=== PATIENT | male | born 1945 | race African-American/Black ===

== ENCOUNTER 2016-10-12 11:59 | Inpatient (IN) | payer OTHER ==
--- NOTE | 2016-10-12 12:02 | PDOC ---
[id number] Limitations: No Limitations - History of Present Illness Initial Comments: 10/12/16 12:15 The patient is a 71 year old male, with a significant past medical history of hypertension, COPD, GERD, ESRD (on dialysis Tuesday//Tuesday) and generalized epilepsy, who presents to the emergency department via EMS from [facility] in respiratory distress. prison records report that the patient was found to be short of breath this morning. The patient was subsequently given an Albuterol treatment at approximately 11AM, with no relief of symptoms. EMS was then initiated to bring the patient to the ED. prison records indicate that the patient last received dialysis 3 days ago and and was scheduled for dialysis this morning but was unable to receive it as he is currently in the ED. EMS placed the patient on a nonrebreather en route to the ED. Upon arrival to the ED, the patient is endorsing shortness of breath. The patient is a poor historian; the majority of history is provided by care home records and EMS. Allergies: None reported. Past Surgical History: Dialysis shunt. Social History: Unknown. PCP: Dr. Gayla Gerard <Nyaeli Fong - Last Filed: 10/12/16 13:26> <Bethany Doss - Last Filed: 10/12/16 15:53> - General Chief Complaint: Respiratory Stated Complaint: SHORTNESS OF BREATH Time Seen by Provider: 10/12/16 12:01 Past History <Nayeli Fong - Last Filed: 10/12/16 13:26> <Bethany Doss - Last Filed: 10/12/16 15:53> - Past Medical History Allergies/Adverse Reactions: Allergies Allergy/AdvReac Type Severity Reaction Status Date / Time No Known Allergies Allergy Verified 10/12/16 12:00 Home Medications: Ambulatory Orders Acetaminophen 650 mg PO Q6H PRN 10/12/16 Albuterol 0.083% Nebulizer Camryn [Ventolin 0.083%] 1 neb NEB QID 10/12/16 Amiodarone HCl 200 mg PO DAILY 10/12/16 Amlodipine Besylate 10 mg PO DAILY 10/12/16 Apixaban [Eliquis] 5 mg PO BID 10/12/16 Calcitriol [Rocaltrol -] 0.25 mcg PO DAILY 10/12/16 Famotidine 20 mg PO BID 10/12/16 Haloperidol 0.5 mg PO TID 10/12/16 Hydralazine HCl [Apresoline -] 25 mg PO TID 10/12/16 Ipratropium 0.02% Nebulizer [Atrovent *Nebulizer*] 0.5 mg IH Q6H 10/12/16 Perphenazine 6 mg PO BID 10/12/16 Vitamin B Comp W-C [Nephro-Juana] 1 ea PO DAILY 10/12/16 Review of Systems - Review of Systems Able to Perform ROS?: Yes Comments:: 10/12/16 12:15 GENERAL/CONSTITUTIONAL: No fever or chills. No weakness. HEAD, EYES, EARS, NOSE AND THROAT: No change in vision. No ear pain or discharge. No sore throat. CARDIOVASCULAR: +Shortness of breath. No chest pain. RESPIRATORY: No cough, wheezing, or hemoptysis. GASTROINTESTINAL: No nausea, vomiting, diarrhea or constipation. GENITOURINARY: No dysuria, frequency, or change in urination. MUSCULOSKELETAL: No joint or muscle swelling or pain. No neck or back pain. SKIN: No rash. NEUROLOGIC: No headache, vertigo, loss of consciousness, or change in strength/ sensation. ENDOCRINE: No increased thirst. No abnormal weight change. HEMATOLOGIC/LYMPHATIC: No anemia, easy bleeding, or history of blood clots. ALLERGIC/IMMUNOLOGIC: No hives or skin allergy. <Nayeli Fong - Last Filed: 10/12/16 13:26> *Physical Exam - Vital Signs Last Vital Signs Temp Pulse Resp BP Pulse Ox 85 26 H 160/73 100 10/12/16 12:01 10/12/16 12:01 10/12/16 12:01 10/12/16 12:01 <Nayeli Fong - Last Filed: 10/12/16 13:26> - Physical Exam Comments: GENERAL: Awake, alert, and fully oriented, in respiratory distress. HEAD: No signs of trauma EYES: PERRLA, EOMI, sclera anicteric, conjunctiva +chemosis. +Periorbital edema. ENT: Auricles normal inspection, hearing grossly normal, nares patent, oropharynx clear without exudates. Moist mucosa NECK: Normal ROM, supple, no lymphadenopathy, JVD, or masses LUNGS: +Diffuse rales. Dec BS R base. HEART: Regular rate and rhythm, normal S1 and S2, no murmurs, rubs or gallops ABDOMEN: Soft, nontender, normoactive bowel sounds. No guarding, no rebound. No masses EXTREMITIES: LUE with 2+ edema. Remainder of extremities with normal range of motion, no edema. No clubbing or cyanosis. No cords, erythema, or tenderness NEUROLOGICAL: Cranial nerves II through XII grossly intact. Garbled speech. Motor and sensation intact. SKIN: Warm, Dry, normal turgor, no rashes or lesions noted. <Bethany Doss - Last Filed: 10/12/16 15:53> Procedures - Intubation Time of Intubation: 13:40 Intubation Method: orotracheal Blade used: Mac (4) Tube Size (Fr): 7.5 Medications: Etomidate, Succinylcholine Tube position @ lip (cm): 23 Tube position confirmed by: Direct visualization, CO2 detector, Chest x-ray, Breath sounds Breath Sounds after Intubation: equal Intubation Complications: no complications Post Intubation Xray: Yes <Bethany Doss - Last Filed: 10/12/16 15:53> ED Treatment Course - LABORATORY CBC & Chemistry Diagram: 10/12/16 12:15 10/12/16 12:15 <Nayeli Fong - Last Filed: 10/12/16 13:26> - LABORATORY CBC & Chemistry Diagram: 10/12/16 12:15 10/12/16 12:15 <Bethany Doss - Last Filed: 10/12/16 15:53> Medical Decision Making - Medical Decision Making 10/12/16 13:12 EXAM: RAD/CHEST X-RAY PORTABLE Reviewed By: Dr. Robert Leo IMPRESSION: Left sided catheter. Moderately large right effusion. Case discussed with Dr. Viji Stokes at 13:08. <Nayeli Fong - Last Filed: 10/12/16 13:26> - Critical Care Time Total Critical Care Time (minutes): 45 Critical Care Statement: The care of this patient involved high complexity decision making to prevent further life threatening deterioration of the patient 's condition and/or to evalute & treat vital organ system(s) failure or risk of failure. - Medical Decision Making 10/12/16 13:09 D/w Dr. Stokes. Pt with history of dementia, ESRD on HD. He frequently refuses his dialysis treatments, and despite the dementia, they are unable to proceed, as he becomes combative and aggressive at times. He was scheduled for HD this morning, but became acutely short of breath and could not go, was transferred to ED. Exam on arrival showed respiratory distress with edema to the face. His voice was garbled, raising concern for vocal cord edema. Will admit. I will discuss with Dr. Banks for ICU approval. Dr. Maciel is en route. 10/12/16 13:40 PT intubated for concern of laryngeal edema. Noted to have mild edema of the cords on direct visualization. Intubated without any complications. Will transfer to ICU. <Bethany Doss - Last Filed: 10/12/16 15:53> *DC/Admit/Observation/Transfer - Attestations Scribe Attestion: 10/12/16 12:15 Documentation prepared by Nayeli Fong, acting as medical instrument technician for Bethany Doss MD. <Nayeli Fong - Last Filed: 10/12/16 13:26> - Discharge Dispostion Admit: Yes <Bethany Doss - Last Filed: 10/12/16 15:53> Diagnosis at time of Disposition: Hyperkalemia Hypothermia Qualifiers: Encounter type: initial encounter Qualified Code(s): T68.XXXA - Hypothermia, initial encounter Sepsis Qualifiers: Sepsis type: sepsis due to unspecified organism Qualified Code(s): A41.9 - Sepsis, unspecified organism Fluid overload Qualifiers: Hypervolemia type: unspecified Qualified Code(s): E87.70 - Fluid overload, unspecified - Discharge Dispostion Condition at time of disposition: Critical - Referrals
[2016-10-12 12:34] LABS: BASOPHIL 0.3 % (0-2.0); EOSINOPHIL 0.3 % (0-4.5); MCH 28.2 pg (25.7-33.7); MCHC 32.5 g/dl (32.0-35.9); MEAN PLT VOLUME 9.3 fl (7.5-11.1); NEUTROPHILS 93.5 % (42.8-82.8); RDW 26.9 % (11.9-15.9); WHITE BLOOD COUNT 8.6 K/mm3 (4.0-10.0)
[2016-10-12 12:46] LABS: VENOUS BLOOD GAS HCO3 24.2 meq/L (19-25)
[2016-10-12 12:47] LABS: VENOUS PH 7.21 (7.32-7.42)
[2016-10-12] MEDS ORDERED: PIPERACILLIN/TAZOB 3.375 GM 3.375 GM in DEXTROSE 5%-WATER - 50 ML IVPB ONE (12:51)
[2016-10-12] MEDS ORDERED: VANCOMYCIN 1,000 MG in DEXTROSE 5%-WATER - 250 ML IVPB ONE (12:51)
[2016-10-12 12:53] LABS: ALBUMIN 2.7 g/dl (3.4-5.0); ANION GAP 12 (8-16); BILIRUBIN,TOTAL 0.4 mg/dL (0.2-1.0); CALCIUM 8.2 mg/dL (8.5-10.1); CO2 24 mmol/L (21-32); COCKROFT - GAULT 11.29; CREATININE 5.3 mg/dL (0.7-1.3); GLUCOSE,RANDOM 81 mg/dL (74-106); SGPT/ALT 36 U/L (12-78)
[2016-10-12 12:56] LABS: ALK PHOS 158 U/L (45-117); SGOT/AST 50 U/L (15-37); TROPONIN I < 0.02 ng/ml (0.00-0.05)
[2016-10-12] MEDS ORDERED: PIPERACILLIN/TAZOB 3.375 GM 50 ML IVPB ONE (12:56)
[2016-10-12] MEDS ORDERED: VANCOMYCIN 1 GRAM (PRE-DOCKED) 250 ML IVPB ONE (12:56)
[2016-10-12 13:02] LABS: INR 1.2 (0.82-1.09); PROTHROMBIN TIME (PATIENT) 13.3 SEC (9.98-11.88)
--- NOTE | 2016-10-12 13:11 | HP ---
Admitting History and Physical - Primary Care Physician PCP: Gayla Gerard - Admission Chief Complaint: respiratory failure History of Present Illness: 71 yrs old male sent from [facility] for respiratory distress. PMH- ESRD on HD, Dementia, agitation, known to refuse treatments and dialysis, h /o cardiac arrest in 08/27, Rt subclavian DVT , Atrial flutter. Pt 's last dialysis was Tuesday , he was due for dialysis today but became very SOB. He is lethargic. Unsure if he had completed dialysis last Tuesday. Pt seen and examined in ER Spoke with Dr Doss. Pt on BIPAP-- breathing appears to be more shallow. History Source: Medical Record Limitations to Obtaining History: Other (lethargy, SOB , on BIPAP) - Past Medical History TOWER DIRECTOR: Yes: Dementia Cardiovascular: Yes: CAD (h/o cardiac arrest 08/2016), HTN, Other (Atrial flutter ) Renal/: Yes: Other (ESRD on HD) Heme/Onc: Yes: Other (Rt subclavian DVT) Psych: Yes: Schizophrenia, Other (dementia) - Smoking History Smoking history: Unknown if ever smoked - Alcohol/Substance Use Hx Alcohol Use: No Home Medications - Allergies Allergies/Adverse Reactions: Allergies Allergy/AdvReac Type Severity Reaction Status Date / Time No Known Allergies Allergy Verified 10/12/16 12:00 - Home Medications Home Medications: Ambulatory Orders Acetaminophen 650 mg PO Q6H PRN 10/12/16 Albuterol 0.083% Nebulizer Camryn [Ventolin 0.083%] 1 neb NEB QID 10/12/16 Amiodarone HCl 200 mg PO DAILY 10/12/16 Amlodipine Besylate 10 mg PO DAILY 10/12/16 Apixaban [Eliquis] 5 mg PO BID 10/12/16 Calcitriol [Rocaltrol -] 0.25 mcg PO DAILY 10/12/16 Famotidine 20 mg PO BID 10/12/16 Haloperidol 0.5 mg PO TID 10/12/16 Hydralazine HCl [Apresoline -] 25 mg PO TID 10/12/16 Ipratropium 0.02% Nebulizer [Atrovent *Nebulizer*] 0.5 mg IH Q6H 10/12/16 Perphenazine 6 mg PO BID 10/12/16 Vitamin B Comp W-C [Nephro-Juana] 1 ea PO DAILY 10/12/16 Review of Systems Unable to obtain ROS, reason: lethargic Physical Examination Vital Signs: Vital Signs Temperature 93.6 F L 10/12/16 12:41 Pulse Rate 81 10/12/16 12:41 Respiratory Rate 30 H 10/12/16 12:41 Blood Pressure 160/73 10/12/16 12:41 O2 Sat by Pulse Oximetry (%) 100 10/12/16 12:41 Constitutional: Yes: Severe Distress HENT: Yes: Other (facial edema, periorbital edema+) Cardiovascular: Yes: Regular Rate and Rhythm Respiratory: Yes: Diminished, Other (left permacath +) Gastrointestinal: Yes: Soft, Abdomen, Obese. No: Normal Bowel Sounds, Tenderness Extremities: Yes: Other (anasarca , left arm more swollwn than rt arm) Edema: Yes Neurological: Yes: Lethargy Labs: CBC, BMP 10/12/16 12:15 10/12/16 12:15 Imaging - Results Chest X-ray: Image Reviewed (large right pleural effusion) EKG: Image Reviewed (atrial flutter) Problem List - Problems (1) Hypothermia Code(s): T68.XXXA - HYPOTHERMIA, INITIAL ENCOUNTER Qualifiers: Encounter type: initial encounter Qualified Code(s): T68.XXXA - Hypothermia, initial encounter (2) Respiratory failure Code(s): J96.90 - RESPIRATORY FAILURE, UNSP, UNSP W HYPOXIA OR HYPERCAPNIA (3) Pleural effusion, right Code(s): J90 - PLEURAL EFFUSION, NOT ELSEWHERE CLASSIFIED (4) ESRD (end stage renal disease) on dialysis Code(s): N18.6 - END STAGE RENAL DISEASE Z99.2 - DEPENDENCE ON RENAL DIALYSIS (5) Dementia Code(s): F03.90 - UNSPECIFIED DEMENTIA WITHOUT BEHAVIORAL DISTURBANCE Assessment/Plan PLAN Received Zosyn and Vanco in ER Will continue with Zosyn Needs urgent intubation- spoke with ER attending Spoke with Renal-- pt will need to get dialysis cultures drawn may need steroids for hypothermia continue with anticoagulation through OGT DVT prophylaxis-- Eliquis Time spent 30 min
[2016-10-12 13:20] LABS: ANISOCYTOSIS 2+; FRAGMENTED CELL 1+; PLATELET COUNT 99 K/MM3 (134-434); PLATELET ESTIMATE DECREASED (NORMAL)
[2016-10-12] MEDS ORDERED: RAPID SEQUENCE INTUBATION KIT NR ONE (13:23)
[2016-10-12] MEDS ORDERED: SUCCINYLCHOLINE CHLORIDE 200 MG/10 ML VIAL IVPUSH ONE (13:41)
[2016-10-12] MEDS ORDERED: ETOMIDATE 40 MG/20 ML VIAL IVPUSH ONE (13:41)
[2016-10-12] MEDS ORDERED: PROPOFOL 100 ML ONE (13:59)
--- NOTE | 2016-10-12 15:06 | PN ---
Teaching Attending Note Name of Resident: Michelle Lopez ATTENDING PHYSICIAN STATEMENT I saw and evaluated the patient. I reviewed the resident's note and discussed the case with the resident. I agree with the resident's findings and plan as documented. SUBJECTIVE: Pt seen and examined in the ER. Briefly, 71 year old male with h/o HTN, COPD, GERD, ESRD on HD, seizure disorder, h/o DVT, atrial fibrillation on eliquis was [facility] the [facility] for [facility] distress. Pt altered, unable to provide further history. Was scheduled for HD today but did not receive it yet. Noted to have facial swelling in the ER with respiratory acidosis on VBG, subsequently intubated. Of note, laryngeal edema seen during intubation. OBJECTIVE: Last Vital Signs Temp Pulse Resp BP Pulse Ox 93.6 F L 81 12 160/73 100 10/12/16 12:41 10/12/16 12:41 10/12/16 13:45 10/12/16 12:41 10/12/16 12:41 Intake & Output 10/09/16 10/10/16 10/11/16 10/12/16 23:59 23:59 23:59 23:59 Weight 141 lb 12.8 oz Gen: intubated, sedated Heart: RRR Lung: decreased breath sounds at the bases Abd: soft, nontender Ext: no edema CBC, BMP 10/12/16 12:15 10/12/16 12:15 Active Medications Albuterol Sulfate (Ventolin 0.083% Nebulizer Soln -) 1 amp NEB QIDR MARLYN Propofol (Diprivan -) 100 mls @ 1.93 mls/hr IVPB TITR MARLYN; 5 MCG/KG/MIN PRN Reason: Protocol ASSESSMENT AND PLAN: Acute Hypoxic and Hypercapneic Respiratory Failure Airway/Facial Edema r/o SVC syndrome vs Volume Overload COPD Atrial Fibrillation HTN ESRD on HD Seizure Disorder - HD per renal with ultrafiltration - empiric decadron - will need imaging with contrast to r/o SVC syndrome, coordinate with HD - send cultures - inhaled bronchodilators - taper FiO2 to keep SpO2 >90% - rate controlled - continue anticoagulation - hold sedation in AM to assess mental status - spontaneous breathing trials as tolerated when mental status improved - will need leak test prior to extubation - DVT/GI prophylaxis - ICU monitoring Thank you for this consult Chuy Banks MD critical care time spent in reviewing chart, evaluating patient and formulating plan 40 min
[2016-10-12] MEDS: ALBUTEROL SO4 0.083% IH SOL 2.5 MG/3 ML VIAL.NEB. NEB SCH ×2 (16:12→17:34)
--- NOTE | 2016-10-12 16:25 | CONSULT ---
Consultation: REQUESTING PROVIDER: CONSULT REQUEST: We have been asked to medically evaluate this patient for (ICU) . HISTORY OF PRESENT ILLNESS: patient intubated, history taken from ED notes. 71 year old male, with a significant past medical history of hypertension, COPD , GERD, ESRD (on dialysis Tuesday//Tuesday) and generalized epilepsy, who presents to the emergency department via EMS from [facility] in respiratory distress. [facility] records report that the patient was found to be short of breath this morning. The patient was subsequently given an Albuterol treatment at approximately 11AM, with no relief of symptoms. patient last received dialysis 3 days ago and and was scheduled for dialysis this morning but was unable to receive. Upon arrival to the ED, the patient in Respiratory distress , s endorsing shortness of breath. The patient is a poor historian; the majority of history is provided by custodial records and EMS presents to ED Via [facility], Respratory distress respiratory acidosis on VBG, on physical exam facial swelling, laryngeal edema , subsequently intubated. Allergies: None reported. Past Surgical History: Dialysis shunt. Social History: Unknown. PCP: Dr. Gayla Gerard REVIEW OF SYSTEMS: can not obtain CONSTITUTIONAL: Absent: fever, chills, diaphoresis, generalized weakness, malaise, loss of appetite, weight change HEENT: Absent: rhinorrhea, nasal congestion, throat pain, throat swelling, difficulty swallowing, mouth swelling, ear pain, eye pain, visual changes CARDIOVASCULAR: Absent: chest pain, syncope, palpitations, irregular heart rate, lightheadedness , peripheral edema RESPIRATORY: Absent: cough, shortness of breath, dyspnea with exertion, orthopnea, wheezing, stridor, hemoptysis GASTROINTESTINAL: Absent: abdominal pain, abdominal distension, nausea, vomiting, diarrhea, constipation, melena, hematochezia GENITOURINARY: Absent: dysuria, frequency, urgency, hesitancy, hematuria, flank pain, genital pain MUSCULOSKELETAL: Absent: myalgia, arthralgia, joint swelling, back pain, neck pain SKIN: Absent: rash, itching, pallor HEMATOLOGIC/IMMUNOLOGIC: Absent: easy bleeding, easy bruising, lymphadenopathy, frequent infections ENDOCRINE: Absent: unexplained weight gain, unexplained weight loss, heat intolerance, cold intolerance NEUROLOGIC: Absent: headache, focal weakness or paresthesias, dizziness, unsteady gait, seizure, mental status changes, bladder or bowel incontinence PSYCHIATRIC: Absent: anxiety, depression, suicidal or homicidal ideation, hallucinations. PHYSICAL EXAMINATION Vital Signs - 24 hr 10/12/16 10/12/16 13:45 15:15 Temperature 94.6 F L Pulse Rate [ 74 65 Apical] Respiratory 20 16 Rate Blood Pressure 121/65 147/71 [Right] O2 Sat by Pulse 100 100 Oximetry (%) GENERAL:intubated and sedated HEAD: Normal with no signs of trauma. EYES: Pupils equal, round and reactive to light 3mm bilaterally, cornea reflex present. EARS, NOSE, THROAT: Ears normal, nares patent, oropharynx clear without exudates. Moist mucous membranes. NECK: supple without lymphadenopathy, JVD, or masses. LUNGS: distent breath sounds decreaed at bases, clear to auscultation bilaterally. No wheezes, and no crackles. No accessory muscle use. HEART: Regular rate and rhythm, normal S1 and S2 without murmur, rub or gallop. left cath inplace, no erythema, or discharge. ABDOMEN: Soft, nontender, not distended, normoactive bowel sounds, no guarding, no rebound, no masses. No hepatomegaly or splenomegaly. LOWER EXTREMITIES: 2+ pulses, warm, well-perfused. No calf tenderness. No peripheral edema. NEUROLOGICAL: intubated and sedated PSYCHIATRIC: intubated and sedated SKIN: Warm, dry, normal turgor, no rashes or lesions noted. Active Medications Generic Name Dose Route Start Last Admin Trade Name Freq PRN Reason Stop Dose Admin Albuterol Sulfate 1 amp 10/12/16 14:00 10/12/16 17:34 Ventolin 0.083% Nebulizer Soln - NEB 1 amp QIDR MARLYN Administration Amiodarone HCl 200 mg 10/12/16 18:30 Cordarone - PO DAILY MARLYN Amlodipine Besylate 10 mg 10/12/16 18:30 Norvasc - PO DAILY MARLYN Apixaban 5 mg 10/12/16 22:00 Eliquis - PO BID MARLYN Calcitriol 0.25 mcg 10/13/16 10:00 Rocaltrol - PO DAILY MARLYN Dexamethasone Sodium Phosphate 8 mg 10/12/16 18:30 Decadron Injection - IVPB Q8H-IV MARLYN Haloperidol 0.5 mg 10/12/16 22:00 Haldol - PO TID MARLYN Hydralazine HCl 25 mg 10/12/16 22:00 Apresoline - PO TID [facility] Propofol 100 mls @ 1.93 mls/hr 10/12/16 13:45 Diprivan - IVPB TITR [facility] Protocol 5 MCG/KG/MIN Ipratropium [place] amp 10/12/16 18:30 Atrovent 0.02% Nebulizer - NEB Q6H [facility] Multivit/Ca Carb/B Cmplx/FA/Prenat tablet 10/12/16 18:30 Nephro-Juana - PO DAILY [facility] Non-Formulary Medication 650 mg 10/12/16 18:25 Acetaminophen [Acetaminophen] PO Q6H PRN PAIN/TEMP Non-Formulary Medication 20 mg 10/12/16 22:00 Famotidine [Famotidine] PO BID [facility] Perphenazine 6 mg 10/12/16 22:00 Trilafon PO BID [facility] ASSESSMENT/PLAN: 71 year old male, with a significant past medical history of hypertension, COPD , GERD, ESRD (on dialysis Tuesday//Tuesday) and generalized epilepsy, who presents to the emergency department via EMS from [facility] in Respratory distress respiratory acidosis on VBG, on physical exam facial swelling, laryngeal edema, subsequently intubated. severe Sepsis: Hypothermia - send cultures - send cath cultures Acute Hypoxic and Hypercapneic Respiratory Failure- 2/2 pleural effusion - monitor pulse ox - taper FiO2 to keep SpO2 >90% - spontaneous breathing trials as tolerated when mental status improved - will need leak test prior to extubation - hold sedation in AM to assess mental status - CXR in am Airway/Facial Edema: unknown allergies -Decadron Injection -intubated to protect air way r/o SVC syndrome vs Volume Overload - will need imaging with contrast to r/o SVC syndrome, coordinate with HD - continue Eliquis - no IV access, once IV access is establish Dr. Lance will HD again tomorrow. COPD - inhaled bronchodilators Atrial Fibrillation- rate controlled cont home Amlodipine Besylate cont home Amiodarone HCl HTN for HD today will continue home Hydralazine HCl ESRD on HD: acute Fluid overload, hyperkalemia - HD per renal with ultrafiltration today - discussed with Dr. ly, Ok to HD via existing cath. - no IV access, once IV access is establish Dr. Lance will HD again tomorrow. Seizure Disorder: unsure of seizure history or medications status. I could not fined in medical chart. unable toiattain from patient. will attempt to atttain from PCP or pharmacy. Hyperkalemia HD today dementia: unaware of base line - DVT/GI prophylaxis: Eliquis/protonix - ICU monitoring Dispo: monitor in ICU Visit type - Emergency Visit Emergency Visit: Yes ED Registration Date: 10/12/16 Care time: The patient presented to the Emergency Department on the above date and was hospitalized for further evaluation of their emergent condition. - New Patient This patient is new to me today: Yes Date on this admission: 10/12/16 - Critical Care Critical Care patient: Yes Total Critical Care Time (in minutes): 56 Critical Care Statement: The care of this patient involved high complexity decision making to prevent further life threatening deterioration of the patient 's condition and/or to evalute & treat vital organ system(s) failure or risk of failure.
--- NOTE | 2016-10-12 18:06 | CONSULT ---
Consult Consult Specialty:: Nephrology Reason for Consultation:: ESRD on HD - History of Present Illness Chief Complaint: shortness of breath History of Present Illness: Pt is a 71 year old male with pmhx of HTN, COPD, ESRD TTS schedule, epilepsy and GERD who was sent to the hospital in respiratory distress. He developed worsening respiratory failure in the ER and required intubation. He was last dialyzed on Tuesday. I called HD unit to get details however they were closed. I was called to evaluate him for HD. Pt is was being intubated in the ER so he could not give much history. Pt is to be admitted to the ICU. - History Source History Provided By: Medical Record Limitations to Obtaining History: Clinical Condition - Past Medical History PARALEGALS: Yes: Dementia, Seizure Cardio/Vascular: Yes: HTN Pulmonary: Yes: COPD Gastrointestinal: Yes: GERD Renal/: Yes: Renal Failure, Hemodialysis Heme/Onc: Yes: Anemia - Alcohol/Substance Use Hx Alcohol Use: No - Smoking History Smoking history: Unknown if ever smoked Home Medications - Allergies Allergies/Adverse Reactions: Allergies Allergy/AdvReac Type Severity Reaction Status Date / Time No Known Allergies Allergy Verified 10/12/16 12:00 - Home Medications Home Medications: Ambulatory Orders Acetaminophen 650 mg PO Q6H PRN 10/12/16 Albuterol 0.083% Nebulizer Camryn [Ventolin 0.083%] 1 neb NEB QID 10/12/16 Amiodarone HCl 200 mg PO DAILY 10/12/16 Amlodipine Besylate 10 mg PO DAILY 10/12/16 Apixaban [Eliquis] 5 mg PO BID 10/12/16 Calcitriol [Rocaltrol -] 0.25 mcg PO DAILY 10/12/16 Famotidine 20 mg PO BID 10/12/16 Haloperidol 0.5 mg PO TID 10/12/16 Hydralazine HCl [Apresoline -] 25 mg PO TID 10/12/16 Ipratropium 0.02% Nebulizer [Atrovent *Nebulizer*] 0.5 mg IH Q6H 10/12/16 Perphenazine 6 mg PO BID 10/12/16 Vitamin B Comp W-C [Nephro-Juana] 1 ea PO DAILY 10/12/16 Family Disease History - Family Disease History Family History: Unable to Obtain Review of Systems Unable to obtain ROS, reason: pt intubated Physical Exam Vital Signs: Vital Signs Temperature 94.6 F L 10/12/16 15:15 Pulse Rate 64 10/12/16 17:34 Respiratory Rate 12 10/12/16 17:34 Blood Pressure 147/71 10/12/16 15:15 O2 Sat by Pulse Oximetry (%) 100 10/12/16 17:34 Constitutional: Yes: Anxious Eyes: Yes: Other (edema) HENT: Yes: Atraumatic Cardiovascular: Yes: Tachycardia, S1, S2 Respiratory: Yes: Mechanically Ventilated Gastrointestinal: Yes: Soft Renal/: Yes: Incontinence Musculoskeletal: Yes: Muscle Weakness Extremities: Yes: Other (left arm fistula) Edema: Yes Edema: LUE: 2+, RUE: 2+, LLE: 1+, RLE: 1+ Neurological: Yes: Confusion Psychiatric: Yes: Agitated Labs: Laboratory Tests 10/12/16 10/12/16 10/12/16 12:15 12:15 12:30 WBC 8.6 Hgb 8.0 L Plt Count 99 L VBG pH POC VBG pCO2 Sodium 131 L Potassium 5.8 H Chloride 95 L Carbon Dioxide 24 Anion Gap 12 BUN 56 H Creatinine 5.3 H Creat Clearance w eGFR 10.69 Lactic Acid 0.816 Calcium 8.2 L Creatine Kinase 112 Troponin I < 0.02 Albumin 2.7 L 10/12/16 10/12/16 12:45 14:21 WBC Hgb Plt Count VBG pH 7.21 L* POC VBG pCO2 62.3 H* Sodium Potassium Chloride Carbon Dioxide Anion Gap BUN Creatinine Creat Clearance w eGFR Lactic Acid 1.102 Calcium Creatine Kinase Troponin I Albumin Imaging - Results Chest X-ray: Report Reviewed Assessment/Plan Current Medications Generic Name Dose Route Start Last Admin Trade Name Freq PRN Reason Stop Dose Admin Albuterol Sulfate 1 amp 10/12/16 14:00 10/12/16 17:34 Ventolin 0.083% Nebulizer Soln - NEB 1 amp QIDR MARLYN Administration Epoetin Tyson 4,000 units 10/12/16 18:15 Epogen - IVPUSH 10/12/16 18:16 ONCE ONE Propofol 100 mls @ 1.93 mls/hr 10/12/16 13:45 Diprivan - IVPB TITR MARLYN Protocol 5 MCG/KG/MIN Impression 1. ESRD 2. hyperkalemia 3. dementia 4. acute hypoxic respiratory failure 5. pleural effusion 6. a-fib 7. epilepsy 8. hx COPD 9. anemia 10. airway and facial edema Plan - will arrange for HD today for volume removal and treatment of hyperkalemia - discussed with ICU team, pt going for ct scan with contrast to evaluate for SVC syndrome - cont vent support - repeat cxr in am - monitor blood pressure - will call HD unit again tomorrow to get more data bout outpt status - agree with admission to the ICU - monitor pulse ox - will follow closely Dr Maciel
[2016-10-12] MEDS ORDERED: EPOETIN ALFA 2,000 UNITS/1 ML VIAL IVPUSH ONE (18:15)
[2016-10-12] MEDS ORDERED: ACETAMINOPHEN 650 MG PO PRN (18:25)
[2016-10-12] MEDS ORDERED: ACETAMINOPHEN 325 MG TABLET (FP) PO PRN (18:39)
[2016-10-12] MEDS: IPRATROPIUM BR 0.02% 0.5 MG/2.5 ML VIAL.NEB. NEB SCH (18:52)
[2016-10-12] MEDS: PROPOFOL 100 ML IVPB SCH (19:00)
[2016-10-12 19:18] LABS: ALLENS TEST POSITIVE; ARTERIAL BLD GAS O2 SATURATION 97.3 % (90-98.9); ARTERIAL BLOOD GAS BASE EXCESS -0.1 meq/l (-2-2); ARTERIAL BLOOD GAS HCO3 23.6 meq/L (22-26); ARTERIAL BLOOD GAS pH 7.43 (7.35-7.45)
[2016-10-12 19:19] LABS: ART PUNCT SITE RIGHT RADIAL; LPM/O2% 60%; MECH. VENT. YES; PT. ON O2? YES; TYPE OF O2 MECH VENT; VENT RATE 12; VT/PRESS 500
[2016-10-12] MEDS ORDERED: DOPAMINE 400 MG/D5W - 250 ML IVPB ONE (19:48)
[2016-10-12] MEDS: hydrALAZINE HCL 25 MG TABLET (FP) PO SCH (21:41)
[2016-10-12] MEDS: amLODIPine BESYLATE 10 MG TABLET (FP) PO SCH (21:45)
[2016-10-12] MEDS: VITAMIN B COMP W-C 1 EA TABLET PO SCH (21:46)
[2016-10-12] MEDS: RANITIDINE HCL 150 MG TABLET (FP) PO SCH (22:00)
[2016-10-12] MEDS ORDERED: PATIENT'S OWN MEDICATION (NON-FORMULARY) (Famotidine [Famotidine] 20 MG) PO SCH (22:00)
--- NOTE | 2016-10-12 22:18 | EKG ---
Test Reason : Blood Pressure : / mmHG Vent. Rate : 063 BPM Atrial Rate : 063 BPM P-R Int : 170 ms QRS Dur : 100 ms QT Int : 456 ms P-R-T Axes : 033 063 -53 degrees QTc Int : 466 ms NORMAL SINUS RHYTHM NONSPECIFIC T WAVE ABNORMALITY PROLONGED QT ABNORMAL ECG NO PREVIOUS ECGS AVAILABLE Confirmed by ROWAN CM, FELIPE ([id number]) on 10/12/2016 10:18:13 PM Referred By: Confirmed By:FELIPE DONAHUE MD
[2016-10-12] MEDS: PANTOPRAZOLE SODIUM 100 ML IVPB SCH (22:45)
[2016-10-12] MEDS: DEXAMETHASONE SOD PHOSPHATE 10 MG/1 ML VIAL IVPB SCH (22:45)
[2016-10-12] MEDS: PERPHENAZINE 2 MG TABLET PO SCH (22:46)
[2016-10-12] MEDS: APIXABAN 5 MG TABLET PO SCH (22:46)
[2016-10-12] MEDS: HALOPERIDOL 0.5 MG TABLET PO SCH (22:46)
[2016-10-12] MEDS: AMIODARONE HCL 200 MG TABLET (FP) PO SCH (23:00)
[2016-10-13] MEDS: ALBUTEROL SO4 0.083% IH SOL 2.5 MG/3 ML VIAL.NEB. NEB SCH ×4 (00:30→17:27)
[2016-10-13] MEDS: IPRATROPIUM BR 0.02% 0.5 MG/2.5 ML VIAL.NEB. NEB SCH ×4 (00:30→17:27)
[2016-10-13] MEDS: DEXAMETHASONE SOD PHOSPHATE 10 MG/1 ML VIAL IVPB SCH ×3 (05:10→21:58)
[2016-10-13] MEDS: HALOPERIDOL 0.5 MG TABLET PO SCH ×3 (06:00→21:58)
[2016-10-13 06:09] LABS: MCH 28.2 pg (25.7-33.7); MCHC 32.4 g/dl (32.0-35.9); MEAN CELL VOLUME 87.1 fl (80-96); MEAN PLT VOLUME 9.1 fl (7.5-11.1); PLATELET COUNT 55 K/MM3 (134-434); WHITE BLOOD COUNT 4.1 K/mm3 (4.0-10.0)
[2016-10-13 06:34] LABS: ALBUMIN 2.8 g/dl (3.4-5.0); BILIRUBIN,TOTAL 0.4 mg/dL (0.2-1.0); CREATININE 3.9 mg/dL (0.7-1.3); PHOSPHOROUS 4.1 mg/dL (2.5-4.9); TOT PROT 5.9 g/dl (6.4-8.2)
[2016-10-13 06:36] LABS: FERRITIN 892.663 ng/ml (16.4-293.9)
[2016-10-13 07:19] LABS: MCH 28.7 pg (25.7-33.7); MCHC 32.9 g/dl (32.0-35.9); MEAN CELL VOLUME 87.3 fl (80-96); MEAN PLT VOLUME 8.8 fl (7.5-11.1); PLATELET COUNT 53 K/MM3 (134-434); RDW 26.8 % (11.9-15.9)
--- NOTE | 2016-10-13 07:47 | PN ---
Physical Exam: SUBJECTIVE: Patient seen and examined at bed side. s/p extubated, AAOx3. patient reports being hungry. over night BP decreased with start of HD, than normalized and stabilized with 500 cc IVNS. no line for pressors. hypothermia 95.4--> cooling blanket. for 2 units PRBC IV contrast Ct today s/p HD yesterday, HD today Facial swelling improved. History of gastric ulcer with hemorrhage per custodial documents. OBJECTIVE: Vital Signs Period Temp Pulse Resp BP Sys/Tripltet Pulse Ox Last 24 Hr 93.4 F-98 F 59-85 12-20 81-147/39-71 100-100 GENERAL: The patient is awake, alert, and oriented to person and place when prompted, NAD HEAD: Normal with no signs of trauma. large JAW. Facial swelling improved. EYES: extraocular movements intact, sclera anicteric, conjunctiva clear. ENT: Ears normal, nares patent, oropharynx clear without exudates, moist mucous membranes. NECK: Trachea midline, full range of motion, supple. LUNGS: Breath sounds equal, clear to auscultation bilaterally, no wheezes, no crackles, no accessory muscle use. HEART: Regular rate and rhythm, S1, S2 without murmur, rub or gallop. ABDOMEN: Soft, nontender, nondistended, normoactive bowel sounds, no guarding, no rebound, no hepatosplenomegaly, no masses. EXTREMITIES: 2+ pulses, warm, well-perfused, no edema. NEUROLOGICAL: Cranial nerves II through XII grossly intact. Normal speech, gait not observed. PSYCH: Normal mood, normal affect. SKIN: Warm, dry, normal turgor, no rashes or lesions noted Laboratory Results - last 24 hr 10/12/16 10/12/16 10/12/16 14:21 18:37 19:00 WBC RBC Hgb Hct MCV MCHC RDW Plt Count MPV Neutrophils % Lymphocytes % Retic Count Puncture Site ABG pH ABG pCO2 at Pt Temp ABG pO2 at Pt Temp ABG HCO3 ABG O2 Sat (Measured) ABG O2 Content ABG Base Excess Demetris Test O2 Delivery Device Oxygen Flow Rate Vent Mode Vent Rate Mechanical Rate PEEP Pressure Support Vent Sodium Potassium Chloride Carbon Dioxide Anion Gap BUN Creatinine Creat Clearance w eGFR POC Glucometer Random Glucose Lactic Acid 1.102 0.674 Calcium Phosphorus Magnesium Ferritin Total Bilirubin AST ALT Alkaline Phosphatase Total Protein Albumin Hepatitis C Antibody Cancelled 10/12/16 10/12/16 10/13/16 19:07 20:04 05:15 WBC 4.1 D RBC 2.06 L D Hgb 5.8 L* D Hct 17.9 L D MCV 87.1 MCHC 32.4 RDW 27.0 H Plt Count 55 L D MPV 9.1 Neutrophils % Y Lymphocytes % Y Retic Count 3.71 H Puncture Site Right radial ABG pH 7.43 ABG pCO2 at Pt Temp 36.6 ABG pO2 at Pt Temp 263.0 H* ABG HCO3 23.6 ABG O2 Sat (Measured) 97.3 ABG O2 Content 9.4 L* ABG Base Excess -0.1 Demetris Test Positive O2 Delivery Device Mech vent Oxygen Flow Rate 60% Vent Mode A/c Vent Rate 12 Mechanical Rate Yes PEEP 5.0 Pressure Support Vent 500 Sodium Potassium Chloride Carbon Dioxide Anion Gap BUN Creatinine Creat Clearance w eGFR POC Glucometer [id number] Random Glucose Lactic Acid Calcium Phosphorus Magnesium Ferritin Total Bilirubin AST ALT Alkaline Phosphatase Total Protein Albumin Hepatitis C Antibody 10/13/16 10/13/16 10/13/16 05:15 05:15 06:45 WBC 4.0 RBC 2.14 L Hgb 6.2 L* Hct 18.7 L MCV 87.3 MCHC 32.9 RDW 26.8 H Plt Count 53 L MPV 8.8 Neutrophils % Lymphocytes % Retic Count Puncture Site ABG pH ABG pCO2 at Pt Temp ABG pO2 at Pt Temp ABG HCO3 ABG O2 Sat (Measured) ABG O2 Content ABG Base Excess Demetris Test O2 Delivery Device Oxygen Flow Rate Vent Mode Vent Rate Mechanical Rate PEEP Pressure Support Vent Sodium 139 Potassium 4.4 D Chloride 101 Carbon Dioxide 28 Anion Gap 10 BUN 36 H D Creatinine 3.9 H D Creat Clearance w eGFR 15.23 POC Glucometer Random Glucose 71 L Lactic Acid 0.777 Calcium 8.0 L Phosphorus 4.1 Magnesium 2.0 Ferritin 892.663 H Total Bilirubin 0.4 AST 16 D ALT 23 D Alkaline Phosphatase 112 D Total Protein 5.9 L Albumin 2.8 L Hepatitis C Antibody Active Medications Generic Name Dose Route Start Last Admin Trade Name Freq PRN Reason Stop Dose Admin Acetaminophen 650 mg 10/12/16 18:39 Tylenol - PO Q4H PRN FEVER OR PAIN Albuterol Sulfate 1 amp 10/12/16 14:00 10/13/16 05:55 Ventolin 0.083% Nebulizer Soln - NEB 1 amp QIDR MARLYN Administration Amiodarone HCl 200 mg 10/12/16 18:30 10/12/16 23:00 Cordarone - PO 200 mg DAILY MARLYN Administration Amlodipine Besylate 10 mg 10/12/16 18:30 10/12/16 21:45 Norvasc - PO Not Given DAILY MARLYN Apixaban 5 mg 10/12/16 22:00 10/12/16 22:46 Eliquis - PO 5 mg BID MARLYN Administration Calcitriol 0.25 mcg 10/13/16 10:00 Rocaltrol - PO DAILY MARLYN Dexamethasone Sodium Phosphate 8 mg 10/12/16 18:30 10/13/16 05:10 Decadron Injection - IVPB 8 mg Q8H-IV MARLYN Administration Haloperidol 0.5 mg 10/12/16 22:00 10/12/16 22:46 Haldol - PO 0.5 mg TID MARLYN Administration Hydralazine HCl 25 mg 10/12/16 22:00 10/12/16 21:41 Apresoline - PO Not Given TID MARLYN Propofol 100 mls @ 1.93 mls/hr 10/12/16 13:45 10/12/16 19:00 Diprivan - IVPB 1.93 mls/hr TITR MARLYN Administration Protocol 5 MCG/KG/MIN Pantoprazole Sodium 100 mls @ 200 mls/hr 10/12/16 19:00 10/12/16 22:45 Protonix 40mg Ivpb (Pre-Docked) IVPB 200 mls/hr DAILY MARLYN Administration Ipratropium [place] 1 amp 10/12/16 18:45 10/13/16 05:55 Atrovent 0.02% Nebulizer - NEB 1 amp Q6HPO MARLYN Administration Multivit/Ca Carb/B Cmplx/FA/Prenat 1 tablet 10/12/16 18:30 10/12/16 21:46 Nephro-Juana - PO Not Given DAILY MARLYN Perphenazine 6 mg 10/12/16 22:00 10/12/16 22:46 Trilafon PO 6 mg BID MARLYN Administration Ranitidine HCl 150 mg 10/12/16 22:00 10/12/16 22:00 Zantac - PO Not Given BID [facility] ASSESSMENT/PLAN: 71 year old male, with a significant past medical history of hypertension, GI bleed secodary to ulcers, COPD, GERD, ESRD (on dialysis Tuesday// Tuesday) and generalized epilepsy, who presents to the emergency department via EMS from [facility] in Respratory distress respiratory acidosis on VBG, on physical exam facial swelling, laryngeal edema, subsequently intubated. severe Sepsis: Hypothermia resolved -f/u bcx, Ucx, cath cultures Acute Hypoxic and Hypercapneic Respiratory Failure- 2/2 pleural effusion - monitor pulse ox - taper FiO2 to keep SpO2 >90% - inhaled bronchodilators - spontaneous breathing trials as tolerated when mental status improved - will need leak test prior to extubation - hold sedation in AM to assess mental status - CXR in am - possible thoracentesis Anemia: possible secondary Upper GI bleed,( history of hemorrhagic ulcers) v sepsis v medication induced v Fe def anemai v ACD ordered 2 units of blood HD today occult blood d/c eliquist Airway/Facial Edema: unknown allergies: much improvement -decrease decadron to 6mg q12h -intubated to protect air way r/o SVC syndrome vs Volume Overload: less likely SVC as patient responded to HD and steriods - will not need ct contrast at this time. - will follow US upper Ext- continue Eliquis COPD - inhaled bronchodilators Atrial Fibrillation- rate controlled cont home Amlodipine Besylate cont home Amiodarone HCl hold anticoagulation due to anemia and possible thoracentesis HTN For HD today will continue home Hydralazine HCl ESRD on HD: acute Fluid overload, hyperkalemia - HD per renal with ultrafiltration today Seizure Disorder: unsure of seizure history or medications status. I could not fined in medical chart. unable toiattain from patient. will attempt to attain from PCP or pharmacy. Hyperkalemia HD today dementia: unaware of base line - DVT/GI prophylaxis: Eliquis/protonix - ICU monitoring - DVT/GI prophylaxis - SCD's/protnix Dispo: monitor in ICU Visit type - Emergency Visit Emergency Visit: Yes ED Registration Date: 10/12/16 Care time: The patient presented to the Emergency Department on the above date and was hospitalized for further evaluation of their emergent condition. - New Patient This patient is new to me today: No - Critical Care Critical Care patient: Yes Total Critical Care Time (in minutes): 53 Critical Care Statement: The care of this patient involved high complexity decision making to prevent further life threatening deterioration of the patient 's condition and/or to evalute & treat vital organ system(s) failure or risk of failure.
[2016-10-13 07:56] LABS: ALLENS TEST POSITIVE; ART PUNCT SITE RIGHT RADIAL; ARTERIAL BLD GAS O2 SATURATION 98.1 % (90-98.9); ARTERIAL BLOOD GAS BASE EXCESS 3.7 meq/l (-2-2); ARTERIAL BLOOD GAS HCO3 26.9 meq/L (22-26); LPM/O2% 35%; MECH. VENT. YES; PT'S TEMP 97.7; PT. ON O2? YES; TYPE OF O2 VENT; VENT RATE 12; VT/PRESS 500
--- NOTE | 2016-10-13 08:10 | PN ---
Progress Note, Physician Chief Complaint: ID Consult dictated and discussed with housestaff Given Marc and Marleen initially Hypotheramic anemic hypotensive - Current Medication List Current Medications: Active Medications Acetaminophen (Tylenol -) 650 mg PO Q4H PRN PRN Reason: FEVER OR PAIN Albuterol Sulfate (Ventolin 0.083% Nebulizer Soln -) 1 amp NEB QIDR [facility] Last Admin: 10/13/16 05:55 Dose: 1 amp Amiodarone HCl (Cordarone -) 200 mg PO DAILY [facility] Last Admin: 10/12/16 23:00 Dose: 200 mg Amlodipine Besylate (Norvasc -) 10 mg PO DAILY [facility] Last Admin: 10/12/16 21:45 Dose: Not Given Apixaban (Eliquis -) 5 mg PO BID [facility] Last Admin: 10/12/16 22:46 Dose: 5 mg Calcitriol (Rocaltrol -) 0.25 mcg PO DAILY [facility] Dexamethasone Sodium Phosphate (Decadron Injection -) 8 mg IVPB Q8H-IV [facility] Last Admin: 10/13/16 05:10 Dose: 8 mg Haloperidol (Haldol -) 0.5 mg PO TID [facility] Last Admin: 10/12/16 22:46 Dose: 0.5 mg Hydralazine HCl (Apresoline -) 25 mg PO TID [facility] Last Admin: 10/12/16 21:41 Dose: Not Given Propofol (Diprivan -) 100 mls @ 1.93 mls/hr IVPB TITR MARLYN; 5 MCG/KG/MIN PRN Reason: Protocol Last Admin: 10/12/16 19:00 Dose: 1.93 mls/hr Pantoprazole Sodium (Protonix 40mg Ivpb (Pre-Docked)) 100 mls @ 200 mls/hr IVPB DAILY [facility] Last Admin: 10/12/16 22:45 Dose: 200 mls/hr Ipratropium [place] (Atrovent 0.02% Nebulizer -) 1 amp NEB Q6HPO [facility] Last Admin: 10/13/16 05:55 Dose: 1 amp Multivit/Ca Carb/B Cmplx/FA/Prenat (Nephro-Juana -) 1 tablet PO DAILY [facility] Last Admin: 10/12/16 21:46 Dose: Not Given Perphenazine (Trilafon) 6 mg PO BID [facility] Last Admin: 10/12/16 22:46 Dose: 6 mg Ranitidine HCl (Zantac -) 150 mg PO BID [facility] Last Admin: 10/12/16 22:00 Dose: Not Given - Objective Vital Signs: Vital Signs Temperature 97.7 F 10/13/16 08:00 Pulse Rate 76 10/13/16 08:00 Respiratory Rate 12 10/13/16 08:00 Blood Pressure 119/65 10/13/16 08:00 O2 Sat by Pulse Oximetry (%) 100 10/12/16 21:00 Labs: CBC, BMP 10/13/16 06:45 10/13/16 05:15 INR, PTT INR 1.20 (0.82-1.09) H 10/12/16 12:15 Problem List - Problems (1) ESRD (end stage renal disease) on dialysis Code(s): N18.6 - END STAGE RENAL DISEASE Z99.2 - DEPENDENCE ON RENAL DIALYSIS (2) Fluid overload Code(s): E87.70 - FLUID OVERLOAD, UNSPECIFIED Qualifiers: Hypervolemia type: unspecified Qualified Code(s): E87.70 - Fluid overload, unspecified (3) Pleural effusion, right Code(s): J90 - PLEURAL EFFUSION, NOT ELSEWHERE CLASSIFIED (4) Sepsis Code(s): A41.9 - SEPSIS, UNSPECIFIED ORGANISM Qualifiers: Sepsis type: sepsis due to unspecified organism Qualified Code(s): A41.9 - Sepsis, unspecified organism Assessment/Plan Microbiology Laboratory Tests 10/12/16 10/12/16 10/13/16 14:21 18:37 05:15 WBC Hgb Plt Count Retic Count 3.71 H Lactic Acid 1.102 0.674 Random Vancomycin 10/13/16 10/13/16 06:45 06:45 WBC 4.0 Hgb 6.2 L* Plt Count 53 L Retic Count Lactic Acid Random Vancomycin Pending Assessment Sepsis syndrome considered Fluid overload Possible thrombus left arm Permacath Right pleural effusion Plan Empiric antibiotics pending c/s Duplex left arm Rand CM
[2016-10-13] MEDS: hydrALAZINE HCL 25 MG TABLET (FP) PO SCH ×3 (08:15→21:58)
--- NOTE | 2016-10-13 08:33 | PN ---
Physical Exam: SUBJECTIVE: Patient seen and examined. He is sedated and intubated. BP stable, hypothermia 95.4 last night. He is scheduled for HD today. OBJECTIVE: Vital Signs Period Temp Pulse Resp BP Sys/Triplett Pulse Ox Last 24 Hr 93.4 F-98 F 59-85 12-20 81-147/39-71 100-100 GENERAL: The patient is sedated, intubated, on ventilation. HEAD: Normal with no signs of trauma. EYES: PERRL, extraocular movements not assessed. ENT: Ears normal, nares patent moist mucous membranes, on vent. NECK: Trachea midline, full range of motion, supple. LUNGS: Breath sounds equal, clear to auscultation bilaterally, no wheezes, no crackles, no accessory muscle use. HEART: Regular rate and rhythm, S1, S2 without murmur, rub or gallop. ABDOMEN: Soft, nontender, nondistended, normoactive bowel sounds, no guarding, no rebound, no hepatosplenomegaly, no masses. EXTREMITIES: warm, no LE edema, LUE edema, no erythema, RUE no edema. NEUROLOGICAL: Sedated. PSYCH: Normal mood, normal affect. SKIN: Warm, dry, normal turgor, no rashes, permcath: left side of the chest. Laboratory Results - last 24 hr 10/12/16 10/12/16 10/12/16 14:21 18:37 19:00 WBC RBC Hgb Hct MCV MCHC RDW Plt Count MPV Neutrophils % Lymphocytes % Retic Count Puncture Site Patient Temperature ABG pH ABG pCO2 at Pt Temp ABG pO2 at Pt Temp ABG HCO3 ABG O2 Sat (Measured) ABG O2 Content ABG Base Excess Demetris Test O2 Delivery Device Oxygen Flow Rate Vent Mode Vent Rate Mechanical Rate PEEP Pressure Support Vent Sodium Potassium Chloride Carbon Dioxide Anion Gap BUN Creatinine Creat Clearance w eGFR POC Glucometer Random Glucose Lactic Acid 1.102 0.674 Calcium Phosphorus Magnesium Ferritin Total Bilirubin AST ALT Alkaline Phosphatase Total Protein Albumin Hepatitis C Antibody Cancelled Crossmatch 10/12/16 10/12/16 10/13/16 19:07 20:04 05:15 WBC 4.1 D RBC 2.06 L D Hgb 5.8 L* D Hct 17.9 L D MCV 87.1 MCHC 32.4 RDW 27.0 H Plt Count 55 L D MPV 9.1 Neutrophils % Y Lymphocytes % Y Retic Count 3.71 H Puncture Site Right radial Patient Temperature ABG pH 7.43 ABG pCO2 at Pt Temp 36.6 ABG pO2 at Pt Temp 263.0 H* ABG HCO3 23.6 ABG O2 Sat (Measured) 97.3 ABG O2 Content 9.4 L* ABG Base Excess -0.1 Demetris Test Positive O2 Delivery Device Mech vent Oxygen Flow Rate 60% Vent Mode A/c Vent Rate 12 Mechanical Rate Yes PEEP 5.0 Pressure Support Vent 500 Sodium Potassium Chloride Carbon Dioxide Anion Gap BUN Creatinine Creat Clearance w eGFR POC Glucometer [id number] Random Glucose Lactic Acid Calcium Phosphorus Magnesium Ferritin Total Bilirubin AST ALT Alkaline Phosphatase Total Protein Albumin Hepatitis C Antibody Crossmatch 10/13/16 10/13/16 10/13/16 05:15 05:15 06:45 WBC 4.0 RBC 2.14 L Hgb 6.2 L* Hct 18.7 L MCV 87.3 MCHC 32.9 RDW 26.8 H Plt Count 53 L MPV 8.8 Neutrophils % Lymphocytes % Retic Count Puncture Site Patient Temperature ABG pH ABG pCO2 at Pt Temp ABG pO2 at Pt Temp ABG HCO3 ABG O2 Sat (Measured) ABG O2 Content ABG Base Excess Demetris Test O2 Delivery Device Oxygen Flow Rate Vent Mode Vent Rate Mechanical Rate PEEP Pressure Support Vent Sodium 139 Potassium 4.4 D Chloride 101 Carbon Dioxide 28 Anion Gap 10 BUN 36 H D Creatinine 3.9 H D Creat Clearance w eGFR 15.23 POC Glucometer Random Glucose 71 L Lactic Acid 0.777 Calcium 8.0 L Phosphorus 4.1 Magnesium 2.0 Ferritin 892.663 H Total Bilirubin 0.4 AST 16 D ALT 23 D Alkaline Phosphatase 112 D Total Protein 5.9 L Albumin 2.8 L Hepatitis C Antibody Crossmatch 10/13/16 10/13/16 06:45 07:40 WBC RBC Hgb Hct MCV MCHC RDW Plt Count MPV Neutrophils % Lymphocytes % Retic Count Puncture Site Right radial Patient Temperature 97.7 ABG pH 7.50 H ABG pCO2 at Pt Temp 34.8 L ABG pO2 at Pt Temp 147.0 H D ABG HCO3 26.9 H ABG O2 Sat (Measured) 98.1 ABG O2 Content 7.9 L* ABG Base Excess 3.7 H Demetris Test Positive O2 Delivery Device Vent Oxygen Flow Rate 35% Vent Mode A/c Vent Rate 12 Mechanical Rate Yes PEEP 5.0 Pressure Support Vent 500 Sodium Potassium Chloride Carbon Dioxide Anion Gap BUN Creatinine Creat Clearance w eGFR POC Glucometer Random Glucose Lactic Acid Calcium Phosphorus Magnesium Ferritin Total Bilirubin AST ALT Alkaline Phosphatase Total Protein Albumin Hepatitis C Antibody Crossmatch See Detail Active Medications Generic Name Dose Route Start Last Admin Trade Name Freq PRN Reason Stop Dose Admin Acetaminophen 650 mg 10/12/16 18:39 Tylenol - PO Q4H PRN FEVER OR PAIN Albuterol Sulfate 1 amp 10/12/16 14:00 10/13/16 05:55 Ventolin 0.083% Nebulizer Soln - NEB 1 amp QIDR MARLYN Administration Amiodarone HCl 200 mg 10/12/16 18:30 10/12/16 23:00 Cordarone - PO 200 mg DAILY MARLYN Administration Amlodipine Besylate 10 mg 10/12/16 18:30 10/12/16 21:45 Norvasc - PO Not Given DAILY MARLYN Apixaban 5 mg 10/12/16 22:00 10/12/16 22:46 Eliquis - PO 5 mg BID MARLYN Administration Calcitriol 0.25 mcg 10/13/16 10:00 Rocaltrol - PO DAILY MAR[facility]N Dexamethasone Sodium Phosphate 8 mg 10/12/16 18:30 10/13/16 05:10 Decadron Injection - IVPB 8 mg Q8H-IV MARLYN Administration Haloperidol 0.5 mg 10/12/16 22:00 10/13/16 06:00 Haldol - PO 0.5 mg TID MARLYN Administration Hydralazine HCl 25 mg 10/12/16 22:00 10/13/16 08:15 Apresoline - PO Not Given TID MARLYN Propofol 100 mls @ 1.93 mls/hr 10/12/16 13:45 10/12/16 19:00 Diprivan - IVPB 1.93 mls/hr TITR MARLYN Administration Protocol 5 MCG/KG/MIN Pantoprazole Sodium 100 mls @ 200 mls/hr 10/12/16 19:00 10/12/16 22:45 Protonix 40mg Ivpb (Pre-Docked) IVPB 200 mls/hr DAILY MAR[facility]N Administration Ipratropium [place] 1 amp 10/12/16 18:45 10/13/16 05:55 Atrovent 0.02% Nebulizer - NEB 1 amp Q6HPO MARLYN Administration Multivit/Ca Carb/B Cmplx/FA/Prenat 1 tablet 10/12/16 18:30 10/12/16 21:46 Nephro-Juana - PO Not Given DAILY MARLYN Perphenazine 6 mg 10/12/16 22:00 10/12/16 22:46 Trilafon PO 6 mg BID MARLYN Administration Ranitidine HCl 150 mg 10/12/16 22:00 10/12/16 22:00 Zantac - PO Not Given BID MARLYN ASSESSMENT/PLAN: The patient is a 71 year old male, with a significant past medical history of hypertension, COPD, GERD, ESRD (on dialysis Tuesday//Tuesday) and generalized epilepsy, who presents to the emergency department via EMS from [facility] in respiratory distress. The pt is admitted to ICU for respiratory distress/Respiratory acidosis. Severe sepsis: -blood cultures are pending -catheter cultures pending -empiric antibiotics were given initially Vancomycin and Zosyn -right pleural effusion on CXR, not changed, we recommend to drain it -hold IVF due to possible fluid overload -sepsis ptrotocol initiated LUE swelling: -possible thrombus -will obtain US Acute Hypoxic and Hypercapneic Respiratory Failure Hypothermia Airway/Facial Edema/Volume Overload COPD Atrial Fibrillation HTN ESRD on HD Seizure Disorder Dementia Problem List - Problems (1) Dementia Code(s): F03.90 - UNSPECIFIED DEMENTIA WITHOUT BEHAVIORAL DISTURBANCE (2) ESRD (end stage renal disease) on dialysis Code(s): N18.6 - END STAGE RENAL DISEASE Z99.2 - DEPENDENCE ON RENAL DIALYSIS (3) Fluid overload Code(s): E87.70 - FLUID OVERLOAD, UNSPECIFIED Qualifiers: Hypervolemia type: unspecified Qualified Code(s): E87.70 - Fluid overload, unspecified (4) Pleural effusion, right Code(s): J90 - PLEURAL EFFUSION, NOT ELSEWHERE CLASSIFIED (5) Respiratory failure Code(s): J96.90 - RESPIRATORY FAILURE, UNSP, UNSP W HYPOXIA OR HYPERCAPNIA (6) Sepsis Code(s): A41.9 - SEPSIS, UNSPECIFIED ORGANISM Qualifiers: Sepsis type: sepsis due to unspecified organism Qualified Code(s): A41.9 - Sepsis, unspecified organism Visit type - Emergency Visit Emergency Visit: Yes ED Registration Date: 10/12/16 Care time: The patient presented to the Emergency Department on the above date and was hospitalized for further evaluation of their emergent condition. - New Patient This patient is new to me today: Yes Date on this admission: 10/13/16 - Critical Care Critical Care patient: Yes Total Critical Care Time (in minutes): 40 Critical Care Statement: The care of this patient involved high complexity decision making to prevent further life threatening deterioration of the patient 's condition and/or to evalute & treat vital organ system(s) failure or risk of failure.
[2016-10-13] MEDS ORDERED: PT OWN MED DRAWER 7, Y5N ONE ×2 (08:47→21:52)
[2016-10-13] MEDS: PANTOPRAZOLE SODIUM 100 ML IVPB SCH (09:04)
[2016-10-13] MEDS: AMIODARONE HCL 200 MG TABLET (FP) PO SCH (09:06)
[2016-10-13] MEDS: PERPHENAZINE 2 MG TABLET PO SCH ×2 (09:08→21:58)
[2016-10-13] MEDS: VITAMIN B COMP W-C 1 EA TABLET PO SCH (09:09)
--- NOTE | 2016-10-13 09:59 | PN ---
Progress Note, Physician Chief Complaint: intubated sedated had HD yesterday noted drop in HCT temp now 97.7F - Current Medication List Current Medications: Active Medications Acetaminophen (Tylenol -) 650 mg PO Q4H PRN PRN Reason: FEVER OR PAIN Albuterol Sulfate (Ventolin 0.083% Nebulizer Soln -) 1 amp NEB QIDR [facility] Last Admin: 10/13/16 05:55 Dose: 1 amp Amiodarone HCl (Cordarone -) 200 mg PO DAILY [facility] Last Admin: 10/13/16 09:06 Dose: 200 mg Amlodipine Besylate (Norvasc -) 10 mg PO DAILY [facility] Last Admin: 10/12/16 21:45 Dose: Not Given Apixaban (Eliquis -) 5 mg PO BID [facility] Last Admin: 10/12/16 22:46 Dose: 5 mg Calcitriol (Rocaltrol -) 0.25 mcg PO DAILY [facility] Dexamethasone Sodium Phosphate (Decadron Injection -) 8 mg IVPB Q8H-IV [facility] Last Admin: 10/13/16 09:07 Dose: 8 mg Haloperidol (Haldol -) 0.5 mg PO TID [facility] Last Admin: 10/13/16 06:00 Dose: 0.5 mg Hydralazine HCl (Apresoline -) 25 mg PO TID [facility] Last Admin: 10/13/16 08:15 Dose: Not Given Propofol (Diprivan -) 100 mls @ 1.93 mls/hr IVPB TITR MARLYN; 5 MCG/KG/MIN PRN Reason: Protocol Last Admin: 10/12/16 19:00 Dose: 1.93 mls/hr Pantoprazole Sodium (Protonix 40mg Ivpb (Pre-Docked)) 100 mls @ 200 mls/hr IVPB DAILY [facility] Last Admin: 10/13/16 09:04 Dose: 200 mls/hr Piperacillin Sod/Tazobactam Sod (Zosyn 2.25gm Ivpb (Pre-Docked)) 50 mls @ 100 mls/hr IVPB BID [facility] PRN Reason: Protocol Ipratropium [place] (Atrovent 0.02% Nebulizer -) 1 amp NEB Q6HPO [facility] Last Admin: 10/13/16 05:55 Dose: 1 amp Multivit/Ca Carb/B Cmplx/FA/Prenat (Nephro-Juana -) 1 tablet PO DAILY [facility] Last Admin: 10/13/16 09:09 Dose: 1 tablet Perphenazine (Trilafon) 6 mg PO BID [facility] Last Admin: 10/13/16 09:08 Dose: 6 mg Ranitidine HCl (Zantac -) 150 mg PO BID [facility] Last Admin: 10/12/16 22:00 Dose: Not Given - Objective Vital Signs: Vital Signs Temperature 97.7 F 10/13/16 08:00 Pulse Rate 76 10/13/16 08:00 Respiratory Rate 12 10/13/16 08:04 Blood Pressure 119/65 10/13/16 08:00 O2 Sat by Pulse Oximetry (%) 100 10/12/16 21:00 Constitutional: Yes: No Distress, Other (intubated) HENT: Yes: Other (facial edema decreased) Cardiovascular: Yes: Regular Rate and Rhythm Respiratory: Yes: Diminished Gastrointestinal: Yes: Normal Bowel Sounds, Soft. No: Distention, Tenderness Edema: Yes (left >> right ) Labs: CBC, BMP 10/13/16 06:45 10/13/16 05:15 INR, PTT INR 1.20 (0.82-1.09) H 10/12/16 12:15 Problem List - Problems (1) Hypothermia Code(s): T68.XXXA - HYPOTHERMIA, INITIAL ENCOUNTER Qualifiers: Encounter type: initial encounter Qualified Code(s): T68.XXXA - Hypothermia, initial encounter (2) Respiratory failure Code(s): J96.90 - RESPIRATORY FAILURE, UNSP, UNSP W HYPOXIA OR HYPERCAPNIA (3) Pleural effusion, right Code(s): J90 - PLEURAL EFFUSION, NOT ELSEWHERE CLASSIFIED (4) ESRD (end stage renal disease) on dialysis Code(s): N18.6 - END STAGE RENAL DISEASE Z99.2 - DEPENDENCE ON RENAL DIALYSIS (5) Dementia Code(s): F03.90 - UNSPECIFIED DEMENTIA WITHOUT BEHAVIORAL DISTURBANCE Assessment/Plan PLAN continue with Zosyn --cultures pending transfuse as needed on Decadron continue with anticoagulation through OGT pt has a loculated effusion- may need thoracentesis but he is on Eliquis- may need to consider discontinuing it as he is very anemic check stool guaic DVT prophylaxis-- Eliquis
[2016-10-13] MEDS ORDERED: VANCOMYCIN 1 GRAM (PRE-DOCKED) 250 ML IVPB ONE (10:30)
[2016-10-13] MEDS: CALCITRIOL 0.25 MCG CAPSULE (FP) PO SCH (11:00)
[2016-10-13] MEDS: RANITIDINE HCL 150 MG TABLET (FP) PO SCH (11:00)
[2016-10-13 11:38] LABS: ANISOCYTOSIS 3+; FRAGMENTED CELL 1+; HYPOCHROMIA 1+; MICROCYTOSIS 2+; PLATELET ESTIMATE DECREASED (NORMAL); TARGET CELLS 1+
--- NOTE | 2016-10-13 12:23 | PN ---
Progress Note, Physician History of Present Illness: Pt seen and examined at bedside. He is now awake. He tolerated HD last night. He remains intubated in the ICU. - Current Medication List Current Medications: Active Medications Acetaminophen (Tylenol -) 650 mg PO Q4H PRN PRN Reason: FEVER OR PAIN Albuterol Sulfate (Ventolin 0.083% Nebulizer Soln -) 1 amp NEB QIDR [facility] Last Admin: 10/13/16 05:55 Dose: 1 amp Amiodarone HCl (Cordarone -) 200 mg PO DAILY [facility] Last Admin: 10/13/16 09:06 Dose: 200 mg Amlodipine Besylate (Norvasc -) 10 mg PO DAILY [facility] Last Admin: 10/12/16 21:45 Dose: Not Given Apixaban (Eliquis -) 5 mg PO BID [facility] Last Admin: 10/12/16 22:46 Dose: 5 mg Calcitriol (Rocaltrol -) 0.25 mcg PO DAILY [facility] Last Admin: 10/13/16 11:00 Dose: 0.25 mcg Dexamethasone Sodium Phosphate (Decadron Injection -) 8 mg IVPB Q8H-IV [facility] Last Admin: 10/13/16 09:07 Dose: 8 mg Haloperidol (Haldol -) 0.5 mg PO TID [facility] Last Admin: 10/13/16 06:00 Dose: 0.5 mg Hydralazine HCl (Apresoline -) 25 mg PO TID [facility] Last Admin: 10/13/16 08:15 Dose: Not Given Propofol (Diprivan -) 100 mls @ 1.93 mls/hr IVPB TITR MARLYN; 5 MCG/KG/MIN PRN Reason: Protocol Last Admin: 10/12/16 19:00 Dose: 1.93 mls/hr Pantoprazole Sodium (Protonix 40mg Ivpb (Pre-Docked)) 100 mls @ 200 mls/hr IVPB DAILY [facility] Last Admin: 10/13/16 09:04 Dose: 200 mls/hr Piperacillin Sod/Tazobactam Sod (Zosyn 2.25gm Ivpb (Pre-Docked)) 50 mls @ 100 mls/hr IVPB BID [facility]N PRN Reason: Protocol Ipratropium [place] (Atrovent 0.02% Nebulizer -) 1 amp NEB Q6HPO [facility] Last Admin: 10/13/16 05:55 Dose: 1 amp Multivit/Ca Carb/B Cmplx/FA/Prenat (Nephro-Juana -) 1 tablet PO DAILY [facility] Last Admin: 10/13/16 09:09 Dose: 1 tablet Perphenazine (Trilafon) 6 mg PO BID [facility] Last Admin: 10/13/16 09:08 Dose: 6 mg - Objective Vital Signs: Vital Signs Temperature 97.7 F 10/13/16 08:00 Pulse Rate 70 10/13/16 10:33 Respiratory Rate 17 10/13/16 12:07 Blood Pressure 119/65 10/13/16 08:00 O2 Sat by Pulse Oximetry (%) 100 10/13/16 10:33 Constitutional: Yes: Calm Eyes: Yes: Conjunctiva Clear HENT: Yes: Atraumatic Neck: Yes: Supple Cardiovascular: Yes: S1, S2 Respiratory: Yes: Mechanically Ventilated Gastrointestinal: Yes: Soft Genitourinary: Yes: Incontinence Musculoskeletal: Yes: Muscle Weakness Edema: Yes Edema: LUE: 2+, RUE: 2+ Labs: CBC, BMP 10/13/16 06:45 10/13/16 05:15 INR, PTT INR 1.20 (0.82-1.09) H 10/12/16 12:15 Problem List - Problems (1) Dementia Code(s): F03.90 - UNSPECIFIED DEMENTIA WITHOUT BEHAVIORAL DISTURBANCE (2) ESRD (end stage renal disease) on dialysis Code(s): N18.6 - END STAGE RENAL DISEASE Z99.2 - DEPENDENCE ON RENAL DIALYSIS (3) Fluid overload Code(s): E87.70 - FLUID OVERLOAD, UNSPECIFIED Qualifiers: Hypervolemia type: unspecified Qualified Code(s): E87.70 - Fluid overload, unspecified (4) Hyperkalemia Code(s): E87.5 - HYPERKALEMIA (5) Respiratory failure Code(s): J96.90 - RESPIRATORY FAILURE, UNSP, UNSP W HYPOXIA OR HYPERCAPNIA Assessment/Plan Current Medications Generic Name Dose Route Start Last Admin Trade Name Freq PRN Reason Stop Dose Admin Acetaminophen 650 mg 10/12/16 18:39 Tylenol - PO Q4H PRN FEVER OR PAIN Albuterol Sulfate 1 amp 10/12/16 14:00 10/13/16 05:55 Ventolin 0.083% Nebulizer Soln - NEB 1 amp QIDR MARLYN Administration Amiodarone HCl 200 mg 10/12/16 18:30 10/13/16 09:06 Cordarone - PO 200 mg DAILY MARLYN Administration Amlodipine Besylate 10 mg 10/12/16 18:30 10/12/16 21:45 Norvasc - PO Not Given DAILY MARLYN Apixaban 5 mg 10/12/16 22:00 10/12/16 22:46 Eliquis - PO 5 mg BID MARLYN Administration Calcitriol 0.25 mcg 10/13/16 10:00 10/13/16 11:00 Rocaltrol - PO 0.25 mcg DAILY [facility]N Administration Dexamethasone Sodium Phosphate 8 mg 10/12/16 18:30 10/13/16 09:07 Decadron Injection - IVPB 8 mg Q8H-IV [facility]N Administration Haloperidol 0.5 mg 10/12/16 22:00 10/13/16 06:00 Haldol - PO 0.5 mg TID MARLYN Administration Hydralazine HCl 25 mg 10/12/16 22:00 10/13/16 08:15 Apresoline - PO Not Given TID MARLYN Propofol 100 mls @ 1.93 mls/hr 10/12/16 13:45 10/12/16 19:00 Diprivan - IVPB 1.93 mls/hr TITR MARLYN Administration Protocol 5 MCG/KG/MIN Pantoprazole Sodium 100 mls @ 200 mls/hr 10/12/16 19:00 10/13/16 09:04 Protonix 40mg Ivpb (Pre-Docked) IVPB 200 mls/hr DAILY [facility] Administration Piperacillin Sod/Tazobactam Sod 50 mls @ 100 mls/hr 10/13/16 10:00 Zosyn 2.25gm Ivpb (Pre-Docked) IVPB BID [facility] Protocol Ipratropium [place] 1 amp 10/12/16 18:45 10/13/16 05:55 Atrovent 0.02% Nebulizer - NEB 1 amp Q6HPO MARLYN Administration Multivit/Ca Carb/B Cmplx/FA/Prenat 1 tablet 10/12/16 18:30 10/13/16 09:09 Nephro-Juana - PO 1 tablet DAILY [facility]N Administration Perphenazine 6 mg 10/12/16 22:00 10/13/16 09:08 Trilafon PO 6 mg BID MARLYN Administration Impression 1. ESRD 2. hyperkalemia 3. dementia 4. acute hypoxic respiratory failure 5. pleural effusion 6. a-fib 7. epilepsy 8. hx COPD 9. anemia 10. airway and facial edema Plan - pt tolerated HD yesterday - repeat labs in am - next HD tomorrow - potassium is improved - cont vent support - monitor blood pressure - monitor in ICU - monitor pulse ox - will follow closely Dr Maciel
[2016-10-13] MEDS: APIXABAN 5 MG TABLET PO SCH (12:35)
[2016-10-13] MEDS: PIPERACILLIN/TAZOB 2.25 GM 50 ML IVPB SCH ×2 (12:37→21:58)
--- NOTE | 2016-10-13 12:37 | PN ---
Teaching Attending Note Name of Resident: Michelle Lopez ATTENDING PHYSICIAN STATEMENT I saw and evaluated the patient. I reviewed the resident's note and discussed the case with the resident. I agree with the resident's findings and plan as documented. SUBJECTIVE: Pt seen and examined in the ICU. Remains intubated, sedated. Dialyzed yesterday removing 2 kg. Facial swelling much improved. OBJECTIVE: Last Vital Signs Temp Pulse Resp BP Pulse Ox 97.7 F 70 17 119/65 100 10/13/16 08:00 10/13/16 10:33 10/13/16 12:07 10/13/16 08:00 10/13/16 10:33 Intake & Output 10/10/16 10/11/16 10/12/16 10/13/16 23:59 23:59 23:59 23:59 Intake Total 145 330 Balance 145 330 Weight 151 lb 14.376 oz 149 lb 7.574 oz Gen: intubated, sedated Heart: RRR Lung: decreased breath sounds at the bases Abd: soft, nontender Ext: no edema CBC, BMP 10/13/16 06:45 10/13/16 05:15 Active Medications Acetaminophen (Tylenol -) 650 mg PO Q4H PRN PRN Reason: FEVER OR PAIN Albuterol Sulfate (Ventolin 0.083% Nebulizer Soln -) 1 amp NEB QIDR [facility] Last Admin: 10/13/16 05:55 Dose: 1 amp Amiodarone HCl (Cordarone -) 200 mg PO DAILY [facility] Last Admin: 10/13/16 09:06 Dose: 200 mg Amlodipine Besylate (Norvasc -) 10 mg PO DAILY [facility] Last Admin: 10/12/16 21:45 Dose: Not Given Apixaban (Eliquis -) 5 mg PO BID [facility] Last Admin: 10/12/16 22:46 Dose: 5 mg Calcitriol (Rocaltrol -) 0.25 mcg PO DAILY [facility] Last Admin: 10/13/16 11:00 Dose: 0.25 mcg Dexamethasone Sodium Phosphate (Decadron Injection -) 8 mg IVPB Q8H-IV [facility] Last Admin: 10/13/16 09:07 Dose: 8 mg Haloperidol (Haldol -) 0.5 mg PO TID [facility] Last Admin: 10/13/16 06:00 Dose: 0.5 mg Hydralazine HCl (Apresoline -) 25 mg PO TID [facility] Last Admin: 10/13/16 08:15 Dose: Not Given Propofol (Diprivan -) 100 mls @ 1.93 mls/hr IVPB TITR [facility]LYN; 5 MCG/KG/MIN PRN Reason: Protocol Last Admin: 10/12/16 19:00 Dose: 1.93 mls/hr Pantoprazole Sodium (Protonix 40mg Ivpb (Pre-Docked)) 100 mls @ 200 mls/hr IVPB DAILY [facility] Last Admin: 10/13/16 09:04 Dose: 200 mls/hr Piperacillin Sod/Tazobactam Sod (Zosyn 2.25gm Ivpb (Pre-Docked)) 50 mls @ 100 mls/hr IVPB BID [facility] PRN Reason: Protocol Ipratropium [place] (Atrovent 0.02% Nebulizer -) 1 amp NEB Q6HPO [facility] Last Admin: 10/13/16 05:55 Dose: 1 amp Multivit/Ca Carb/B Cmplx/FA/Prenat (Nephro-Juana -) 1 tablet PO DAILY [facility] Last Admin: 10/13/16 09:09 Dose: 1 tablet Perphenazine (Trilafon) 6 mg PO BID [facility] Last Admin: 10/13/16 09:08 Dose: 6 mg ASSESSMENT AND PLAN: Acute Hypoxic and Hypercapneic Respiratory Failure Airway/Facial Edema r/o SVC syndrome vs Volume Overload COPD Atrial Fibrillation HTN ESRD on HD Seizure Disorder - HD per renal with ultrafiltration - decrease decadron to 6mg q12h - upper extremity dopplers - send cultures - inhaled bronchodilators - taper FiO2 to keep SpO2 >90% - rate controlled - hold anticoagulation due to anemia and possible thoracentesis - hold sedation in AM to assess mental status - spontaneous breathing trials as tolerated when mental status improved - will need leak test prior to extubation - DVT/GI prophylaxis - ICU monitoring critical care time spent in reviewing chart, evaluating patient and formulating plan 38 min
[2016-10-13] MEDS: amLODIPine BESYLATE 10 MG TABLET (FP) PO SCH (12:38)
--- NOTE | 2016-10-13 16:46 | CONS ---
DATE OF CONSULTATION: DATE OF DICTATION: 10/13/2016 INFECTIOUS DISEASE CONSULTATION HISTORY OF PRESENT ILLNESS: This is a 71-year-old male who I am asked to see at the request of the house staff for evaluation of sepsis syndrome. The patient has several comorbidities including end-stage renal disease for which he is on dialysis through a PermCath in the left subclavian vein. He had a previous AV fistula in the left arm, which according to the nursing staff has not been working. He is a [facility] resident who also has hypertension, COPD, and GERD. group home records indicate that he had developed shortness of breath, was given an albuterol treatment without improvement and that brought to the emergency room where he has since been intubated. While in the ICU in the ventilator, he became hypotensive, hypothermic, and is severely anemic in the absence of any overt signs of bleeding. He was empirically treated with a dose of vancomycin and piperacillin/tazobactam, and I am asked to see him for further evaluation. Additional information includes the fact that his left arm was noted to be markedly swollen, and a duplex of the left arm has apparently been ordered, but not yet done. Blood cultures are currently pending. PAST MEDICAL HISTORY: As noted above. MEDICATION: Albuterol, amiodarone, amlodipine, Eliquis, Calcitrol, famotidine, haloperidol, hydralazine. ALLERGIES: None known. SOCIAL HISTORY: Unable to obtain other than he is a [facility] resident . Alcohol or former smoking history unknown. FAMILY HISTORY: Unobtainable. REVIEW OF SYSTEMS: Respiratory: Currently intubated . Cardiac: No history of recent chest pain, palpitations, syncope. Gastrointestinal: No abdominal pain, blood per rectum, melena, hematochezia. Genitourinary: End-stage renal disease. Neurologic: Seizure disorder. PHYSICAL EXAMINATION: General: Vital signs: On initial physical evaluation, he had a blood pressure of 160/80, subsequently has been hypotensive and hypothermic with a temperature of 93.4, and a blood pressure which had dropped to 82/39. Currently the temperature is 97.7, pulse 76, blood pressure 120/65, respirations 12 on the ventilator. Lungs: Bilateral rhonchi. Chest: PermCath left side. Heart: S1, S2. Regular rhythm. No audible murmur. Abdomen: Soft. Nontender. No organomegaly. Extremities: With diffuse swelling of the left arm. LABORATORY: White count 4.0, hemoglobin 6.2, platelets 53,000, INR of 1.2. Liver enzymes within normal limits. Hepatitis serology currently pending. Chest x-ray reviewed, shows large right pleural effusion. ASSESSMENT: 1. Sepsis syndrome considered, given hypothermia, hypotension, anemia, and low platelet count in this 71-year-old male with end-stage renal disease. 2. Possible thrombus of the subclavian vein related to left PermCath. 3. Congestive heart failure with fluid overload. 4. Large right pleural effusion. PLAN: Blood cultures sent. Consideration of a CT of the chest and possible thoracentesis with chest tube drainage for cultures. Duplex of the left arm with removal of the PermCath if necessary . MIK MARIE M.D. [id number]
[2016-10-14] MEDS: IPRATROPIUM BR 0.02% 0.5 MG/2.5 ML VIAL.NEB. NEB SCH ×4 (06:00→17:15)
[2016-10-14] MEDS: ALBUTEROL SO4 0.083% IH SOL 2.5 MG/3 ML VIAL.NEB. NEB SCH ×4 (06:00→17:15)
[2016-10-14 06:09] LABS: SERUM IRON 32 ug/dL (38-169); TOTAL IRON BINDING CAPACITY 167 ug/dL (250-450); UIBC 135 ug/dL (111-343)
[2016-10-14 06:09] LABS: HEP B SURFACE AB Non Reactive (.)
[2016-10-14 06:32] LABS: MCH 28.4 pg (25.7-33.7); MCHC 33.1 g/dl (32.0-35.9); MEAN CELL VOLUME 85.8 fl (80-96); MEAN PLT VOLUME 8.4 fl (7.5-11.1); PLATELET COUNT 68 K/MM3 (134-434); WHITE BLOOD COUNT 5.5 K/mm3 (4.0-10.0)
[2016-10-14] MEDS: HALOPERIDOL 0.5 MG TABLET PO SCH ×3 (06:39→22:54)
[2016-10-14] MEDS: hydrALAZINE HCL 25 MG TABLET (FP) PO SCH ×3 (06:39→22:54)
[2016-10-14 06:57] LABS: CALCIUM 8.4 mg/dL (8.5-10.1); CREATININE 4.8 mg/dL (0.7-1.3); MAGNESIUM 2.3 mg/dL (1.8-2.4); PHOSPHOROUS 7.7 mg/dL (2.5-4.9)
--- NOTE | 2016-10-14 07:14 | PN ---
Progress Note, Physician Chief Complaint: ID Received vancomycin and Zosyn for possibility of sepsis. Remains afebrile Alert NAD Says "I feel much better" - Current Medication List Current Medications: Active Medications Acetaminophen (Tylenol -) 650 mg PO Q4H PRN PRN Reason: FEVER OR PAIN Albuterol Sulfate (Ventolin 0.083% Nebulizer Soln -) 1 amp NEB QIDR [facility] Last Admin: 10/14/16 00:00 Dose: Not Given Amiodarone HCl (Cordarone -) 200 mg PO DAILY [facility] Last Admin: 10/13/16 09:06 Dose: 200 mg Amlodipine Besylate (Norvasc -) 10 mg PO DAILY [facility] Last Admin: 10/13/16 12:38 Dose: 10 mg Calcitriol (Rocaltrol -) 0.25 mcg PO DAILY [facility] Last Admin: 10/13/16 11:00 Dose: 0.25 mcg Dexamethasone Sodium Phosphate (Decadron Injection -) 6 mg IVPB BID [facility] Last Admin: 10/13/16 21:58 Dose: 6 mg Haloperidol (Haldol -) 0.5 mg PO TID [facility] Last Admin: 10/14/16 06:39 Dose: 0.5 mg Hydralazine HCl (Apresoline -) 25 mg PO TID [facility] Last Admin: 10/14/16 06:39 Dose: Not Given Pantoprazole Sodium (Protonix 40mg Ivpb (Pre-Docked)) 100 mls @ 200 mls/hr IVPB DAILY [facility] Last Admin: 10/13/16 09:04 Dose: 200 mls/hr Piperacillin Sod/Tazobactam Sod (Zosyn 2.25gm Ivpb (Pre-Docked)) 50 mls @ 100 mls/hr IVPB BID [facility] PRN Reason: Protocol Last Admin: 10/13/16 21:58 Dose: 100 mls/hr Ipratropium [place] (Atrovent 0.02% Nebulizer -) 1 amp NEB Q6HPO [facility] Last Admin: 10/14/16 00:00 Dose: Not Given Multivit/Ca Carb/B Cmplx/FA/Prenat (Nephro-Juana -) 1 tablet PO DAILY [facility] Last Admin: 10/13/16 09:09 Dose: 1 tablet Perphenazine (Trilafon) 6 mg PO BID [facility] Last Admin: 10/13/16 21:58 Dose: 6 mg - Objective Vital Signs: Vital Signs Temperature 97.5 F L 10/14/16 06:00 Pulse Rate 69 10/14/16 06:00 Respiratory Rate 15 10/14/16 06:00 Blood Pressure 126/56 10/14/16 06:00 O2 Sat by Pulse Oximetry (%) 100 10/13/16 21:00 Constitutional: Yes: Well Nourished, No Distress HENT: Yes: WNL, Atraumatic Neck: Yes: WNL, Supple Cardiovascular: Yes: Regular Rate and Rhythm, S1, S2, Other (left permacatheter) . No: Murmur Respiratory: Yes: WNL, Regular, CTA Bilaterally, Diminished Gastrointestinal: Yes: WNL, Normal Bowel Sounds, Soft. No: Tenderness, Tenderness, Rebound Edema: Yes (Upper extremity) Labs: CBC, BMP 10/14/16 05:15 INR, PTT INR 1.20 (0.82-1.09) H 10/12/16 12:15 Problem List - Problems (1) ESRD (end stage renal disease) on dialysis Code(s): N18.6 - END STAGE RENAL DISEASE Z99.2 - DEPENDENCE ON RENAL DIALYSIS (2) Fluid overload Code(s): E87.70 - FLUID OVERLOAD, UNSPECIFIED Qualifiers: Hypervolemia type: unspecified Qualified Code(s): E87.70 - Fluid overload, unspecified (3) Pleural effusion, right Code(s): J90 - PLEURAL EFFUSION, NOT ELSEWHERE CLASSIFIED (4) Sepsis Code(s): A41.9 - SEPSIS, UNSPECIFIED ORGANISM Qualifiers: Sepsis type: sepsis due to unspecified organism Qualified Code(s): A41.9 - Sepsis, unspecified organism Assessment/Plan Microbiology 10/12/16 19:30 Blood - Pre-Dialysis Blood Culture - Preliminary NO GROWTH OBTAINED AFTER 24 HOURS, INCUBATION TO CONTINUE FOR 4 DAYS. 10/12/16 19:30 Blood - Pre-Dialysis Blood Culture - Preliminary NO GROWTH OBTAINED AFTER 24 HOURS, INCUBATION TO CONTINUE FOR 4 DAYS. 10/12/16 12:30 Blood - Peripheral Venous Blood Culture - Preliminary NO GROWTH OBTAINED AFTER 24 HOURS, INCUBATION TO CONTINUE FOR 4 DAYS. 10/12/16 12:21 Blood - Peripheral Venous Blood Culture - Preliminary NO GROWTH OBTAINED AFTER 24 HOURS, INCUBATION TO CONTINUE FOR 4 DAYS. Laboratory Tests 10/13/16 10/14/16 06:45 05:15 WBC 4.0 Pending Hgb 6.2 L* Pending Hct 18.7 L Pending Plt Count 53 L Pending Assessment ESRD Suspected DVT but duplex negative Suspected sepsis initially but this cannot be confirmed COPD Large right pleural effusion Plan Order CT of the chest Will stop current antibiotic Rand CM
--- NOTE | 2016-10-14 09:47 | PN ---
Progress Note, Physician Chief Complaint: Pt extubated undergoing HD currently Awake and no complaints says he is OK - Current Medication List Current Medications: Active Medications Acetaminophen (Tylenol -) 650 mg PO Q4H PRN PRN Reason: FEVER OR PAIN Albuterol Sulfate (Ventolin 0.083% Nebulizer Soln -) 1 amp NEB QIDR [facility] Last Admin: 10/14/16 06:00 Dose: Not Given Amiodarone HCl (Cordarone -) 200 mg PO DAILY [facility] Last Admin: 10/13/16 09:06 Dose: 200 mg Amlodipine Besylate (Norvasc -) 10 mg PO DAILY [facility] Last Admin: 10/13/16 12:38 Dose: 10 mg Calcitriol (Rocaltrol -) 0.25 mcg PO DAILY [facility] Last Admin: 10/13/16 11:00 Dose: 0.25 mcg Dexamethasone Sodium Phosphate (Decadron Injection -) 6 mg IVPB BID [facility] Last Admin: 10/13/16 21:58 Dose: 6 mg Haloperidol (Haldol -) 0.5 mg PO TID [facility] Last Admin: 10/14/16 06:39 Dose: 0.5 mg Hydralazine HCl (Apresoline -) 25 mg PO TID [facility] Last Admin: 10/14/16 06:39 Dose: Not Given Pantoprazole Sodium (Protonix 40mg Ivpb (Pre-Docked)) 100 mls @ 200 mls/hr IVPB DAILY [facility] Last Admin: 10/13/16 09:04 Dose: 200 mls/hr Ipratropium [place] (Atrovent 0.02% Nebulizer -) 1 amp NEB Q6HPO [facility] Last Admin: 10/14/16 06:00 Dose: Not Given Multivit/Ca Carb/B Cmplx/FA/Prenat (Nephro-Juana -) 1 tablet PO DAILY [facility] Last Admin: 10/13/16 09:09 Dose: 1 tablet Perphenazine (Trilafon) 6 mg PO BID [facility] Last Admin: 10/13/16 21:58 Dose: 6 mg - Objective Vital Signs: Vital Signs Temperature 97.8 F 10/14/16 08:00 Pulse Rate 74 10/14/16 08:30 Respiratory Rate 16 10/14/16 08:30 Blood Pressure 129/57 10/14/16 08:30 O2 Sat by Pulse Oximetry (%) 100 10/13/16 21:00 Constitutional: Yes: No Distress Eyes: Yes: Other (decreased facial edema) Cardiovascular: Yes: Regular Rate and Rhythm Respiratory: Yes: Diminished Gastrointestinal: Yes: Normal Bowel Sounds, Soft. No: Distention, Tenderness Edema: Yes Edema: LUE: 2+, RUE: 2+, LLE: 2+, RLE: 2+ Labs: CBC, BMP 10/14/16 05:15 10/14/16 05:15 INR, PTT INR 1.20 (0.82-1.09) H 10/12/16 12:15 Problem List - Problems (1) Hypothermia Code(s): T68.XXXA - HYPOTHERMIA, INITIAL ENCOUNTER Qualifiers: Encounter type: initial encounter Qualified Code(s): T68.XXXA - Hypothermia, initial encounter (2) Respiratory failure Code(s): J96.90 - RESPIRATORY FAILURE, UNSP, UNSP W HYPOXIA OR HYPERCAPNIA (3) Pleural effusion, right Code(s): J90 - PLEURAL EFFUSION, NOT ELSEWHERE CLASSIFIED (4) ESRD (end stage renal disease) on dialysis Code(s): N18.6 - END STAGE RENAL DISEASE Z99.2 - DEPENDENCE ON RENAL DIALYSIS (5) Dementia Code(s): F03.90 - UNSPECIFIED DEMENTIA WITHOUT BEHAVIORAL DISTURBANCE Assessment/Plan PLAN Marleen rawls as cultures negative transfused yesterday on Decadron- taper CT chest pending DVT prophylaxis-- SCD
[2016-10-14] MEDS: CALCITRIOL 0.25 MCG CAPSULE (FP) PO SCH (11:04)
[2016-10-14] MEDS: DEXAMETHASONE SOD PHOSPHATE 10 MG/1 ML VIAL IVPB SCH (11:04)
[2016-10-14] MEDS: AMIODARONE HCL 200 MG TABLET (FP) PO SCH (11:04)
[2016-10-14] MEDS: VITAMIN B COMP W-C 1 EA TABLET PO SCH (11:05)
[2016-10-14] MEDS: amLODIPine BESYLATE 10 MG TABLET (FP) PO SCH (11:05)
[2016-10-14] MEDS: PERPHENAZINE 2 MG TABLET PO SCH ×2 (11:06→22:55)
[2016-10-14] MEDS: PANTOPRAZOLE SODIUM 100 ML IVPB SCH (11:06)
--- NOTE | 2016-10-14 12:43 | PN ---
Teaching Attending Note Name of Resident: Michelle Lopez ATTENDING PHYSICIAN STATEMENT I saw and evaluated the patient. I reviewed the resident's note and discussed the case with the resident. I agree with the resident's findings and plan as documented. SUBJECTIVE: Pt seen and examined in the ICU. Extubated yesterday without incident. Dialyzed this AM. Reports some shortness of breath but no chest pain, cough or wheezing. Voice at baseline. OBJECTIVE: Last Vital Signs Temp Pulse Resp BP Pulse Ox 97.7 F 74 16 122/56 100 10/14/16 10:00 10/14/16 11:12 10/14/16 11:12 10/14/16 11:12 10/14/16 10:34 Intake & Output 10/11/16 10/12/16 10/13/16 10/14/16 23:59 23:59 23:59 23:59 Intake Total 145 1733 Balance 145 1733 Weight 151 lb 14.376 oz 149 lb 7.574 oz 152 lb 5.431 oz Gen: NAD at rest Heart: RRR Lung: decreased breath sounds at the bases Abd: soft, nontender Ext: + edema CBC, BMP 10/14/16 05:15 10/14/16 05:15 Active Medications Acetaminophen (Tylenol -) 650 mg PO Q4H PRN PRN Reason: FEVER OR PAIN Albuterol Sulfate (Ventolin 0.083% Nebulizer Soln -) 1 amp NEB QIDR [facility] Last Admin: 10/14/16 11:30 Dose: 1 amp Amiodarone HCl (Cordarone -) 200 mg PO DAILY [facility] Last Admin: 10/14/16 11:04 Dose: 200 mg Amlodipine Besylate (Norvasc -) 10 mg PO DAILY [facility] Last Admin: 10/14/16 11:05 Dose: 10 mg Calcitriol (Rocaltrol -) 0.25 mcg PO DAILY [facility] Last Admin: 10/14/16 11:04 Dose: 0.25 mcg Dexamethasone Sodium Phosphate (Decadron Injection -) 2 mg IVPB BID [facility] Stop: 10/15/16 10:01 Haloperidol (Haldol -) 0.5 mg PO TID [facility] Last Admin: 10/14/16 06:39 Dose: 0.5 mg Hydralazine HCl (Apresoline -) 25 mg PO TID [facility] Last Admin: 05/04/17 06:39 Dose: Not Given Pantoprazole Sodium (Protonix 40mg Ivpb (Pre-Docked)) 100 mls @ 200 mls/hr IVPB DAILY [facility] Last Admin: 10/14/16 11:06 Dose: 200 mls/hr Ipratropium [place] (Atrovent 0.02% Nebulizer -) 1 amp NEB Q6HPO [facility] Last Admin: 10/14/16 11:30 Dose: 1 amp Multivit/Ca Carb/B Cmplx/FA/Prenat (Nephro-Juana -) 1 tablet PO DAILY [facility] Last Admin: 10/14/16 11:05 Dose: 1 tablet Perphenazine (Trilafon) 6 mg PO BID [facility] Last Admin: 10/14/16 11:06 Dose: 6 mg ASSESSMENT AND PLAN: Acute Hypoxic and Hypercapneic Respiratory Failure Airway/Facial Edema improving Volume Overload improving COPD Atrial Fibrillation HTN ESRD on HD Seizure Disorder - HD per renal with ultrafiltration - rapid taper of steroids off - f/u cultures - monitor off antibiotics - inhaled bronchodilators - taper FiO2 to keep SpO2 >90% - rate controlled - hold anticoagulation due to anemia and possible thoracentesis - resume anticoagulation if H/H stable - DVT/GI prophylaxis - can monitor on floor critical care time spent in reviewing chart, evaluating patient and formulating plan 35 min
--- NOTE | 2016-10-14 13:29 | PN ---
Progress Note, Physician History of Present Illness: Pt seen and examined at bedside. He is awake and appears comfortable. He tolerated HD this morning. He is now extubated. - Current Medication List Current Medications: Active Medications Acetaminophen (Tylenol -) 650 mg PO Q4H PRN PRN Reason: FEVER OR PAIN Albuterol Sulfate (Ventolin 0.083% Nebulizer Soln -) 1 amp NEB QIDR [facility] Last Admin: 10/14/16 11:30 Dose: 1 amp Amiodarone HCl (Cordarone -) 200 mg PO DAILY [facility] Last Admin: 10/14/16 11:04 Dose: 200 mg Amlodipine Besylate (Norvasc -) 10 mg PO DAILY [facility] Last Admin: 10/14/16 11:05 Dose: 10 mg Calcitriol (Rocaltrol -) 0.25 mcg PO DAILY [facility] Last Admin: 10/14/16 11:04 Dose: 0.25 mcg Dexamethasone Sodium Phosphate (Decadron Injection -) 2 mg IVPB BID [facility] Stop: 10/15/16 10:01 Haloperidol (Haldol -) 0.5 mg PO TID [facility] Last Admin: 10/14/16 06:39 Dose: 0.5 mg Hydralazine HCl (Apresoline -) 25 mg PO TID [facility] Last Admin: 10/14/16 06:39 Dose: Not Given Ipratropium [place] (Atrovent 0.02% Nebulizer -) 1 amp NEB Q6HPO [facility] Last Admin: 10/14/16 11:30 Dose: 1 amp Multivit/Ca Carb/B Cmplx/FA/Prenat (Nephro-Juana -) 1 tablet PO DAILY [facility] Last Admin: 10/14/16 11:05 Dose: 1 tablet Pantoprazole Sodium (Protonix -) 40 mg PO DAILY [facility] Perphenazine (Trilafon) 6 mg PO BID [facility] Last Admin: 10/14/16 11:06 Dose: 6 mg - Objective Vital Signs: Vital Signs Temperature 97.7 F 10/14/16 10:00 Pulse Rate 74 10/14/16 11:12 Respiratory Rate 16 10/14/16 11:12 Blood Pressure 122/56 10/14/16 11:12 O2 Sat by Pulse Oximetry (%) 100 10/14/16 10:34 Constitutional: Yes: Calm Eyes: Yes: Conjunctiva Clear HENT: Yes: Atraumatic Cardiovascular: Yes: S1, S2 Respiratory: Yes: On Nasal O2 Gastrointestinal: Yes: Soft Genitourinary: Yes: WNL Edema: Yes Edema: LUE: 1+, RUE: 1+, LLE: Trace, RLE: Trace Neurological: Yes: Confusion Psychiatric: Yes: Oriented Labs: CBC, BMP 10/14/16 05:15 10/14/16 05:15 INR, PTT INR 1.20 (0.82-1.09) H 10/12/16 12:15 Problem List - Problems (1) Dementia Code(s): F03.90 - UNSPECIFIED DEMENTIA WITHOUT BEHAVIORAL DISTURBANCE (2) ESRD (end stage renal disease) on dialysis Code(s): N18.6 - END STAGE RENAL DISEASE Z99.2 - DEPENDENCE ON RENAL DIALYSIS (3) Fluid overload Code(s): E87.70 - FLUID OVERLOAD, UNSPECIFIED Qualifiers: Hypervolemia type: unspecified Qualified Code(s): E87.70 - Fluid overload, unspecified (4) Hyperkalemia Code(s): E87.5 - HYPERKALEMIA (5) Respiratory failure Code(s): J96.90 - RESPIRATORY FAILURE, UNSP, UNSP W HYPOXIA OR HYPERCAPNIA Assessment/Plan Current Medications Generic Name Dose Route Start Last Admin Trade Name Freq PRN Reason Stop Dose Admin Acetaminophen 650 mg 10/12/16 18:39 Tylenol - PO Q4H PRN FEVER OR PAIN Albuterol Sulfate 1 amp 10/12/16 14:00 10/14/16 11:30 Ventolin 0.083% Nebulizer Soln - NEB 1 amp QIDR [facility] Administration Amiodarone HCl 200 mg 10/12/16 18:30 10/14/16 11:04 Cordarone - PO 200 mg DAILY [facility] Administration Amlodipine Besylate 10 mg 10/12/16 18:30 10/14/16 11:05 Norvasc - PO 10 mg DAILY [facility] Administration Calcitriol 0.25 mcg 10/13/16 10:00 10/14/16 11:04 Rocaltrol - PO 0.25 mcg DAILY [facility] Administration Dexamethasone Sodium Phosphate 2 mg 10/14/16 12:25 Decadron Injection - IVPB 10/15/16 10:01 BID [facility] Haloperidol 0.5 mg 10/12/16 22:00 10/14/16 06:39 Haldol - PO 0.5 mg TID [facility] Administration Hydralazine HCl 25 mg 10/12/16 22:00 10/14/16 06:39 Apresoline - PO Not Given TID [facility] Ipratropium [place] 1 amp 10/12/16 18:45 10/14/16 11:30 Atrovent 0.02% Nebulizer - NEB 1 amp Q6HPO [facility] Administration Multivit/Ca Carb/B Cmplx/FA/Prenat 1 tablet 10/12/16 18:30 10/14/16 11:05 Nephro-Juana - PO 1 tablet DAILY [facility] Administration Pantoprazole Sodium 40 mg 10/15/16 10:00 Protonix - PO DAILY [facility] Perphenazine 6 mg 10/12/16 22:00 10/14/16 11:06 Trilafon PO 6 mg BID [facility] Administration Impression 1. ESRD 2. hyperkalemia 3. dementia 4. acute hypoxic respiratory failure 5. pleural effusion 6. a-fib 7. epilepsy 8. hx COPD 9. anemia 10. airway and facial edema Plan - HD today, pt tolerated - pt now extubated, monitor pulse ox - hg is improved - vital signs are stable - monitor blood pressure - will follow closely Dr Maciel
[2016-10-14] MEDS: PROPOFOL 100 ML IVPB SCH (16:10)
[2016-10-14] MEDS ORDERED: PT OWN MED DRAWER 7, Y5N ONE (21:58)
[2016-10-14] MEDS: DEXAMETHASONE SOD PHOSPHATE 4 MG/1 ML VIAL IVPB SCH (22:54)
[2016-10-15] MEDS: IPRATROPIUM BR 0.02% 0.5 MG/2.5 ML VIAL.NEB. NEB SCH ×5 (06:10→23:26)
[2016-10-15] MEDS: ALBUTEROL SO4 0.083% IH SOL 2.5 MG/3 ML VIAL.NEB. NEB SCH ×5 (06:10→23:25)
[2016-10-15] MEDS: HALOPERIDOL 0.5 MG TABLET PO SCH ×3 (06:44→21:34)
[2016-10-15] MEDS: hydrALAZINE HCL 25 MG TABLET (FP) PO SCH ×3 (06:44→21:33)
--- NOTE | 2016-10-15 09:39 | PN ---
Progress Note (short form) - Note Progress Note: Subjective Patient seen and examined. Chart reviewed. Awake and comfortable. Denies pain. Objective Last Vital Signs Temp Pulse Resp BP Pulse Ox 97.5 F L 77 20 132/80 100 10/15/16 07:00 10/15/16 07:00 10/15/16 07:00 10/15/16 07:00 10/14/16 21:00 CBC, BMP 10/14/16 05:15 10/14/16 05:15 Microbiology 10/12/16 19:30 Blood Culture - Preliminary Blood - Pre-Dialysis NO GROWTH OBTAINED AFTER 48 HOURS, INCUBATION TO CONTINUE FOR 3 DAYS. 10/12/16 19:30 Blood Culture - Preliminary Blood - Pre-Dialysis NO GROWTH OBTAINED AFTER 48 HOURS, INCUBATION TO CONTINUE FOR 3 DAYS. 10/12/16 19:15 Gram Stain - Final Catheter Site Wound Culture - Preliminary Staphylococcus Coagulase Neg 10/12/16 12:21 Blood Culture - Preliminary Blood - Peripheral Venous NO GROWTH OBTAINED AFTER 48 HOURS, INCUBATION TO CONTINUE FOR 3 DAYS. 10/12/16 12:30 Blood Culture - Preliminary Blood - Peripheral Venous NO GROWTH OBTAINED AFTER 48 HOURS, INCUBATION TO CONTINUE FOR 3 DAYS. Physical Exam Constitutional: Yes: No Distress Eyes: Yes: Other no icterus Cardiovascular: Yes: Regular Rate and Rhythm Respiratory: Yes: Diminished at bases R more than L Gastrointestinal: Yes: Normal Bowel Sounds, Soft. No: Distention, Tenderness Edema: Yes: +1 Problem List - Problems (1) Hypothermia Code(s): T68.XXXA - HYPOTHERMIA, INITIAL ENCOUNTER Qualifiers: Encounter type: initial encounter Qualified Code(s): T68.XXXA - Hypothermia, initial encounter (2) Respiratory failure Code(s): J96.90 - RESPIRATORY FAILURE, UNSP, UNSP W HYPOXIA OR HYPERCAPNIA (3) Pleural effusion, right Code(s): J90 - PLEURAL EFFUSION, NOT ELSEWHERE CLASSIFIED (4) ESRD (end stage renal disease) on dialysis Code(s): N18.6 - END STAGE RENAL DISEASE Z99.2 - DEPENDENCE ON RENAL DIALYSIS (5) Dementia Code(s): F03.90 - UNSPECIFIED DEMENTIA WITHOUT BEHAVIORAL DISTURBANCE Assessment and Plan Clinically stable. Will d/c serial CXR and ABG. For thoracentesis today. CT Chest reviewed. Stool Occult blood pending. No sign of bleeding. Will need anemia work up as outpatient. Off abx. Will follow. Documentation prepared by Alessia Peña, acting as a neuropsychology medical consultant for Gayla Gerard MD. Problem List - Problems (1) Anemia Code(s): D64.9 - ANEMIA, UNSPECIFIED
[2016-10-15] MEDS ORDERED: PT OWN MED DRAWER 7, Y5N ONE ×2 (11:10→17:47)
[2016-10-15] MEDS: amLODIPine BESYLATE 10 MG TABLET (FP) PO SCH (11:12)
[2016-10-15] MEDS: CALCITRIOL 0.25 MCG CAPSULE (FP) PO SCH (11:12)
[2016-10-15] MEDS: VITAMIN B COMP W-C 1 EA TABLET PO SCH (11:12)
[2016-10-15] MEDS: AMIODARONE HCL 200 MG TABLET (FP) PO SCH (11:12)
[2016-10-15] MEDS: PANTOPRAZOLE 40 MG TABLET (FP) PO SCH (11:12)
[2016-10-15] MEDS: DEXAMETHASONE SOD PHOSPHATE 4 MG/1 ML VIAL IVPB SCH (11:13)
[2016-10-15] MEDS: PERPHENAZINE 2 MG TABLET PO SCH ×2 (11:13→21:34)
--- NOTE | 2016-10-15 13:48 | PN ---
Progress Note (short form) - Note Progress Note: PULMONARY LYING COMFORTABLY IN BED OFFERS NO COMPLAINTS WHEN I ASKED ABOUT DIALYSIS HE SAID "WHAT'S THAT" VSS/AFEBRILE DIMINISHED BREATH SOUNDS RIGHT BASE S1S2 BS+ SOFT NO EDEMA LABS/MEDS/NOTES/IMAGING REVIEWED Acute Hypoxic and Hypercapneic Respiratory Failure Volume Overload improved COPD Atrial Fibrillation HTN ESRD on HD Seizure Disorder - HD per renal with ultrafiltration - f/u cultures are negative - monitor off antibiotics - inhaled bronchodilators - taper FiO2 to keep SpO2 >90% - rate controlled - hold anticoagulation due to anemia and possible thoracentesis - resume anticoagulation if H/H stable - DVT/GI prophylaxis Viviana LIPSCOMB MD
--- NOTE | 2016-10-15 14:22 | PN ---
Physical Exam: SUBJECTIVE: Patient seen and examined, hx of dementia, admits to decreased swelling of arms, no new complaints, denies chest pain, fever, sob, chest pain, GI or complaints. OBJECTIVE: Vital Signs Period Temp Pulse Resp BP Sys/Triplett Pulse Ox Last 24 Hr 97.3 F-98.3 F 68-92 16-20 116-178/2-80 95-100 GENERAL: The patient is awake, alert, and not oriented to time and place NECK: Trachea midline, full range of motion, supple. LUNGS:anterior chest exam; decreased breath sound on the right accessory muscle use. HEART: irregular rate and rhythm, S1, S2 without murmur, rub or gallop. ABDOMEN: Soft, nontender, nondistended, normoactive bowel sounds, no guarding, no rebound, no hepatosplenomegaly, no masses. EXTREMITIES: 2+ pulses, warm, well-perfused, bilateral upper extremity +2 edema ; LEft upper extremity thrill form aav fistula NEUROLOGICAL: dementia SKIN: Warm, dry, normal turgor, no rashes or lesions noted Active Medications Generic Name Dose Route Start Last Admin Trade Name Freq PRN Reason Stop Dose Admin Acetaminophen 650 mg 10/12/16 18:39 Tylenol - PO Q4H PRN FEVER OR PAIN Albuterol Sulfate 1 amp 10/12/16 14:00 10/15/16 11:32 Ventolin 0.083% Nebulizer Soln - NEB 1 amp QIDR [facility] Administration Amiodarone HCl 200 mg 10/12/16 18:30 10/15/16 11:12 Cordarone - PO 200 mg DAILY [facility] Administration Amlodipine Besylate 10 mg 10/12/16 18:30 10/15/16 11:12 Norvasc - PO 10 mg DAILY [facility] Administration Calcitriol 0.25 mcg 10/13/16 10:00 10/15/16 11:12 Rocaltrol - PO 0.25 mcg DAILY [facility] Administration Haloperidol 0.5 mg 10/12/16 22:00 10/15/16 06:44 Haldol - PO 0.5 mg TID [facility] Administration Hydralazine HCl 25 mg 10/12/16 22:00 10/15/16 06:44 Apresoline - PO 25 mg TID [facility] Administration Ipratropium [place] 1 amp 10/12/16 18:45 10/15/16 11:32 Atrovent 0.02% Nebulizer - NEB 1 amp Q6HPO [facility] Administration Multivit/Ca Carb/B Cmplx/FA/Prenat 1 tablet 10/12/16 18:30 10/15/16 11:12 Nephro-Juana - PO 1 tablet DAILY [facility] Administration Pantoprazole Sodium 40 mg 10/15/16 10:00 10/15/16 11:12 Protonix - PO 40 mg DAILY [facility] Administration Perphenazine 6 mg 10/12/16 22:00 10/15/16 11:13 Trilafon PO 6 mg BID [facility] Administration ASSESSMENT/PLAN: 71 year old male, with a significant past medical history of hypertension, COPD , GERD, ESRD (on dialysis Tuesday//Tuesday) and generalized epilepsy, atrial fibrillation, brought by EMS from [facility] in respiratory distress. Admitted for suspected sepsis due to Acute Hypoxic and Hypercapneic Respiratory Failure with large right sided pleural effusion. -right sided pleural effusion -atrial fibrillation -COPD -seizure disorder -ESRD -HTN #Right sided pleural effusion: -sepsis ruled out at this point, wbc count wnl, vitals stable, breathing improved -ct showed large pleural effusion, pleural thickening -hold anticoagulation -thoracocentesis pending -monitor off antibiotics Visit type - Emergency Visit Emergency Visit: Yes ED Registration Date: 10/12/16 Care time: The patient presented to the Emergency Department on the above date and was hospitalized for further evaluation of their emergent condition. - New Patient This patient is new to me today: Yes Date on this admission: 10/15/16 - Critical Care Critical Care patient: No
--- NOTE | 2016-10-15 14:45 | PN ---
Teaching Attending Note Name of Resident: Ariadne Cerrato ATTENDING PHYSICIAN STATEMENT I saw and evaluated the patient. I reviewed the resident's note and discussed the case with the resident. I agree with the resident's findings and plan as documented. SUBJECTIVE: OBJECTIVE: ASSESSMENT AND PLAN: stable off antibiotics for thoracentesis esrd/hd
--- NOTE | 2016-10-15 19:09 | PN ---
Progress Note, Physician History of Present Illness: Pt seen and examined at bedside. He is awake and appears comfortable. His mental status is improved. - Current Medication List Current Medications: Active Medications Acetaminophen (Tylenol -) 650 mg PO Q4H PRN PRN Reason: FEVER OR PAIN Albuterol Sulfate (Ventolin 0.083% Nebulizer Soln -) 1 amp NEB QIDR [facility] Last Admin: 10/15/16 17:50 Dose: Not Given Amiodarone HCl (Cordarone -) 200 mg PO DAILY [facility] Last Admin: 10/15/16 11:12 Dose: 200 mg Amlodipine Besylate (Norvasc -) 10 mg PO DAILY [facility] Last Admin: 10/15/16 11:12 Dose: 10 mg Calcitriol (Rocaltrol -) 0.25 mcg PO DAILY [facility] Last Admin: 10/15/16 11:12 Dose: 0.25 mcg Epoetin Tyson (Epogen -) 6,000 units IVPUSH ONCE ONE Stop: 10/16/16 19:05 Haloperidol (Haldol -) 0.5 mg PO TID [facility] Last Admin: 10/15/16 17:19 Dose: Not Given Heparin Sodium (Porcine) (Heparin -) 1,000 unit IVPUSH ONCE ONE Stop: 10/16/16 19:05 Hydralazine HCl (Apresoline -) 25 mg PO TID [facility] Last Admin: 10/15/16 15:05 Dose: 25 mg Ipratropium [place] (Atrovent 0.02% Nebulizer -) 1 amp NEB Q6HPO [facility] Last Admin: 10/15/16 17:50 Dose: Not Given Multivit/Ca Carb/B Cmplx/FA/Prenat (Nephro-Juana -) 1 tablet PO DAILY [facility] Last Admin: 10/15/16 11:12 Dose: 1 tablet Pantoprazole Sodium (Protonix -) 40 mg PO DAILY [facility] Last Admin: 10/15/16 11:12 Dose: 40 mg Perphenazine (Trilafon) 6 mg PO BID [facility] Last Admin: 10/15/16 11:13 Dose: 6 mg - Objective Vital Signs: Vital Signs Temperature 97.6 F 10/15/16 15:16 Pulse Rate 82 10/15/16 15:16 Respiratory Rate 20 10/15/16 15:16 Blood Pressure 145/67 10/15/16 15:16 O2 Sat by Pulse Oximetry (%) 95 10/15/16 11:32 Constitutional: Yes: Calm Eyes: Yes: Conjunctiva Clear HENT: Yes: Atraumatic Cardiovascular: Yes: S1, S2 Respiratory: Yes: On Nasal O2 Gastrointestinal: Yes: Soft Genitourinary: Yes: WNL Musculoskeletal: Yes: WNL Extremities: Yes: Other (left arm fistula) Edema: Yes Edema: LUE: 2+, RUE: 2+, LLE: Trace, RLE: Trace Neurological: Yes: Confusion Labs: CBC, BMP 10/14/16 05:15 10/14/16 05:15 INR, PTT INR 1.20 (0.82-1.09) H 10/12/16 12:15 Problem List - Problems (1) Dementia Code(s): F03.90 - UNSPECIFIED DEMENTIA WITHOUT BEHAVIORAL DISTURBANCE (2) ESRD (end stage renal disease) on dialysis Code(s): N18.6 - END STAGE RENAL DISEASE Z99.2 - DEPENDENCE ON RENAL DIALYSIS (3) Fluid overload Code(s): E87.70 - FLUID OVERLOAD, UNSPECIFIED Qualifiers: Hypervolemia type: unspecified Qualified Code(s): E87.70 - Fluid overload, unspecified (4) Hyperkalemia Code(s): E87.5 - HYPERKALEMIA (5) Respiratory failure Code(s): J96.90 - RESPIRATORY FAILURE, UNSP, UNSP W HYPOXIA OR HYPERCAPNIA Assessment/Plan Current Medications Generic Name Dose Route Start Last Admin Trade Name Freq PRN Reason Stop Dose Admin Acetaminophen 650 mg 10/12/16 18:39 Tylenol - PO Q4H PRN FEVER OR PAIN Albuterol Sulfate 1 amp 10/12/16 14:00 10/15/16 17:50 Ventolin 0.083% Nebulizer Soln - NEB Not Given QIDR [facility] Amiodarone HCl 200 mg 10/12/16 18:30 10/15/16 11:12 Cordarone - PO 200 mg DAILY [facility] Administration Amlodipine Besylate 10 mg 10/12/16 18:30 10/15/16 11:12 Norvasc - PO 10 mg DAILY [facility] Administration Calcitriol 0.25 mcg 10/13/16 10:00 10/15/16 11:12 Rocaltrol - PO 0.25 mcg DAILY [facility] Administration Epoetin Tyson 6,000 units 10/16/16 19:04 Epogen - IVPUSH 10/16/16 19:05 ONCE ONE Haloperidol 0.5 mg 10/12/16 22:00 10/15/16 17:19 Haldol - PO Not Given TID [facility] Heparin Sodium (Porcine) 1,000 unit 10/16/16 19:04 Heparin - IVPUSH 10/16/16 19:05 ONCE ONE Hydralazine HCl 25 mg 10/12/16 22:00 10/15/16 15:05 Apresoline - PO 25 mg TID [facility] Administration Ipratropium [place] 1 amp 10/12/16 18:45 10/15/16 17:50 Atrovent 0.02% Nebulizer - NEB Not Given Q6HPO [facility] Multivit/Ca Carb/B Cmplx/FA/Prenat 1 tablet 10/12/16 18:30 10/15/16 11:12 Nephro-Juana - PO 1 tablet DAILY [facility] Administration Pantoprazole Sodium 40 mg 10/15/16 10:00 10/15/16 11:12 Protonix - PO 40 mg DAILY [facility] Administration Perphenazine 6 mg 10/12/16 22:00 10/15/16 11:13 Trilafon PO 6 mg BID [facility] Administration Impression 1. ESRD 2. hyperkalemia 3. dementia 4. acute hypoxic respiratory failure 5. pleural effusion 6. a-fib 7. epilepsy 8. hx COPD 9. anemia 10. airway and facial edema Plan - will arrange for HD in am - will hold hepatin on HD for throacocentesis - cont current meds - epogen for anemia - will need vascular eval for access - will follow Dr Maciel
[2016-10-16] MEDS: ALBUTEROL SO4 0.083% IH SOL 2.5 MG/3 ML VIAL.NEB. NEB SCH ×4 (05:57→23:45)
[2016-10-16] MEDS: IPRATROPIUM BR 0.02% 0.5 MG/2.5 ML VIAL.NEB. NEB SCH ×4 (05:58→23:45)
[2016-10-16] MEDS: HALOPERIDOL 0.5 MG TABLET PO SCH ×4 (06:11→21:58)
[2016-10-16] MEDS: hydrALAZINE HCL 25 MG TABLET (FP) PO SCH ×4 (06:11→21:58)
[2016-10-16 07:53] LABS: MCH 28.5 pg (25.7-33.7); MCHC 32.3 g/dl (32.0-35.9); MEAN CELL VOLUME 88.3 fl (80-96); MEAN PLT VOLUME 8.2 fl (7.5-11.1); PLATELET COUNT 81 K/MM3 (134-434); RDW 23.8 % (11.9-15.9); WHITE BLOOD COUNT 10.5 K/mm3 (4.0-10.0)
[2016-10-16 08:21] LABS: ALBUMIN 2.7 g/dl (3.4-5.0)
[2016-10-16 08:25] LABS: BILIRUBIN,TOTAL 0.4 mg/dL (0.2-1.0); COCKROFT - GAULT 15.35; CREATININE 4.3 mg/dL (0.7-1.3); TOT PROT 5.9 g/dl (6.4-8.2)
[2016-10-16] MEDS ORDERED: EPOETIN ALFA 3,000 UNIT/1 ML ML IVPUSH ONE (09:00)
--- NOTE | 2016-10-16 09:50 | PN ---
Progress Note (short form) - Note Progress Note: RENAL Awake and alert seen while on hemodialysis says he is SOB Last Vital Signs Temp Pulse Resp BP Pulse Ox 98.1 F 68 18 138/78 94 L 10/16/16 06:55 10/16/16 09:30 10/16/16 09:30 10/16/16 09:30 10/15/16 20:46 lungs decreased breath sounds on right cvs s1s2 rr abd soft ext trace edema lying flat comfortable CBC, BMP 10/16/16 07:00 10/16/16 07:00 Current Medications Generic Name Dose Route Start Last Admin Trade Name Freq PRN Reason Stop Dose Admin Acetaminophen 650 mg 10/12/16 18:39 Tylenol - PO Q4H PRN FEVER OR PAIN Albuterol Sulfate 1 amp 10/12/16 14:00 10/16/16 05:57 Ventolin 0.083% Nebulizer Soln - NEB Not Given QIDR [facility] Amiodarone HCl 200 mg 10/12/16 18:30 10/15/16 11:12 Cordarone - PO 200 mg DAILY [facility] Administration Amlodipine Besylate 10 mg 10/12/16 18:30 10/15/16 11:12 Norvasc - PO 10 mg DAILY [facility] Administration Calcitriol 0.25 mcg 10/13/16 10:00 10/15/16 11:12 Rocaltrol - PO 0.25 mcg DAILY [facility] Administration Haloperidol 0.5 mg 10/12/16 22:00 10/16/16 06:20 Haldol - PO Not Given TID [facility] Hydralazine HCl 25 mg 10/12/16 22:00 10/16/16 06:19 Apresoline - PO Not Given TID [facility] Ipratropium [place] 1 amp 10/12/16 18:45 10/16/16 05:58 Atrovent 0.02% Nebulizer - NEB Not Given Q6HPO [facility] Multivit/Ca Carb/B Cmplx/FA/Prenat 1 tablet 10/12/16 18:30 10/15/16 11:12 Nephro-Juana - PO 1 tablet DAILY [facility] Administration Pantoprazole Sodium 40 mg 10/15/16 10:00 10/15/16 11:12 Protonix - PO 40 mg DAILY [facility] Administration Perphenazine 6 mg 10/12/16 22:00 10/15/16 21:34 Trilafon PO 6 mg BID [facility] Administration Impression 1. ESRD 2. hyperkalemia 3. dementia 4. acute hypoxic respiratory failure 5. pleural effusion 6. a-fib 7. epilepsy 8. hx COPD 9. anemia 10. airway and facial edema Plan - continue HD tiw. Pt often refuses HD - thoracentesis - cont current meds - epogen for anemia - will need vascular eval for access [facility]
[2016-10-16] MEDS ORDERED: PT OWN MED DRAWER 7, Y5N ONE ×2 (11:20→20:51)
[2016-10-16] MEDS: amLODIPine BESYLATE 10 MG TABLET (FP) PO SCH (11:22)
[2016-10-16] MEDS: CALCITRIOL 0.25 MCG CAPSULE (FP) PO SCH (11:22)
[2016-10-16] MEDS: PANTOPRAZOLE 40 MG TABLET (FP) PO SCH (11:22)
[2016-10-16] MEDS: AMIODARONE HCL 200 MG TABLET (FP) PO SCH (11:22)
[2016-10-16] MEDS: PERPHENAZINE 2 MG TABLET PO SCH ×2 (11:23→21:59)
[2016-10-16] MEDS: VITAMIN B COMP W-C 1 EA TABLET PO SCH (11:23)
--- NOTE | 2016-10-16 13:42 | PN ---
Progress Note (short form) - Note Progress Note: pt seen/ examined all f/u noted pt has refused thoracocentesis had dialysis today denies pain/ sob. Vital Signs Temp 97 F L 10/16/16 10:00 Pulse 65 10/16/16 10:35 Resp 18 10/16/16 10:35 BP 139/75 10/16/16 10:35 Pulse Ox 94 L 10/15/16 20:46 Intake & Output 10/15/16 10/16/16 10/16/16 23:59 11:59 23:59 Intake Total 540 150 Balance 540 150 Weight 156 lb 6 oz Intake: IV 0 s/l 0 IVPB 50 Oral 250 150 Oral Supplement 240 Other: Voiding Method Incontinent Incontinent # Unmeasured Voids Void 2 Bowel Movement Yes No # Bowel Movements 2 1 Weight Measurement Method Built in [facility] Active Medications Acetaminophen (Tylenol -) 650 mg PO Q4H PRN PRN Reason: FEVER OR PAIN Albuterol Sulfate (Ventolin 0.083% Nebulizer Soln -) 1 amp NEB QIDR [facility] Last Admin: 10/16/16 05:57 Dose: Not Given Amiodarone HCl (Cordarone -) 200 mg PO DAILY [facility] Last Admin: 10/16/16 11:22 Dose: 200 mg Amlodipine Besylate (Norvasc -) 10 mg PO DAILY [facility] Last Admin: 10/16/16 11:22 Dose: 10 mg Calcitriol (Rocaltrol -) 0.25 mcg PO DAILY [facility] Last Admin: 10/16/16 11:22 Dose: Not Given Haloperidol (Haldol -) 0.5 mg PO TID [facility] Last Admin: 10/16/16 06:20 Dose: Not Given Hydralazine HCl (Apresoline -) 25 mg PO TID [facility] Last Admin: 10/16/16 06:19 Dose: Not Given Ipratropium [place] (Atrovent 0.02% Nebulizer -) 1 amp NEB Q6HPO [facility] Last Admin: 10/16/16 05:58 Dose: Not Given Multivit/Ca Carb/B Cmplx/FA/Prenat (Nephro-Juana -) 1 tablet PO DAILY [facility] Last Admin: 10/16/16 11:23 Dose: Not Given Pantoprazole Sodium (Protonix -) 40 mg PO DAILY [facility] Last Admin: 10/16/16 11:22 Dose: 40 mg Perphenazine (Trilafon) 6 mg PO BID [facility] Last Admin: 10/16/16 11:23 Dose: Not Given CBC, BMP 10/16/16 07:00 10/16/16 07:00 Microbiology 10/12/16 12:21 Blood Culture - Preliminary Blood - Peripheral Venous NO GROWTH OBTAINED AFTER 96 HOURS, INCUBATION TO CONTINUE FOR 1 DAYS. 10/12/16 12:30 Blood Culture - Preliminary Blood - Peripheral Venous NO GROWTH OBTAINED AFTER 96 HOURS, INCUBATION TO CONTINUE FOR 1 DAYS. 10/12/16 19:30 Blood Culture - Preliminary Blood - Pre-Dialysis NO GROWTH OBTAINED AFTER 72 HOURS, INCUBATION TO CONTINUE FOR 2 DAYS. 10/12/16 19:30 Blood Culture - Preliminary Blood - Pre-Dialysis NO GROWTH OBTAINED AFTER 72 HOURS, INCUBATION TO CONTINUE FOR 2 DAYS. 10/12/16 19:15 Gram Stain - Final Catheter Site Wound Culture - Final Staphylococcus Epidermidis Physical Exam Constitutional: Yes: No Distress Eyes: Yes: nad Cardiovascular: Yes: Regular Rate and Rhythm. chest--permacath + Respiratory: Yes: Diminished at bases--- R more than L Gastrointestinal: Yes: Normal Bowel Sounds, Soft. No: Distention, Tenderness Edema: Yes: +1-- left hand swelling + Problem List - Problems (1) Hypothermia Code(s): T68.XXXA - HYPOTHERMIA, INITIAL ENCOUNTER Qualifiers: Encounter type: initial encounter Qualified Code(s): T68.XXXA - Hypothermia, initial encounter (2) Respiratory failure Code(s): J96.90 - RESPIRATORY FAILURE, UNSP, UNSP W HYPOXIA OR HYPERCAPNIA (3) Pleural effusion, right Code(s): J90 - PLEURAL EFFUSION, NOT ELSEWHERE CLASSIFIED (4) ESRD (end stage renal disease) on dialysis Code(s): N18.6 - END STAGE RENAL DISEASE Z99.2 - DEPENDENCE ON RENAL DIALYSIS (5) Dementia Code(s): F03.90 - UNSPECIFIED DEMENTIA WITHOUT BEHAVIORAL DISTURBANCE Assessment and Plan Clinically stable. continue present care. off abx vascular consult for access I have to restart a/c -- pt has been refusing thoracocentesis will follow no sign of bleeding.
--- NOTE | 2016-10-16 14:31 | PN ---
Progress Note (short form) - Note Progress Note: PULMONARY LYING COMFORTABLY IN BED OFFERS NO COMPLAINTS I DISCUSSED THORACENTESIS, PATIENT STATES " I DON'T WANT THAT, IT'S TOO PAINFUL " VSS/AFEBRILE DIMINISHED BREATH SOUNDS RIGHT BASE S1S2 BS+ SOFT NO EDEMA LABS/MEDS/NOTES/IMAGING REVIEWED Acute Hypoxic and Hypercapneic Respiratory Failure Volume Overload improved COPD Atrial Fibrillation HTN ESRD on HD Seizure Disorder - HD per renal with ultrafiltration - inhaled bronchodilators - taper FiO2 to keep SpO2 >90% - rate controlled - thoracentesis consent may be an issue - DVT/GI prophylaxis Viviana LIPSCOMB MD
[2016-10-16] MEDS ORDERED: HEPARIN NA (PORCINE) 5,000 UNITS/ML 1ML VIAL IVPUSH ONE (19:04)
[2016-10-16] MEDS: APIXABAN 5 MG TABLET PO SCH (21:58)
[2016-10-17] MEDS: IPRATROPIUM BR 0.02% 0.5 MG/2.5 ML VIAL.NEB. NEB SCH ×3 (06:00→18:35)
[2016-10-17] MEDS: ALBUTEROL SO4 0.083% IH SOL 2.5 MG/3 ML VIAL.NEB. NEB SCH ×2 (06:00→11:33)
[2016-10-17] MEDS: hydrALAZINE HCL 25 MG TABLET (FP) PO SCH ×3 (06:08→23:06)
[2016-10-17] MEDS: HALOPERIDOL 0.5 MG TABLET PO SCH ×3 (06:08→23:06)
[2016-10-17] MEDS ORDERED: PT OWN MED DRAWER 7, Y5N ONE (06:38)
--- NOTE | 2016-10-17 11:17 | PN ---
Progress Note (short form) - Note Progress Note: pt seen/ examined. agitated today refuses treatment/ meds/ oxygen drops when off oxygen--refuses mask- currently on n/c no distress though denies pain afebrile Vital Signs Temp 97.9 F 10/16/16 14:21 Pulse 102 H 10/17/16 09:48 Resp 22 10/17/16 09:48 BP 161/82 10/17/16 09:48 Pulse Ox 94 L 10/16/16 21:00 Intake & Output 10/16/16 10/16/16 10/17/16 11:59 23:59 11:59 Intake Total 150 755 Balance 150 755 Weight 156 lb 6 oz 155 lb 4 oz Intake: Oral 150 755 Other: Voiding Method Incontinent Diaper Incontinent # Unmeasured Voids Void 2 2 0 Bowel Movement No No No # Bowel Movements 1 0 Weight Measurement Method Built in Bedscale Built in [facility] Active Medications Acetaminophen (Tylenol -) 650 mg PO Q4H PRN PRN Reason: FEVER OR PAIN Albuterol Sulfate (Ventolin 0.083% Nebulizer Soln -) 1 amp NEB QIDR [facility] Last Admin: 10/17/16 06:00 Dose: 1 amp Amiodarone HCl (Cordarone -) 200 mg PO DAILY [facility] Last Admin: 10/16/16 11:22 Dose: 200 mg Amlodipine Besylate (Norvasc -) 10 mg PO DAILY [facility] Last Admin: 10/16/16 11:22 Dose: 10 mg Apixaban (Eliquis -) 5 mg PO BID [facility] Last Admin: 10/16/16 21:58 Dose: 5 mg Calcitriol (Rocaltrol -) 0.25 mcg PO DAILY [facility] Last Admin: 10/16/16 11:22 Dose: Not Given Haloperidol (Haldol -) 0.5 mg PO TID [facility] Last Admin: 10/17/16 06:08 Dose: 0.5 mg Hydralazine HCl (Apresoline -) 25 mg PO TID [facility] Last Admin: 10/17/16 06:08 Dose: 25 mg Ipratropium [place] (Atrovent 0.02% Nebulizer -) 1 amp NEB Q6HPO [facility] Last Admin: 10/17/16 06:00 Dose: 1 amp Multivit/Ca Carb/B Cmplx/FA/Prenat (Nephro-Juana -) 1 tablet PO DAILY [facility] Last Admin: 10/16/16 11:23 Dose: Not Given Pantoprazole Sodium (Protonix -) 40 mg PO DAILY [facility] Last Admin: 10/16/16 11:22 Dose: 40 mg Perphenazine (Trilafon) 6 mg PO BID [facility] Last Admin: 10/16/16 21:59 Dose: 6 mg CBC, BMP 10/16/16 07:00 10/16/16 07:00 Physical Exam Constitutional: Yes:mild sob + Eyes: Yes: NO Icterus Cardiovascular: Yes: Regular Rate and Rhythm. chest--permacath + Respiratory: Yes: Diminished at bases--- R more than L Gastrointestinal: Yes: soft Edema: Yes: +1-- left hand swelling + Problem List - Problems (1) Hypothermia Code(s): T68.XXXA - HYPOTHERMIA, INITIAL ENCOUNTER Qualifiers: Encounter type: initial encounter Qualified Code(s): T68.XXXA - Hypothermia, initial encounter (2) Respiratory failure Code(s): J96.90 - RESPIRATORY FAILURE, UNSP, UNSP W HYPOXIA OR HYPERCAPNIA (3) Pleural effusion, right Code(s): J90 - PLEURAL EFFUSION, NOT ELSEWHERE CLASSIFIED (4) ESRD (end stage renal disease) on dialysis Code(s): N18.6 - END STAGE RENAL DISEASE Z99.2 - DEPENDENCE ON RENAL DIALYSIS (5) Dementia Code(s): F03.90 - UNSPECIFIED DEMENTIA WITHOUT BEHAVIORAL DISTURBANCE Assessment and Plan continue present care difficult situation as refuses treatment Will request psych consult also I called pts sister -- message left to call back will follow discussed with nursing staff. condition gaurded due to multiple conditions and uncooperability.
--- NOTE | 2016-10-17 11:38 | PN ---
Progress Note (short form) - Note Progress Note: RENAL Awake and alert seen while in bed denies complaints Last Vital Signs Temp Pulse Resp BP Pulse Ox 97.9 F 102 H 22 161/82 94 L 10/16/16 14:21 10/17/16 09:48 10/17/16 09:48 10/17/16 09:48 10/16/16 21:00 lungs decreased breath sounds on right cvs s1s2 rr abd soft ext trace edema, left arm has bruit/thrill lying flat comfortable CBC, BMP 10/16/16 07:00 10/16/16 07:00 Current Medications Generic Name Dose Route Start Last Admin Trade Name Freq PRN Reason Stop Dose Admin Acetaminophen 650 mg 10/12/16 18:39 Tylenol - PO Q4H PRN FEVER OR PAIN Albuterol Sulfate 1 amp 10/12/16 14:00 10/16/16 05:57 Ventolin 0.083% Nebulizer Soln - NEB Not Given QIDR [facility] Amiodarone HCl 200 mg 10/12/16 18:30 10/15/16 11:12 Cordarone - PO 200 mg DAILY [facility] Administration Amlodipine Besylate 10 mg 10/12/16 18:30 10/15/16 11:12 Norvasc - PO 10 mg DAILY [facility] Administration Calcitriol 0.25 mcg 10/13/16 10:00 10/15/16 11:12 Rocaltrol - PO 0.25 mcg DAILY [facility] Administration Haloperidol 0.5 mg 10/12/16 22:00 10/16/16 06:20 Haldol - PO Not Given TID [facility] Hydralazine HCl 25 mg 10/12/16 22:00 10/16/16 06:19 Apresoline - PO Not Given TID [facility] Ipratropium [place] 1 amp 10/12/16 18:45 10/16/16 05:58 Atrovent 0.02% Nebulizer - NEB Not Given Q6HPO [facility] Multivit/Ca Carb/B Cmplx/FA/Prenat 1 tablet 10/12/16 18:30 10/15/16 11:12 Nephro-Juana - PO 1 tablet DAILY [facility] Administration Pantoprazole Sodium 40 mg 10/15/16 10:00 10/15/16 11:12 Protonix - PO 40 mg DAILY [facility] Administration Perphenazine 6 mg 10/12/16 22:00 10/15/16 21:34 Trilafon PO 6 mg BID [facility] Administration Impression 1. ESRD 2. hyperkalemia 3. dementia 4. acute hypoxic respiratory failure 5. pleural effusion 6. a-fib 7. epilepsy 8. hx COPD 9. anemia 10. airway and facial edema Plan - continue HD tiw. Pt often refuses HD - thoracentesis - cont current meds - epogen for anemia - vascular follow up for angiogram of av access if not already done [facility]
--- NOTE | 2016-10-17 12:55 | PN ---
Progress Note (short form) - Note Progress Note: PULMONARY LYING COMFORTABLY IN BED OFFERS NO COMPLAINTS NOT INTERESTED IN ANY INVASIVE PROCEDURES VSS/AFEBRILE DIMINISHED BREATH SOUNDS RIGHT BASE S1S2 BS+ SOFT NO EDEMA LABS/MEDS/NOTES/IMAGING REVIEWED Acute Hypoxic and Hypercapneic Respiratory Failure Pleural effusion Volume Overload improved COPD Atrial Fibrillation HTN ESRD on HD Seizure Disorder - HD per renal with ultrafiltration - inhaled bronchodilators - taper FiO2 to keep SpO2 >90% - rate controlled - even if consent for thoracentesis is obtained cooperation for the procedure may be an issue - DVT/GI prophylaxis Viviana LIPSCOMB MD
[2016-10-17] MEDS: APIXABAN 5 MG TABLET PO SCH ×2 (13:29→23:06)
[2016-10-17] MEDS: amLODIPine BESYLATE 10 MG TABLET (FP) PO SCH (13:29)
[2016-10-17] MEDS: PANTOPRAZOLE 40 MG TABLET (FP) PO SCH (13:29)
[2016-10-17] MEDS: PERPHENAZINE 2 MG TABLET PO SCH ×2 (13:29→23:06)
[2016-10-17] MEDS: AMIODARONE HCL 200 MG TABLET (FP) PO SCH (13:29)
[2016-10-17] MEDS: CALCITRIOL 0.25 MCG CAPSULE (FP) PO SCH (13:29)
[2016-10-17] MEDS: VITAMIN B COMP W-C 1 EA TABLET PO SCH (13:29)
--- NOTE | 2016-10-18 09:17 | PN ---
Progress Note (short form) - Note Progress Note: SUBJECTIVE: Patient seen and examined. On 100% Non-rebreather now. I has discussed the case with Plant Propagator, Dr. Avery Agudelo yesterday I also discussed with patient's sister on the phone. Explained that patient is not cooperating Could be life threatening. She understands and knows that is how he is. I also discussed advanced directives with her/ She requests full code, as per patient's wishes. Patient awake and comfortable. Denies pain. Poor historian. Swollen. OBJECTIVE: Intake & Output 10/17/16 10/18/16 10/18/16 23:59 07:59 15:59 Intake Total 200 Balance 200 Weight 70.579 kg Intake: IV 0 s/l 0 Oral 200 Other: Voiding Method Incontinent # Unmeasured Voids Void 0 1 Bowel Movement Yes Yes # Bowel Movements 1 1 Weight Measurement Method Built in [facility] Active Medications Acetaminophen (Tylenol -) 650 mg PO Q4H PRN PRN Reason: FEVER OR PAIN Amiodarone HCl (Cordarone -) 200 mg PO DAILY [facility] Last Admin: 10/17/16 13:29 Dose: Not Given Amlodipine Besylate (Norvasc -) 10 mg PO DAILY [facility] Last Admin: 10/17/16 13:29 Dose: Not Given Apixaban (Eliquis -) 5 mg PO BID [facility] Last Admin: 10/17/16 23:06 Dose: Not Given Calcitriol (Rocaltrol -) 0.25 mcg PO DAILY [facility] Last Admin: 10/17/16 13:29 Dose: Not Given Haloperidol (Haldol -) 0.5 mg PO TID [facility] Last Admin: 10/17/16 23:06 Dose: Not Given Hydralazine HCl (Apresoline -) 25 mg PO TID [facility] Last Admin: 10/17/16 23:06 Dose: Not Given Multivit/Ca Carb/B Cmplx/FA/Prenat (Nephro-Juana -) 1 tablet PO DAILY [facility] Last Admin: 10/17/16 13:29 Dose: Not Given Pantoprazole Sodium (Protonix -) 40 mg PO DAILY [facility] Last Admin: 10/17/16 13:29 Dose: Not Given Perphenazine (Trilafon) 6 mg PO BID [facility] Last Admin: 10/17/16 23:06 Dose: Not Given CBC, BMP 05/06/17 07:00 10/16/16 07:00 Laboratory Results - last 24 hr 10/17/16 13:31 Stool Occult Blood Negative Microbiology 10/12/16 19:30 Blood Culture - Final Blood - Pre-Dialysis NO GROWTH AFTER 5 DAYS INCUBATION 10/12/16 19:30 Blood Culture - Final Blood - Pre-Dialysis NO GROWTH AFTER 5 DAYS INCUBATION 10/12/16 12:21 Blood Culture - Final Blood - Peripheral Venous NO GROWTH AFTER 5 DAYS INCUBATION 10/12/16 12:30 Blood Culture - Final Blood - Peripheral Venous NO GROWTH AFTER 5 DAYS INCUBATION PHYSICAL EXAMINATION: Constitutional: Yes:mild sob + Eyes: Yes: NO Icterus Cardiovascular: Yes: Regular Rate and Rhythm. chest--permacath + Respiratory: Yes: Diminished at bases--- R more than L Gastrointestinal: Yes: soft Edema: Yes: +2- left hand, face, legs Problem List - Problems (1) Hypothermia Code(s): T68.XXXA - HYPOTHERMIA, INITIAL ENCOUNTER Qualifiers: Encounter type: initial encounter Qualified Code(s): T68.XXXA - Hypothermia, initial encounter (2) Respiratory failure Code(s): J96.90 - RESPIRATORY FAILURE, UNSP, UNSP W HYPOXIA OR HYPERCAPNIA (3) Pleural effusion, right Code(s): J90 - PLEURAL EFFUSION, NOT ELSEWHERE CLASSIFIED (4) ESRD (end stage renal disease) on dialysis Code(s): N18.6 - END STAGE RENAL DISEASE Z99.2 - DEPENDENCE ON RENAL DIALYSIS (5) Dementia Code(s): F03.90 - UNSPECIFIED DEMENTIA WITHOUT BEHAVIORAL DISTURBANCE ASSESSMENT & PLAN: - Continue present care - Difficult situation as refuses treatment - Psych consult pending. - Should have dialysis today. - Discussed with Plant Propagator, Dr. Banks today. - Will speak with Taxicab Coordinator. - Check echocardiogram. - Check on LV function. - Discussed with nursing staff. - Condition guarded due to multiple conditions and uncooperability. Documentation prepared by Monica Hernandez, acting as a outside medical sales representative for Gayla Gerard MD.
--- NOTE | 2016-10-18 10:19 | PN ---
Progress Note (short form) - Note Progress Note: PULMONARY Hypoxic on nasal cannula this AM, placed on NRB. Pt somnolent but arousable. No fevers recorded, pt has been noncompliant/uncooperative with meds and treatments. Last Vital Signs Temp Pulse Resp BP Pulse Ox 97.9 F 100 H 28 H 172/91 90 L 10/16/16 14:21 10/17/16 15:41 10/17/16 21:00 10/17/16 15:41 10/17/16 21:00 Intake & Output 10/15/16 10/16/16 10/17/16 10/18/16 23:59 23:59 23:59 23:59 Intake Total 660 905 200 Balance 660 905 200 Weight 156 lb 6 oz 155 lb 4 oz 155 lb 9.6 oz Gen: tachypneic at rest, facial edema Heart: RRR Lung: bilateral rhonchi Abd: soft, nontender Ext: +LUE edema CBC, BMP 10/16/16 07:00 10/16/16 07:00 Active Medications Acetaminophen (Tylenol -) 650 mg PO Q4H PRN PRN Reason: FEVER OR PAIN Amiodarone HCl (Cordarone -) 200 mg PO DAILY [facility] Last Admin: 10/17/16 13:29 Dose: Not Given Amlodipine Besylate (Norvasc -) 10 mg PO DAILY [facility] Last Admin: 10/17/16 13:29 Dose: Not Given Apixaban (Eliquis -) 5 mg PO BID [facility] Last Admin: 10/17/16 23:06 Dose: Not Given Calcitriol (Rocaltrol -) 0.25 mcg PO DAILY [facility] Last Admin: 10/17/16 13:29 Dose: Not Given Haloperidol (Haldol -) 0.5 mg PO TID [facility] Last Admin: 10/17/16 23:06 Dose: Not Given Hydralazine HCl (Apresoline -) 25 mg PO TID [facility] Last Admin: 10/17/16 23:06 Dose: Not Given Multivit/Ca Carb/B Cmplx/FA/Prenat (Nephro-Juana -) 1 tablet PO DAILY [facility] Last Admin: 10/17/16 13:29 Dose: Not Given Pantoprazole Sodium (Protonix -) 40 mg PO DAILY [facility] Last Admin: 10/17/16 13:29 Dose: Not Given Perphenazine (Trilafon) 6 mg PO BID [facility] Last Admin: 10/17/16 23:06 Dose: Not Given A/P Acute Hypoxic and Hypercapneic Respiratory Failure Facial Edema Volume Overload COPD Atrial Fibrillation HTN ESRD on HD Seizure Disorder - HD per renal with ultrafiltration - inhaled bronchodilators - taper FiO2 to keep SpO2 >90% - rate controlled - hold anticoagulation if pt agrees to therapeutic thoracentesis - DVT/GI prophylaxis - discuss with HCP goals of care, advanced directives
[2016-10-18] MEDS ORDERED: PT OWN MED DRAWER 7, Y5N ONE ×3 (10:22→22:04)
[2016-10-18] MEDS: amLODIPine BESYLATE 10 MG TABLET (FP) PO SCH (10:25)
[2016-10-18] MEDS: hydrALAZINE HCL 25 MG TABLET (FP) PO SCH ×3 (10:25→22:27)
[2016-10-18] MEDS: AMIODARONE HCL 200 MG TABLET (FP) PO SCH (10:25)
[2016-10-18] MEDS: HALOPERIDOL 0.5 MG TABLET PO SCH ×3 (10:25→22:29)
[2016-10-18] MEDS: PANTOPRAZOLE 40 MG TABLET (FP) PO SCH (10:26)
[2016-10-18] MEDS: PERPHENAZINE 2 MG TABLET PO SCH ×2 (10:26→22:30)
[2016-10-18] MEDS: VITAMIN B COMP W-C 1 EA TABLET PO SCH (10:27)
[2016-10-18] MEDS: APIXABAN 5 MG TABLET PO SCH ×2 (10:27→22:29)
[2016-10-18] MEDS ORDERED: HEPARIN NA (PORCINE) 5,000 UNITS/ML 1ML VIAL IVPUSH ONE (12:32)
--- NOTE | 2016-10-18 12:32 | PN ---
Progress Note, Physician History of Present Illness: Pt seen and examined at bedside. He is awake and complains of shortness of breath. He was not compliant with fluid restrictions. - Current Medication List Current Medications: Active Medications Acetaminophen (Tylenol -) 650 mg PO Q4H PRN PRN Reason: FEVER OR PAIN Amiodarone HCl (Cordarone -) 200 mg PO DAILY [facility] Last Admin: 10/18/16 10:25 Dose: 200 mg Amlodipine Besylate (Norvasc -) 10 mg PO DAILY [facility] Last Admin: 10/18/16 10:25 Dose: 10 mg Apixaban (Eliquis -) 5 mg PO BID [facility] Last Admin: 10/18/16 10:27 Dose: Not Given Calcitriol (Rocaltrol -) 0.25 mcg PO DAILY [facility] Last Admin: 10/17/16 13:29 Dose: Not Given Haloperidol (Haldol -) 0.5 mg PO TID [facility] Last Admin: 10/18/16 10:25 Dose: 0.5 mg Hydralazine HCl (Apresoline -) 25 mg PO TID [facility] Last Admin: 10/18/16 10:25 Dose: 25 mg Multivit/Ca Carb/B Cmplx/FA/Prenat (Nephro-Juana -) 1 tablet PO DAILY [facility] Last Admin: 10/18/16 10:27 Dose: 1 tablet Pantoprazole Sodium (Protonix -) 40 mg PO DAILY [facility] Last Admin: 10/18/16 10:26 Dose: 40 mg Perphenazine (Trilafon) 6 mg PO BID [facility] Last Admin: 10/18/16 10:26 Dose: 6 mg - Objective Vital Signs: Vital Signs Temperature 97.9 F 10/16/16 14:21 Pulse Rate 100 H 10/17/16 15:41 Respiratory Rate 28 H 10/17/16 21:00 Blood Pressure 172/91 10/17/16 15:41 O2 Sat by Pulse Oximetry (%) 90 L 10/17/16 21:00 Constitutional: Yes: Calm Neck: Yes: Supple Cardiovascular: Yes: JVD, S1, S2 Respiratory: Yes: On Nasal O2, Tachypnea Gastrointestinal: Yes: Soft Genitourinary: Yes: WNL Musculoskeletal: Yes: WNL Edema: Yes Edema: LUE: 2+, RUE: 2+, LLE: 1+, RLE: 1+ Neurological: Yes: Oriented Labs: CBC, BMP 10/16/16 07:00 10/16/16 07:00 INR, PTT INR 1.20 (0.82-1.09) H 10/12/16 12:15 Problem List - Problems (1) Dementia Code(s): F03.90 - UNSPECIFIED DEMENTIA WITHOUT BEHAVIORAL DISTURBANCE (2) ESRD (end stage renal disease) on dialysis Code(s): N18.6 - END STAGE RENAL DISEASE Z99.2 - DEPENDENCE ON RENAL DIALYSIS (3) Fluid overload Code(s): E87.70 - FLUID OVERLOAD, UNSPECIFIED Qualifiers: Hypervolemia type: unspecified Qualified Code(s): E87.70 - Fluid overload, unspecified (4) Hyperkalemia Code(s): E87.5 - HYPERKALEMIA (5) Respiratory failure Code(s): J96.90 - RESPIRATORY FAILURE, UNSP, UNSP W HYPOXIA OR HYPERCAPNIA Assessment/Plan Current Medications Generic Name Dose Route Start Last Admin Trade Name Freq PRN Reason Stop Dose Admin Acetaminophen 650 mg 10/12/16 18:39 Tylenol - PO Q4H PRN FEVER OR PAIN Amiodarone HCl 200 mg 10/12/16 18:30 10/18/16 10:25 Cordarone - PO 200 mg DAILY MARLYN Administration Amlodipine Besylate 10 mg 10/12/16 18:30 10/18/16 10:25 Norvasc - PO 10 mg DAILY MARLYN Administration Apixaban 5 mg 10/16/16 22:00 10/18/16 10:27 Eliquis - PO Not Given BID MARLYN Calcitriol 0.25 mcg 10/13/16 10:00 10/17/16 13:29 Rocaltrol - PO Not Given DAILY MARLYN Haloperidol 0.5 mg 10/12/16 22:00 10/18/16 10:25 Haldol - PO 0.5 mg TID MARLYN Administration Hydralazine HCl 25 mg 10/12/16 22:00 10/18/16 10:25 Apresoline - PO 25 mg TID MARLYN Administration Multivit/Ca Carb/B Cmplx/FA/Prenat 1 tablet 10/12/16 18:30 10/18/16 10:27 Nephro-Juana - PO 1 tablet DAILY MARLYN Administration Pantoprazole Sodium 40 mg 10/15/16 10:00 10/18/16 10:26 Protonix - PO 40 mg DAILY MARLYN Administration Perphenazine 6 mg 10/12/16 22:00 10/18/16 10:26 Trilafon PO 6 mg BID MARLYN Administration Impression 1. ESRD 2. hyperkalemia 3. dementia 4. acute hypoxic respiratory failure 5. pleural effusion 6. a-fib 7. epilepsy 8. hx COPD 9. anemia 10. airway and facial edema Plan - will arrange for HD today - will order bloodwork for HD - discussed with pulmonary - cont current meds - epogen for anemia - will need vascular eval for access - will follow Dr Maciel
[2016-10-18] MEDS: CALCITRIOL 0.25 MCG CAPSULE (FP) PO SCH (13:08)
[2016-10-18] MEDS ORDERED: EPOETIN ALFA 2,000 UNITS/1 ML VIAL IVPUSH ONE (13:30)
[2016-10-18 14:12] LABS: MCH 28.3 pg (25.7-33.7); MEAN CELL VOLUME 88.4 fl (80-96); MEAN PLT VOLUME 8.5 fl (7.5-11.1); PLATELET COUNT 86 K/MM3 (134-434); RDW 23.7 % (11.9-15.9); WHITE BLOOD COUNT 11.3 K/mm3 (4.0-10.0)
[2016-10-18 14:25] LABS: CALCIUM 7.8 mg/dL (8.5-10.1); COCKROFT - GAULT 13.68; CREATININE 4.8 mg/dL (0.7-1.3)
--- NOTE | 2016-10-18 15:23 | CON.PSY ---
Psychiatry Consult Chief Complaint: Patient with a long history of psych illness and dementia. Symptoms: reports: Memory Impairment, Disorganized/Disruptive Thoughts, Conduct Problems, Oppositionalism - Previous Psychiatric Treatment Outpatient: Less than 6 mos ago Inpatient: None, One prior admission - Previous Substance Abuse Treatment Outpatient: None Inpatient: One prior admission - Reason for Previous Treatment Reason for Previous Treatment: Psychotic Episode - Current Medications Current Medications: Active Medications Acetaminophen (Tylenol -) 650 mg PO Q4H PRN PRN Reason: FEVER OR PAIN Amiodarone HCl (Cordarone -) 200 mg PO DAILY [facility] Last Admin: 10/18/16 10:25 Dose: 200 mg Amlodipine Besylate (Norvasc -) 10 mg PO DAILY [facility] Last Admin: 10/18/16 10:25 Dose: 10 mg Apixaban (Eliquis -) 5 mg PO BID [facility] Last Admin: 10/18/16 10:27 Dose: Not Given Calcitriol (Rocaltrol -) 0.25 mcg PO DAILY [facility] Last Admin: 10/18/16 13:08 Dose: Not Given Haloperidol (Haldol -) 0.5 mg PO TID [facility] Last Admin: 10/18/16 13:09 Dose: Not Given Hydralazine HCl (Apresoline -) 25 mg PO TID [facility] Last Admin: 10/18/16 13:08 Dose: Not Given Multivit/Ca Carb/B Cmplx/FA/Prenat (Nephro-Juana -) 1 tablet PO DAILY [facility] Last Admin: 10/18/16 10:27 Dose: 1 tablet Pantoprazole Sodium (Protonix -) 40 mg PO DAILY [facility] Last Admin: 10/18/16 10:26 Dose: 40 mg Perphenazine (Trilafon) 6 mg PO BID [facility] Last Admin: 10/18/16 10:26 Dose: 6 mg - Allergies Allergies: Allergies Allergy/AdvReac Type Severity Reaction Status Date / Time No Known Allergies Allergy Verified 10/12/16 12:00 - Current Living Status Usual Living Arrangement: Group Home - Current Mental Status Evaluation Appearance: Disheveled Attitude: Guarded - Affect Affect: Constrictive Appropriateness: Not Appropriate - Mood Mood: Irritable - Speech/Language Expressive: Delayed - Psychomotor Activity Psychomotor Activity: Slowed - Thought Process Thought Process: Circumstantial - Thought Content Hallucinations: Absent Delusions: Absent - Self Perception Self Perception: No Impairment - Cognition Attention: Diminished Memory, Immediate Recall: Impaired Memory, Short Term: 1/3 Memory, Remote with Promptin/3 - Concentration Serial Sevens Intact: No Simple Calculations Intact: No - Abstraction Proverb Interpretation: Impaired Judgement: Moderately Impaired - Insight Insight: Impaired - Impulse Control Impulse Control: Minimally Impaired - Suicidal Ideation Suicidal Ideation: No - Homicidal Ideation Homicidal Ideation: No Assessment/Plan 1) patient lacks capacity to make decisions at this time. 2) continue with [facility] psych meds.
[2016-10-19] MEDS: HALOPERIDOL 0.5 MG TABLET PO SCH ×3 (06:00→21:13)
[2016-10-19] MEDS: hydrALAZINE HCL 25 MG TABLET (FP) PO SCH ×3 (06:00→21:13)
--- NOTE | 2016-10-19 09:59 | PN ---
Progress Note (short form) - Note Progress Note: PULMONARY s/p HD yesterday. Clinically much improved today with less facial edema. Denies shortness of breath, chest pain or cough. Last Vital Signs Temp Pulse Resp BP Pulse Ox 98.5 F 81 20 141/73 92 L 10/19/16 06:00 10/19/16 06:00 10/19/16 06:00 10/19/16 06:00 10/18/16 21:00 Gen: less tachypneic, less facial edema Heart: RRR Lung: scattered rhonchi Abd: soft, nontender Ext: +LUE edema CBC, BMP 10/18/16 13:20 10/18/16 17:49 Active Medications Acetaminophen (Tylenol -) 650 mg PO Q4H PRN PRN Reason: FEVER OR PAIN Amiodarone HCl (Cordarone -) 200 mg PO DAILY [facility] Last Admin: 10/18/16 10:25 Dose: 200 mg Amlodipine Besylate (Norvasc -) 10 mg PO DAILY [facility] Last Admin: 10/18/16 10:25 Dose: 10 mg Apixaban (Eliquis -) 5 mg PO BID [facility] Last Admin: 10/18/16 22:29 Dose: 5 mg Calcitriol (Rocaltrol -) 0.25 mcg PO DAILY [facility] Last Admin: 10/18/16 13:08 Dose: Not Given Haloperidol (Haldol -) 0.5 mg PO TID [facility] Last Admin: 10/19/16 06:00 Dose: 0.5 mg Hydralazine HCl (Apresoline -) 25 mg PO TID [facility] Last Admin: 10/19/16 06:00 Dose: 25 mg Multivit/Ca Carb/B Cmplx/FA/Prenat (Nephro-Juana -) 1 tablet PO DAILY [facility] Last Admin: 10/18/16 10:27 Dose: 1 tablet Pantoprazole Sodium (Protonix -) 40 mg PO DAILY [facility] Last Admin: 10/18/16 10:26 Dose: 40 mg Perphenazine (Trilafon) 6 mg PO BID [facility] Last Admin: 10/18/16 22:30 Dose: 6 mg A/P Acute Hypoxic and Hypercapneic Respiratory Failure Facial Edema Volume Overload COPD Atrial Fibrillation HTN ESRD on HD Seizure Disorder Noncompliance - HD per renal with ultrafiltration - inhaled bronchodilators - taper FiO2 to keep SpO2 >90% - rate controlled - hold anticoagulation if pt agrees to therapeutic thoracentesis - DVT/GI prophylaxis - discuss with HCP goals of care, advanced directives
[2016-10-19] MEDS: AMIODARONE HCL 200 MG TABLET (FP) PO SCH (10:04)
[2016-10-19] MEDS: amLODIPine BESYLATE 10 MG TABLET (FP) PO SCH (10:05)
[2016-10-19] MEDS: VITAMIN B COMP W-C 1 EA TABLET PO SCH (10:05)
[2016-10-19] MEDS: PERPHENAZINE 2 MG TABLET PO SCH ×2 (10:05→21:13)
[2016-10-19] MEDS: APIXABAN 5 MG TABLET PO SCH ×2 (10:05→21:14)
[2016-10-19] MEDS: PANTOPRAZOLE 40 MG TABLET (FP) PO SCH (10:05)
[2016-10-19] MEDS: CALCITRIOL 0.25 MCG CAPSULE (FP) PO SCH (10:06)
--- NOTE | 2016-10-19 11:02 | PN ---
Progress Note (short form) - Note Progress Note: VASCULAR SURGERY - Pramod Chow ESRD on HD via permacath (left chest wall) Has LUE fistula (unable to tell if it's [place] vessel vs. ptfe graft). Pt doesn't communicate well. No history of prior visits. LUE: swollen from axilla to his digits. palpable radial pulse. Unable to palpate a thrill. (+)bruit on auscultation. Problem List - Problems (1) ESRD (end stage renal disease) on dialysis Assessment/Plan: f/u fistulagram (ordered) Cont care per medicine HD prn Code(s): N18.6 - END STAGE RENAL DISEASE Z99.2 - DEPENDENCE ON RENAL DIALYSIS
--- NOTE | 2016-10-19 11:51 | PN ---
Progress Note, Physician Chief Complaint: underwent HD yesterday no distress He feels fine events noted No SOB he follows commands and is allowing me to examine him - Current Medication List Current Medications: Active Medications Acetaminophen (Tylenol -) 650 mg PO Q4H PRN PRN Reason: FEVER OR PAIN Amiodarone HCl (Cordarone -) 200 mg PO DAILY [facility] Last Admin: 10/19/16 10:04 Dose: 200 mg Amlodipine Besylate (Norvasc -) 10 mg PO DAILY [facility] Last Admin: 10/19/16 10:05 Dose: 10 mg Apixaban (Eliquis -) 5 mg PO BID [facility] Last Admin: 10/19/16 10:05 Dose: 5 mg Calcitriol (Rocaltrol -) 0.25 mcg PO DAILY [facility] Last Admin: 10/19/16 10:06 Dose: 0.25 mcg Haloperidol (Haldol -) 0.5 mg PO TID [facility] Last Admin: 10/19/16 06:00 Dose: 0.5 mg Hydralazine HCl (Apresoline -) 25 mg PO TID [facility] Last Admin: 10/19/16 06:00 Dose: 25 mg Multivit/Ca Carb/B Cmplx/FA/Prenat (Nephro-Juana -) 1 tablet PO DAILY [facility] Last Admin: 10/19/16 10:05 Dose: 1 tablet Pantoprazole Sodium (Protonix -) 40 mg PO DAILY [facility] Last Admin: 10/19/16 10:05 Dose: 40 mg Perphenazine (Trilafon) 6 mg PO BID [facility] Last Admin: 10/19/16 10:05 Dose: 6 mg - Objective Vital Signs: Vital Signs Temperature 98 F 10/19/16 10:00 Pulse Rate 84 10/19/16 10:00 Respiratory Rate 20 10/19/16 10:00 Blood Pressure 170/73 10/19/16 10:00 O2 Sat by Pulse Oximetry (%) 92 L 10/19/16 09:00 Constitutional: Yes: No Distress Eyes: Yes: Other (decreased facial edema) Cardiovascular: Yes: Regular Rate and Rhythm Respiratory: Yes: Diminished Gastrointestinal: Yes: Normal Bowel Sounds, Soft. No: Distention, Tenderness Edema: Yes Edema: LUE: 2+ Labs: CBC, BMP 10/18/16 13:20 10/18/16 17:49 INR, PTT INR 1.20 (0.82-1.09) H 10/12/16 12:15 Problem List - Problems (1) Hypothermia Code(s): T68.XXXA - HYPOTHERMIA, INITIAL ENCOUNTER Qualifiers: Encounter type: initial encounter Qualified Code(s): T68.XXXA - Hypothermia, initial encounter (2) Respiratory failure Code(s): J96.90 - RESPIRATORY FAILURE, UNSP, UNSP W HYPOXIA OR HYPERCAPNIA (3) Pleural effusion, right Code(s): J90 - PLEURAL EFFUSION, NOT ELSEWHERE CLASSIFIED (4) ESRD (end stage renal disease) on dialysis Code(s): N18.6 - END STAGE RENAL DISEASE Z99.2 - DEPENDENCE ON RENAL DIALYSIS (5) Dementia Code(s): F03.90 - UNSPECIFIED DEMENTIA WITHOUT BEHAVIORAL DISTURBANCE Assessment/Plan PLAN off antibiotics as cultures negative Ct chest noted repeat CXR pt refusing thoracentesis Psychiatry deemed him incompetent to make decisions Sister wants him to be full code Can not force the pt to undergo thoracentesis-- would cause more harm than good continue with meds vascular eval noted-- ordered fistulogram , unsure if pt will go for that Pt gets HD through permacath HD per renal
--- NOTE | 2016-10-19 12:37 | PN ---
Progress Note (short form) - Note Progress Note: Vascular Surgery Pt seen and examined. Ordered US of left upper ext avf. Will follow. Might need venogram Pramod Chow DO
--- NOTE | 2016-10-19 12:56 | PN ---
Progress Note (short form) - Note Progress Note: VAscular Surgery US from 10/13 reviewed. AVG is patent, however there is a 50% stenosis with turbulent flow at the venous anastomosis. Graft has never been used Will do venogram venoplasty rosanne. This way the graft can be used in the HD unit. Pramod Chow DO
[2016-10-19] MEDS ORDERED: HEPARIN NA (PORCINE) 5,000 UNITS/ML 1ML VIAL IVPUSH ONE (13:15)
--- NOTE | 2016-10-19 14:58 | PN ---
Progress Note, Physician History of Present Illness: Pt seen and examined at bedside. He is awake and appears more comfortable. He still has shortness of breath. - Current Medication List Current Medications: Active Medications Acetaminophen (Tylenol -) 650 mg PO Q4H PRN PRN Reason: FEVER OR PAIN Amiodarone HCl (Cordarone -) 200 mg PO DAILY [facility] Last Admin: 10/19/16 10:04 Dose: 200 mg Amlodipine Besylate (Norvasc -) 10 mg PO DAILY [facility] Last Admin: 10/19/16 10:05 Dose: 10 mg Apixaban (Eliquis -) 5 mg PO BID [facility] Last Admin: 10/19/16 10:05 Dose: 5 mg Calcitriol (Rocaltrol -) 0.25 mcg PO DAILY [facility] Last Admin: 10/19/16 10:06 Dose: 0.25 mcg Haloperidol (Haldol -) 0.5 mg PO TID [facility] Last Admin: 10/19/16 14:11 Dose: Not Given Hydralazine HCl (Apresoline -) 25 mg PO TID [facility] Last Admin: 10/19/16 14:11 Dose: Not Given Multivit/Ca Carb/B Cmplx/FA/Prenat (Nephro-Juana -) 1 tablet PO DAILY [facility] Last Admin: 10/19/16 10:05 Dose: 1 tablet Pantoprazole Sodium (Protonix -) 40 mg PO DAILY [facility] Last Admin: 10/19/16 10:05 Dose: 40 mg Perphenazine (Trilafon) 6 mg PO BID [facility] Last Admin: 10/19/16 10:05 Dose: 6 mg - Objective Vital Signs: Vital Signs Temperature 97.6 F 10/19/16 13:35 Pulse Rate 62 10/19/16 14:40 Respiratory Rate 18 10/19/16 14:40 Blood Pressure 168/88 10/19/16 14:40 O2 Sat by Pulse Oximetry (%) 92 L 10/19/16 09:00 Constitutional: Yes: Calm Eyes: Yes: Conjunctiva Clear HENT: Yes: Atraumatic Cardiovascular: Yes: S1, S2 Respiratory: Yes: On Nasal O2, Rhonchi Gastrointestinal: Yes: Soft Genitourinary: Yes: WNL Edema: Yes Edema: LUE: 1+, RUE: 1+ Neurological: Yes: Confusion Labs: CBC, BMP 10/18/16 13:20 10/18/16 17:49 INR, PTT INR 1.20 (0.82-1.09) H 10/12/16 12:15 Problem List - Problems (1) Dementia Code(s): F03.90 - UNSPECIFIED DEMENTIA WITHOUT BEHAVIORAL DISTURBANCE (2) ESRD (end stage renal disease) on dialysis Code(s): N18.6 - END STAGE RENAL DISEASE Z99.2 - DEPENDENCE ON RENAL DIALYSIS (3) Fluid overload Code(s): E87.70 - FLUID OVERLOAD, UNSPECIFIED Qualifiers: Hypervolemia type: unspecified Qualified Code(s): E87.70 - Fluid overload, unspecified (4) Hyperkalemia Code(s): E87.5 - HYPERKALEMIA (5) Respiratory failure Code(s): J96.90 - RESPIRATORY FAILURE, UNSP, UNSP W HYPOXIA OR HYPERCAPNIA Assessment/Plan Current Medications Generic Name Dose Route Start Last Admin Trade Name Freq PRN Reason Stop Dose Admin Acetaminophen 650 mg 10/12/16 18:39 Tylenol - PO Q4H PRN FEVER OR PAIN Amiodarone HCl 200 mg 10/12/16 18:30 10/19/16 10:04 Cordarone - PO 200 mg DAILY MARLYN Administration Amlodipine Besylate 10 mg 10/12/16 18:30 10/19/16 10:05 Norvasc - PO 10 mg DAILY [facility]N Administration Apixaban 5 mg 10/16/16 22:00 10/19/16 10:05 Eliquis - PO 5 mg BID MARLYN Administration Calcitriol 0.25 mcg 10/13/16 10:00 10/19/16 10:06 Rocaltrol - PO 0.25 mcg DAILY [facility]N Administration Haloperidol 0.5 mg 10/12/16 22:00 10/19/16 14:11 Haldol - PO Not Given TID MARLYN Hydralazine HCl 25 mg 10/12/16 22:00 10/19/16 14:11 Apresoline - PO Not Given TID MARLYN Multivit/Ca Carb/B Cmplx/FA/Prenat 1 tablet 10/12/16 18:30 10/19/16 10:05 Nephro-Juana - PO 1 tablet DAILY [facility]N Administration Pantoprazole Sodium 40 mg 10/15/16 10:00 10/19/16 10:05 Protonix - PO 40 mg DAILY [facility]N Administration Perphenazine 6 mg 10/12/16 22:00 10/19/16 10:05 Trilafon PO 6 mg BID MARLYN Administration Impression 1. ESRD 2. hyperkalemia 3. dementia 4. acute hypoxic respiratory failure 5. pleural effusion 6. a-fib 7. epilepsy 8. hx COPD 9. anemia 10. airway and facial edema Plan - will dialyze pt again today for volume - monitor pulse ox - will to be more careful with volume intake - cont current meds - epogen for anemia, received dose yesterday - discussed with vascular - will follow Dr Maciel
[2016-10-19] MEDS ORDERED: PT OWN MED DRAWER 7, Y5N ONE (21:02)
[2016-10-20] MEDS: hydrALAZINE HCL 25 MG TABLET (FP) PO SCH ×3 (06:27→21:33)
[2016-10-20] MEDS: HALOPERIDOL 0.5 MG TABLET PO SCH ×3 (06:27→21:34)
[2016-10-20] MEDS ORDERED: PT OWN MED DRAWER 7, Y5N ONE ×3 (09:24→21:29)
[2016-10-20] MEDS: CALCITRIOL 0.25 MCG CAPSULE (FP) PO SCH (09:31)
[2016-10-20] MEDS: PERPHENAZINE 2 MG TABLET PO SCH ×2 (09:31→21:34)
[2016-10-20] MEDS: amLODIPine BESYLATE 10 MG TABLET (FP) PO SCH (09:31)
[2016-10-20] MEDS: VITAMIN B COMP W-C 1 EA TABLET PO SCH (09:31)
[2016-10-20] MEDS: PANTOPRAZOLE 40 MG TABLET (FP) PO SCH (09:31)
[2016-10-20] MEDS: AMIODARONE HCL 200 MG TABLET (FP) PO SCH (09:31)
[2016-10-20] MEDS: APIXABAN 5 MG TABLET PO SCH ×2 (10:00→21:33)
[2016-10-20] MEDS ORDERED: HEPARIN NA (PORCINE) 5,000 UNITS/ML 1ML VIAL ONE (10:26)
[2016-10-20] MEDS ORDERED: PROPOFOL 20 ML ONE ×2 (10:39)
[2016-10-20] MEDS ORDERED: MIDAZOLAM HCL 2 MG/2 ML SINGLE DOSE VIAL ONE (10:40)
--- NOTE | 2016-10-20 11:03 | PN ---
Progress Note, Physician Chief Complaint: pt examined in recovery room awake no distress feels cold - Current Medication List Current Medications: Active Medications Acetaminophen (Tylenol -) 650 mg PO Q4H PRN PRN Reason: FEVER OR PAIN Amiodarone HCl (Cordarone -) 200 mg PO DAILY [facility] Last Admin: 10/20/16 09:31 Dose: 200 mg Amlodipine Besylate (Norvasc -) 10 mg PO DAILY [facility] Last Admin: 10/20/16 09:31 Dose: 10 mg Apixaban (Eliquis -) 5 mg PO BID [facility] Last Admin: 10/20/16 10:00 Dose: Not Given Calcitriol (Rocaltrol -) 0.25 mcg PO DAILY [facility] Last Admin: 10/20/16 09:31 Dose: 0.25 mcg Haloperidol (Haldol -) 0.5 mg PO TID [facility] Last Admin: 10/20/16 06:27 Dose: Not Given Hydralazine HCl (Apresoline -) 25 mg PO TID [facility] Last Admin: 10/20/16 06:27 Dose: Not Given Multivit/Ca Carb/B Cmplx/FA/Prenat (Nephro-Juana -) 1 tablet PO DAILY [facility] Last Admin: 10/20/16 09:31 Dose: 1 tablet Pantoprazole Sodium (Protonix -) 40 mg PO DAILY [facility] Last Admin: 10/20/16 09:31 Dose: 40 mg Perphenazine (Trilafon) 6 mg PO BID [facility] Last Admin: 10/20/16 09:31 Dose: 6 mg - Objective Vital Signs: Vital Signs Temperature 92.7 F L 10/20/16 08:37 Pulse Rate 68 10/20/16 08:37 Respiratory Rate 18 10/20/16 08:37 Blood Pressure 143/99 10/20/16 08:37 O2 Sat by Pulse Oximetry (%) 98 10/19/16 21:00 Constitutional: Yes: No Distress Cardiovascular: Yes: Regular Rate and Rhythm Respiratory: Yes: Diminished Gastrointestinal: Yes: Normal Bowel Sounds, Soft. No: Tenderness Extremities: Yes: Other (left arm-- edema , graft --thrill+) Edema: No Labs: CBC, BMP 10/18/16 13:20 10/18/16 17:49 INR, PTT INR 1.20 (0.82-1.09) H 10/12/16 12:15 Problem List - Problems (1) Hypothermia Code(s): T68.XXXA - HYPOTHERMIA, INITIAL ENCOUNTER Qualifiers: Encounter type: initial encounter Qualified Code(s): T68.XXXA - Hypothermia, initial encounter (2) Respiratory failure Code(s): J96.90 - RESPIRATORY FAILURE, UNSP, UNSP W HYPOXIA OR HYPERCAPNIA (3) Pleural effusion, right Code(s): J90 - PLEURAL EFFUSION, NOT ELSEWHERE CLASSIFIED (4) ESRD (end stage renal disease) on dialysis Code(s): N18.6 - END STAGE RENAL DISEASE Z99.2 - DEPENDENCE ON RENAL DIALYSIS (5) Dementia Code(s): F03.90 - UNSPECIFIED DEMENTIA WITHOUT BEHAVIORAL DISTURBANCE Assessment/Plan PLAN repeat CXR noted pt refusing thoracentesis Psychiatry deemed him incompetent to make decisions Sister wants him to be full code Can not force the pt to undergo thoracentesis-- would cause more harm than good continue with meds s/p venogram and venoplasty HD per renal tomorrow denise andrew for low temp-- does not appear to be septic labs pending
[2016-10-20] MEDS ORDERED: ceFAZolin SODIUM 1 GM VIAL IVPB ONE (11:11)
[2016-10-20] MEDS ORDERED: LIDOCAINE HCL 1%, 10 MG/ML (50 mL VIAL) IJ ONE ×2 (11:36)
--- NOTE | 2016-10-20 11:48 | PN ---
Progress Note (short form) - Note Progress Note: Vascular Surgery Venoplasty of left avg AVG marked. Can use avg rosanne. Pramod Chow DO
--- NOTE | 2016-10-20 11:49 | OP ---
Operative Note - Note: Operative Date: 10/20/16 Pre-Operative Diagnosis: Poor flow in left avg Operation: Venogram, venoplasty left avg Post-Operative Diagnosis: Same as Pre-op Surgeon: Pramod Chow Anesthesia: Fractional Estimated Blood Loss (mls): 15 Operative Report Dictated: Yes
[2016-10-20] MEDS ORDERED: ACETAMINOPHEN 325 MG TABLET (FP) PO PRN (12:59)
[2016-10-20 14:00] LABS: BASOPHIL 0.3 % (0-2.0); EOSINOPHIL 0.5 % (0-4.5); MCH 28.7 pg (25.7-33.7); MEAN CELL VOLUME 89.8 fl (80-96); NEUTROPHILS 86.9 % (42.8-82.8); PLATELET COUNT 81 K/MM3 (134-434); RDW 24.1 % (11.9-15.9); WHITE BLOOD COUNT 5.7 K/mm3 (4.0-10.0)
[2016-10-20 15:28] LABS: ALBUMIN 2.6 g/dl (3.4-5.0); BILIRUBIN,TOTAL 0.4 mg/dL (0.2-1.0); CALCIUM 7.9 mg/dL (8.5-10.1); COCKROFT - GAULT 18.78; CREATININE 3.2 mg/dL (0.7-1.3); TOT PROT 6.4 g/dl (6.4-8.2)
--- NOTE | 2016-10-20 18:17 | PN ---
Progress Note, Physician History of Present Illness: Pt seen and examined at bedside. He is awake and alert. He had venuplasty of his graft. - Current Medication List Current Medications: Active Medications Acetaminophen (Tylenol -) 650 mg PO Q4H PRN PRN Reason: FEVER OR PAIN Amiodarone HCl (Cordarone -) 200 mg PO DAILY [facility] Amlodipine Besylate (Norvasc -) 10 mg PO DAILY [facility] Apixaban (Eliquis -) 5 mg PO BID [facility] Calcitriol (Rocaltrol -) 0.25 mcg PO DAILY [facility] Haloperidol (Haldol -) 0.5 mg PO TID [facility] Last Admin: 10/20/16 14:59 Dose: 0.5 mg Hydralazine HCl (Apresoline -) 25 mg PO TID [facility] Last Admin: 10/20/16 14:59 Dose: 25 mg Multivit/Ca Carb/B Cmplx/FA/Prenat (Nephro-Juana -) 1 tablet PO DAILY [facility] Pantoprazole Sodium (Protonix -) 40 mg PO DAILY [facility] Perphenazine (Trilafon) 6 mg PO BID [facility] - Objective Vital Signs: Vital Signs Temperature 97.5 F L 10/20/16 17:02 Pulse Rate 78 10/20/16 17:02 Respiratory Rate 20 10/20/16 17:02 Blood Pressure 132/61 10/20/16 17:02 O2 Sat by Pulse Oximetry (%) 97 10/20/16 15:55 Constitutional: Yes: Calm Eyes: Yes: Conjunctiva Clear HENT: Yes: Atraumatic Cardiovascular: Yes: S1, S2 Respiratory: Yes: CTA Bilaterally, On Nasal O2 Gastrointestinal: Yes: Soft, Abdomen, Obese Genitourinary: Yes: WNL Edema: Yes Edema: LUE: 1+, RUE: 1+ Neurological: Yes: Confusion Psychiatric: Yes: Oriented Labs: CBC, BMP 10/20/16 13:45 10/20/16 13:45 INR, PTT INR 1.20 (0.82-1.09) H 10/12/16 12:15 Problem List - Problems (1) Dementia Code(s): F03.90 - UNSPECIFIED DEMENTIA WITHOUT BEHAVIORAL DISTURBANCE (2) ESRD (end stage renal disease) on dialysis Code(s): N18.6 - END STAGE RENAL DISEASE Z99.2 - DEPENDENCE ON RENAL DIALYSIS (3) Fluid overload Code(s): E87.70 - FLUID OVERLOAD, UNSPECIFIED Qualifiers: Hypervolemia type: unspecified Qualified Code(s): E87.70 - Fluid overload, unspecified (4) Hyperkalemia Code(s): E87.5 - HYPERKALEMIA (5) Respiratory failure Code(s): J96.90 - RESPIRATORY FAILURE, UNSP, UNSP W HYPOXIA OR HYPERCAPNIA Assessment/Plan Current Medications Generic Name Dose Route Start Last Admin Trade Name Freq PRN Reason Stop Dose Admin Acetaminophen 650 mg 10/20/16 12:59 Tylenol - PO Q4H PRN FEVER OR PAIN Amiodarone HCl 200 mg 10/21/16 10:00 Cordarone - PO DAILY MARLYN Amlodipine Besylate 10 mg 10/21/16 10:00 Norvasc - PO DAILY [facility] Apixaban 5 mg 10/20/16 22:00 Eliquis - PO BID [facility] Calcitriol 0.25 mcg 10/21/16 10:00 Rocaltrol - PO DAILY [facility] Haloperidol 0.5 mg 10/20/16 14:00 10/20/16 14:59 Haldol - PO 0.5 mg TID [facility] Administration Hydralazine HCl 25 mg 10/20/16 14:00 10/20/16 14:59 Apresoline - PO 25 mg TID [facility]N Administration Multivit/Ca Carb/B Cmplx/FA/Prenat 1 tablet 10/21/16 10:00 Nephro-Juana - PO DAILY [facility] Pantoprazole Sodium 40 mg 10/21/16 10:00 Protonix - PO DAILY [facility] Perphenazine 6 mg 10/20/16 22:00 Trilafon PO BID [facility] Impression 1. ESRD 2. hyperkalemia 3. dementia 4. acute hypoxic respiratory failure 5. pleural effusion 6. a-fib 7. epilepsy 8. hx COPD 9. anemia 10. airway and facial edema Plan - will arrange for HD in am - discussed with vascular, will use graft with one needle tomorrow - cont current meds - epogen for anemia - will follow Dr Maciel
[2016-10-20 18:27] LABS: HYPOCHROMIA FEW; PLATELET ESTIMATE DECREASED (NORMAL); POLYCHROMASIA 1+
[2016-10-20 18:28] LABS: ANISOCYTOSIS 2+; TARGET CELLS FEW
[2016-10-21] MEDS: HALOPERIDOL 0.5 MG TABLET PO SCH ×3 (06:29→22:28)
[2016-10-21] MEDS: hydrALAZINE HCL 25 MG TABLET (FP) PO SCH ×3 (06:29→22:28)
[2016-10-21] MEDS ORDERED: PT OWN MED DRAWER 7, Y5N ONE ×3 (06:30→09:50)
[2016-10-21] MEDS: PANTOPRAZOLE 40 MG TABLET (FP) PO SCH (09:42)
[2016-10-21] MEDS: AMIODARONE HCL 200 MG TABLET (FP) PO SCH (09:42)
[2016-10-21] MEDS: CALCITRIOL 0.25 MCG CAPSULE (FP) PO SCH (09:42)
[2016-10-21] MEDS: VITAMIN B COMP W-C 1 EA TABLET PO SCH (09:42)
[2016-10-21] MEDS: APIXABAN 5 MG TABLET PO SCH ×2 (09:42→22:27)
[2016-10-21] MEDS: PERPHENAZINE 2 MG TABLET PO SCH ×2 (09:43→22:28)
[2016-10-21] MEDS: amLODIPine BESYLATE 10 MG TABLET (FP) PO SCH (09:43)
--- NOTE | 2016-10-21 10:25 | PN ---
Progress Note (short form) - Note Progress Note: PULMONARY Denies shortness of breath, chest pain or cough. Last Vital Signs Temp Pulse Resp BP Pulse Ox 97.5 F L 78 20 132/61 97 10/20/16 17:02 10/20/16 17:02 10/20/16 21:00 10/20/16 17:02 10/20/16 21:00 Gen: NAD at rest Heart: RRR Lung: scattered rhonchi Abd: soft, nontender Ext: +LUE edema CBC, BMP 10/20/16 13:45 10/20/16 13:45 Active Medications Acetaminophen (Tylenol -) 650 mg PO Q4H PRN PRN Reason: FEVER OR PAIN Amiodarone HCl (Cordarone -) 200 mg PO DAILY [facility] Last Admin: 10/21/16 09:42 Dose: 200 mg Amlodipine Besylate (Norvasc -) 10 mg PO DAILY [facility] Last Admin: 10/21/16 09:43 Dose: Not Given Apixaban (Eliquis -) 5 mg PO BID [facility] Last Admin: 10/21/16 09:42 Dose: 5 mg Calcitriol (Rocaltrol -) 0.25 mcg PO DAILY [facility] Last Admin: 10/21/16 09:42 Dose: 0.25 mcg Epoetin Tyson (Epogen -) 5,000 units IVPUSH ONCE ONE Stop: 10/21/16 18:18 Haloperidol (Haldol -) 0.5 mg PO TID [facility] Last Admin: 10/21/16 06:29 Dose: 0.5 mg Heparin Sodium (Porcine) (Heparin -) 1,000 unit IVPUSH ONCE ONE Stop: 10/21/16 18:18 Hydralazine HCl (Apresoline -) 25 mg PO TID [facility] [place] Last Admin: 10/21/16 06:29 Dose: 25 mg Multivit/Ca Carb/B Cmplx/FA/Prenat (Nephro-Juana -) 1 tablet PO DAILY [facility] [place] Last Admin: 10/21/16 09:42 Dose: 1 tablet Pantoprazole Sodium (Protonix -) 40 mg PO DAILY [facility] [place] Last Admin: 10/21/16 09:42 Dose: 40 mg Perphenazine (Trilafon) 6 mg PO BID [facility] Last Admin: 10/21/16 09:43 Dose: 6 mg A/P Acute Hypoxic and Hypercapneic Respiratory Failure Facial Edema Volume Overload COPD Atrial Fibrillation HTN ESRD on HD Seizure Disorder Noncompliance - HD per renal with ultrafiltration - inhaled bronchodilators - taper FiO2 to keep SpO2 >90% - rate controlled - hold anticoagulation if pt agrees to therapeutic thoracentesis but less urgent as pt improving with HD - DVT/GI prophylaxis - discuss with HCP goals of care, advanced directives
[2016-10-21] MEDS ORDERED: EPOETIN ALFA 3,000 UNIT, EPOETIN ALFA 2,000 UNIT IVPUSH ONE (11:15)
--- NOTE | 2016-10-21 11:17 | DS ---
Physical Examination Vital Signs: Vital Signs Temperature 97.5 F L 10/20/16 17:02 Pulse Rate 78 10/20/16 17:02 Respiratory Rate 20 10/20/16 21:00 Blood Pressure 132/61 10/20/16 17:02 O2 Sat by Pulse Oximetry (%) 97 10/20/16 21:00 Labs: CBC, BMP 10/20/16 13:45 10/20/16 13:45 Discharge Summary Reason For Visit: HYPOTHERMIA,SEPSIS,HYPERVOLEMIA Current Active Problems Anemia (Acute) Dementia (Acute) ESRD (end stage renal disease) on dialysis (Acute) Fluid overload (Acute) Hyperkalemia (Acute) Hypothermia (Acute) Pleural effusion, right (Acute) Respiratory failure (Acute) Sepsis (Acute) Condition: Critical - Instructions Referrals: Gayla Gerard MD [Primary Care Provider] - - Home Medications Comprehensive Discharge Medication List: Ambulatory Orders Acetaminophen 650 mg PO Q6H PRN 10/12/16 Albuterol 0.083% Nebulizer Camryn [Ventolin 0.083%] 1 neb NEB QID 10/12/16 Amiodarone HCl 200 mg PO DAILY 10/12/16 Amlodipine Besylate 10 mg PO DAILY 10/12/16 Apixaban [Eliquis] 5 mg PO BID 10/12/16 Calcitriol [Rocaltrol -] 0.25 mcg PO DAILY 10/12/16 Famotidine 20 mg PO BID 10/12/16 Haloperidol 0.5 mg PO TID 10/12/16 Hydralazine HCl [Apresoline -] 25 mg PO TID 10/12/16 Ipratropium 0.02% Nebulizer [Atrovent *Nebulizer*] 0.5 mg IH Q6H 10/12/16 Perphenazine 6 mg PO BID 10/12/16 Vitamin B Comp W-C [Nephro-Juana] 1 ea PO DAILY 10/12/16
--- NOTE | 2016-10-21 11:18 | PN ---
Progress Note, Physician Chief Complaint: pt examined awake no distress no complaints has a good appetite - Current Medication List Current Medications: Active Medications Acetaminophen (Tylenol -) 650 mg PO Q4H PRN PRN Reason: FEVER OR PAIN Amiodarone HCl (Cordarone -) 200 mg PO DAILY [facility] Last Admin: 10/21/16 09:42 Dose: 200 mg Amlodipine Besylate (Norvasc -) 10 mg PO DAILY [facility] Last Admin: 10/21/16 09:43 Dose: Not Given Apixaban (Eliquis -) 5 mg PO BID [facility] Last Admin: 10/21/16 09:42 Dose: 5 mg Calcitriol (Rocaltrol -) 0.25 mcg PO DAILY [facility] Last Admin: 10/21/16 09:42 Dose: 0.25 mcg Haloperidol (Haldol -) 0.5 mg PO TID [facility] Last Admin: 10/21/16 06:29 Dose: 0.5 mg Heparin Sodium (Porcine) (Heparin -) 1,000 unit IVPUSH ONCE ONE Stop: 10/21/16 18:18 Hydralazine HCl (Apresoline -) 25 mg PO TID [facility] Last Admin: 10/21/16 06:29 Dose: 25 mg Multivit/Ca Carb/B Cmplx/FA/Prenat (Nephro-Juana -) 1 tablet PO DAILY [facility] Last Admin: 10/21/16 09:42 Dose: 1 tablet Pantoprazole Sodium (Protonix -) 40 mg PO DAILY [facility] Last Admin: 10/21/16 09:42 Dose: 40 mg Perphenazine (Trilafon) 6 mg PO BID [facility] Last Admin: 10/21/16 09:43 Dose: 6 mg - Objective Vital Signs: Vital Signs Temperature 97.5 F L 10/20/16 17:02 Pulse Rate 78 10/20/16 17:02 Respiratory Rate 20 10/20/16 21:00 Blood Pressure 132/61 10/20/16 17:02 O2 Sat by Pulse Oximetry (%) 97 10/20/16 21:00 Constitutional: Yes: No Distress, Calm Cardiovascular: Yes: Regular Rate and Rhythm Respiratory: Yes: Diminished Gastrointestinal: Yes: Normal Bowel Sounds, Soft. No: Distention, Tenderness Edema: Yes Edema: RUE: 2+ Labs: CBC, BMP 10/20/16 13:45 10/20/16 13:45 INR, PTT INR 1.20 (0.82-1.09) H 10/12/16 12:15 Problem List - Problems (1) Hypothermia Code(s): T68.XXXA - HYPOTHERMIA, INITIAL ENCOUNTER Qualifiers: Encounter type: initial encounter Qualified Code(s): T68.XXXA - Hypothermia, initial encounter (2) Respiratory failure Code(s): J96.90 - RESPIRATORY FAILURE, UNSP, UNSP W HYPOXIA OR HYPERCAPNIA (3) Pleural effusion, right Code(s): J90 - PLEURAL EFFUSION, NOT ELSEWHERE CLASSIFIED (4) ESRD (end stage renal disease) on dialysis Code(s): N18.6 - END STAGE RENAL DISEASE Z99.2 - DEPENDENCE ON RENAL DIALYSIS (5) Dementia Code(s): F03.90 - UNSPECIFIED DEMENTIA WITHOUT BEHAVIORAL DISTURBANCE Assessment/Plan PLAN repeat CXR noted pt refusing thoracentesis Psychiatry deemed him incompetent to make decisions Sister wants him to be full code Can not force the pt to undergo thoracentesis-- would cause more harm than good- - right now as per Pulmonary-- pt improving with dialysis continue with meds s/p venogram and venoplasty yesterday HD per renal today labs noted temp better blood culture pending if negative, may dc back to [place] tomorrow
--- NOTE | 2016-10-21 13:01 | OP ---
DATE OF OPERATION: 10/20/2016 PREOPERATIVE DIAGNOSIS: Poor flow left arteriovenous graft. POSTOPERATIVE DIAGNOSIS: Poor flow left arteriovenous graft. PROCEDURE: Venogram, venoplasty left arteriovenous graft. SURGEON: Pramod Sullivan DO ANESTHESIA: Fractional. ESTIMATED BLOOD LOSS: 5 mL. HISTORY: The patient is a 71-year-old male that has a left AV graft who was placed at another institution. He also has a PermCath in his left chest wall. His graft has never been used but is very faint to touch, and there seems to be turbulent flow at the venous anastomosis on ultrasound done preoperatively. The patient's family was consented for the procedure understanding all risks, benefits, and alternatives, and the patient was then brought into the operating room for a venogram. DESCRIPTION OF PROCEDURE: The patient was laid on the operating table in supine manner, and the area of the left arm was prepped and draped in a sterile surgical manner. Under ultrasound guidance, we visualized the proximal AV graft, and 10 mL of lidocaine 1% was injured there. We took our micropuncture needle and punctured the left AV graft. Micropuncture sheath was inserted. A traditional short sheath 6-Sammarinese sheath was inserted. We then shot a venogram of the AV graft, and we found that there was about a 90% stenosis at the venous anastomosis. Beyond that, there was good flow all the way into the chest. We then placed a 0.035 floppy guidewire at the venous anastomosis. Then 3000 units of IV heparin was administered to the patient. We then used a 9 x 4 balloon and performed venoplasty of the venous anastomosis. The patient's venogram showed by a hand injection that the venous anastomosis was patent. There was no recoil. We then shot a venogram of the proximal AV graft, and that was patent all the way to the arterial anastomosis. At this point, we went ahead and used a 4-0 Biosyn stitch, and a [id number]-sv-veyme stitch was placed around the sheath, and the sheath was pulled. The area was wet and dried, and Dermabond was placed. The patient tolerated the procedure well with no complication. The patient had a good thrill and bruits in the graft now. The patient was transferred back in stable condition. PRAMOD SULLIVAN DO HEARING STENOGRAPHER/[id number]
--- NOTE | 2016-10-21 13:51 | PN ---
Progress Note, Physician History of Present Illness: Pt seen and examined at bedside. He is awake and appears comfortable. - Current Medication List Current Medications: Active Medications Acetaminophen (Tylenol -) 650 mg PO Q4H PRN PRN Reason: FEVER OR PAIN Amiodarone HCl (Cordarone -) 200 mg PO DAILY [facility] Last Admin: 10/21/16 09:42 Dose: 200 mg Amlodipine Besylate (Norvasc -) 10 mg PO DAILY [facility] Last Admin: 10/21/16 09:43 Dose: Not Given Apixaban (Eliquis -) 5 mg PO BID [facility] Last Admin: 10/21/16 09:42 Dose: 5 mg Calcitriol (Rocaltrol -) 0.25 mcg PO DAILY [facility] Last Admin: 10/21/16 09:42 Dose: 0.25 mcg Haloperidol (Haldol -) 0.5 mg PO TID [facility] Last Admin: 10/21/16 06:29 Dose: 0.5 mg Heparin Sodium (Porcine) (Heparin -) 1,000 unit IVPUSH ONCE ONE Stop: 10/21/16 18:18 Hydralazine HCl (Apresoline -) 25 mg PO TID [facility] Last Admin: 10/21/16 06:29 Dose: 25 mg Multivit/Ca Carb/B Cmplx/FA/Prenat (Nephro-Juana -) 1 tablet PO DAILY [facility] Last Admin: 10/21/16 09:42 Dose: 1 tablet Pantoprazole Sodium (Protonix -) 40 mg PO DAILY [facility] Last Admin: 10/21/16 09:42 Dose: 40 mg Perphenazine (Trilafon) 6 mg PO BID [facility] Last Admin: 10/21/16 09:43 Dose: 6 mg - Objective Vital Signs: Vital Signs Temperature 97.2 F L 10/21/16 09:00 Pulse Rate 64 10/21/16 11:24 Respiratory Rate 20 10/21/16 09:00 Blood Pressure 118/59 10/21/16 09:00 O2 Sat by Pulse Oximetry (%) 98 10/21/16 11:24 Constitutional: Yes: Calm Eyes: Yes: Conjunctiva Clear HENT: Yes: Atraumatic Cardiovascular: Yes: S1, S2 Respiratory: Yes: CTA Bilaterally Gastrointestinal: Yes: Normal Bowel Sounds, Soft Genitourinary: Yes: WNL Edema: Yes Edema: LUE: 1+ Neurological: Yes: Oriented Psychiatric: Yes: Oriented Labs: CBC, BMP 10/20/16 13:45 10/20/16 13:45 INR, PTT INR 1.20 (0.82-1.09) H 10/12/16 12:15 Problem List - Problems (1) Dementia Code(s): F03.90 - UNSPECIFIED DEMENTIA WITHOUT BEHAVIORAL DISTURBANCE (2) ESRD (end stage renal disease) on dialysis Code(s): N18.6 - END STAGE RENAL DISEASE Z99.2 - DEPENDENCE ON RENAL DIALYSIS (3) Fluid overload Code(s): E87.70 - FLUID OVERLOAD, UNSPECIFIED Qualifiers: Hypervolemia type: unspecified Qualified Code(s): E87.70 - Fluid overload, unspecified (4) Hyperkalemia Code(s): E87.5 - HYPERKALEMIA (5) Respiratory failure Code(s): J96.90 - RESPIRATORY FAILURE, UNSP, UNSP W HYPOXIA OR HYPERCAPNIA Assessment/Plan Current Medications Generic Name Dose Route Start Last Admin Trade Name Freq PRN Reason Stop Dose Admin Acetaminophen 650 mg 10/20/16 12:59 Tylenol - PO Q4H PRN FEVER OR PAIN Amiodarone HCl 200 mg 10/21/16 10:00 10/21/16 09:42 Cordarone - PO 200 mg DAILY [facility]N Administration Amlodipine Besylate 10 mg 10/21/16 10:00 10/21/16 09:43 Norvasc - PO Not Given DAILY [facility] Apixaban 5 mg 10/20/16 22:00 10/21/16 09:42 Eliquis - PO 5 mg BID [facility] Administration Calcitriol 0.25 mcg 10/21/16 10:00 10/21/16 09:42 Rocaltrol - PO 0.25 mcg DAILY [facility] Administration Haloperidol 0.5 mg 10/20/16 14:00 10/21/16 06:29 Haldol - PO 0.5 mg TID [facility]N Administration Heparin Sodium (Porcine) 1,000 unit 10/21/16 18:17 Heparin - IVPUSH 10/21/16 18:18 ONCE ONE Hydralazine HCl 25 mg 10/20/16 14:00 10/21/16 06:29 Apresoline - PO 25 mg TID [facility] Administration Multivit/Ca Carb/B Cmplx/FA/Prenat 1 tablet 10/21/16 10:00 10/21/16 09:42 Nephro-Juana - PO 1 tablet DAILY [facility] Administration Pantoprazole Sodium 40 mg 10/21/16 10:00 10/21/16 09:42 Protonix - PO 40 mg DAILY [facility] Administration Perphenazine 6 mg 10/20/16 22:00 10/21/16 09:43 Trilafon PO 6 mg BID [facility] Administration Impression 1. ESRD 2. hyperkalemia 3. dementia 4. acute hypoxic respiratory failure 5. pleural effusion 6. a-fib 7. epilepsy 8. hx COPD 9. anemia 10. airway and facial edema Plan - HD today - will attempt to use graft with one needle - cont current meds - epogen for anemia - will follow Dr Maciel
[2016-10-21] MEDS ORDERED: HEPARIN NA (PORCINE) 5,000 UNITS/ML 1ML VIAL IVPUSH ONE ×2 (14:15→18:17)
[2016-10-21 17:13] LABS: MCH 28.6 pg (25.7-33.7); MCHC 31.6 g/dl (32.0-35.9); MEAN CELL VOLUME 90.6 fl (80-96); MEAN PLT VOLUME 8.8 fl (7.5-11.1); PLATELET COUNT 100 K/MM3 (134-434); RDW 23.7 % (11.9-15.9); WHITE BLOOD COUNT 6.4 K/mm3 (4.0-10.0)
[2016-10-21 17:24] LABS: ALBUMIN 2.8 g/dl (3.4-5.0); BILIRUBIN,TOTAL 0.4 mg/dL (0.2-1.0); CALCIUM 7.4 mg/dL (8.5-10.1); COCKROFT - GAULT 15.82; CREATININE 3.8 mg/dL (0.7-1.3); TOT PROT 6.4 g/dl (6.4-8.2)
[2016-10-21] MEDS ORDERED: EPOETIN ALFA 2,000 UNITS/1 ML VIAL IVPUSH ONE (18:17)
[2016-10-22] MEDS: HALOPERIDOL 0.5 MG TABLET PO SCH ×2 (06:14→13:40)
[2016-10-22] MEDS: hydrALAZINE HCL 25 MG TABLET (FP) PO SCH ×2 (06:14→13:39)
--- NOTE | 2016-10-22 08:49 | DS ---
Physical Examination Vital Signs: Vital Signs Temperature 98.3 F 10/22/16 06:00 Pulse Rate 89 10/22/16 06:00 Respiratory Rate 18 10/22/16 06:00 Blood Pressure 153/69 10/22/16 06:00 O2 Sat by Pulse Oximetry (%) 98 10/21/16 21:00 Labs: CBC, BMP 10/21/16 13:20 10/21/16 13:20 <Gayla Gerard - Last Filed: 10/22/16 08:49> Vital Signs: Vital Signs Temperature 98.3 F 10/22/16 06:00 Pulse Rate 89 10/22/16 06:00 Respiratory Rate 18 10/22/16 06:00 Blood Pressure 153/69 10/22/16 06:00 O2 Sat by Pulse Oximetry (%) 98 10/21/16 21:00 Findings/Remarks: Patient seen and examined. Chart reviewed. Comfortable. Sitting in the chair. Denies chest pain or shortness of breath. Constitutional: Yes: No Distress, Calm Eyes: Yes: Conjunctiva Clear Neck: Yes: Supple Cardiovascular: Yes: Regular Rate and Rhythm Respiratory: Yes: Diminished (at bases R>L) Gastrointestinal: Yes: Soft Edema: Yes Edema: LLE: 1+, RLE: 1+ Neurological: Yes: Alert Labs: CBC, BMP 10/21/16 13:20 10/21/16 13:20 <Monica Hernandez - Last Filed: 10/22/16 10:05> Discharge Summary Reason For Visit: HYPOTHERMIA,SEPSIS,HYPERVOLEMIA Current Active Problems Anemia (Acute) Dementia (Acute) ESRD (end stage renal disease) on dialysis (Acute) Fluid overload (Acute) Hyperkalemia (Acute) Hypothermia (Acute) Pleural effusion, right (Acute) Respiratory failure (Acute) Sepsis (Acute) - Home Medications Comprehensive Discharge Medication List: Ambulatory Orders Acetaminophen 650 mg PO Q6H PRN 10/12/16 Albuterol 0.083% Nebulizer Camryn [Ventolin 0.083% Nebulizer Soln -] 1 neb NEB QID 10/12/16 Amiodarone HCl 200 mg PO DAILY 10/12/16 Amlodipine Besylate 10 mg PO DAILY 10/12/16 Apixaban [Eliquis] 5 mg PO BID 10/12/16 Calcitriol [Calcitriol -] 0.25 mcg PO DAILY 10/12/16 Famotidine 20 mg PO BID 10/12/16 Haloperidol 0.5 mg PO TID 10/12/16 Hydralazine HCl [Apresoline -] 25 mg PO TID 10/12/16 Ipratropium 0.02% Nebulizer [Atrovent 0.02% Nebulizer -] 0.5 mg IH Q6H 10/12/16 Perphenazine 6 mg PO BID 10/12/16 Vitamin B Comp W-C [Nephro-Juana -] 1 ea PO DAILY 10/12/16 <Gayla Gerard - Last Filed: 10/22/16 08:49> Current Active Problems Anemia (Acute) Dementia (Acute) ESRD (end stage renal disease) on dialysis (Acute) Fluid overload (Acute) Hyperkalemia (Acute) Hypothermia (Acute) Pleural effusion, right (Acute) Respiratory failure (Acute) Sepsis (Acute) Hospital Course: The patient is a 71-year-old male, form [facility], with a significant past medical history of hypertension, chronic obstructive pulmonary disease, gastroesophageal reflux disease, end-stage renal disease (on hemo- dialysis T/R/S) and generalized epilepsy, who presented to the emergency department via EMS in respiratory distress. Patient found to have a large right pleural effusion. Patient treated with antibiotics. Patient refused thoracentesis. Pulmonary followed. Echocardiogram was also done which showed moderate MR. Patient also underwent renogram and renoplasty of left AV fistula with Dr. Pramod Chow. Patient now stable to go back to [facility]. Patient's cultures were negative. Medications reconciled and updated. Patient is full code, as per sister. Psych consul was also taken-- Patient deemed to be non-competent. Patient's condition is guarded but stable. Discussed with nursing staff also. Discharge time 35 minutes in examining, documenting and coordinating care. Documentation prepared by Monica Hernandez, acting as a medical surgical tech for Gayla Gerard MD. - Home Medications Comprehensive Discharge Medication List: Ambulatory Orders Acetaminophen 650 mg PO Q6H PRN 10/12/16 Albuterol 0.083% Nebulizer Camryn [Ventolin 0.083% Nebulizer Soln -] 1 neb NEB QID 10/12/16 Amiodarone HCl 200 mg PO DAILY 10/12/16 Amlodipine Besylate 10 mg PO DAILY 10/12/16 Apixaban [Eliquis] 5 mg PO BID 10/12/16 Calcitriol [Calcitriol -] 0.25 mcg PO DAILY 10/12/16 Famotidine 20 mg PO BID 10/12/16 Haloperidol 0.5 mg PO TID 10/12/16 Hydralazine HCl [Apresoline -] 25 mg PO TID 10/12/16 Ipratropium 0.02% Nebulizer [Atrovent 0.02% Nebulizer -] 0.5 mg IH Q6H 10/12/16 Perphenazine 6 mg PO BID 10/12/16 Vitamin B Comp W-C [Nephro-Juana -] 1 ea PO DAILY 10/12/16 <Monica Hernandez - Last Filed: 10/22/16 10:05> Condition: Good - Instructions Referrals: Gayla Gerard MD [Primary Care Provider] - Disposition: ALF FACILITY
[2016-10-22] MEDS ORDERED: PT OWN MED DRAWER 7, Y5N ONE ×2 (09:42→13:37)
[2016-10-22] MEDS: amLODIPine BESYLATE 10 MG TABLET (FP) PO SCH (10:09)
[2016-10-22] MEDS: APIXABAN 5 MG TABLET PO SCH (10:09)
[2016-10-22] MEDS: PANTOPRAZOLE 40 MG TABLET (FP) PO SCH (10:09)
[2016-10-22] MEDS: AMIODARONE HCL 200 MG TABLET (FP) PO SCH (10:09)
[2016-10-22] MEDS: VITAMIN B COMP W-C 1 EA TABLET PO SCH (10:10)
[2016-10-22] MEDS: CALCITRIOL 0.25 MCG CAPSULE (FP) PO SCH (10:10)
[2016-10-22] MEDS: PERPHENAZINE 2 MG TABLET PO SCH (10:10)
[2016-10-22 10:23] VITALS: BP 149/92; TEMP 97.2
[2016-10-22 11:20] VITALS: PULSE 61
== END 2016-10-22 13:53 | DRG 166 ==
LOC: JER 11:59 → JERBED 13:20 → JICU 15:50 → J8W 10-14 13:00
PROVIDERS: ADMIT Internal Medicine; ATTEND Internal Medicine
PROC: 5A1945Z Respiratory Ventilation, 24-96 Consecutive Hours (ICD-10-PCS; 2016-10-12)
PROC: 0BH17EZ Insertion of Endotracheal Airway into Trachea, Via Natural or Artificial Opening (ICD-10-PCS; 2016-10-12)
PROC: 30233N1 Transfusion of Nonautologous Red Blood Cells into Peripheral Vein, Percutaneous Approach (ICD-10-PCS; 2016-10-13)
PROC: 037Y3ZZ Dilation of Upper Artery, Percutaneous Approach (ICD-10-PCS; principal; 2016-10-20 10:30)
PROC: 5A1D60Z (ICD-10-PCS; 2016-10-21)
DX: J96.01 Acute respiratory failure with hypoxia (principal); N18.6 End stage renal disease; I12.0 Hypertensive chronic kidney disease with stage 5 chronic kidney disease or end stage renal disease; J90 Pleural effusion, not elsewhere classified; T82.868A Thrombosis due to vascular prosthetic devices, implants and grafts, initial encounter; J96.02 Acute respiratory failure with hypercapnia; Z99.2 Dependence on renal dialysis; I48.91 Unspecified atrial fibrillation; G40.909 Epilepsy, unspecified, not intractable, without status epilepticus; K21.9 Gastro-esophageal reflux disease without esophagitis; E87.5 Hyperkalemia; F03.90 Unspecified dementia, unspecified severity, without behavioral disturbance, psychotic disturbance, mood disturbance, and anxiety; E87.70 Fluid overload, unspecified; D64.9 Anemia, unspecified; Z91.14 Patient's other noncompliance with medication regimen; Y83.9 Surgical procedure, unspecified as the cause of abnormal reaction of the patient, or of later complication, without mention of misadventure at the time of the procedure; J44.9 Chronic obstructive pulmonary disease, unspecified
CPT/HCPCS: 36415; 36430; 36600; 71010-TC; 71250-TC; 76000-TC; 80048; 80053; 82272; 82550; 82565; 82728; 82803; 83540; 83550; 83605; 83735; 84100; 84484; 84520; 85025; 85027; 85044; 85610; 85730; 86704; 86706; 86708; 86850; 86900; 86901; 86922; 87040; 87070; 87186; 87205; 87340; 93005; 93010; 93306-TC; 93931; 93971; 94002; 94640; 94660; 94760; 97116-GP; 97162-PG; 99284-25; G0480; J0885; J1644; P9038; P9058

== ENCOUNTER 2016-10-26 22:41 | Inpatient (IN) | payer OTHER ==
--- NOTE | 2016-10-26 23:14 | PDOC ---
History of Present Illness - General History Source: Snf Records, Old Records, Primary Care Provider Exam Limitations: Other - History of Present Illness Initial Comments: 10/26/16 23:55 The patient is a 71 year old male with significant past medical history of hypertension, COPD, GERD, ESRD on HD T//S, s/p venogram and venoplasty L avg ( 10/20/16), dementia, agitation, known to refuse treatments and dialysis, h/o cardiac arrest in 08/2016, right subclavian DVT, and generalized epilepsy who presents to the ED for 4 days of refusing dialysis and treatment. As per Dr. Gerard, patient has a h/o of refusing dialysis and treatment. He was seen on 10/12 for same c/o where he was admitted for hyperkalemia. During his admission, he was found to have a large right pleural effusion, where he was treated with antibiotics and refused thoracentesis. He had an echocardiogram that was done that revealed MR. On 10/20/16, he underwent venogram and venoplasty of left AV fistula with Dr. Pramod Chow. Psych air quality consultant was also taken-- Patient deemed to be non-competent. As per patients records, patient is full code, as per sister. Patient was discharged on 10/22/16 and sent back to [place]. He returns today for same c/o. At time of evaluation, patient denies any complaints and refuses to talk Allergies: NKDA Social History: No alcohol, tobacco, or drug use reported. Past Surgical History: L AV shunt, s/p venogram and venoplasty L avg (10/20/16) PCP: Dr. Gayla Gerard <Pari Loja - Last Filed: 10/27/16 00:32> - General History Source: Patient, Snf Records <Jasjose miguelFlavio - Last Filed: 10/27/16 02:17> - General Stated Complaint: MISSING DIALYSIS FOR 4 DAYS Time Seen by Provider: 10/26/16 23:06 Past History <Pari Loja - Last Filed: 10/27/16 00:32> - Past Medical History COPD: Yes Dialysis: Yes (-TUE) GI Disorders: Yes (CONSTIPATION. GASTRITIS.) HTN: Yes Kidney Stones: (KIDNEY DISEASE.) Psychiatric Problems: Yes (ANXIETY.) Seizures: Yes (EPILEPSY.) - Psycho/Social/Smoking Cessation Hx Anxiety: No Suicidal Ideation: No Smoking History: Unknown if ever smoked Hx Alcohol Use: No Drug/Substance Use Hx: No Substance Use Type: None <JasFlavio gillespie - Last Filed: 10/27/16 02:17> - Past Medical History Allergies/Adverse Reactions: Allergies Allergy/AdvReac Type Severity Reaction Status Date / Time No Known Allergies Allergy Verified 10/12/16 12:00 Home Medications: Ambulatory Orders Acetaminophen 650 mg PO Q6H PRN 10/12/16 Albuterol 0.083% Nebulizer Camryn [Ventolin 0.083% Nebulizer Soln -] 1 neb NEB QID 10/12/16 Amiodarone HCl 200 mg PO DAILY 10/12/16 Amlodipine Besylate 10 mg PO DAILY 10/12/16 Apixaban [Eliquis] 5 mg PO BID 10/12/16 Calcitriol [Calcitriol -] 0.25 mcg PO DAILY 10/12/16 Famotidine 20 mg PO BID 10/12/16 Haloperidol 0.5 mg PO TID 10/12/16 Hydralazine HCl [Apresoline -] 25 mg PO TID 10/12/16 Ipratropium 0.02% Nebulizer [Atrovent 0.02% Nebulizer -] 0.5 mg IH Q6H 10/12/16 Perphenazine 6 mg PO BID 10/12/16 Vitamin B Comp W-C [Nephro-Juana -] 1 ea PO DAILY 10/12/16 Review of Systems - Review of Systems Able to Perform ROS?: No Comments:: 10/26/16 23:56 Unable to obtain as patient refuses to cooperate. <Pari Loja - Last Filed: 10/27/16 00:32> *Physical Exam - Physical Exam Comments: 10/26/16 23:56 GENERAL: Well developed, well nourished. Awake. Mild distress. HEENT: Normocephalic, atraumatic. Bilateral upper eyelid edema. PERRLA, EOMI. No conjunctival pallor. Sclera are non-icteric. Moist mucous membranes. Oropharynx is clear. NECK: Supple. Full ROM. Carotid pulses 2+ and symmetric, without bruits. No thyromegaly. No lymphadenopathy. CARDIOVASCULAR: Regular rate and rhythm. No murmurs, rubs, or gallops. Distal pulses are 2+ and symmetric. PULMONARY: No evidence of respiratory distress. Bilateral crackles. No retractions. ABDOMINAL: Soft. Non-tender. Non-distended. No rebound or guarding. No organomegaly. Normoactive bowel sounds. MUSCULOSKELETAL Normal range of motion at all joints. No bony deformities or tenderness. No CVA tenderness. EXTREMITIES: No cyanosis. No clubbing. No edema. AV shunt on left arm with +bruit and + thrills. No calf tenderness. SKIN: Warm and dry. Normal capillary refill. No rashes. No jaundice. NEUROLOGICAL: Awake and alert. Moving all extremities. No gross neurological deficits. <Pari Loja - Last Filed: 10/27/16 00:32> Medical Decision Making - Medical Decision Making 10/26/16 23:23 Dr. Sinha: The scribe's documentation has been prepared under my direction and personally reviewed by me in its entirery. I confirm that the note above accurately reflects all work, treatment, procedures, and medical decision making performed by me. Pt refusing all treatment of any kind. Informed pt pcp Dr. Jas Gerard. Will admit to ICU for to observe pt as he is refusing any care but was deemed non- competent his last visit by psych and he is a full code status as informed by family his last visit. 10/27/16 02:16 Pt is resting comfortably at this time. <Flavio Sinha - Last Filed: 10/27/16 02:17> *DC/Admit/Observation/Transfer - Attestations Scribe Attestion: 10/26/16 23:56 Documentation prepared by Pari Loja, acting as medical doctor md for Flavio Sinha MD/DO. <Pari Loja - Last Filed: 10/27/16 00:32> - Discharge Dispostion Admit: Yes <Flavio Sinha - Last Filed: 10/27/16 02:17> Diagnosis at time of Disposition: ESRD (end stage renal disease) on dialysis, Refusal of treatment by patient, Respiratory distress - Discharge Dispostion Condition at time of disposition: Guarded - Referrals - Patient Instructions
[2016-10-27 03:49] VITALS: BMI 19.0
--- NOTE | 2016-10-27 08:38 | HP ---
Admitting History and Physical - Primary Care Physician PCP: Gayla Gerard - Admission Chief Complaint: volume overload History of Present Illness: ER HISTORY - History of Present Illness Initial Comments: 10/26/16 23:55 The patient is a 71 year old male with significant past medical history of hypertension, COPD, GERD, ESRD on HD T//S, s/p venogram and venoplasty L avg ( 10/20/16), dementia, agitation, known to refuse treatments and dialysis, h/o cardiac arrest in 08/2016, right subclavian DVT, and generalized epilepsy who presents to the ED for 4 days of refusing dialysis and treatment. As per Dr. Gerard, patient has a h/o of refusing dialysis and treatment. He was seen on 10/12 for same c/o where he was admitted for hyperkalemia. During his admission, he was found to have a large right pleural effusion, where he was treated with antibiotics and refused thoracentesis. He had an echocardiogram that was done that revealed MR. On 10/20/16, he underwent venogram and venoplasty of left AV fistula with Dr. Pramod Chow. Psych [employer] consultant was also taken-- Patient deemed to be non-competent. As per patients records, patient is full code, as per sister. Patient was discharged on 10/22/16 and sent back to [place]. He returns today for same c/o. At time of evaluation, patient denies any complaints and refuses to talk PT EXAMINED IN ER Pt was seen by me yesterday in the [place]-- he has been refusing dialysis ever since he came back from the hospital. He refused meds and dialysis. This is an ongoing problem-- I had spoken with sister before and she still insists on continuing dialysis for this pt. Pt examined in ER today-- lethargic, restless, congested He initially refused labs to be drawn , received Haldol and labs obtained History Source: Medical Record, Transfer Record Limitations to Obtaining History: Dementia - Past Medical History LABORATORY SPECIALIST: Yes: Dementia Cardiovascular: Yes: CAD (h/o cardiac arrest 08/2016), HTN, Other (Atrial flutter ) Pulmonary: Yes: COPD Gastrointestinal: Yes: GERD Renal/: Yes: Other (ESRD on HD) Heme/Onc: Yes: Other (Rt subclavian DVT) Psych: Yes: Schizophrenia, Other (dementia) - Smoking History Smoking history: Never smoked - Alcohol/Substance Use Hx Alcohol Use: No Home Medications - Allergies Allergies/Adverse Reactions: Allergies Allergy/AdvReac Type Severity Reaction Status Date / Time No Known Allergies Allergy Verified 10/12/16 12:00 - Home Medications Home Medications: Ambulatory Orders Acetaminophen 650 mg PO Q6H PRN 10/12/16 Albuterol 0.083% Nebulizer Camryn [Ventolin 0.083% Nebulizer Soln -] 1 neb NEB QID 10/12/16 Amiodarone HCl 200 mg PO DAILY 10/12/16 Amlodipine Besylate 10 mg PO DAILY 10/12/16 Apixaban [Eliquis] 5 mg PO BID 10/12/16 Calcitriol [Calcitriol -] 0.25 mcg PO DAILY 10/12/16 Famotidine 20 mg PO BID 10/12/16 Haloperidol 0.5 mg PO TID 10/12/16 Hydralazine HCl [Apresoline -] 25 mg PO TID 10/12/16 Ipratropium 0.02% Nebulizer [Atrovent 0.02% Nebulizer -] 0.5 mg IH Q6H 10/12/16 Perphenazine 6 mg PO BID 10/12/16 Vitamin B Comp W-C [Nephro-Juana -] 1 ea PO DAILY 10/12/16 Review of Systems Unable to obtain ROS, reason: lethargic Physical Examination Vital Signs: Vital Signs Temperature Pulse Rate 80 10/27/16 03:43 Respiratory Rate Blood Pressure 135/71 10/27/16 03:43 O2 Sat by Pulse Oximetry (%) 83 L 10/27/16 03:43 Constitutional: Yes: Moderate Distress Eyes: Yes: Other (facial edema) Cardiovascular: Yes: Regular Rate and Rhythm, Tachycardia Respiratory: Yes: Diminished, Rales Gastrointestinal: Yes: Normal Bowel Sounds, Soft. No: Distention, Tenderness Extremities: Yes: Other (facial edema and upper arms edema-- left >>right) Edema: Yes Edema: LUE: 2+, RUE: 2+ Neurological: Yes: Lethargy Psychiatric: Yes: Agitated Labs: Laboratory Last Values WBC 7.0 K/mm3 (4.0-10.0) 10/27/16 10:40 RBC 3.29 M/mm3 (4.00-5.60) L 10/27/16 10:40 Hgb 9.4 GM/dL (11.7-16.9) L 10/27/16 10:40 Hct 29.3 % (35.4-49) L 10/27/16 10:40 MCV 89.2 fl (80-96) 10/27/16 10:40 MCHC 32.0 g/dl (32.0-35.9) 10/27/16 10:40 RDW 23.6 % (11.9-15.9) H 10/27/16 10:40 Plt Count 84 K/MM3 (134-434) L 10/27/16 10:40 MPV 8.9 fl (7.5-11.1) 10/27/16 10:40 Neutrophils % 88.3 % (42.8-82.8) H 10/27/16 10:40 Lymphocytes % 2.7 % (8-40) L D 10/27/16 10:40 Monocytes % 8.7 % (3.8-10.2) 10/27/16 10:40 Eosinophils % 0.0 % (0-4.5) D 10/27/16 10:40 Basophils % 0.3 % (0-2.0) 10/27/16 10:40 INR 1.41 (0.82-1.09) H 10/27/16 10:37 PTT (Actin FS) 42.5 SECONDS (26.9-34.4) H 10/27/16 10:40 Sodium 138 mmol/L (136-145) 10/27/16 10:37 Potassium 6.1 mmol/L (3.5-5.1) H* D 10/27/16 10:37 Chloride 98 mmol/L (98-107) 10/27/16 10:37 Carbon Dioxide 24 mmol/L (21-32) 10/27/16 10:37 Anion Gap 16 (8-16) 10/27/16 10:37 BUN 117 mg/dL (7-18) H* D 10/27/16 10:37 Creatinine 6.2 mg/dL (0.7-1.3) H D 10/27/16 10:37 Creat Clearance w eGFR 8.92 (>60) 10/27/16 10:37 POC Glucometer 121 UNITS (()) 10/27/16 14:53 Random Glucose 60 mg/dL (74-106) L D 10/27/16 10:37 Calcium 8.7 mg/dL (8.5-10.1) 10/27/16 10:37 Total Bilirubin 0.6 mg/dL (0.2-1.0) D 10/27/16 10:37 AST 44 U/L (15-37) H D 10/27/16 10:37 ALT 15 U/L (12-78) 10/27/16 10:37 Alkaline Phosphatase 148 U/L (45-117) H 10/27/16 10:37 Creatine Kinase 208 IU/L (39-308) D 10/27/16 10:40 Creatine Kinase Index 8.6 % (0.0-5.0) H* 10/27/16 10:40 CK-MB (CK-2) 17.868 ng/ml (0.5-3.6) H 10/27/16 10:40 CK-MB (CK-2) Rel Index Cancelled 10/27/16 10:40 Troponin I 0.03 ng/ml (0.00-0.05) D 10/27/16 10:40 Total Protein 7.3 g/dl (6.4-8.2) 10/27/16 10:37 Albumin 3.3 g/dl (3.4-5.0) L 10/27/16 10:37 Imaging - Results Chest X-ray: Pending EKG: Image Reviewed (NSR) Problem List - Problems (1) ESRD (end stage renal disease) on dialysis Code(s): N18.6 - END STAGE RENAL DISEASE Z99.2 - DEPENDENCE ON RENAL DIALYSIS (2) Refusal of treatment by patient Code(s): Z53.20 - PROC/TRTMT NOT CRD OUT BEC PT DECISION FOR UNSP REASONS (3) Dementia Code(s): F03.90 - UNSPECIFIED DEMENTIA WITHOUT BEHAVIORAL DISTURBANCE (4) Fluid overload Code(s): E87.70 - FLUID OVERLOAD, UNSPECIFIED Qualifiers: Hypervolemia type: unspecified Qualified Code(s): E87.70 - Fluid overload, unspecified (5) Hyperkalemia Code(s): E87.5 - HYPERKALEMIA Assessment/Plan PLAN Psych eval done in ER- deemed incompetent Haldol as needed Pt lacks insight about dialysis and the need for it Renal eval for dialysis Tele monitoring Wrist restraints to prevent injury to self and others Ethics consult called will need to discuss with family again about the pt and his continuous refusal for dialysis. When he does go to dialysis in the [place]- he does not complete it. He becomes a danger to self and to others.
--- NOTE | 2016-10-27 10:07 | CON.PSY ---
Psychiatry Consult Chief Complaint: Patient apparantly has been refusing DIalysis for the past week or so. Symptoms: reports: Impaired Concentration, Irritability, Restlessness - Previous Psychiatric Treatment Outpatient: None Inpatient: None - Previous Substance Abuse Treatment Outpatient: None Inpatient: None - Current Medications Current Medications: Active Medications Albuterol Sulfate (Ventolin 0.083% Nebulizer Soln -) 1 amp NEB QIDR MARLYN Amiodarone HCl (Cordarone -) 200 mg PO DAILY MARLYN Amlodipine Besylate (Norvasc -) 10 mg PO DAILY MARLYN Apixaban (Eliquis -) 5 mg PO BID MARLYN Calcitriol (Rocaltrol -) 0.25 mcg PO DAILY MARLYN Haloperidol (Haldol -) 0.5 mg PO TID MARLYN Hydralazine HCl (Apresoline -) 25 mg PO TID MARLYN Perphenazine (Trilafon) 6 mg PO BID MARLYN - Allergies Allergies: Allergies Allergy/AdvReac Type Severity Reaction Status Date / Time No Known Allergies Allergy Verified 10/12/16 12:00 - Current Living Status Usual Living Arrangement: Alone - Current Mental Status Evaluation Appearance: Disheveled Attitude: Uncooperative - Affect Affect: Constrictive Appropriateness: Not Appropriate - Mood Mood: Irritable - Speech/Language Expressive: Delayed Receptive: Unable to Receive/Comprehend Spoken Words, Delayed Receptive Comprehension - Psychomotor Activity Psychomotor Activity: Agitated - Thought Process Thought Process: Doyle - Thought Content Hallucinations: Absent Delusions: Absent - Self Perception Self Perception: No Impairment - Cognition Attention: Diminished Orientation: Person, Place Memory, Short Term: 1/3 Memory, Remote with Promptin/3 - Concentration Serial Sevens Intact: No Simple Calculations Intact: No - Abstraction Proverb Interpretation: Impaired Judgement: Severely Impaired - Insight Insight: Impaired - Impulse Control Impulse Control: Minimally Impaired - Suicidal Ideation Suicidal Ideation: No - Homicidal Ideation Homicidal Ideation: No Assessment/Plan 1) Patient appears to be Delirious, probably secondary to Uremia. patient also carries a diagnosis of Dementia. 2) Patient lacks mental capacity to make Decisions at this time.
[2016-10-27] MEDS ORDERED: HALOPERIDOL LACTATE 5 MG/ML ONE (10:27)
[2016-10-27] MEDS: APIXABAN 5 MG TABLET PO SCH ×2 (10:33→22:00)
[2016-10-27] MEDS: CALCITRIOL 0.25 MCG CAPSULE (FP) PO SCH (10:33)
[2016-10-27] MEDS: amLODIPine BESYLATE 10 MG TABLET (FP) PO SCH (10:33)
[2016-10-27] MEDS: PERPHENAZINE 2 MG TABLET PO SCH ×2 (10:33→22:45)
[2016-10-27] MEDS: AMIODARONE HCL 200 MG TABLET (FP) PO SCH (10:33)
[2016-10-27 10:55] LABS: BASOPHIL 0.3 % (0-2.0); MCH 28.5 pg (25.7-33.7); MEAN CELL VOLUME 89.2 fl (80-96); MEAN PLT VOLUME 8.9 fl (7.5-11.1); NEUTROPHILS 88.3 % (42.8-82.8); PLATELET COUNT 84 K/MM3 (134-434); RDW 23.6 % (11.9-15.9)
[2016-10-27] MEDS ORDERED: HALOPERIDOL LACTATE 5 MG/ML IM ONE (11:04)
[2016-10-27 11:19] LABS: TROPONIN I 0.03 ng/ml (0.00-0.05)
[2016-10-27 11:23] LABS: ALBUMIN 3.3 g/dl (3.4-5.0); BILIRUBIN,TOTAL 0.6 mg/dL (0.2-1.0); CALCIUM 8.7 mg/dL (8.5-10.1); COCKROFT - GAULT 9.53; CREATININE 6.2 mg/dL (0.7-1.3); TOT PROT 7.3 g/dl (6.4-8.2)
--- NOTE | 2016-10-27 12:17 | CONSULT ---
Consult Consult Specialty:: Nephrology Reason for Consultation:: ESRD - History of Present Illness Chief Complaint: sent in for refusing HD History of Present Illness: Pt is a 71 year old male with pmhx of ESRD, HTN, COPD, GERD, ESRD, and dementia who presents to the ER after being sent in from [facility] for missing dialysis. He is awake and agitated. He does complains of shortness of breath. He is known to me from prior visits. He was recently discharged from the hospital a few days ago. 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 Cardio/Vascular: Yes: CAD (h/o cardiac arrest 08/2016), HTN, Other (Atrial flutter) Pulmonary: Yes: COPD Gastrointestinal: Yes: GERD Renal/: Yes: Other (ESRD on HD) Psych: Yes: Schizophrenia, Other (dementia) - Alcohol/Substance Use Hx Alcohol Use: No - Smoking History Smoking history: Never smoked - Social History Usual Living Arrangement: Alone Home Medications - Allergies Allergies/Adverse Reactions: Allergies Allergy/AdvReac Type Severity Reaction Status Date / Time No Known Allergies Allergy Verified 10/12/16 12:00 - Home Medications Home Medications: Ambulatory Orders Acetaminophen 650 mg PO Q6H PRN 10/12/16 Albuterol 0.083% Nebulizer Camryn [Ventolin 0.083% Nebulizer Soln -] 1 neb NEB QID 10/12/16 Amiodarone HCl 200 mg PO DAILY 10/12/16 Amlodipine Besylate 10 mg PO DAILY 10/12/16 Apixaban [Eliquis] 5 mg PO BID 10/12/16 Calcitriol [Calcitriol -] 0.25 mcg PO DAILY 10/12/16 Famotidine 20 mg PO BID 10/12/16 Haloperidol 0.5 mg PO TID 10/12/16 Hydralazine HCl [Apresoline -] 25 mg PO TID 10/12/16 Ipratropium 0.02% Nebulizer [Atrovent 0.02% Nebulizer -] 0.5 mg IH Q6H 10/12/16 Perphenazine 6 mg PO BID 10/12/16 Vitamin B Comp W-C [Nephro-Juana -] 1 ea PO DAILY 10/12/16 Family Disease History - Family Disease History Family History: Unable to Obtain Review of Systems Unable to obtain ROS, reason: pt agitated Physical Exam Vital Signs: Vital Signs Temperature 98.0 F 10/27/16 12:07 Pulse Rate 78 10/27/16 12:07 Respiratory Rate 22 10/27/16 12:07 Blood Pressure 138/87 10/27/16 12:07 O2 Sat by Pulse Oximetry (%) 92 L 10/27/16 12:07 Constitutional: Yes: Anxious Eyes: Yes: Other (periorbital edema) Cardiovascular: Yes: S1, S2 Respiratory: Yes: Rhonchi Gastrointestinal: Yes: Soft Renal/: Yes: Incontinence Extremities: Yes: WNL Edema: Yes Edema: LUE: 2+, RUE: 2+ Neurological: Yes: Confusion Labs: CBC, BMP 10/27/16 10:40 10/27/16 10:37 Laboratory Tests 10/27/16 10/27/16 10:37 10:40 WBC 7.0 Hgb 9.4 L Sodium 138 Potassium 6.1 H* D Chloride 98 Carbon Dioxide 24 Anion Gap 16 BUN 117 H* D Creatinine 6.2 H D Creat Clearance w eGFR 8.92 Random Glucose 60 L D Calcium 8.7 Problem List - Problems (1) ESRD (end stage renal disease) on dialysis Code(s): N18.6 - END STAGE RENAL DISEASE Z99.2 - DEPENDENCE ON RENAL DIALYSIS (2) Refusal of treatment by patient Code(s): Z53.20 - PROC/TRTMT NOT CRD OUT BEC PT DECISION FOR UNSP REASONS (3) Respiratory distress Code(s): R06.00 - DYSPNEA, UNSPECIFIED (4) Fluid overload Code(s): E87.70 - FLUID OVERLOAD, UNSPECIFIED Qualifiers: Hypervolemia type: unspecified Qualified Code(s): E87.70 - Fluid overload, unspecified (5) Hyperkalemia Code(s): E87.5 - HYPERKALEMIA Assessment/Plan Current Medications Generic Name Dose Route Start Last Admin Trade Name Freq PRN Reason Stop Dose Admin Albuterol Sulfate 1 amp 10/27/16 12:00 Ventolin 0.083% Nebulizer Soln - NEB QIDR MARLYN Amiodarone HCl 200 mg 10/27/16 10:00 10/27/16 10:33 Cordarone - PO Not Given DAILY MARLYN Amlodipine Besylate 10 mg 10/27/16 10:00 10/27/16 10:33 Norvasc - PO Not Given DAILY [facility] Apixaban 5 mg 10/27/16 10:00 10/27/16 10:33 Eliquis - PO Not Given BID [facility] Calcitriol 0.25 mcg 10/27/16 10:00 10/27/16 10:33 Rocaltrol - PO Not Given DAILY [facility] Epoetin Tyson 3,000 units 10/27/16 12:08 Epogen - IVPUSH 10/27/16 12:09 ONCE ONE Haloperidol 0.5 mg 10/27/16 14:00 Haldol - PO TID MARLYN Haloperidol 5 mg 10/27/16 11:54 Haldol Injection (Fast Acting) - IM Q4H PRN AGITATION Hydralazine HCl 25 mg 10/27/16 14:00 Apresoline - PO TID [facility] Perphenazine 6 mg 10/27/16 10:00 10/27/16 10:33 Trilafon PO Not Given BID [facility] Impression 1. ESRD 2. hyperkalemia 3. dementia 4. acute hypoxic respiratory failure 5. pleural effusion 6. a-fib 7. epilepsy 8. hx COPD 9. anemia 10. facial edema Plan - will arrange for urgent HD - will dialyze for hyperkalemia and to UF volume - get cxr - resume home meds - psych eval appreciated - monitor blood pressure - renal diet Dr Maciel
[2016-10-27 12:41] LABS: INR 1.41 (0.82-1.09); PROTHROMBIN TIME (PATIENT) 15.6 SEC (9.98-11.88)
[2016-10-27] MEDS ORDERED: DEXTROSE 50%-WATER 50 ML VIAL IVPUSH ONE (12:45)
[2016-10-27] MEDS: HALOPERIDOL LACTATE 5 MG/ML IM PRN (13:39)
[2016-10-27] MEDS ORDERED: EPOETIN ALFA 3,000 UNIT/1 ML ML IVPUSH ONE (14:00)
--- NOTE | 2016-10-27 14:41 | EKG ---
Test Reason : Blood Pressure : / mmHG Vent. Rate : 080 BPM Atrial Rate : 080 BPM P-R Int : 178 ms QRS Dur : 114 ms QT Int : 458 ms P-R-T Axes : 092 058 -57 degrees QTc Int : 528 ms NORMAL SINUS RHYTHM NONSPECIFIC ST AND T WAVE ABNORMALITY PROLONGED QT ABNORMAL ECG WHEN COMPARED WITH ECG OF 12-OCT-2016 15:07, QT HAS LENGTHENED Confirmed by GENO CM, LIANNA ([id number]) on 10/27/2016 2:41:33 PM Referred By: Confirmed By:LIANNA LORA MD
[2016-10-27] MEDS: hydrALAZINE HCL 25 MG TABLET (FP) PO SCH ×2 (15:15→22:00)
[2016-10-27] MEDS: HALOPERIDOL 0.5 MG TABLET PO SCH ×2 (15:15→22:45)
[2016-10-27 19:55] LABS: CALCIUM 8.5 mg/dL (8.5-10.1); COCKROFT - GAULT 23.63; CREATININE 2.5 mg/dL (0.7-1.3)
[2016-10-27] MEDS: ALBUTEROL SO4 0.083% IH SOL 2.5 MG/3 ML VIAL.NEB. NEB SCH (19:55)
[2016-10-27] MEDS ORDERED: PT OWN MED DRAWER 7, Y5N ONE ×2 (21:58→22:48)
[2016-10-28] MEDS: ALBUTEROL SO4 0.083% IH SOL 2.5 MG/3 ML VIAL.NEB. NEB SCH ×4 (00:10→19:01)
[2016-10-28] MEDS ORDERED: PT OWN MED DRAWER 7, Y5N ONE ×2 (06:00→19:41)
[2016-10-28] MEDS: hydrALAZINE HCL 25 MG TABLET (FP) PO SCH ×3 (06:03→21:32)
[2016-10-28] MEDS: HALOPERIDOL 0.5 MG TABLET PO SCH (06:03)
[2016-10-28] MEDS: HALOPERIDOL LACTATE 5 MG/ML IM PRN ×2 (08:11→19:05)
--- NOTE | 2016-10-28 09:57 | FALL ---
Fall Exam - Event Witnessed fall: No Location of Fall: Patient Room Fall from: Bed - Pre-Fall Fall Risk: High Risk Mental Status: Alert, Disoriented, Cooperative Current Medications: Current Medications Generic Name Dose Route Start Last Admin Trade Name Freq PRN Reason Stop Dose Admin Albuterol Sulfate 1 amp 10/27/16 12:00 10/28/16 06:40 Ventolin 0.083% Nebulizer Soln - NEB 1 amp QIDR MARLYN Administration Amiodarone HCl 200 mg 10/27/16 10:00 10/27/16 10:33 Cordarone - PO Not Given DAILY MARLYN Amlodipine Besylate 10 mg 10/27/16 10:00 10/27/16 10:33 Norvasc - PO Not Given DAILY [facility] Apixaban 5 mg 10/27/16 10:00 10/27/16 22:00 Eliquis - PO 5 mg BID MARLYN Administration Calcitriol 0.25 mcg 10/27/16 10:00 10/27/16 10:33 Rocaltrol - PO Not Given DAILY MARLYN Haloperidol 0.5 mg 10/27/16 14:00 10/28/16 06:03 Haldol - PO 0.5 mg TID MARLYN Administration Haloperidol 5 mg 10/27/16 11:54 10/28/16 08:11 Haldol Injection (Fast Acting) - IM 5 mg Q4H PRN Administration AGITATION Hydralazine HCl 25 mg 10/27/16 14:00 10/28/16 06:03 Apresoline - PO 25 mg TID MARLYN Administration Perphenazine 6 mg 10/27/16 10:00 10/27/16 22:45 Trilafon PO 6 mg BID MARLYN Administration - Post-Fall Patient Outcome: Pain Only Treatment: None Vital Signs: Vital Signs Temperature 97.5 F L 10/28/16 02:11 Pulse Rate 75 10/28/16 05:45 Respiratory Rate 20 10/28/16 05:45 Blood Pressure 137/66 10/28/16 05:45 O2 Sat by Pulse Oximetry (%) 99 10/27/16 23:00 LOC Post-Fall: Unchanged Identify factors for HIGH RISK for Head Injury: Pt on anticoagulant
[2016-10-28] MEDS: APIXABAN 5 MG TABLET PO SCH (10:35)
[2016-10-28] MEDS: AMIODARONE HCL 200 MG TABLET (FP) PO SCH (10:35)
[2016-10-28] MEDS: amLODIPine BESYLATE 10 MG TABLET (FP) PO SCH (10:35)
[2016-10-28] MEDS: CALCITRIOL 0.25 MCG CAPSULE (FP) PO SCH (10:36)
[2016-10-28] MEDS: PERPHENAZINE 2 MG TABLET PO SCH (10:36)
--- NOTE | 2016-10-28 11:16 | PN ---
Progress Note, Physician Chief Complaint: fell this morning-- found to be on his knees There is hematoma over left forehead he is agitated and fighting staff - Current Medication List Current Medications: Active Medications Albuterol Sulfate (Ventolin 0.083% Nebulizer Soln -) 1 amp NEB QIDR [facility] Last Admin: 10/28/16 06:40 Dose: 1 amp Amiodarone HCl (Cordarone -) 200 mg PO DAILY [facility] Last Admin: 10/28/16 10:35 Dose: 200 mg Amlodipine Besylate (Norvasc -) 10 mg PO DAILY [facility] Last Admin: 10/28/16 10:35 Dose: 10 mg Apixaban (Eliquis -) 5 mg PO BID [facility] Last Admin: 10/28/16 10:35 Dose: 5 mg Calcitriol (Rocaltrol -) 0.25 mcg PO DAILY [facility] Last Admin: 10/28/16 10:36 Dose: 0.25 mcg Haloperidol (Haldol -) 0.5 mg PO TID [facility] Last Admin: 10/28/16 06:03 Dose: 0.5 mg Haloperidol (Haldol Injection (Fast Acting) -) 5 mg IM Q4H PRN PRN Reason: AGITATION Last Admin: 10/28/16 08:11 Dose: 5 mg Hydralazine HCl (Apresoline -) 25 mg PO TID [facility] Last Admin: 10/28/16 06:03 Dose: 25 mg Lorazepam (Ativan Injection -) 2 mg IM ONCE ONE Stop: 10/28/16 11:41 Perphenazine (Trilafon) 6 mg PO BID [facility] Last Admin: 10/28/16 10:36 Dose: 6 mg - Objective Vital Signs: Vital Signs Temperature 97.5 F L 10/28/16 02:11 Pulse Rate 75 10/28/16 05:45 Respiratory Rate 20 10/28/16 05:45 Blood Pressure 137/66 10/28/16 05:45 O2 Sat by Pulse Oximetry (%) 99 10/27/16 23:00 Constitutional: Yes: No Distress Eyes: Yes: Other (left forehead hematoma) Cardiovascular: Yes: Regular Rate and Rhythm Respiratory: Yes: Diminished, Rales Gastrointestinal: Yes: Normal Bowel Sounds, Soft. No: Tenderness Extremities: Yes: Other (upper extemities edema Rt>> left , decreased facial edema) Edema: Yes Labs: CBC, BMP 10/27/16 10:40 10/27/16 18:45 INR, PTT INR 1.41 (0.82-1.09) H 10/27/16 10:37 Problem List - Problems (1) ESRD (end stage renal disease) on dialysis Code(s): N18.6 - END STAGE RENAL DISEASE Z99.2 - DEPENDENCE ON RENAL DIALYSIS (2) Refusal of treatment by patient Code(s): Z53.20 - PROC/TRTMT NOT CRD OUT BEC PT DECISION FOR UNSP REASONS (3) Dementia Code(s): F03.90 - UNSPECIFIED DEMENTIA WITHOUT BEHAVIORAL DISTURBANCE (4) Fluid overload Code(s): E87.70 - FLUID OVERLOAD, UNSPECIFIED Qualifiers: Hypervolemia type: unspecified Qualified Code(s): E87.70 - Fluid overload, unspecified (5) Hyperkalemia Code(s): E87.5 - HYPERKALEMIA Assessment/Plan PLAN Psych eval done in ER- deemed incompetent psych follow up as pt is agitated Haldol as needed-- increase haldol PO Pt lacks insight about dialysis and the need for it Wrist restraints to prevent injury to self and others, hussain andrew = will need to discuss with family again about the pt and his continuous refusal for dialysis. When he does go to dialysis in the [place]- he does not complete it. He becomes a danger to self and to others. will curly Freitas-- was on it for rt subclavian DVT risk of fall , high risk of bleeding check CT head after giving Ativan
[2016-10-28] MEDS ORDERED: LORAZEPAM CARPU-JECT 2 MG/ML DISP.SYRIN IM ONE ×2 (11:40→12:30)
[2016-10-28 13:22] LABS: BASOPHIL 0.1 % (0-2.0); EOSINOPHIL 0.1 % (0-4.5); MCH 28.5 pg (25.7-33.7); MCHC 31.8 g/dl (32.0-35.9); MEAN CELL VOLUME 89.5 fl (80-96); MEAN PLT VOLUME 7.9 fl (7.5-11.1); NEUTROPHILS 83.3 % (42.8-82.8); PLATELET COUNT 65 K/MM3 (134-434); RDW 22.6 % (11.9-15.9); WHITE BLOOD COUNT 5.5 K/mm3 (4.0-10.0)
[2016-10-28 13:26] LABS: ALBUMIN 3.1 g/dl (3.4-5.0); BILIRUBIN,TOTAL 0.6 mg/dL (0.2-1.0); CALCIUM 8.3 mg/dL (8.5-10.1); COCKROFT - GAULT 13.43; CREATININE 4.4 mg/dL (0.7-1.3); TOT PROT 6.5 g/dl (6.4-8.2)
[2016-10-28] MEDS: HALOPERIDOL 1 MG TABLET (FP) PO SCH ×2 (14:11→21:31)
[2016-10-28] MEDS: PERPHENAZINE 4 MG TABLET PO SCH ×2 (14:11→21:32)
[2016-10-28] MEDS ORDERED: DEXTROSE 50%-WATER 50 ML VIAL IVPUSH ONE ×3 (15:15→21:00)
[2016-10-28] MEDS ORDERED: DEXTROSE 10%-WATER - 1,000 ML IV SCH ×2 (15:30→22:45)
--- NOTE | 2016-10-28 15:32 | PN ---
Progress Note, Physician History of Present Illness: Pt seen and examined at bedside. He is lethargic, however he did receive ativan and haldol. Pt has been hypoglycemic. - Current Medication List Current Medications: Active Medications Albuterol Sulfate (Ventolin 0.083% Nebulizer Soln -) 1 amp NEB QIDR [facility] Last Admin: 10/28/16 11:50 Dose: Not Given Amiodarone HCl (Cordarone -) 200 mg PO DAILY [facility] Last Admin: 10/28/16 10:35 Dose: 200 mg Amlodipine Besylate (Norvasc -) 10 mg PO DAILY [facility] Last Admin: 10/28/16 10:35 Dose: 10 mg Calcitriol (Rocaltrol -) 0.25 mcg PO DAILY [facility] Last Admin: 10/28/16 10:36 Dose: 0.25 mcg Dextrose (D50w (Vial) -) 25 ml IVPUSH NOW ONE Stop: 10/28/16 15:27 Haloperidol (Haldol Injection (Fast Acting) -) 5 mg IM Q4H PRN PRN Reason: AGITATION Last Admin: 10/28/16 08:11 Dose: 5 mg Haloperidol (Haldol -) 1 mg PO TID [facility] Last Admin: 10/28/16 14:11 Dose: Not Given Hydralazine HCl (Apresoline -) 25 mg PO TID [facility] Last Admin: 10/28/16 14:11 Dose: Not Given Dextrose (D10w -) 1,000 mls @ 25 mls/hr IV ASDIR [facility] Perphenazine (Trilafon) 8 mg PO TID [facility] Last Admin: 10/28/16 14:11 Dose: Not Given - Objective Vital Signs: Vital Signs Temperature 94.1 F L 10/28/16 12:10 Pulse Rate 75 10/28/16 05:45 Respiratory Rate 20 10/28/16 05:45 Blood Pressure 137/66 10/28/16 05:45 O2 Sat by Pulse Oximetry (%) 99 10/27/16 23:00 Neck: Yes: Supple Cardiovascular: Yes: S1, S2 Respiratory: Yes: On Nasal O2 Gastrointestinal: Yes: Soft Genitourinary: Yes: Incontinence Musculoskeletal: Yes: Muscle Weakness Edema: Yes Edema: LUE: 1+, RUE: 1+ Neurological: Yes: Lethargy Labs: CBC, BMP 10/28/16 12:20 10/28/16 12:20 INR, PTT INR 1.41 (0.82-1.09) H 10/27/16 10:37 Problem List - Problems (1) ESRD (end stage renal disease) on dialysis Code(s): N18.6 - END STAGE RENAL DISEASE Z99.2 - DEPENDENCE ON RENAL DIALYSIS (2) Refusal of treatment by patient Code(s): Z53.20 - PROC/TRTMT NOT CRD OUT BEC PT DECISION FOR UNSP REASONS (3) Respiratory distress Code(s): R06.00 - DYSPNEA, UNSPECIFIED (4) Fluid overload Code(s): E87.70 - FLUID OVERLOAD, UNSPECIFIED Qualifiers: Hypervolemia type: unspecified Qualified Code(s): E87.70 - Fluid overload, unspecified (5) Hyperkalemia Code(s): E87.5 - HYPERKALEMIA Assessment/Plan Current Medications Generic Name Dose Route Start Last Admin Trade Name Freq PRN Reason Stop Dose Admin Albuterol Sulfate 1 amp 10/27/16 12:00 10/28/16 11:50 Ventolin 0.083% Nebulizer Soln - NEB Not Given QIDR [facility]LYN Amiodarone HCl 200 mg 10/27/16 10:00 10/28/16 10:35 Cordarone - PO 200 mg DAILY [facility] Administration Amlodipine Besylate 10 mg 10/27/16 10:00 10/28/16 10:35 Norvasc - PO 10 mg DAILY [facility] Administration Calcitriol 0.25 mcg 10/27/16 10:00 10/28/16 10:36 Rocaltrol - PO 0.25 mcg DAILY [facility] Administration Dextrose 25 ml 10/28/16 15:26 D50w (Vial) - IVPUSH 10/28/16 15:27 NOW ONE Haloperidol 5 mg 10/27/16 11:54 10/28/16 08:11 Haldol Injection (Fast Acting) - IM 5 mg Q4H PRN Administration AGITATION Haloperidol 1 mg 10/28/16 11:38 10/28/16 14:11 Haldol - PO Not Given TID MARLYN Hydralazine HCl 25 mg 10/27/16 14:00 10/28/16 14:11 Apresoline - PO Not Given TID [facility] Dextrose 1,000 mls @ 25 mls/hr 10/28/16 15:30 D10w - IV ASDIR [facility] Perphenazine 8 mg 10/28/16 14:00 10/28/16 14:11 Trilafon PO Not Given TID [facility] Impression 1. ESRD 2. hyperkalemia 3. dementia 4. acute hypoxic respiratory failure 5. pleural effusion 6. a-fib 7. epilepsy 8. hx COPD 9. anemia 10. facial edema 11. hypoglycemia Plan - HD in am - psych follow up for behavior - potassium improved - will start d10 as he was hypoglycemic. Monitor glucose. - monitor blood pressure - renal diet Dr Maciel
[2016-10-28 16:13] LABS: FREE T4 1.3 ng/dl (0.76-1.16); THYROID STIMULATING HORMONE 9.25 uIU/ml (0.358-3.74)
[2016-10-28] MEDS ORDERED: INSULIN (NOVOLOG) ASPART 100 UNITS/ML 10ML VIAL ONE (19:40)
[2016-10-28] MEDS ORDERED: DEXTROSE 50%-WATER 50 ML DISP.SYRIN ONE (21:03)
[2016-10-28] MEDS ORDERED: DEXTROSE 50%-WATER 50 ML DISP.SYRIN IVPUSH ONE (21:15)
--- NOTE | 2016-10-28 22:07 | PN ---
Progress Note (short form) - Note Progress Note: Called to intubate this 71 year old male in cardiac arrest. Upon arrival, acls in progress. Pt was intubated under direct laryngoscopy using a #7.5 endotracheal tube. Tube position confirmed by positive end tidal CO2 and bilateral breath sounds. ACLS ongoing.
--- NOTE | 2016-10-28 22:21 | RAPID ---
Physical Examination Vital Signs: Vital Signs Temperature 98.1 F 10/28/16 18:00 Pulse Rate 72 10/28/16 18:00 Respiratory Rate 18 10/28/16 18:00 Blood Pressure 126/54 10/28/16 18:00 O2 Sat by Pulse Oximetry (%) 99 10/28/16 07:50 Labs: CBC, BMP 10/28/16 12:20 10/28/16 12:20 Rapid Response - Rapid Response Assessment: Was called to assess a 71 year old male with pmh of hypertension, COPD, GERD, ESRD on Hemodialysis T/TH/S, s/p venogram and venoplasty L avg (10/20/16), dementia, agitation, h/o cardiac arrest in 08/2016, right subclavian DVT, and generalized epilepsy who was admitted after 4 days of refusing dialysis and treatment. Today, Hospitalization was complicated fall with head trauma while on Eliquis with left frontal head hematoma but refused CT head and hypoglycemia this afternoon with blood sugars in 40's. Pt had received D50 with repeat blood sugar 157. At 945PM Pt became unresponsive and rapid response was called. Upon arrival to assess pt. Pt was unresponsive, no peripheral pulse, no breath sounds , no heart sounds. CPR was immediately initiated and code was called. On the monitor pt was asystole, received 2 rounds of epinephrine during the code and round of bicarb and has IV fluid NS bolus running and was intubated. After the second round of epinephrine, pt was Sinus rhythm 90's with a pulse. Post arrest physical exam Vitals: 100% o2 sat , 179/91, 80, 14 pt was still unresponsive, Intubated Pupils 4mn, minimally reactive, no extraoccular muscle movement head to left frontal hematoma S1, s2, scattered ronchi b/l Abdomen soft, hypoactive Pulse 2+ in b/l upper ext, left AVG with +thrill no edema in b/l lower Impression Cardiac Arrest S/P cardiac arrest Plan ICU admission Ventilator AC14, TV 400, FIO2 100%, PEEP5 CBC CMP Mg Phos ABG lactate cardiac profile CXR BGM q2h Consider continuing D10 at 25ml/h if hypoglycemia persist Contact family for end of life decision consider central line Critical Care Total Critical Care Time (in minutes): 75 Critical Care Statement: The care of this patient involved high complexity decision making to prevent further life threatening deterioration of the patient 's condition and/or to evalute & treat vital organ system(s) failure or risk of failure.
--- NOTE | 2016-10-28 22:49 | CONSULT ---
Consult Consult Specialty:: Pulm/ Critical Care Referred by:: Jas Gerard Reason for Consultation:: s/p cardiac arrest - History of Present Illness Chief Complaint: s/p cardiac arrest History of Present Illness: 71 y/o man with multiple medical problems including history of HTN, COPD, GERD, ESRD on HD, dementia, agitation, epilepsy, R SC DVT with h/o cardiac arrest earlier this year and recent venoplasty of L avg on 10/20/16, who presented to ED after 4 days of refusing dialysis and treatment. Per pts primary Dr. Gerard he was recently admitted earlier this month for hyperkalemia after refusing treatment. This hospitalization was notable for large R pleural effusion for which he was given abx and refused thoracentesis. He underwent venogram and venoplasty of L AV fistula. During this admission pt was deemed to be non- competent by psych. He was d/cd back to [place] and returned 10/26 and was admitted to the floor. On morning of ICU transfer pt had fall with head trauma while on eliquis with frontal head hematoma but pt refused CT head. He was also noted to be hypothermic and hypoglycemic with blood sugars in 40s-50s during the day for which he received D50. [employer] was called pt became unresponsive after one of said episodes. Upon arrival of HOME [employer] SCHO[employer] VIS[employer]OR he was noted to be pluseless, asystolic on the monitor and ACLS was initiated. He received 2 rounds of epi and one round of bicarb as well as IVF and he was intubated. After second round of epi pt had ROSC with NSR in 90s. He was transported to the ICU where he was found to be normo/ hypertensive. He was agitated requiring sedation and was started on propofol for quick on/off for neuro eval. Pt will require CT head once stabilized. Current Medications Albuterol Sulfate (Ventolin 0.083% Nebulizer Soln -) 1 amp NEB QIDR [facility] Last Admin: 10/28/16 19:01 Dose: Not Given Amiodarone HCl (Cordarone -) 200 mg PO DAILY [facility] Last Admin: 10/28/16 10:35 Dose: 200 mg Amlodipine Besylate (Norvasc -) 10 mg PO DAILY [facility] Last Admin: 10/28/16 10:35 Dose: 10 mg Calcitriol (Rocaltrol -) 0.25 mcg PO DAILY [facility] Last Admin: 10/28/16 10:36 Dose: 0.25 mcg Epoetin Ytson (Procrit -) 3,000 unit IVPUSH ONCE ONE Stop: 10/29/16 15:33 Haloperidol (Haldol Injection (Fast Acting) -) 5 mg IM Q4H PRN PRN Reason: AGITATION Last Admin: 10/28/16 19:05 Dose: 5 mg Haloperidol (Haldol -) 1 mg PO TID [facility] Last Admin: 10/28/16 21:31 Dose: Not Given Hydralazine HCl (Apresoline -) 25 mg PO TID [facility] Last Admin: 10/28/16 21:32 Dose: Not Given Dextrose (D10w -) 1,000 mls @ 25 mls/hr IV ASDIR [facility] Dextrose (D5w -) 1,000 mls @ 25 mls/hr IV .[id number] [facility] Propofol (Diprivan -) 100 mls @ 1.905 mls/hr IVPB TITR [facility]; 5 MCG/KG/MIN PRN Reason: Protocol Perphenazine (Trilafon) 8 mg PO TID [facility] Last Admin: 10/28/16 21:32 Dose: Not Given - History Source History Provided By: Medical Record Limitations to Obtaining History: Intubated - 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 Cardio/Vascular: Yes: CAD (h/o cardiac arrest 08/2016), HTN, Other (Atrial flutter) Pulmonary: Yes: COPD Gastrointestinal: Yes: GERD Renal/: Yes: Other (ESRD on HD) Heme/Onc: Yes: Other (DVT ) Psych: Yes: Schizophrenia, Other (dementia) - Alcohol/Substance Use Hx Alcohol Use: No - Smoking History Smoking history: Never smoked - Social History Usual Living Arrangement: Prison Home Medications - Allergies Allergies/Adverse Reactions: Allergies Allergy/AdvReac Type Severity Reaction Status Date / Time No Known Allergies Allergy Verified 10/12/16 12:00 - Home Medications Home Medications: Ambulatory Orders Acetaminophen 650 mg PO Q6H PRN 10/12/16 Albuterol 0.083% Nebulizer Camryn [Ventolin 0.083% Nebulizer Soln -] 1 neb NEB QID 10/12/16 Amiodarone HCl 200 mg PO DAILY 10/12/16 Amlodipine Besylate 10 mg PO DAILY 10/12/16 Apixaban [Eliquis] 5 mg PO BID 10/12/16 Calcitriol [Calcitriol -] 0.25 mcg PO DAILY 10/12/16 Famotidine 20 mg PO BID 10/12/16 Haloperidol 0.5 mg PO TID 10/12/16 Hydralazine HCl [Apresoline -] 25 mg PO TID 10/12/16 Ipratropium 0.02% Nebulizer [Atrovent 0.02% Nebulizer -] 0.5 mg IH Q6H 10/12/16 Perphenazine 6 mg PO BID 10/12/16 Vitamin B Comp W-C [Nephro-Juana -] 1 ea PO DAILY 10/12/16 Family Disease History - Family Disease History Family History: Unable to Obtain Review of Systems Unable to obtain ROS, reason: pt intubated, s/p arrest Physical Exam Vital Signs: Vital Signs Temperature 98.1 F 10/28/16 18:00 Pulse Rate 72 10/28/16 18:00 Respiratory Rate 18 10/28/16 18:00 Blood Pressure 126/54 10/28/16 18:00 O2 Sat by Pulse Oximetry (%) 99 10/28/16 07:50 Eyes: Yes: Other (pinpoint pupils) HENT: Yes: Other (hematoma in L frontal/ temporal region) Cardiovascular: Yes: Regular Rate and Rhythm, S1, S2. No: Gallop, Murmur, Rub Respiratory: Yes: Mechanically Ventilated, Rhonchi, Other (diminished RLL) Gastrointestinal: Yes: Normal Bowel Sounds, Hypoactive Bowel Sounds Edema: No Peripheral Pulses WNL: Yes Neurological: Yes: Other (minimally responsive) Labs: CBC, BMP 10/28/16 12:20 10/28/16 12:20 Imaging - Results Chest X-ray: Report Reviewed, Image Reviewed Problem List - Problems (1) ESRD (end stage renal disease) on dialysis Code(s): N18.6 - END STAGE RENAL DISEASE Z99.2 - DEPENDENCE ON RENAL DIALYSIS (2) Refusal of treatment by patient Code(s): Z53.20 - PROC/TRTMT NOT CRD OUT BEC PT DECISION FOR UNSP REASONS (3) Dementia Code(s): F03.90 - UNSPECIFIED DEMENTIA WITHOUT BEHAVIORAL DISTURBANCE (4) Hypothermia Code(s): T68.XXXA - HYPOTHERMIA, INITIAL ENCOUNTER Qualifiers: Encounter type: initial encounter Qualified Code(s): T68.XXXA - Hypothermia, initial encounter (5) Pleural effusion, right Code(s): J90 - PLEURAL EFFUSION, NOT ELSEWHERE CLASSIFIED (6) Respiratory failure Code(s): J96.90 - RESPIRATORY FAILURE, UNSP, UNSP W HYPOXIA OR HYPERCAPNIA (7) Sepsis Code(s): A41.9 - SEPSIS, UNSPECIFIED ORGANISM Qualifiers: Sepsis type: sepsis due to unspecified organism Qualified Code(s): A41.9 - Sepsis, unspecified organism (8) Hypoglycemia Code(s): E16.2 - HYPOGLYCEMIA, UNSPECIFIED Assessment/Plan Assessment/Plan: 71 y/o man with multiple medical problems including HTN, COPD, ESRD, dementia who was admitted after refusing HD, course c/b fall on head while on anticoagulation and persistent hypoglycemia, hypothermia, now admitted to ICU s/p cardiac arrest CV: HTN at baseline now admitted s/p cardiac arrest ? 2/2 hypoglycemia though cannot r/o other etiologies given multiple comorbidities and persistent hypothermia concerning for sepsis] -hemodynamic monitoring -EKG -follow trops -consider TTE though BP seems to have stabilized -continue hydralizine and amlodipine given HTN -continue amiodarone PO Pulm: respiratory failure in setting of cardiac arrest -f/u CXR -continue mechanical ventilation -ABG to ensure proper ventilation -wean FiO2 as able -continue nebs -SBT when appropriate ID: hypothermia, hypoglycemia concerning for underlying infectious etiology -chavez culture -will initiate abx for possible underlying infectious etiology +/- aspiration event - vanco/ zosyn -low threshold to de-escalate Neuro: dementia, agitation at baseline now s/p cardiac arrest -low dose propofol for agitation given quick on/ off for neuro eval as needed -defer cooling at present given multiple co-morbidities -haldol PRN -CT head -denise andrew for hypothermia Renal: ESRD on HD, refusing treatments -consult renal -medical management of electrolytes pending dialysis Endo: hypoglycemia -D5W for hypoglycemia Heme: h/o DVT, on AC now s/p fall -hold anticoagulation until CT head obtained GI: -NPO for now -GI ppx -D5 W CODE: FULL CODE Time Spent: 30mins Michelle HWANG
[2016-10-28 23:25] LABS: ARTERIAL BLD GAS O2 SATURATION 98.3 % (90-98.9); ARTERIAL BLOOD GAS BASE EXCESS 3.3 meq/l (-2-2); ARTERIAL BLOOD GAS HCO3 27.9 meq/L (22-26)
[2016-10-28 23:26] LABS: ALLENS TEST POSITIVE; ART PUNCT SITE RIGHT RADIAL; LPM/O2% 100%; MECH. VENT. Y; PT. ON O2? YES; TYPE OF O2 VENT; VENT RATE 14; VT/PRESS 400
[2016-10-28] MEDS ORDERED: PROPOFOL 100 ML ONE (23:32)
[2016-10-28] MEDS: DEXTROSE 5%-WATER - 1,000 ML IV SCH (23:45)
[2016-10-29 00:51] LABS: BASOPHIL 0.2 % (0-2.0); EOSINOPHIL 0.1 % (0-4.5); MCH 28.8 pg (25.7-33.7); MCHC 32.2 g/dl (32.0-35.9); MEAN CELL VOLUME 89.5 fl (80-96); MEAN PLT VOLUME 8.7 fl (7.5-11.1); NEUTROPHILS 91.6 % (42.8-82.8); PLATELET COUNT 72 K/MM3 (134-434); RDW 22.3 % (11.9-15.9); WHITE BLOOD COUNT 4.6 K/mm3 (4.0-10.0)
[2016-10-29] MEDS ORDERED: LORAZEPAM CARPU-JECT 2 MG/ML DISP.SYRIN IVPUSH ONE (00:56)
[2016-10-29 01:03] LABS: INR 1.82 (0.82-1.09); PROTHROMBIN TIME (PATIENT) 20.3 SEC (9.98-11.88)
[2016-10-29 01:06] LABS: ACTIVATED PTT 38.5 SECONDS (26.9-34.4)
[2016-10-29 01:22] LABS: ALBUMIN 2.7 g/dl (3.4-5.0); CALCIUM 7.7 mg/dL (8.5-10.1); MAGNESIUM 2.2 mg/dL (1.8-2.4)
[2016-10-29 01:30] LABS: BILIRUBIN,TOTAL 0.5 mg/dL (0.2-1.0); COCKROFT - GAULT 12.57; CREATININE 4.7 mg/dL (0.7-1.3); PHOSPHOROUS 7.4 mg/dL (2.5-4.9); TOT PROT 5.5 g/dl (6.4-8.2); TROPONIN I 0.04 ng/ml (0.00-0.05)
[2016-10-29] MEDS ORDERED: VANCOMYCIN 1,000 MG in DEXTROSE 5%-WATER - 250 ML IVPB ONE (01:30)
[2016-10-29] MEDS ORDERED: PIPERACILLIN/TAZOB 2.25 GM 2.25 GM in DEXTROSE 5%-WATER - 50 ML IVPB SCH (02:00)
[2016-10-29] MEDS ORDERED: VANCOMYCIN 1 GRAM (PRE-DOCKED) 1,000 MG/250 ML BAG IVPB ONE (02:15)
[2016-10-29] MEDS ORDERED: PIPERACILLIN/TAZOB 2.25 GM/50 ML PRE-DOCKED BAG IVPB ONE ×2 (02:15→11:45)
[2016-10-29] MEDS: ALBUTEROL SO4 0.083% IH SOL 2.5 MG/3 ML VIAL.NEB. NEB SCH ×4 (05:47→23:06)
[2016-10-29] MEDS: hydrALAZINE HCL 25 MG TABLET (FP) PO SCH ×3 (06:19→21:41)
[2016-10-29] MEDS: HALOPERIDOL 1 MG TABLET (FP) PO SCH ×3 (06:19→21:42)
--- NOTE | 2016-10-29 07:56 | PN ---
Progress Note (short form) - Note Progress Note: SUBJECTIVE: Patient seen and examined in the ICU. Chart reviewed. Events noted. S/P cardiac arrest. Resuscitated. Now sedated and intubated. OBJECTIVE: Vital Signs 10/29/16 10/29/16 10/29/16 03:05 04:00 06:00 Temperature 97.7 F 97 F L Pulse Rate 90 84 Respiratory 19 16 14 Rate Blood Pressure 140/71 136/73 O2 Sat by Pulse Oximetry (%) 10/29/16 10/29/16 10/29/16 06:11 08:00 08:46 Temperature 98.3 F Pulse Rate 88 Respiratory 14 14 Rate Blood Pressure 130/58 O2 Sat by Pulse 100 Oximetry (%) 10/29/16 09:25 Temperature Pulse Rate Respiratory 14 Rate Blood Pressure O2 Sat by Pulse Oximetry (%) Intake & Output 10/28/16 10/29/16 10/29/16 23:59 07:59 15:59 Intake Total 0 522.2 Output Total 0 Balance 0 522.2 Weight 61.037 kg Intake: IV 172.2 D10w - 1,000 ml @ 25 mls/ 0 hr IV ASDIR [facility]LYN Rx#: [id number] D5w - 1,000 ml @ 25 mls/ 150 hr IV ASDIR MARLYN Rx#: [id number] Diprivan - 100 ml @ 5 MCG 22.2 /KG/MIN 1.905 mls/hr IVPB TITR [facility] Rx#:[id number] IVPB 350 Oral 0 0 Output: Urine 0 Void 0 Other: Voiding Method Incontinent Urinal Bowel Movement No Weight Measurement Method Built in [facility] Active Medications Albuterol Sulfate (Ventolin 0.083% Nebulizer Soln -) 1 amp NEB QIDR [facility] Last Admin: 10/29/16 05:47 Dose: 1 amp Amiodarone HCl (Cordarone -) 200 mg PO DAILY [facility] Last Admin: 10/28/16 10:35 Dose: 200 mg Amlodipine Besylate (Norvasc -) 10 mg PO DAILY [facility] Last Admin: 10/28/16 10:35 Dose: 10 mg Calcitriol (Rocaltrol -) 0.25 mcg PO DAILY [facility] Last Admin: 10/28/16 10:36 Dose: 0.25 mcg Epoetin Tyson (Procrit -) 3,000 unit IVPUSH ONCE ONE Stop: 10/29/16 15:33 Haloperidol (Haldol Injection (Fast Acting) -) 5 mg IM Q4H PRN PRN Reason: AGITATION Last Admin: 10/28/16 19:05 Dose: 5 mg Haloperidol (Haldol -) 1 mg PO TID [facility] Last Admin: 10/29/16 06:19 Dose: Not Given Hydralazine HCl (Apresoline -) 25 mg PO TID [facility] Last Admin: 10/29/16 06:19 Dose: Not Given Dextrose (D5w -) 1,000 mls @ 25 mls/hr IV ASDIR [facility] Last Admin: 10/28/16 23:45 Dose: 25 mls/hr Propofol (Diprivan -) 100 mls @ 1.905 mls/hr IVPB TITR [facility]; 5 MCG/KG/MIN PRN Reason: Protocol Last Admin: 10/29/16 09:48 Dose: 3.81 mls/hr Famotidine/Sodium Chloride (Pepcid 20 Mg Premixed Ivpb -) 50 mls @ 100 mls/hr IVPB DAILY [facility] Piperacillin Sod/Tazobactam (Sod 2.25 gm/ Dextrose) 50 mls @ 100 mls/hr IVPB Q8H-IV [facility] PRN Reason: Protocol Perphenazine (Trilafon) 8 mg PO TID [facility] Last Admin: 10/28/16 21:32 Dose: Not Given CBC, BMP 10/29/16 08:25 10/29/16 08:25 Laboratory Results - last 24 hr 10/28/16 10/28/16 10/28/16 12:20 12:20 12:20 WBC 5.5 RBC 2.81 L Hgb 8.0 L D Hct 25.1 L MCV 89.5 MCHC 31.8 L RDW 22.6 H Plt Count 65 L D MPV 7.9 D Neutrophils % 83.3 H Lymphocytes % 6.2 L D Monocytes % 10.3 H Eosinophils % 0.1 D Basophils % 0.1 INR PTT (Actin FS) Puncture Site ABG pH ABG pCO2 at Pt Temp ABG pO2 at Pt Temp ABG HCO3 ABG O2 Sat (Measured) ABG O2 Content ABG Base Excess Demetris Test O2 Delivery Device Oxygen Flow Rate Vent Mode Vent Rate Mechanical Rate PEEP Pressure Support Vent Sodium 143 Potassium 4.5 D Chloride 100 Carbon Dioxide 32 Anion Gap 11 BUN 70 H D Creatinine 4.4 H D Creat Clearance w eGFR 13.25 POC Glucometer Random Glucose 41 L* D Lactic Acid 0.589 Calcium 8.3 L Phosphorus Magnesium Total Bilirubin 0.6 AST 34 D ALT 14 Alkaline Phosphatase 132 H Creatine Kinase Troponin I Total Protein 6.5 Albumin 3.1 L TSH 9.25 H Free T4 1.30 H 10/28/16 10/28/16 10/28/16 13:41 14:53 15:33 WBC RBC Hgb Hct MCV MCHC RDW Plt Count MPV Neutrophils % Lymphocytes % Monocytes % Eosinophils % Basophils % INR PTT (Actin FS) Puncture Site ABG pH ABG pCO2 at Pt Temp ABG pO2 at Pt Temp ABG HCO3 ABG O2 Sat (Measured) ABG O2 Content ABG Base Excess Demetris Test O2 Delivery Device Oxygen Flow Rate Vent Mode Vent Rate Mechanical Rate PEEP Pressure Support Vent Sodium Potassium Chloride Carbon Dioxide Anion Gap BUN Creatinine Creat Clearance w eGFR POC Glucometer 47 62 Random Glucose Lactic Acid Calcium Phosphorus Magnesium Total Bilirubin AST ALT Alkaline Phosphatase Creatine Kinase Troponin I Total Protein Albumin TSH Cancelled Free T4 Cancelled 10/28/16 10/28/16 10/28/16 17:02 20:41 21:51 WBC RBC Hgb Hct MCV MCHC RDW Plt Count MPV Neutrophils % Lymphocytes % Monocytes % Eosinophils % Basophils % INR PTT (Actin FS) Puncture Site ABG pH ABG pCO2 at Pt Temp ABG pO2 at Pt Temp ABG HCO3 ABG O2 Sat (Measured) ABG O2 Content ABG Base Excess Demetris Test O2 Delivery Device Oxygen Flow Rate Vent Mode Vent Rate Mechanical Rate PEEP Pressure Support Vent Sodium Potassium Chloride Carbon Dioxide Anion Gap BUN Creatinine Creat Clearance w eGFR POC Glucometer 91 57 137 Random Glucose Lactic Acid Calcium Phosphorus Magnesium Total Bilirubin AST ALT Alkaline Phosphatase Creatine Kinase Troponin I Total Protein Albumin TSH Free T4 10/28/16 10/28/16 10/28/16 23:20 23:45 23:45 WBC 4.6 RBC 2.46 L Hgb 7.1 L D Hct 22.0 L MCV 89.5 MCHC 32.2 RDW 22.3 H Plt Count 72 L MPV 8.7 D Neutrophils % 91.6 H Lymphocytes % 2.0 L D Monocytes % 6.1 Eosinophils % 0.1 Basophils % 0.2 INR 1.82 H PTT (Actin FS) 38.5 H Puncture Site Right radial ABG pH 7.40 ABG pCO2 at Pt Temp 45.5 H D ABG pO2 at Pt Temp 393.0 H* D ABG HCO3 27.9 H ABG O2 Sat (Measured) 98.3 ABG O2 Content 11.8 L ABG Base Excess 3.3 H Demetris Test Positive O2 Delivery Device Vent Oxygen Flow Rate 100% Vent Mode Ac Vent Rate 14 Mechanical Rate Y PEEP 5.0 Pressure Support Vent 400 Sodium Potassium Chloride Carbon Dioxide Anion Gap BUN Creatinine Creat Clearance w eGFR POC Glucometer Random Glucose Lactic Acid Calcium Phosphorus Magnesium Total Bilirubin AST ALT Alkaline Phosphatase Creatine Kinase Troponin I Total Protein Albumin TSH Free T4 10/28/16 10/28/16 10/29/16 23:45 23:45 08:25 WBC RBC Hgb Hct MCV MCHC RDW Plt Count MPV Neutrophils % Lymphocytes % Monocytes % Eosinophils % Basophils % INR PTT (Actin FS) Puncture Site ABG pH ABG pCO2 at Pt Temp ABG pO2 at Pt Temp ABG HCO3 ABG O2 Sat (Measured) ABG O2 Content ABG Base Excess Demetris Test O2 Delivery Device Oxygen Flow Rate Vent Mode Vent Rate Mechanical Rate PEEP Pressure Support Vent Sodium 144 142 Potassium 4.8 4.9 Chloride 99 98 Carbon Dioxide 31 29 Anion Gap 14 15 BUN 75 H 79 H Creatinine 4.7 H 4.9 H Creat Clearance w eGFR 12.28 11.70 POC Glucometer Random Glucose 87 D 64 L D Lactic Acid 1.870 Calcium 7.7 L 7.9 L Phosphorus 7.4 H Magnesium 2.2 Total Bilirubin 0.5 0.6 AST 62 H D 47 H D ALT 26 D 22 Alkaline Phosphatase 151 H 153 H Creatine Kinase 102 Troponin I 0.04 D Total Protein 5.5 L 6.0 L Albumin 2.7 L 2.9 L TSH Free T4 10/29/16 08:25 WBC 5.7 RBC 2.67 L Hgb 7.6 L Hct 23.5 L MCV 88.0 MCHC 32.5 RDW 21.2 H Plt Count 70 L MPV 7.7 D Neutrophils % Lymphocytes % Monocytes % Eosinophils % Basophils % INR PTT (Actin FS) Puncture Site ABG pH ABG pCO2 at Pt Temp ABG pO2 at Pt Temp ABG HCO3 ABG O2 Sat (Measured) ABG O2 Content ABG Base Excess Demetris Test O2 Delivery Device Oxygen Flow Rate Vent Mode Vent Rate Mechanical Rate PEEP Pressure Support Vent Sodium Potassium Chloride Carbon Dioxide Anion Gap BUN Creatinine Creat Clearance w eGFR POC Glucometer Random Glucose Lactic Acid Calcium Phosphorus Magnesium Total Bilirubin AST ALT Alkaline Phosphatase Creatine Kinase Troponin I Total Protein Albumin TSH Free T4 PHYSICAL EXAMINATION: Constitutional: Yes: Sedated and intubated. Cardiovascular: Yes: Regular Rate and Rhythm Respiratory: Yes: Diminished. Gastrointestinal: Yes: Normal Bowel Sounds, Soft. No: Tenderness Extremities: Yes: Other (upper extemities edema Rt>> left , decreased facial edema) Edema: Yes Problem List - Problems (1) ESRD (end stage renal disease) on dialysis Code(s): N18.6 - END STAGE RENAL DISEASE Z99.2 - DEPENDENCE ON RENAL DIALYSIS (2) Refusal of treatment by patient Code(s): Z53.20 - PROC/TRTMT NOT CRD OUT BEC PT DECISION FOR UNSP REASONS (3) Dementia Code(s): F03.90 - UNSPECIFIED DEMENTIA WITHOUT BEHAVIORAL DISTURBANCE (4) Fluid overload Code(s): E87.70 - FLUID OVERLOAD, UNSPECIFIED Qualifiers: Hypervolemia type: unspecified Qualified Code(s): E87.70 - Fluid overload, unspecified (5) Hyperkalemia Code(s): E87.5 - HYPERKALEMIA ASSESSMENT & PLAN: - S/P cardiac arrest - Possible sepsis. - Other problems as listed. - For CT head today - Continue antibiotics. - Hemo-dialysis per Renal - Condition poor. - Patient has been non-compliant with treatment - Family wants everything to be done - Ethics consult pending. - Will follow - Discussed with ICU attending as well. - CC Time 40 minutes Documentation prepared by Monica Hernandez, acting as a medical staff assistant for Gayla Gerard MD.
[2016-10-29 08:36] LABS: MCH 28.6 pg (25.7-33.7); MCHC 32.5 g/dl (32.0-35.9); MEAN PLT VOLUME 7.7 fl (7.5-11.1); PLATELET COUNT 70 K/MM3 (134-434); RDW 21.2 % (11.9-15.9); WHITE BLOOD COUNT 5.7 K/mm3 (4.0-10.0)
[2016-10-29 09:11] LABS: ALBUMIN 2.9 g/dl (3.4-5.0); BILIRUBIN,TOTAL 0.6 mg/dL (0.2-1.0); CALCIUM 7.9 mg/dL (8.5-10.1); COCKROFT - GAULT 11.59; CREATININE 4.9 mg/dL (0.7-1.3)
[2016-10-29] MEDS: PROPOFOL 100 ML IVPB SCH ×3 (09:48→21:42)
[2016-10-29] MEDS: AMIODARONE HCL 200 MG TABLET (FP) PO SCH (11:26)
[2016-10-29] MEDS: amLODIPine BESYLATE 10 MG TABLET (FP) PO SCH (11:26)
[2016-10-29] MEDS: PERPHENAZINE 4 MG TABLET PO SCH ×3 (11:27→21:42)
--- NOTE | 2016-10-29 11:28 | PN ---
Progress Note (short form) - Note Progress Note: ID consult dictated imp/reccd 71 year old man esrd/hd, recent admission 10/12 to 10/22 -refusing HD, large pleural effusion- refusing thoracentesis, s/p venogram/venoplasty 10/20 admitted for refusing HD after d/c back to [place] he has been agitated he fell and developed hematoma of left forehead he refused head ct he was noted to be hypoglycemic and hypothermic he found unresponsive and asystolic last night ACLS was initiated he ws successfully resuscitated and intubated and sent to ICU s/p code s/p fall- r/o bleed hypothermia and hypoglycemia- abnl cxray at baseline-posssible sepsis agree with cultures and vanco/zosyn will f/u esrd/hd Problem List - Problems (1) Cardiac arrest Code(s): I46.9 - CARDIAC ARREST, CAUSE UNSPECIFIED (2) Sepsis Code(s): A41.9 - SEPSIS, UNSPECIFIED ORGANISM Qualifiers: Sepsis type: sepsis due to unspecified organism Qualified Code(s): A41.9 - Sepsis, unspecified organism (3) ESRD (end stage renal disease) on dialysis Code(s): N18.6 - END STAGE RENAL DISEASE Z99.2 - DEPENDENCE ON RENAL DIALYSIS (4) Refusal of treatment by patient Code(s): Z53.20 - PROC/TRTMT NOT CRD OUT BEC PT DECISION FOR UNSP REASONS
[2016-10-29] MEDS: CALCITRIOL 0.25 MCG CAPSULE (FP) PO SCH (11:33)
[2016-10-29] MEDS: FAMOTIDINE 20 MG/50 ML IVPB 50 ML IVPB SCH (12:00)
--- NOTE | 2016-10-29 12:07 | PN ---
Teaching Attending Note Name of Resident: Danyel Kline ATTENDING PHYSICIAN STATEMENT I saw and evaluated the patient. I reviewed the resident's note and discussed the case with the resident. I agree with the resident's findings and plan as documented. SUBJECTIVE: Patient seen and examined in the ICU. Remains intubated and sedated. AC Mode of vent. No pressors. CXR: ETT in position / large right effusion Intake & Output 10/26/16 10/27/16 10/28/16 10/29/16 23:59 23:59 23:59 23:59 Intake Total 10 20 522.2 Output Total 0 Balance 10 20 522.2 Weight 140 lb 134 lb 9 oz Last Vital Signs Temp Pulse Resp BP Pulse Ox 98.6 F 73 16 140/62 100 10/29/16 10:00 10/29/16 10:00 10/29/16 11:24 10/29/16 10:00 10/29/16 08:46 Active Medications Albuterol Sulfate (Ventolin 0.083% Nebulizer Soln -) 1 amp NEB QIDR [facility] Amiodarone HCl (Cordarone -) 200 mg PO DAILY [facility] Amlodipine Besylate (Norvasc -) 10 mg PO DAILY [facility] Calcitriol (Rocaltrol -) 0.25 mcg PO DAILY [facility] Epoetin Tyson (Procrit -) 3,000 unit IVPUSH ONCE ONE Stop: 10/29/16 15:33 Haloperidol (Haldol Injection (Fast Acting) -) 5 mg IM Q4H PRN PRN Reason: AGITATION Last Admin: 10/28/16 19:05 Dose: 5 mg Haloperidol (Haldol -) 1 mg PO TID [facility] Last Admin: 10/29/16 06:19 Dose: Not Given Hydralazine HCl (Apresoline -) 25 mg PO TID [facility] Dextrose (D5w -) 1,000 mls @ 25 mls/hr IV ASDIR [facility] Last Admin: 10/28/16 23:45 Dose: 25 mls/hr Propofol (Diprivan -) 100 mls @ 1.905 mls/hr IVPB TITR [facility]; 5 MCG/KG/MIN PRN Reason: Protocol Last Admin: 10/29/16 09:48 Dose: 3.81 mls/hr Famotidine/Sodium Chloride (Pepcid 20 Mg Premixed Ivpb -) 50 mls @ 100 mls/hr IVPB DAILY [facility] Piperacillin Sod/Tazobactam (Sod 2.25 gm/ Dextrose) 50 mls @ 100 mls/hr IVPB Q8H-IV [facility] PRN Reason: Protocol Perphenazine (Trilafon) 8 mg PO TID [facility] General:Yes: intubated, poorly responsive HENT: Yes: Other (hematoma in L frontal/ temporal region) Cardiovascular: Yes: Regular Rate and Rhythm, S1, S2. No: Gallop, Murmur, Rub Respiratory: Yes: Mechanically Ventilated, Scattered Rhonchi Gastrointestinal: Yes: Normal Bowel Sounds, Hypoactive Bowel Sounds Edema: No Peripheral Pulses WNL: Yes Neurological: Yes: Poorly responsive Labs: Laboratory Results - last 24 hr 10/28/16 10/28/16 10/28/16 12:20 12:20 12:20 WBC 5.5 RBC 2.81 L Hgb 8.0 L D Hct 25.1 L MCV 89.5 MCHC 31.8 L RDW 22.6 H Plt Count 65 L D MPV 7.9 D Neutrophils % 83.3 H Lymphocytes % 6.2 L D Monocytes % 10.3 H Eosinophils % 0.1 D Basophils % 0.1 INR PTT (Actin FS) Puncture Site ABG pH ABG pCO2 at Pt Temp ABG pO2 at Pt Temp ABG HCO3 ABG O2 Sat (Measured) ABG O2 Content ABG Base Excess Demetris Test O2 Delivery Device Oxygen Flow Rate Vent Mode Vent Rate Mechanical Rate PEEP Pressure Support Vent Sodium 143 Potassium 4.5 D Chloride 100 Carbon Dioxide 32 Anion Gap 11 BUN 70 H D Creatinine 4.4 H D Creat Clearance w eGFR 13.25 POC Glucometer Random Glucose 41 L* D Lactic Acid 0.589 Calcium 8.3 L Phosphorus Magnesium Total Bilirubin 0.6 AST 34 D ALT 14 Alkaline Phosphatase 132 H Creatine Kinase Troponin I Total Protein 6.5 Albumin 3.1 L TSH 9.25 H Free T4 1.30 H Blood Type Antibody Screen 10/28/16 10/28/16 10/28/16 13:41 14:53 15:33 WBC RBC Hgb Hct MCV MCHC RDW Plt Count MPV Neutrophils % Lymphocytes % Monocytes % Eosinophils % Basophils % INR PTT (Actin FS) Puncture Site ABG pH ABG pCO2 at Pt Temp ABG pO2 at Pt Temp ABG HCO3 ABG O2 Sat (Measured) ABG O2 Content ABG Base Excess Demetris Test O2 Delivery Device Oxygen Flow Rate Vent Mode Vent Rate Mechanical Rate PEEP Pressure Support Vent Sodium Potassium Chloride Carbon Dioxide Anion Gap BUN Creatinine Creat Clearance w eGFR POC Glucometer 47 62 Random Glucose Lactic Acid Calcium Phosphorus Magnesium Total Bilirubin AST ALT Alkaline Phosphatase Creatine Kinase Troponin I Total Protein Albumin TSH Cancelled Free T4 Cancelled Blood Type Antibody Screen 10/28/16 10/28/16 10/28/16 17:02 20:41 21:51 WBC RBC Hgb Hct MCV MCHC RDW Plt Count MPV Neutrophils % Lymphocytes % Monocytes % Eosinophils % Basophils % INR PTT (Actin FS) Puncture Site ABG pH ABG pCO2 at Pt Temp ABG pO2 at Pt Temp ABG HCO3 ABG O2 Sat (Measured) ABG O2 Content ABG Base Excess Demetris Test O2 Delivery Device Oxygen Flow Rate Vent Mode Vent Rate Mechanical Rate PEEP Pressure Support Vent Sodium Potassium Chloride Carbon Dioxide Anion Gap BUN Creatinine Creat Clearance w eGFR POC Glucometer 91 57 137 Random Glucose Lactic Acid Calcium Phosphorus Magnesium Total Bilirubin AST ALT Alkaline Phosphatase Creatine Kinase Troponin I Total Protein Albumin TSH Free T4 Blood Type Antibody Screen 10/28/16 10/28/16 10/28/16 23:20 23:45 23:45 WBC 4.6 RBC 2.46 L Hgb 7.1 L D Hct 22.0 L MCV 89.5 MCHC 32.2 RDW 22.3 H Plt Count 72 L MPV 8.7 D Neutrophils % 91.6 H Lymphocytes % 2.0 L D Monocytes % 6.1 Eosinophils % 0.1 Basophils % 0.2 INR 1.82 H PTT (Actin FS) 38.5 H Puncture Site Right radial ABG pH 7.40 ABG pCO2 at Pt Temp 45.5 H D ABG pO2 at Pt Temp 393.0 H* D ABG HCO3 27.9 H ABG O2 Sat (Measured) 98.3 ABG O2 Content 11.8 L ABG Base Excess 3.3 H Demetris Test Positive O2 Delivery Device Vent Oxygen Flow Rate 100% Vent Mode Ac Vent Rate 14 Mechanical Rate Y PEEP 5.0 Pressure Support Vent 400 Sodium Potassium Chloride Carbon Dioxide Anion Gap BUN Creatinine Creat Clearance w eGFR POC Glucometer Random Glucose Lactic Acid Calcium Phosphorus Magnesium Total Bilirubin AST ALT Alkaline Phosphatase Creatine Kinase Troponin I Total Protein Albumin TSH Free T4 Blood Type Antibody Screen 10/28/16 10/28/1617 23:45 23:45 23:49 WBC RBC Hgb Hct MCV MCHC RDW Plt Count MPV Neutrophils % Lymphocytes % Monocytes % Eosinophils % Basophils % INR PTT (Actin FS) Puncture Site ABG pH ABG pCO2 at Pt Temp ABG pO2 at Pt Temp ABG HCO3 ABG O2 Sat (Measured) ABG O2 Content ABG Base Excess Demetris Test O2 Delivery Device Oxygen Flow Rate Vent Mode Vent Rate Mechanical Rate PEEP Pressure Support Vent Sodium 144 Potassium 4.8 Chloride 99 Carbon Dioxide 31 Anion Gap 14 BUN 75 H Creatinine 4.7 H Creat Clearance w eGFR 12.28 POC Glucometer 125.33217 Random Glucose 87 D Lactic Acid 1.870 Calcium 7.7 L Phosphorus 7.4 H Magnesium 2.2 Total Bilirubin 0.5 AST 62 H D ALT 26 D Alkaline Phosphatase 151 H Creatine Kinase 102 Troponin I 0.04 D Total Protein 5.5 L Albumin 2.7 L TSH Free T4 Blood Type Antibody Screen 10/29/16 10/29/16 10/29/16 06:50 08:25 08:25 WBC 5.7 RBC 2.67 L Hgb 7.6 L Hct 23.5 L MCV 88.0 MCHC 32.5 RDW 21.2 H Plt Count 70 L MPV 7.7 D Neutrophils % Lymphocytes % Monocytes % Eosinophils % Basophils % INR PTT (Actin FS) Puncture Site ABG pH ABG pCO2 at Pt Temp ABG pO2 at Pt Temp ABG HCO3 ABG O2 Sat (Measured) ABG O2 Content ABG Base Excess Demetris Test O2 Delivery Device Oxygen Flow Rate Vent Mode Vent Rate Mechanical Rate PEEP Pressure Support Vent Sodium 142 Potassium 4.9 Chloride 98 Carbon Dioxide 29 Anion Gap 15 BUN 79 H Creatinine 4.9 H Creat Clearance w eGFR 11.70 POC Glucometer 108.04019 Random Glucose 64 L D Lactic Acid Calcium 7.9 L Phosphorus Magnesium Total Bilirubin 0.6 AST 47 H D ALT 22 Alkaline Phosphatase 153 H Creatine Kinase Troponin I Total Protein 6.0 L Albumin 2.9 L TSH Free T4 Blood Type Antibody Screen 10/29/16 10/29/16 10/29/16 09:45 09:45 10:14 WBC RBC Hgb Hct MCV MCHC RDW Plt Count MPV Neutrophils % Lymphocytes % Monocytes % Eosinophils % Basophils % INR PTT (Actin FS) Puncture Site ABG pH ABG pCO2 at Pt Temp ABG pO2 at Pt Temp ABG HCO3 ABG O2 Sat (Measured) ABG O2 Content ABG Base Excess Demetris Test O2 Delivery Device Oxygen Flow Rate Vent Mode Vent Rate Mechanical Rate PEEP Pressure Support Vent Sodium Potassium Chloride Carbon Dioxide Anion Gap BUN Creatinine Creat Clearance w eGFR POC Glucometer 94.55847 Random Glucose Lactic Acid 0.482 Calcium Phosphorus Magnesium Total Bilirubin AST ALT Alkaline Phosphatase Creatine Kinase Troponin I Total Protein Albumin TSH Free T4 Blood Type B POSITIVE Antibody Screen Negative Problem List - Problems (1) ESRD (end stage renal disease) on dialysis Code(s): N18.6 - END STAGE RENAL DISEASE Z99.2 - DEPENDENCE ON RENAL DIALYSIS (2) Refusal of treatment by patient Code(s): Z53.20 - PROC/TRTMT NOT CRD OUT BEC PT DECISION FOR UNSP REASONS (3) Dementia Code(s): F03.90 - UNSPECIFIED DEMENTIA WITHOUT BEHAVIORAL DISTURBANCE (4) Hypothermia Code(s): T68.XXXA - HYPOTHERMIA, INITIAL ENCOUNTER Qualifiers: Encounter type: initial encounter Qualified Code(s): T68.XXXA - Hypothermia, initial encounter (5) Pleural effusion, right Code(s): J90 - PLEURAL EFFUSION, NOT ELSEWHERE CLASSIFIED (6) Respiratory failure Code(s): J96.90 - RESPIRATORY FAILURE, UNSP, UNSP W HYPOXIA OR HYPERCAPNIA (7) Sepsis Code(s): A41.9 - SEPSIS, UNSPECIFIED ORGANISM Qualifiers: Sepsis type: sepsis due to unspecified organism Qualified Code(s): A41.9 - Sepsis, unspecified organism (8) Hypoglycemia Code(s): E16.2 - HYPOGLYCEMIA, UNSPECIFIED Assessment/Plan STAT CT Head CXR HD per Renal ABX Ethics consult has been called Enteral feeds VTE prophylaxis if head CT is negative Dr Calrk critical care time spent in reviewing chart, evaluating patient and formulating plan 40 min
--- NOTE | 2016-10-29 13:04 | CONS ---
INFECTIOUS DISEASE CONSULTATION DATE OF CONSULTATION: 10/29/2016 REQUESTING PHYSICIAN: Gayla Gerard MD HISTORY OF PRESENT ILLNESS: This is a 71-year-old man who was recently in the hospital from October 12, 2016, to October 22, 2016. During that admission he was sent from the care home with shortness of breath. He had been refusing treatments at the care home. He was found to have a large right pleural effusion as well as a swollen left arm. He was given antibiotics briefly for possible pneumonia, which were stopped when his cultures when his cultures were negative. He refused thoracentesis. He underwent a venogram and venoplasty on October 20, 2016. He was discharged back to the care home. After he got back to the care home he apparently continued to refuse medications as well as hemodialysis. He was sent back to the hospital. He was seen by Psychiatry who felt that he was not competent to make decisions. He was admitted. He was seen by Renal and his dialysis was resumed. He was quite agitated and required restraints. He sustained a fall and developed a left forehead hematoma. He refused CAT scan. Yesterday evening he was found unresponsive. He was asystolic. ACLS was initiated. He was successfully resuscitated and intubated and sent to the ICU. During this course of events he was also noted to be hypoglycemic and hypothermic and the concern for possible sepsis was raised and he had cultures drawn this morning and he was started on vancomycin and Zosyn, and I was asked to see him for further evaluation. He is currently sedated and intubated on the ventilator. He is moving all his extremities. He is scheduled to go for CAT scan of his head. PAST MEDICAL HISTORY: Notable for history of hypertension, COPD, GERD, end-stage renal disease on dialysis, dementia, agitation, and history of cardiac arrest in August 2016. He has a history of a right subclavian DVT and seizure disorder. He has a left A-V fistula and left Perm-A-Cath. On October 20, 2016, he underwent venogram and venoplasty of the A-V fistula. History as well of kidney disease and anxiety. This is all from the chart as the patient is intubated. ALLERGIES: He has no known drug allergies. MEDICATIONS: At the time of admission, which he was apparently refusing at the care home, included albuterol nebulizer, amiodarone, amlodipine, apixaban, calcitriol, famotidine, Haldol, hydralazine, nebulizer treatment, perphenazine, and vitamin B. FAMILY HISTORY: Not available. SOCIAL HISTORY: It is unclear how long he was residing at the care home. Substance use history is not available. PHYSICAL EXAMINATION: General Appearance: He is intubated. He is moving all his extremities. Vital Signs: Temperature of 98.6, blood pressure of 140/62, pulse of 73, and respiratory rate of 16. He is on FIO2 of 60%. HEENT: He is normocephalic. He has got a large left forehead hematoma. RESPIRATORY: Lungs have diminished breath sounds at the right base. CARDIOVASCULAR: Heart is regular rate and rhythm. ABDOMEN: Soft and nontender. EXTREMITIES: There is a left-sided Perm-A-Cath that has no drainage. There is a left A-V fistula with a good bruit. His extremities are without edema. LABORATORY DATA: White count of 5.7, hemoglobin of 7.6, and platelets of 70,000. BUN of 79 and creatinine of 4.9. Cultures are pending. DIAGNOSTIC DATA: Chest x-ray shows the chronic right pleural effusion with compressive atelectasis. IMPRESSION: In summary, this is a 71-year-old man status post code, status post fall and rule out bleed, hypothermia and hypoglycemia, with abnormal chest x-ray at baseline. I would agree with cultures and coverage for possible sepsis. End-stage renal disease on dialysis, which he continues to refuse. I would agree with cultures and antibiotics as ordered. I will follow up and make further recommendations if needed. TRINI PAINTER M.D. [id number]
--- NOTE | 2016-10-29 15:14 | PN ---
Progress Note, Physician History of Present Illness: Pt seen and examined at bedside. He had a cardiac arrest yesterday. He is now in the ICU and intubated. - Current Medication List Current Medications: Active Medications Albuterol Sulfate (Ventolin 0.083% Nebulizer Soln -) 1 amp NEB QIDR REPLACED BY [facility] Amiodarone HCl (Cordarone -) 200 mg PO DAILY REPLACED BY [facility] Amlodipine Besylate (Norvasc -) 10 mg PO DAILY REPLACED BY [facility] Calcitriol (Rocaltrol -) 0.25 mcg PO DAILY REPLACED BY [facility] Epoetin Tyson (Procrit -) 3,000 unit IVPUSH ONCE ONE Stop: 10/29/16 15:33 Haloperidol (Haldol Injection (Fast Acting) -) 5 mg IM Q4H PRN PRN Reason: AGITATION Last Admin: 10/28/16 19:05 Dose: 5 mg Haloperidol (Haldol -) 1 mg PO TID REPLACED BY [facility] Last Admin: 10/29/16 14:09 Dose: Not Given Hydralazine HCl (Apresoline -) 25 mg PO TID REPLACED BY [facility] Last Admin: 10/29/16 14:08 Dose: Not Given Dextrose (D5w -) 1,000 mls @ 25 mls/hr IV ASDIR REPLACED BY [facility] Last Admin: 10/28/16 23:45 Dose: 25 mls/hr Propofol (Diprivan -) 100 mls @ 1.905 mls/hr IVPB TITR MARLYN; 5 MCG/KG/MIN PRN Reason: Protocol Last Admin: 10/29/16 09:48 Dose: 3.81 mls/hr Famotidine/Sodium Chloride (Pepcid 20 Mg Premixed Ivpb -) 50 mls @ 100 mls/hr IVPB DAILY REPLACED BY [facility] Last Admin: 10/29/16 12:00 Dose: 100 mls/hr Piperacillin Sod/Tazobactam (Sod 2.25 gm/ Dextrose) 50 mls @ 100 mls/hr IVPB Q8H-IV MARLYN PRN Reason: Protocol Perphenazine (Trilafon) 8 mg PO TID REPLACED BY [facility] Last Admin: 10/29/16 14:15 Dose: 8 mg - Objective Vital Signs: Vital Signs Temperature 97.1 F L 10/29/16 14:00 Pulse Rate 74 10/29/16 14:00 Respiratory Rate 15 10/29/16 14:20 Blood Pressure 143/59 10/29/16 14:00 O2 Sat by Pulse Oximetry (%) 100 10/29/16 08:46 Constitutional: Yes: Calm HENT: Yes: Other (head hematoma) Cardiovascular: Yes: S1, S2 Respiratory: Yes: Mechanically Ventilated Gastrointestinal: Yes: Soft Genitourinary: Yes: Incontinence Musculoskeletal: Yes: Muscle Weakness Edema: Yes Edema: LUE: 2+, RUE: 2+ Neurological: Yes: Lethargy Labs: CBC, BMP 10/29/16 08:25 10/29/16 08:25 INR, PTT INR 1.82 (0.82-1.09) H 10/28/16 23:45 - ....Imaging Cat Scan: Report Reviewed (ct head negative for bleed) Problem List - Problems (1) ESRD (end stage renal disease) on dialysis Code(s): N18.6 - END STAGE RENAL DISEASE Z99.2 - DEPENDENCE ON RENAL DIALYSIS (2) Refusal of treatment by patient Code(s): Z53.20 - PROC/TRTMT NOT CRD OUT BEC PT DECISION FOR UNSP REASONS (3) Respiratory distress Code(s): R06.00 - DYSPNEA, UNSPECIFIED (4) Fluid overload Code(s): E87.70 - FLUID OVERLOAD, UNSPECIFIED Qualifiers: Hypervolemia type: unspecified Qualified Code(s): E87.70 - Fluid overload, unspecified (5) Hyperkalemia Code(s): E87.5 - HYPERKALEMIA Assessment/Plan Current Medications Generic Name Dose Route Start Last Admin Trade Name Freq PRN Reason Stop Dose Admin Albuterol Sulfate 1 amp 10/29/16 12:00 Ventolin 0.083% Nebulizer Soln - NEB QIDR MARLYN Amiodarone HCl 200 mg 10/30/16 10:00 Cordarone - PO DAILY MARLYN Amlodipine Besylate 10 mg 10/30/16 10:00 Norvasc - PO DAILY [facility]N Calcitriol 0.25 mcg 10/30/16 10:00 Rocaltrol - PO DAILY [facility]N Epoetin Tyson 3,000 unit 10/29/16 15:32 Procrit - IVPUSH 10/29/16 15:33 ONCE ONE Haloperidol 5 mg 10/27/16 11:54 10/28/16 19:05 Haldol Injection (Fast Acting) - IM 5 mg Q4H PRN Administration AGITATION Haloperidol 1 mg 10/28/16 11:38 10/29/16 14:09 Haldol - PO Not Given TID MARLYN Hydralazine HCl 25 mg 10/29/16 14:00 10/29/16 14:08 Apresoline - PO Not Given TID MARLYN Dextrose 1,000 mls @ 25 mls/hr 10/28/16 23:45 10/28/16 23:45 D5w - IV 25 mls/hr ASDIR [facility]N Administration Propofol 100 mls @ 1.905 mls/hr 10/28/16 23:45 10/29/16 09:48 Diprivan - IVPB 3.81 mls/hr TITR MARLYN Administration Protocol 5 MCG/KG/MIN Famotidine/Sodium Chloride 50 mls @ 100 mls/hr 10/29/16 10:00 10/29/16 12:00 Pepcid 20 Mg Premixed Ivpb - IVPB 100 mls/hr DAILY [facility]N Administration Piperacillin Sod/Tazobactam 50 mls @ 100 mls/hr 10/29/16 02:00 Sod 2.25 gm/ Dextrose IVPB Q8H-IV MAR[facility]N Protocol Perphenazine 8 mg 10/28/16 14:00 10/29/16 14:15 Trilafon PO 8 mg TID MARLYN Administration Impression 1. ESRD 2. hyperkalemia 3. dementia 4. acute hypoxic respiratory failure 5. pleural effusion 6. a-fib 7. epilepsy 8. hx COPD 9. anemia 10. facial edema 11. hypoglycemia Plan - will arrange for HD today as pt is volume overloaded - ct head is negative for bleed - follow up cxr - monitor in ICU - cont vent support - repeat cxr in am - will hold off epogen for now - monitor blood sugar - cardio eval - can use nepro when feeds started - will follow Dr Maciel
[2016-10-29] MEDS ORDERED: EPOETIN ALFA 3,000 UNIT/1 ML ML IVPUSH ONE (15:32)
--- NOTE | 2016-10-29 15:44 | PN ---
Physical Exam: SUBJECTIVE: Patient seen and examined. intubated and sedated. OBJECTIVE: Vital Signs Period Temp Pulse Resp BP Sys/Triplett Pulse Ox Last 24 Hr 94.7 F-98.6 F 51-90 14-19 111-172/52-81 100-100 HEAD: golf-ball sized hematoma over left eye at mideyebrow, soft, skin intact, with purpura EYES: sluggish pupilary response to light, equal b/l. sclera anicteric, conjunctiva clear. No ptosis. ENT: nares patent, oropharynx clear with ET, frothy saliva NECK: Trachea midline. LUNGS: anteriorly with coarse breath sounds and scattered rhonchi b/l HEART: Regular rate and rhythm, S1, S2 ABDOMEN: Soft, hypoactive bowel sounds in all quadrants, EXTREMITIES: 2+ pulses, warm, well-perfused, 2+ edema in b/l UE and LE. left arm fistula with palpable thrill. NEUROLOGICAL: sedated and intubated, Laboratory Results - last 24 hr 10/28/16 10/28/16 10/28/16 12:20 15:33 17:02 WBC RBC Hgb Hct MCV MCHC RDW Plt Count MPV Neutrophils % Lymphocytes % Monocytes % Eosinophils % Basophils % INR PTT (Actin FS) Puncture Site ABG pH ABG pCO2 at Pt Temp ABG pO2 at Pt Temp ABG HCO3 ABG O2 Sat (Measured) ABG O2 Content ABG Base Excess Demetris Test O2 Delivery Device Oxygen Flow Rate Vent Mode Vent Rate Mechanical Rate PEEP Pressure Support Vent Sodium Potassium Chloride Carbon Dioxide Anion Gap BUN Creatinine Creat Clearance w eGFR POC Glucometer 91 Random Glucose Lactic Acid Calcium Phosphorus Magnesium Total Bilirubin AST ALT Alkaline Phosphatase Creatine Kinase Troponin I Total Protein Albumin TSH 9.25 H Cancelled Free T4 1.30 H Cancelled Blood Type Antibody Screen 10/28/16 10/28/16 10/28/16 20:41 21:51 23:20 WBC RBC Hgb Hct MCV MCHC RDW Plt Count MPV Neutrophils % Lymphocytes % Monocytes % Eosinophils % Basophils % INR PTT (Actin FS) Puncture Site Right radial ABG pH 7.40 ABG pCO2 at Pt Temp 45.5 H D ABG pO2 at Pt Temp 393.0 H* D ABG HCO3 27.9 H ABG O2 Sat (Measured) 98.3 ABG O2 Content 11.8 L ABG Base Excess 3.3 H Demetris Test Positive O2 Delivery Device Vent Oxygen Flow Rate 100% Vent Mode Ac Vent Rate 14 Mechanical Rate Y PEEP 5.0 Pressure Support Vent 400 Sodium Potassium Chloride Carbon Dioxide Anion Gap BUN Creatinine Creat Clearance w eGFR POC Glucometer 57 137 Random Glucose Lactic Acid Calcium Phosphorus Magnesium Total Bilirubin AST ALT Alkaline Phosphatase Creatine Kinase Troponin I Total Protein Albumin TSH Free T4 Blood Type Antibody Screen 10/28/16 10/28/16 10/28/16 23:45 23:45 23:45 WBC 4.6 RBC 2.46 L Hgb 7.1 L D Hct 22.0 L MCV 89.5 MCHC 32.2 RDW 22.3 H Plt Count 72 L MPV 8.7 D Neutrophils % 91.6 H Lymphocytes % 2.0 L D Monocytes % 6.1 Eosinophils % 0.1 Basophils % 0.2 INR 1.82 H PTT (Actin FS) 38.5 H Puncture Site ABG pH ABG pCO2 at Pt Temp ABG pO2 at Pt Temp ABG HCO3 ABG O2 Sat (Measured) ABG O2 Content ABG Base Excess Demetris Test O2 Delivery Device Oxygen Flow Rate Vent Mode Vent Rate Mechanical Rate PEEP Pressure Support Vent Sodium 144 Potassium 4.8 Chloride 99 Carbon Dioxide 31 Anion Gap 14 BUN 75 H Creatinine 4.7 H Creat Clearance w eGFR 12.28 POC Glucometer Random Glucose 87 D Lactic Acid Calcium 7.7 L Phosphorus 7.4 H Magnesium 2.2 Total Bilirubin 0.5 AST 62 H D ALT 26 D Alkaline Phosphatase 151 H Creatine Kinase 102 Troponin I 0.04 D Total Protein 5.5 L Albumin 2.7 L TSH Free T4 Blood Type Antibody Screen 10/28/16 10/28/16 10/29/16 23:45 23:49 06:50 WBC RBC Hgb Hct MCV MCHC RDW Plt Count MPV Neutrophils % Lymphocytes % Monocytes % Eosinophils % Basophils % INR PTT (Actin FS) Puncture Site ABG pH ABG pCO2 at Pt Temp ABG pO2 at Pt Temp ABG HCO3 ABG O2 Sat (Measured) ABG O2 Content ABG Base Excess Demetris Test O2 Delivery Device Oxygen Flow Rate Vent Mode Vent Rate Mechanical Rate PEEP Pressure Support Vent Sodium Potassium Chloride Carbon Dioxide Anion Gap BUN Creatinine Creat Clearance w eGFR POC Glucometer 125.53871 108.60946 Random Glucose Lactic Acid 1.870 Calcium Phosphorus Magnesium Total Bilirubin AST ALT Alkaline Phosphatase Creatine Kinase Troponin I Total Protein Albumin TSH Free T4 Blood Type Antibody Screen 10/29/16 10/29/16 10/29/16 08:25 08:25 09:45 WBC 5.7 RBC 2.67 L Hgb 7.6 L Hct 23.5 L MCV 88.0 MCHC 32.5 RDW 21.2 H Plt Count 70 L MPV 7.7 D Neutrophils % Lymphocytes % Monocytes % Eosinophils % Basophils % INR PTT (Actin FS) Puncture Site ABG pH ABG pCO2 at Pt Temp ABG pO2 at Pt Temp ABG HCO3 ABG O2 Sat (Measured) ABG O2 Content ABG Base Excess Demetris Test O2 Delivery Device Oxygen Flow Rate Vent Mode Vent Rate Mechanical Rate PEEP Pressure Support Vent Sodium 142 Potassium 4.9 Chloride 98 Carbon Dioxide 29 Anion Gap 15 BUN 79 H Creatinine 4.9 H Creat Clearance w eGFR 11.70 POC Glucometer Random Glucose 64 L D Lactic Acid 0.482 Calcium 7.9 L Phosphorus Magnesium Total Bilirubin 0.6 AST 47 H D ALT 22 Alkaline Phosphatase 153 H Creatine Kinase Troponin I Total Protein 6.0 L Albumin 2.9 L TSH Free T4 Blood Type Antibody Screen 10/29/16 10/29/16 10/29/16 09:45 10:14 13:34 WBC RBC Hgb Hct MCV MCHC RDW Plt Count MPV Neutrophils % Lymphocytes % Monocytes % Eosinophils % Basophils % INR PTT (Actin FS) Puncture Site ABG pH ABG pCO2 at Pt Temp ABG pO2 at Pt Temp ABG HCO3 ABG O2 Sat (Measured) ABG O2 Content ABG Base Excess Demetris Test O2 Delivery Device Oxygen Flow Rate Vent Mode Vent Rate Mechanical Rate PEEP Pressure Support Vent Sodium Potassium Chloride Carbon Dioxide Anion Gap BUN Creatinine Creat Clearance w eGFR POC Glucometer 94.95087 85.74332 Random Glucose Lactic Acid Calcium Phosphorus Magnesium Total Bilirubin AST ALT Alkaline Phosphatase Creatine Kinase Troponin I Total Protein Albumin TSH Free T4 Blood Type B POSITIVE Antibody Screen Negative Active Medications Generic Name Dose Route Start Last Admin Trade Name Freq PRN Reason Stop Dose Admin Albuterol Sulfate 1 amp 10/29/16 12:00 Ventolin 0.083% Nebulizer Soln - NEB QIDR [facility]N Amiodarone HCl 200 mg 10/30/16 10:00 Cordarone - PO DAILY MARLYN Amlodipine Besylate 10 mg 10/30/16 10:00 Norvasc - PO DAILY [facility]N Calcitriol 0.25 mcg 10/30/16 10:00 Rocaltrol - PO DAILY [facility]N Haloperidol 5 mg 10/27/16 11:54 10/28/16 19:05 Haldol Injection (Fast Acting) - IM 5 mg Q4H PRN Administration AGITATION Haloperidol 1 mg 10/28/16 11:38 10/29/16 14:09 Haldol - PO Not Given TID MARLYN Hydralazine HCl 25 mg 10/29/16 14:00 10/29/16 14:08 Apresoline - PO Not Given TID MARLYN Dextrose 1,000 mls @ 25 mls/hr 10/28/16 23:45 10/28/16 23:45 D5w - IV 25 mls/hr ASDIR [facility]N Administration Propofol 100 mls @ 1.905 mls/hr 10/28/16 23:45 10/29/16 09:48 Diprivan - IVPB 3.81 mls/hr TITR MARLYN Administration Protocol 5 MCG/KG/MIN Famotidine/Sodium Chloride 50 mls @ 100 mls/hr 10/29/16 10:00 10/29/16 12:00 Pepcid 20 Mg Premixed Ivpb - IVPB 100 mls/hr DAILY MAR[facility]N Administration Piperacillin Sod/Tazobactam 50 mls @ 100 mls/hr 10/29/16 02:00 Sod 2.25 gm/ Dextrose IVPB Q8H-IV MARLYN Protocol Perphenazine 8 mg 10/28/16 14:00 10/29/16 14:15 Trilafon PO 8 mg TID MARLYN Administration ASSESSMENT/PLAN: 71 yr old man with HTN, ESRD on HD (), demetia with agitation, hx of Cardiac arrest, DVT, generalized epilepsy, deemed incompetent and hx of refusing treatments including dialysis,admitted for hyperK, ESRD on HD, and hypothermia, transferred to ICU s/p cardiac arrest on Med-surg floor. - sustained unwitnessed fall on 10/28 AM - ethics consult initiated as patient is incompetent to make decisions, however has been refusing care. GOC to be decided. Cardiovascular - s/p cardiac arrest with resuscitation 5 PM HTN hydralazine 25mg po TID [id number] po daily amiodarone 200mg Pulmonary intubated secondary to hypoxic respiratory failure s/p cardiac arrest titrate FiO2 to maintain o2 sat >90% duonebs large right pleural effusion - pt has refused thoracentesis in the past. Infectious disease blood cx pending to r/o infectious etiology, concern for sepsis Vancomycin + zosyn Renal ESRD on HD Rocaltrol 0.25 mcg po daily procrit Ivpush and dialysis today consult Dr. Maciel Neurological incompetent, baseline dementia sedated, Haldol prn, propofol drip Head CT without hemorrhage/infarct/fracture Hematological right subclavian DVT on eliquis- now held s/p fall GI pepcid for prophylaxis Enteral feeds with Nepro Endocrine Hypoglycemia D5W IVF @25cc/hr DVT: SCD's Diet: enteral feeds Visit type - Emergency Visit Emergency Visit: No - New Patient This patient is new to me today: Yes Date on this admission: 10/29/16 - Critical Care Critical Care patient: Yes Total Critical Care Time (in minutes): 39 Critical Care Statement: The care of this patient involved high complexity decision making to prevent further life threatening deterioration of the patient 's condition and/or to evalute & treat vital organ system(s) failure or risk of failure.
[2016-10-29] MEDS: PIPERACILLIN/TAZOB 2.25 GM 50 ML IVPB SCH (20:30)
[2016-10-29] MEDS ORDERED: PT OWN MED DRAWER 7, Y5N ONE (20:45)
[2016-10-30] MEDS: PROPOFOL 100 ML IVPB SCH ×2 (00:13→23:45)
[2016-10-30] MEDS: DEXTROSE 5%-WATER - 1,000 ML IV SCH (00:13)
[2016-10-30] MEDS: PIPERACILLIN/TAZOB 2.25 GM 50 ML IVPB SCH ×3 (02:00→18:01)
[2016-10-30 06:13] LABS: BASOPHIL 0.4 % (0-2.0); EOSINOPHIL 0.4 % (0-4.5); MCH 29.1 pg (25.7-33.7); MCHC 33.8 g/dl (32.0-35.9); MEAN CELL VOLUME 86.1 fl (80-96); MEAN PLT VOLUME 7.8 fl (7.5-11.1); NEUTROPHILS 77.5 % (42.8-82.8); PLATELET COUNT 76 K/MM3 (134-434); RDW 19.9 % (11.9-15.9); WHITE BLOOD COUNT 5.2 K/mm3 (4.0-10.0)
[2016-10-30] MEDS: HALOPERIDOL 1 MG TABLET (FP) PO SCH ×3 (06:14→21:21)
[2016-10-30] MEDS: hydrALAZINE HCL 25 MG TABLET (FP) PO SCH ×3 (06:14→21:21)
[2016-10-30] MEDS: PERPHENAZINE 4 MG TABLET PO SCH ×3 (06:15→21:21)
[2016-10-30 06:33] LABS: INR 1.41 (0.82-1.09); PROTHROMBIN TIME (PATIENT) 15.6 SEC (9.98-11.88)
[2016-10-30 06:37] LABS: ALBUMIN 2.8 g/dl (3.4-5.0); PHOSPHOROUS 3.7 mg/dL (2.5-4.9)
[2016-10-30 06:39] LABS: BILIRUBIN,TOTAL 0.7 mg/dL (0.2-1.0); CALCIUM 8.1 mg/dL (8.5-10.1); COCKROFT - GAULT 14.94; CREATININE 3.8 mg/dL (0.7-1.3); TOT PROT 6.2 g/dl (6.4-8.2)
[2016-10-30] MEDS: ALBUTEROL SO4 0.083% IH SOL 2.5 MG/3 ML VIAL.NEB. NEB SCH ×4 (06:40→23:35)
--- NOTE | 2016-10-30 09:20 | PN ---
Progress Note (short form) - Note Progress Note: intubated warming blanket no pressors head ct no bleed cxray unchanged Vital Signs Period Temp Pulse Resp BP Sys/Triplett Pulse Ox Last 24 Hr 96.4 F-98.6 F 60-87 14-21 108-148/52-67 99-100 +left forehead hematoma cor-rrr lungs decreased bs at bases abd soft,nt ext no lower ext edema CBC, BMP 10/30/16 05:15 10/30/16 05:15 Microbiology 10/29/16 08:25 Blood - Peripheral Venous Blood Culture - Preliminary NO GROWTH OBTAINED AFTER 24 HOURS, INCUBATION TO CONTINUE FOR 4 DAYS. Active Medications Albuterol Sulfate (Ventolin 0.083% Nebulizer Soln -) 1 amp NEB QIDR [facility] Last Admin: 10/30/16 06:40 Dose: 1 amp Amiodarone HCl (Cordarone -) 200 mg PO DAILY [facility] Amlodipine Besylate (Norvasc -) 10 mg PO DAILY [facility] Calcitriol (Rocaltrol -) 0.25 mcg PO DAILY [facility] Haloperidol (Haldol Injection (Fast Acting) -) 5 mg IM Q4H PRN PRN Reason: AGITATION Last Admin: 10/28/16 19:05 Dose: 5 mg Haloperidol (Haldol -) 1 mg PO TID [facility] Last Admin: 10/30/16 06:14 Dose: 1 mg Hydralazine HCl (Apresoline -) 25 mg PO TID [facility] Last Admin: 10/30/16 06:14 Dose: 25 mg Dextrose (D5w -) 1,000 mls @ 25 mls/hr IV ASDIR [facility] Last Admin: 10/30/16 00:13 Dose: Not Given Propofol (Diprivan -) 100 mls @ 1.905 mls/hr IVPB TITR MARLYN; 5 MCG/KG/MIN PRN Reason: Protocol Last Admin: 10/30/16 00:13 Dose: Not Given Famotidine/Sodium Chloride (Pepcid 20 Mg Premixed Ivpb -) 50 mls @ 100 mls/hr IVPB DAILY [facility] Last Admin: 10/29/16 12:00 Dose: 100 mls/hr Piperacillin Sod/Tazobactam Sod (Zosyn 2.25gm Ivpb (Pre-Docked)) 50 mls @ 100 mls/hr IVPB Q8H-IV MARLYN PRN Reason: Protocol Last Admin: 10/30/16 02:00 Dose: 100 mls/hr Perphenazine (Trilafon) 8 mg PO TID [facility] Last Admin: 10/30/16 06:15 Dose: 8 mg a/p s/p code s/p fall- no bleed hypothermia and hypoglycemia- abnl cxray at baseline-possible sepsis agree with cultures and vanco/zosyn, will d/c antibiotics in am if cultures are negative has he ever been HIV tested? check am cortisol with persistent hypothermia and hypoglycemia will f/u esrd/hd Problem List - Problems (1) Cardiac arrest Code(s): I46.9 - CARDIAC ARREST, CAUSE UNSPECIFIED (2) Sepsis Code(s): A41.9 - SEPSIS, UNSPECIFIED ORGANISM Qualifiers: Sepsis type: sepsis due to unspecified organism Qualified Code(s): A41.9 - Sepsis, unspecified organism (3) ESRD (end stage renal disease) on dialysis Code(s): N18.6 - END STAGE RENAL DISEASE Z99.2 - DEPENDENCE ON RENAL DIALYSIS (4) Refusal of treatment by patient Code(s): Z53.20 - PROC/TRTMT NOT CRD OUT BEC PT DECISION FOR UNSP REASONS
--- NOTE | 2016-10-30 09:43 | PN ---
Progress Note (short form) - Note Progress Note: Pt seen/ examined in icu sedated had transfused 2 units yesterday all f/u noted Vital Signs Temp 96.4 F L 10/30/16 06:00 Pulse 68 10/30/16 06:00 Resp 20 10/30/16 06:39 BP 143/61 10/30/16 06:00 Pulse Ox 99 10/29/16 20:00 Intake & Output 10/29/16 10/29/16 10/30/16 11:59 23:59 11:59 Intake Total 522.2 745.6 842 Output Total 0 0 0 Balance 522.2 745.6 842 Weight 134 lb 9 oz 132 lb 6.4 oz Intake: IV 172.2 345.6 342 D10w - 1,000 ml @ 25 mls/ 0 hr IV ASDIR [facility] Rx#: [id number] D5w - 1,000 ml @ 25 mls/ 150 300 300 hr IV ASDIR [facility] Rx#: [id number] Diprivan - 100 ml @ 5 MCG 22.2 45.6 42 /KG/MIN 1.905 mls/hr IVPB TITR [facility] Rx#:[id number] IVPB 350 100 Oral 0 Packed Cells 350 350 Tube Irrigant 50 50 Output: Urine 0 0 0 Void 0 0 0 Other: Voiding Method Urinal Bowel Movement No No Weight Measurement Method Built in Bedscale Built in Bedscale Active Medications Albuterol Sulfate (Ventolin 0.083% Nebulizer Soln -) 1 amp NEB QIDR [facility] Last Admin: 10/30/16 06:40 Dose: 1 amp Amiodarone HCl (Cordarone -) 200 mg PO DAILY [facility] Amlodipine Besylate (Norvasc -) 10 mg PO DAILY [facility] Calcitriol (Rocaltrol -) 0.25 mcg PO DAILY [facility] Haloperidol (Haldol Injection (Fast Acting) -) 5 mg IM Q4H PRN PRN Reason: AGITATION Last Admin: 10/28/16 19:05 Dose: 5 mg Haloperidol (Haldol -) 1 mg PO TID [facility] Last Admin: 10/30/16 06:14 Dose: 1 mg Hydralazine HCl (Apresoline -) 25 mg PO TID [facility] Last Admin: 10/30/16 06:14 Dose: 25 mg Dextrose (D5w -) 1,000 mls @ 25 mls/hr IV ASDIR [facility] Last Admin: 10/30/16 00:13 Dose: Not Given Propofol (Diprivan -) 100 mls @ 1.905 mls/hr IVPB TITR MARLYN; 5 MCG/KG/MIN PRN Reason: Protocol Last Admin: 10/30/16 00:13 Dose: Not Given Famotidine/Sodium Chloride (Pepcid 20 Mg Premixed Ivpb -) 50 mls @ 100 mls/hr IVPB DAILY [facility] Last Admin: 10/29/16 12:00 Dose: 100 mls/hr Piperacillin Sod/Tazobactam Sod (Zosyn 2.25gm Ivpb (Pre-Docked)) 50 mls @ 100 mls/hr IVPB Q8H-IV [facility]N PRN Reason: Protocol Last Admin: 10/30/16 02:00 Dose: 100 mls/hr Perphenazine (Trilafon) 8 mg PO TID [facility] Last Admin: 10/30/16 06:15 Dose: 8 mg CBC, BMP 10/30/16 05:15 10/30/16 05:15 Microbiology 10/29/16 09:40 Blood Culture - Preliminary Blood - Peripheral Venous NO GROWTH OBTAINED AFTER 24 HOURS, INCUBATION TO CONTINUE FOR 4 DAYS. 10/29/16 08:25 Blood Culture - Preliminary Blood - Peripheral Venous NO GROWTH OBTAINED AFTER 24 HOURS, INCUBATION TO CONTINUE FOR 4 DAYS. PHYSICAL EXAMINATION: Constitutional: Yes: Sedated/ intubated. Cardiovascular: Yes: Regular Rate and Rhythm Respiratory: Yes: Diminished. Gastrointestinal: Yes: Normal Bowel Sounds, Soft. No: Tenderness Extremities: Yes: Other (upper extemities edema Rt>> left , decreased facial edema) Edema: Yes Heamtoma --forehead Problem List - Problems (1) ESRD (end stage renal disease) on dialysis Code(s): N18.6 - END STAGE RENAL DISEASE Z99.2 - DEPENDENCE ON RENAL DIALYSIS (2) Refusal of treatment by patient Code(s): Z53.20 - PROC/TRTMT NOT CRD OUT BEC PT DECISION FOR UNSP REASONS (3) Dementia Code(s): F03.90 - UNSPECIFIED DEMENTIA WITHOUT BEHAVIORAL DISTURBANCE (4) Fluid overload Code(s): E87.70 - FLUID OVERLOAD, UNSPECIFIED Qualifiers: Hypervolemia type: unspecified Qualified Code(s): E87.70 - Fluid overload, unspecified (5) Hyperkalemia Code(s): E87.5 - HYPERKALEMIA ASSESSMENT & PLAN: - S/P cardiac arrest - Possible sepsis. - Other problems as listed. - CT head -ve - Continue antibiotics. - Hemo-dialysis per Renal - start on feeding - discussed with icu attending today. --will follow - condition poor
--- NOTE | 2016-10-30 10:08 | PN ---
Progress Note (short form) - Note Progress Note: Pulm/CCM SUBJECTIVE: Patient seen and examined in the ICU. 24: HD yesterday with 2 PBC given Remains intubated and sedated. AC Mode of vent. No pressors. CXR: ETT in position / large right effusion stable Active Medications Albuterol Sulfate (Ventolin 0.083% Nebulizer Soln -) 1 amp NEB QIDR [facility] Last Admin: 10/30/16 06:40 Dose: 1 amp Amiodarone HCl (Cordarone -) 200 mg PO DAILY [facility] Amlodipine Besylate (Norvasc -) 10 mg PO DAILY [facility] Calcitriol (Rocaltrol -) 0.25 mcg PO DAILY [facility] Haloperidol (Haldol Injection (Fast Acting) -) 5 mg IM Q4H PRN PRN Reason: AGITATION Last Admin: 10/28/16 19:05 Dose: 5 mg Haloperidol (Haldol -) 1 mg PO TID [facility] Last Admin: 10/30/16 06:14 Dose: 1 mg Hydralazine HCl (Apresoline -) 25 mg PO TID [facility] Last Admin: 10/30/16 06:14 Dose: 25 mg Dextrose (D5w -) 1,000 mls @ 25 mls/hr IV ASDIR [facility] Last Admin: 10/30/16 00:13 Dose: Not Given Propofol (Diprivan -) 100 mls @ 1.905 mls/hr IVPB TITR [facility]LYN; 5 MCG/KG/MIN PRN Reason: Protocol Last Admin: 10/30/16 00:13 Dose: Not Given Famotidine/Sodium Chloride (Pepcid 20 Mg Premixed Ivpb -) 50 mls @ 100 mls/hr IVPB DAILY [facility] Last Admin: 10/29/16 12:00 Dose: 100 mls/hr Piperacillin Sod/Tazobactam Sod (Zosyn 2.25gm Ivpb (Pre-Docked)) 50 mls @ 100 mls/hr IVPB Q8H-IV [facility] PRN Reason: Protocol Last Admin: 10/30/16 02:00 Dose: 100 mls/hr Perphenazine (Trilafon) 8 mg PO TID [facility] Last Admin: 10/30/16 06:15 Dose: 8 mg General:Yes: intubated, poorly responsive on propofol HENT: Yes: Other (hematoma in L frontal/ temporal region), stable Cardiovascular: Yes: Regular Rate and Rhythm, S1, S2. No: Gallop, Murmur, Rub Respiratory: Yes: Mechanically Ventilated, Scattered Rhonchi , no wheezes, diminished bases Gastrointestinal: Yes: Normal Bowel Sounds, Hypoactive Bowel Sounds Edema: No Peripheral Pulses WNL: Yes Neurological: Yes: Poorly responsive Problem List - Problems (1) ESRD (end stage renal disease) on dialysis Code(s): N18.6 - END STAGE RENAL DISEASE Z99.2 - DEPENDENCE ON RENAL DIALYSIS (2) Refusal of treatment by patient Code(s): Z53.20 - PROC/TRTMT NOT CRD OUT BEC PT DECISION FOR UNSP REASONS (3) Dementia Code(s): F03.90 - UNSPECIFIED DEMENTIA WITHOUT BEHAVIORAL DISTURBANCE (4) Hypothermia Code(s): T68.XXXA - HYPOTHERMIA, INITIAL ENCOUNTER Qualifiers: Encounter type: initial encounter Qualified Code(s): T68.XXXA - Hypothermia, initial encounter (5) Pleural effusion, right Code(s): J90 - PLEURAL EFFUSION, NOT ELSEWHERE CLASSIFIED (6) Respiratory failure Code(s): J96.90 - RESPIRATORY FAILURE, UNSP, UNSP W HYPOXIA OR HYPERCAPNIA (7) Sepsis Code(s): A41.9 - SEPSIS, UNSPECIFIED ORGANISM Qualifiers: Sepsis type: sepsis due to unspecified organism Qualified Code(s): A41.9 - Sepsis, unspecified organism (8) Hypoglycemia Code(s): E16.2 - HYPOGLYCEMIA, UNSPECIFIED Assessment/Plan Full vent support, wean to extubate. HD per Renal, likely again on tuesday ABX Vanc /PT, can d/c as appears unlikely infectious process drove arrest. Enteral feeds VTE prophylaxis if head CT is negative if unable to be extubated will need trach Benjamin Cortez ACNP [id number]
[2016-10-30] MEDS ORDERED: PT OWN MED DRAWER 7, Y5N ONE ×2 (10:46→16:21)
[2016-10-30] MEDS: FAMOTIDINE 20 MG/50 ML IVPB 50 ML IVPB SCH (11:24)
[2016-10-30] MEDS: CALCITRIOL 0.25 MCG CAPSULE (FP) PO SCH (11:24)
[2016-10-30] MEDS: amLODIPine BESYLATE 10 MG TABLET (FP) PO SCH (11:24)
[2016-10-30] MEDS: AMIODARONE HCL 200 MG TABLET (FP) PO SCH (11:24)
--- NOTE | 2016-10-30 17:28 | PN ---
Progress Note, Physician History of Present Illness: Pt seen and examined at bedside. He remains in the ICU. He remains intubated. - Current Medication List Current Medications: Active Medications Albuterol Sulfate (Ventolin 0.083% Nebulizer Soln -) 1 amp NEB QIDR [facility] Last Admin: 10/30/16 11:28 Dose: 1 amp Amiodarone HCl (Cordarone -) 200 mg PO DAILY [facility] Last Admin: 10/30/16 11:24 Dose: 200 mg Amlodipine Besylate (Norvasc -) 10 mg PO DAILY [facility] Last Admin: 10/30/16 11:24 Dose: 10 mg Calcitriol (Rocaltrol -) 0.25 mcg PO DAILY [facility] Last Admin: 10/30/16 11:24 Dose: 0.25 mcg Haloperidol (Haldol Injection (Fast Acting) -) 5 mg IM Q4H PRN PRN Reason: AGITATION Last Admin: 10/28/16 19:05 Dose: 5 mg Haloperidol (Haldol -) 1 mg PO TID [facility] Last Admin: 10/30/16 17:00 Dose: Not Given Hydralazine HCl (Apresoline -) 25 mg PO TID [facility] Last Admin: 10/30/16 17:01 Dose: 25 mg Dextrose (D5w -) 1,000 mls @ 25 mls/hr IV ASDIR [facility] Last Admin: 10/30/16 00:13 Dose: Not Given Propofol (Diprivan -) 100 mls @ 1.905 mls/hr IVPB TITR [facility]; 5 MCG/KG/MIN PRN Reason: Protocol Last Admin: 10/30/16 00:13 Dose: Not Given Famotidine/Sodium Chloride (Pepcid 20 Mg Premixed Ivpb -) 50 mls @ 100 mls/hr IVPB DAILY [facility] Last Admin: 10/30/16 11:24 Dose: 100 mls/hr Piperacillin Sod/Tazobactam Sod (Zosyn 2.25gm Ivpb (Pre-Docked)) 50 mls @ 100 mls/hr IVPB Q8H-IV [facility] PRN Reason: Protocol Last Admin: 10/30/16 11:23 Dose: 100 mls/hr Perphenazine (Trilafon) 8 mg PO TID [facility] Last Admin: 10/30/16 17:00 Dose: Not Given - Objective Vital Signs: Vital Signs Temperature 97.2 F L 10/30/16 14:00 Pulse Rate 83 10/30/16 16:00 Respiratory Rate 18 10/30/16 17:11 Blood Pressure 123/63 10/30/16 16:00 O2 Sat by Pulse Oximetry (%) 100 10/30/16 10:10 Constitutional: Yes: Calm Eyes: Yes: Conjunctiva Clear Cardiovascular: Yes: S1, S2 Respiratory: Yes: Mechanically Ventilated Gastrointestinal: Yes: Normal Bowel Sounds, Soft Genitourinary: Yes: Incontinence Musculoskeletal: Yes: Muscle Weakness Edema: Yes Edema: LUE: 1+, RUE: 1+ Neurological: Yes: Lethargy Labs: CBC, BMP 10/30/16 05:15 10/30/16 05:15 INR, PTT INR 1.41 (0.82-1.09) H 10/30/16 05:15 - ....Imaging Chest X-ray: Report Reviewed Problem List - Problems (1) ESRD (end stage renal disease) on dialysis Code(s): N18.6 - END STAGE RENAL DISEASE Z99.2 - DEPENDENCE ON RENAL DIALYSIS (2) Refusal of treatment by patient Code(s): Z53.20 - PROC/TRTMT NOT CRD OUT BEC PT DECISION FOR UNSP REASONS (3) Respiratory distress Code(s): R06.00 - DYSPNEA, UNSPECIFIED (4) Fluid overload Code(s): E87.70 - FLUID OVERLOAD, UNSPECIFIED Qualifiers: Hypervolemia type: unspecified Qualified Code(s): E87.70 - Fluid overload, unspecified (5) Hyperkalemia Code(s): E87.5 - HYPERKALEMIA Assessment/Plan Current Medications Generic Name Dose Route Start Last Admin Trade Name Freq PRN Reason Stop Dose Admin Albuterol Sulfate 1 amp 10/29/16 12:00 10/30/16 11:28 Ventolin 0.083% Nebulizer Soln - NEB 1 amp QIDR [facility] Administration Amiodarone HCl 200 mg 10/30/16 10:00 10/30/16 11:24 Cordarone - PO 200 mg DAILY [facility] Administration Amlodipine Besylate 10 mg 10/30/16 10:00 10/30/16 11:24 Norvasc - PO 10 mg DAILY [facility] Administration Calcitriol 0.25 mcg 10/30/16 10:00 10/30/16 11:24 Rocaltrol - PO 0.25 mcg DAILY [facility] Administration Haloperidol 5 mg 10/27/16 11:54 10/28/16 19:05 Haldol Injection (Fast Acting) - IM 5 mg Q4H PRN Administration AGITATION Haloperidol 1 mg 10/28/16 11:38 10/30/16 17:00 Haldol - PO Not Given TID [facility] Hydralazine HCl 25 mg 10/29/16 14:00 10/30/16 17:01 Apresoline - PO 25 mg TID [facility] Administration Dextrose 1,000 mls @ 25 mls/hr 10/28/16 23:45 10/30/16 00:13 D5w - IV Not Given ASDIR [facility] Propofol 100 mls @ 1.905 mls/hr 10/28/16 23:45 10/30/16 00:13 Diprivan - IVPB Not Given TITR [facility] Protocol 5 MCG/KG/MIN Famotidine/Sodium Chloride 50 mls @ 100 mls/hr 10/29/16 10:00 10/30/16 11:24 Pepcid 20 Mg Premixed Ivpb - IVPB 100 mls/hr DAILY [facility] Administration Piperacillin Sod/Tazobactam Sod 50 mls @ 100 mls/hr 10/29/16 20:30 10/30/16 11: 23 Zosyn 2.25gm Ivpb (Pre-Docked) IVPB 100 mls/hr Q8H-IV [facility] Administration Protocol Perphenazine 8 mg 10/28/16 14:00 10/30/16 17:00 Trilafon PO Not Given TID [facility] Impression 1. ESRD 2. hyperkalemia 3. dementia 4. acute hypoxic respiratory failure 5. pleural effusion 6. a-fib 7. epilepsy 8. hx COPD 9. anemia 10. facial edema 11. hypoglycemia Plan - pt tolerated HD yesterday - next session on Tuesday - cont vent support - monitor hg - monitor blood sugar - cardio eval - can use nepro when feeds started - will follow Dr Maciel
[2016-10-31] MEDS: DEXTROSE 5%-WATER - 1,000 ML IV SCH
[2016-10-31] MEDS: PIPERACILLIN/TAZOB 2.25 GM 50 ML IVPB SCH ×2 (02:39→10:31)
[2016-10-31 05:37] LABS: MCH 29.1 pg (25.7-33.7); MCHC 33.1 g/dl (32.0-35.9); MEAN PLT VOLUME 7.9 fl (7.5-11.1); PLATELET COUNT 81 K/MM3 (134-434); RDW 20.8 % (11.9-15.9); WHITE BLOOD COUNT 5.6 K/mm3 (4.0-10.0)
[2016-10-31 06:04] LABS: ALBUMIN 2.6 g/dl (3.4-5.0); CALCIUM 7.8 mg/dL (8.5-10.1); MAGNESIUM 2.1 mg/dL (1.8-2.4)
[2016-10-31 06:08] LABS: BILIRUBIN,TOTAL 0.7 mg/dL (0.2-1.0); COCKROFT - GAULT 12.14; CREATININE 4.6 mg/dL (0.7-1.3); TOT PROT 5.9 g/dl (6.4-8.2)
[2016-10-31] MEDS: PERPHENAZINE 4 MG TABLET PO SCH (06:23)
[2016-10-31] MEDS: hydrALAZINE HCL 25 MG TABLET (FP) PO SCH ×3 (06:24→21:39)
[2016-10-31] MEDS: HALOPERIDOL 1 MG TABLET (FP) PO SCH (06:24)
[2016-10-31] MEDS: ALBUTEROL SO4 0.083% IH SOL 2.5 MG/3 ML VIAL.NEB. NEB SCH ×4 (06:34→23:26)
[2016-10-31] MEDS: FAMOTIDINE 20 MG/50 ML IVPB 50 ML IVPB SCH (09:44)
--- NOTE | 2016-10-31 10:12 | PN ---
Progress Note (short form) - Note Progress Note: PULM/CRITICAL CARE SUBJECTIVE: Patient seen and examined in the ICU. 24 HOUR EVENTS: -Sedation held this morning -Unresponsive -Apnea on SBT -Hypothermic Current Medications Albuterol Sulfate (Ventolin 0.083% Nebulizer Soln -) 1 amp NEB QIDR [facility] Last Admin: 10/31/16 06:34 Dose: 1 amp Amiodarone HCl (Cordarone -) 200 mg PO DAILY [facility] Last Admin: 10/30/16 11:24 Dose: 200 mg Amlodipine Besylate (Norvasc -) 10 mg PO DAILY [facility] Last Admin: 10/30/16 11:24 Dose: 10 mg Calcitriol (Rocaltrol -) 0.25 mcg PO DAILY [facility] Last Admin: 10/30/16 11:24 Dose: 0.25 mcg Haloperidol (Haldol Injection (Fast Acting) -) 5 mg IM Q4H PRN PRN Reason: AGITATION Last Admin: 10/28/16 19:05 Dose: 5 mg Haloperidol (Haldol -) 1 mg PO TID [facility] Last Admin: 10/31/16 06:24 Dose: 1 mg Hydralazine HCl (Apresoline -) 25 mg PO TID [facility] Last Admin: 10/31/16 06:24 Dose: 25 mg Dextrose (D5w -) 1,000 mls @ 25 mls/hr IV ASDIR [facility] Last Admin: 10/31/16 00:00 Dose: 25 mls/hr Propofol (Diprivan -) 100 mls @ 1.905 mls/hr IVPB TITR [facility]; 5 MCG/KG/MIN PRN Reason: Protocol Last Titration: 10/31/16 09:30 Dose: 0 mcg/kg/min Famotidine/Sodium Chloride (Pepcid 20 Mg Premixed Ivpb -) 50 mls @ 100 mls/hr IVPB DAILY [facility] Last Admin: 10/31/16 09:44 Dose: 100 mls/hr Piperacillin Sod/Tazobactam Sod (Zosyn 2.25gm Ivpb (Pre-Docked)) 50 mls @ 100 mls/hr IVPB Q8H-IV [facility] PRN Reason: Protocol Last Admin: 10/31/16 02:39 Dose: 100 mls/hr Perphenazine (Trilafon) 8 mg PO TID [facility] Last Admin: 10/31/16 06:23 Dose: 8 mg Vital Signs Temp 97.1 F L 10/31/16 06:00 Pulse 54 L 10/31/16 08:00 Resp 14 10/31/16 08:58 BP 127/53 10/31/16 08:00 Pulse Ox 100 10/31/16 08:58 Intake & Output 10/30/16 10/31/16 10/31/16 18:59 06:59 18:59 Intake Total 571 842.5 60 Output Total 0 0 Balance 571 842.5 60 Weight 58.74 kg Intake: IV 371 412.5 D5w - 1,000 ml @ 25 mls/ 275 300 hr IV ASDIR [facility] Rx#: [id number] Diprivan - 100 ml @ 5 MCG 96 112.5 /KG/MIN 1.905 mls/hr IVPB TITR [facility] Rx#:[id number] IVPB 200 50 60 Tube Feeding 380 Tube Irrigant 0 Output: Urine 0 0 Void 0 0 Other: Bowel Movement No Yes: diarrhea # Bowel Movements 3 Weight Measurement Method Built in [facility] General:Yes: intubated, unresponsive HENT: Yes: Other (hematoma in L frontal/ temporal region), stable Cardiovascular: Yes: Regular Rate and Rhythm, S1, S2. No: Gallop, Murmur, Rub Respiratory: Yes: Mechanically Ventilated, Scattered Rhonchi , no wheezes, diminished bases Gastrointestinal: Yes: Normal Bowel Sounds, Hypoactive Bowel Sounds Edema: No Peripheral Pulses WNL: Yes Neurological: Yes: Poorly responsive CBC, BMP 10/31/16 05:10 10/31/16 05:10 Problem List - Problems (1) ESRD (end stage renal disease) on dialysis Code(s): N18.6 - END STAGE RENAL DISEASE Z99.2 - DEPENDENCE ON RENAL DIALYSIS (2) Refusal of treatment by patient Code(s): Z53.20 - PROC/TRTMT NOT CRD OUT BEC PT DECISION FOR UNSP REASONS (3) Dementia Code(s): F03.90 - UNSPECIFIED DEMENTIA WITHOUT BEHAVIORAL DISTURBANCE (4) Hypothermia Code(s): T68.XXXA - HYPOTHERMIA, INITIAL ENCOUNTER Qualifiers: Encounter type: initial encounter Qualified Code(s): T68.XXXA - Hypothermia, initial encounter (5) Pleural effusion, right Code(s): J90 - PLEURAL EFFUSION, NOT ELSEWHERE CLASSIFIED (6) Respiratory failure Code(s): J96.90 - RESPIRATORY FAILURE, UNSP, UNSP W HYPOXIA OR HYPERCAPNIA (7) Sepsis Code(s): A41.9 - SEPSIS, UNSPECIFIED ORGANISM Qualifiers: Sepsis type: sepsis due to unspecified organism Qualified Code(s): A41.9 - Sepsis, unspecified organism (8) Hypoglycemia Code(s): E16.2 - HYPOGLYCEMIA, UNSPECIFIED Assessment/Plan -Hold sedation to assess any return of mental status -Full vent support, daily SBT, unable to extubate. -HD per Renal, MWF -ABX Vanc /PT, can d/c as appears unlikely infectious process drove arrest. -Enteral feeds -VTE prophylaxis if head CT is negative -If unable to be extubated will need trach if in line with [facility] Pulm/Critical Care [employer] 35min
--- NOTE | 2016-10-31 11:12 | PN ---
Progress Note (short form) - Note Progress Note: intubated warming blanket no pressors sedation d/yumiko head ct no bleed Vital Signs Period Temp Pulse Resp BP Sys/Triplett Pulse Ox Last 24 Hr 97.1 F-100.1 F 52-83 14-18 116-136/48-65 100-100 intubated forehead hematoma cor-rrr lungs clear abd soft,nt no edema CBC, BMP 10/31/16 05:10 10/31/16 05:10 Microbiology 10/29/16 09:40 Blood - Peripheral Venous Blood Culture - Preliminary NO GROWTH OBTAINED AFTER 48 HOURS, INCUBATION TO CONTINUE FOR 3 DAYS. 10/29/16 08:25 Blood - Peripheral Venous Blood Culture - Preliminary NO GROWTH OBTAINED AFTER 48 HOURS, INCUBATION TO CONTINUE FOR 3 DAYS. cxray unchanged a/p s/p code s/p fall- no bleed hypothermia and hypoglycemia- abnl cxray at baseline-possible sepsis d/c antibiotics and observe- cultures negative, effusion on cxray is chronic check am cortisol has he ever been HIV tested? will f/u esrd/hd Problem List - Problems (1) Cardiac arrest Code(s): I46.9 - CARDIAC ARREST, CAUSE UNSPECIFIED (2) Sepsis Code(s): A41.9 - SEPSIS, UNSPECIFIED ORGANISM Qualifiers: Sepsis type: sepsis due to unspecified organism Qualified Code(s): A41.9 - Sepsis, unspecified organism (3) ESRD (end stage renal disease) on dialysis Code(s): N18.6 - END STAGE RENAL DISEASE Z99.2 - DEPENDENCE ON RENAL DIALYSIS (4) Refusal of treatment by patient Code(s): Z53.20 - PROC/TRTMT NOT CRD OUT BEC PT DECISION FOR UNSP REASONS
[2016-10-31] MEDS: CALCITRIOL 0.25 MCG CAPSULE (FP) PO SCH (11:30)
[2016-10-31] MEDS: AMIODARONE HCL 200 MG TABLET (FP) PO SCH (11:39)
[2016-10-31] MEDS: amLODIPine BESYLATE 10 MG TABLET (FP) PO SCH (12:15)
--- NOTE | 2016-10-31 12:18 | PN ---
Progress Note (short form) - Note Progress Note: Pt seen in icu all f/u noted off abx and sedation today unresponsive + drooling hypothermic Vital Signs Temp 97.1 F L 10/31/16 06:00 Pulse 54 L 10/31/16 10:46 Resp 14 10/31/16 11:54 BP 127/53 10/31/16 08:00 Pulse Ox 100 10/31/16 10:46 Intake & Output 10/30/16 10/31/16 10/31/16 23:59 11:59 23:59 Intake Total 842 691.5 Output Total 0 0 Balance 842 691.5 Weight 129 lb 8 oz Intake: IV 542 241.5 D5w - 1,000 ml @ 25 mls/ 400 175 hr IV ASDIR [facility] Rx#: [id number] Diprivan - 100 ml @ 5 MCG 142 66.5 /KG/MIN 1.905 mls/hr IVPB TITR [facility] Rx#:[id number] IVPB 200 170 Tube Feeding 100 280 Tube Irrigant 0 Output: Urine 0 0 Void 0 0 Other: Bowel Movement Yes Yes: diarrhea # Bowel Movements 1 3 Weight Measurement Method Built in [facility] Active Medications Albuterol Sulfate (Ventolin 0.083% Nebulizer Soln -) 1 amp NEB QIDR [facility] Last Admin: 10/31/16 11:55 Dose: 1 amp Amiodarone HCl (Cordarone -) 200 mg PO DAILY [facility] Last Admin: 10/31/16 11:39 Dose: Not Given Amlodipine Besylate (Norvasc -) 10 mg PO DAILY [facility] Last Admin: 10/30/16 11:24 Dose: 10 mg Calcitriol (Rocaltrol -) 0.25 mcg PO DAILY [facility] Last Admin: 10/30/16 11:24 Dose: 0.25 mcg Haloperidol (Haldol Injection (Fast Acting) -) 5 mg IM Q4H PRN PRN Reason: AGITATION Last Admin: 10/28/16 19:05 Dose: 5 mg Haloperidol (Haldol -) 1 mg PO TID [facility] Last Admin: 10/31/16 06:24 Dose: 1 mg Hydralazine HCl (Apresoline -) 25 mg PO TID [facility] Last Admin: 10/31/16 06:24 Dose: 25 mg Dextrose (D5w -) 1,000 mls @ 25 mls/hr IV ASDIR [facility] Last Admin: 10/31/16 00:00 Dose: 25 mls/hr Propofol (Diprivan -) 100 mls @ 1.905 mls/hr IVPB TITR [facility]; 5 MCG/KG/MIN PRN Reason: Protocol Last Titration: 10/31/16 09:30 Dose: 0 mcg/kg/min Famotidine/Sodium Chloride (Pepcid 20 Mg Premixed Ivpb -) 50 mls @ 100 mls/hr IVPB DAILY [facility] Last Admin: 10/31/16 09:44 Dose: 100 mls/hr Perphenazine (Trilafon) 8 mg PO TID [facility] Last Admin: 10/31/16 06:23 Dose: 8 mg CBC, BMP 10/31/16 05:10 10/31/16 05:10 cxr- noted/ reviewed PHYSICAL EXAMINATION: Constitutional: Yes: intubated./ unresponsive Cardiovascular: Yes: Regular Rate and Rhythm Respiratory: Yes: Diminished. Gastrointestinal: Yes: Normal Bowel Sounds, Soft. No: Tenderness Extremities: Yes: Other (upper extemities edema Rt>> left , decreased facial edema) Edema: Yes Heamtoma --forehead Problem List - Problems (1) ESRD (end stage renal disease) on dialysis Code(s): N18.6 - END STAGE RENAL DISEASE Z99.2 - DEPENDENCE ON RENAL DIALYSIS (2) Refusal of treatment by patient Code(s): Z53.20 - PROC/TRTMT NOT CRD OUT BEC PT DECISION FOR UNSP REASONS (3) Dementia Code(s): F03.90 - UNSPECIFIED DEMENTIA WITHOUT BEHAVIORAL DISTURBANCE (4) Fluid overload Code(s): E87.70 - FLUID OVERLOAD, UNSPECIFIED Qualifiers: Hypervolemia type: unspecified Qualified Code(s): E87.70 - Fluid overload, unspecified (5) Hyperkalemia Code(s): E87.5 - HYPERKALEMIA ASSESSMENT & PLAN: - S/P cardiac arrest - continue vent support -off sedation - monitor condition poor will follow discussed with nursing staff frequent suctioning started on feedings monitor bsugar warm blankets
[2016-10-31] MEDS ORDERED: POTASSIUM CHLORIDE ORAL LIQUID 20 MEQ/15 ML NGT ONE (16:02)
--- NOTE | 2016-10-31 16:02 | PN ---
Progress Note, Physician History of Present Illness: Pt seen and examined at bedside. He remains in the ICU intubated. - Current Medication List Current Medications: Active Medications Albuterol Sulfate (Ventolin 0.083% Nebulizer Soln -) 1 amp NEB QIDR [facility] Last Admin: 10/31/16 11:55 Dose: 1 amp Amiodarone HCl (Cordarone -) 200 mg PO DAILY [facility] Last Admin: 10/31/16 11:39 Dose: Not Given Amlodipine Besylate (Norvasc -) 10 mg PO DAILY [facility] Last Admin: 10/30/16 11:24 Dose: 10 mg Calcitriol (Rocaltrol -) 0.25 mcg PO DAILY [facility] Last Admin: 10/31/16 11:30 Dose: 0.25 mcg Haloperidol (Haldol Injection (Fast Acting) -) 5 mg IM Q4H PRN PRN Reason: AGITATION Last Admin: 10/28/16 19:05 Dose: 5 mg Hydralazine HCl (Apresoline -) 25 mg PO TID [facility] Last Admin: 10/31/16 14:47 Dose: 25 mg Dextrose (D5w -) 1,000 mls @ 25 mls/hr IV ASDIR [facility] Last Admin: 10/31/16 00:00 Dose: 25 mls/hr Propofol (Diprivan -) 100 mls @ 1.905 mls/hr IVPB TITR [facility]; 5 MCG/KG/MIN PRN Reason: Protocol Last Titration: 10/31/16 14:30 Dose: 10 mcg/kg/min Famotidine/Sodium Chloride (Pepcid 20 Mg Premixed Ivpb -) 50 mls @ 100 mls/hr IVPB DAILY [facility] Last Admin: 10/31/16 09:44 Dose: 100 mls/hr - Objective Vital Signs: Vital Signs Temperature 96.3 F L 10/31/16 10:00 Pulse Rate 56 L 10/31/16 14:00 Respiratory Rate 14 10/31/16 14:30 Blood Pressure 142/56 10/31/16 14:00 O2 Sat by Pulse Oximetry (%) 100 10/31/16 10:46 Constitutional: Yes: Calm Eyes: Yes: Conjunctiva Clear HENT: Yes: Atraumatic Cardiovascular: Yes: S1, S2 Respiratory: Yes: Mechanically Ventilated Gastrointestinal: Yes: Soft Genitourinary: Yes: Incontinence Musculoskeletal: Yes: Muscle Weakness Edema: LUE: Trace, RUE: Trace Integumentary: Yes: Pressure Ulcer Neurological: Yes: Lethargy Labs: CBC, BMP 10/31/16 05:10 10/31/16 05:10 INR, PTT INR 1.41 (0.82-1.09) H 10/30/16 05:15 - ....Imaging Chest X-ray: Report Reviewed Problem List - Problems (1) ESRD (end stage renal disease) on dialysis Code(s): N18.6 - END STAGE RENAL DISEASE Z99.2 - DEPENDENCE ON RENAL DIALYSIS (2) Refusal of treatment by patient Code(s): Z53.20 - PROC/TRTMT NOT CRD OUT BEC PT DECISION FOR UNSP REASONS (3) Respiratory distress Code(s): R06.00 - DYSPNEA, UNSPECIFIED (4) Fluid overload Code(s): E87.70 - FLUID OVERLOAD, UNSPECIFIED Qualifiers: Hypervolemia type: unspecified Qualified Code(s): E87.70 - Fluid overload, unspecified (5) Hyperkalemia Code(s): E87.5 - HYPERKALEMIA Assessment/Plan Current Medications Generic Name Dose Route Start Last Admin Trade Name Freq PRN Reason Stop Dose Admin Albuterol Sulfate 1 amp 10/29/16 12:00 10/31/16 11:55 Ventolin 0.083% Nebulizer Soln - NEB 1 amp QIDR [facility] Administration Amiodarone HCl 200 mg 10/30/16 10:00 10/31/16 11:39 Cordarone - PO Not Given DAILY [facility] Amlodipine Besylate 10 mg 10/30/16 10:00 10/30/16 11:24 Norvasc - PO 10 mg DAILY [facility] Administration Calcitriol 0.25 mcg 10/30/16 10:00 10/31/16 11:30 Rocaltrol - PO 0.25 mcg DAILY [facility] Administration Haloperidol 5 mg 10/27/16 11:54 10/28/16 19:05 Haldol Injection (Fast Acting) - IM 5 mg Q4H PRN Administration AGITATION Hydralazine HCl 25 mg 10/29/16 14:00 10/31/16 14:47 Apresoline - PO 25 mg TID [facility] Administration Dextrose 1,000 mls @ 25 mls/hr 10/28/16 23:45 10/31/16 00:00 D5w - IV 25 mls/hr ASDIR [facility] Administration Propofol 100 mls @ 1.905 mls/hr 10/28/16 23:45 10/31/16 14:30 Diprivan - IVPB 10 mcg/kg/min TITR [facility] Titration Protocol 5 MCG/KG/MIN Famotidine/Sodium Chloride 50 mls @ 100 mls/hr 10/29/16 10:00 10/31/16 09:44 Pepcid 20 Mg Premixed Ivpb - IVPB 100 mls/hr DAILY [facility] Administration Impression 1. ESRD 2. hyperkalemia 3. dementia 4. acute hypoxic respiratory failure 5. pleural effusion 6. a-fib 7. epilepsy 8. hx COPD 9. anemia 10. facial edema 11. hypoglycemia 12. s/p cardiac arrest Plan - HD in am - cont feeds - can stop d5w and monitor glucose - cont vent support - monitor hg - will replace potassium - will follow Dr Maciel
[2016-10-31] MEDS: PROPOFOL 100 ML IVPB SCH ×2 (18:06→23:45)
[2016-11-01] MEDS: hydrALAZINE HCL 25 MG TABLET (FP) PO SCH (06:02)
[2016-11-01] MEDS: ALBUTEROL SO4 0.083% IH SOL 2.5 MG/3 ML VIAL.NEB. NEB SCH ×3 (06:39→17:40)
--- NOTE | 2016-11-01 07:03 | PN ---
Progress Note, Physician Chief Complaint: ID Post code & intubated Currently off antibiotics and pressors - Current Medication List Current Medications: Active Medications Albuterol Sulfate (Ventolin 0.083% Nebulizer Soln -) 1 amp NEB QIDR [facility] Last Admin: 11/01/16 06:39 Dose: 1 amp Amiodarone HCl (Cordarone -) 200 mg PO DAILY [facility] Last Admin: 10/31/16 11:39 Dose: Not Given Amlodipine Besylate (Norvasc -) 10 mg PO DAILY [facility] Last Admin: 10/31/16 12:15 Dose: 10 mg Calcitriol (Rocaltrol -) 0.25 mcg PO DAILY [facility] Last Admin: 10/31/16 11:30 Dose: 0.25 mcg Chlorhexidine Gluconate (Peridex -) 15 ml MM BID [facility] Haloperidol (Haldol Injection (Fast Acting) -) 5 mg IM Q4H PRN PRN Reason: AGITATION Last Admin: 10/28/16 19:05 Dose: 5 mg Hydralazine HCl (Apresoline -) 25 mg PO TID [facility] Last Admin: 11/01/16 06:02 Dose: 25 mg Propofol (Diprivan -) 100 mls @ 1.905 mls/hr IVPB TITR [facility]; 5 MCG/KG/MIN PRN Reason: Protocol Last Admin: 10/31/16 23:45 Dose: 1.905 mls/hr Famotidine/Sodium Chloride (Pepcid 20 Mg Premixed Ivpb -) 50 mls @ 100 mls/hr IVPB DAILY [facility] Last Admin: 10/31/16 09:44 Dose: 100 mls/hr - Objective Vital Signs: Vital Signs Temperature 99 F 11/01/16 06:00 Pulse Rate 65 11/01/16 06:00 Respiratory Rate 16 11/01/16 06:38 Blood Pressure 131/59 11/01/16 06:00 O2 Sat by Pulse Oximetry (%) 100 10/31/16 20:31 Constitutional: Yes: Other (INtubated) Cardiovascular: Yes: Regular Rate and Rhythm, S1, S2 Respiratory: Yes: WNL, Regular, CTA Bilaterally Gastrointestinal: Yes: WNL, Normal Bowel Sounds, Soft. No: Tenderness Edema: No Labs: CBC, BMP 10/31/16 05:10 10/31/16 05:10 INR, PTT INR 1.41 (0.82-1.09) H 10/30/16 05:15 Assessment/Plan Microbiology 10/29/16 09:40 Blood - Peripheral Venous Blood Culture - Preliminary NO GROWTH OBTAINED AFTER 48 HOURS, INCUBATION TO CONTINUE FOR 3 DAYS. 10/29/16 08:25 Blood - Peripheral Venous Blood Culture - Preliminary NO GROWTH OBTAINED AFTER 48 HOURS, INCUBATION TO CONTINUE FOR 3 DAYS. Laboratory Tests 10/31/16 05:10 WBC 5.6 RBC 3.22 L Hct 28.4 L Plt Count 81 L Assessment Post cardiac arrest Acute respiratory failure Original hypothermia Currently no treatment wit antibiotics Plan To observe off antibiotics Kindly recall as may be needed Rand CM
--- NOTE | 2016-11-01 08:43 | PN ---
Progress Note (short form) - Note Progress Note: Subjective Patient seen and examined in the ICU. Sedated. No new events. Remains vent dependent. Unresponsive. Off abx. Objective Last Vital Signs Temp Pulse Resp BP Pulse Ox 98.9 F 66 19 133/60 98 11/01/16 07:00 11/01/16 07:00 11/01/16 07:56 11/01/16 07:00 11/01/16 07:56 Laboratory Results - last 24 hr 10/31/16 10/31/16 11/01/16 12:21 18:11 09:00 Puncture Site Right radial ABG pH 7.51 H ABG pCO2 at Pt Temp 36.1 D ABG pO2 at Pt Temp 188.0 H* D ABG HCO3 28.6 H ABG O2 Sat (Measured) 98.3 ABG O2 Content 13.9 L ABG Base Excess 5.7 H Demetris Test Positive O2 Delivery Device Vent Oxygen Flow Rate 50 Vent Mode A/c Vent Rate 14 Mechanical Rate Yes PEEP 5.0 Pressure Support Vent 400 POC Glucometer 117.66038 111.72978 PHYSICAL EXAMINATION: Constitutional: Yes: intubated./ unresponsive Cardiovascular: Yes: Regular Rate and Rhythm Respiratory: Yes: Diminished. Gastrointestinal: Yes: Normal Bowel Sounds, Soft. No: Tenderness Extremities: Yes: Other (upper extemities edema Rt>> left , decreased facial edema) Edema: Yes Heamtoma --forehead Problem List - Problems (1) ESRD (end stage renal disease) on dialysis Code(s): N18.6 - END STAGE RENAL DISEASE Z99.2 - DEPENDENCE ON RENAL DIALYSIS (2) Refusal of treatment by patient Code(s): Z53.20 - PROC/TRTMT NOT CRD OUT BEC PT DECISION FOR UNSP REASONS (3) Dementia Code(s): F03.90 - UNSPECIFIED DEMENTIA WITHOUT BEHAVIORAL DISTURBANCE (4) Fluid overload Code(s): E87.70 - FLUID OVERLOAD, UNSPECIFIED Qualifiers: Hypervolemia type: unspecified Qualified Code(s): E87.70 - Fluid overload, unspecified (5) Hyperkalemia Code(s): E87.5 - HYPERKALEMIA ASSESSMENT & PLAN: - S/P cardiac arrest - continue vent support - cardio and neuro consults requested and pending - psych follow up also requested to assess the need for psych medications. - tolerating feeding - monitor BGM condition poor will follow discussed with nursing staff frequent suctioning Ethic consults pending discussed with medical physiologist also today Documentation prepared by Alessia Peña, acting as a medical office worker for Gayla Gerard MD.
[2016-11-01] MEDS ORDERED: POTASSIUM CHLORIDE ORAL LIQUID 20 MEQ/15 ML PO ONE (09:15)
[2016-11-01 09:43] LABS: ARTERIAL BLD GAS O2 SATURATION 98.3 % (90-98.9); ARTERIAL BLOOD GAS BASE EXCESS 5.7 meq/l (-2-2); ARTERIAL BLOOD GAS HCO3 28.6 meq/L (22-26); ARTERIAL BLOOD GAS pH 7.51 (7.35-7.45)
[2016-11-01 09:44] LABS: ALLENS TEST POSITIVE; ART PUNCT SITE RIGHT RADIAL; LPM/O2% 50; PT. ON O2? YES; TYPE OF O2 VENT
[2016-11-01 09:45] LABS: MECH. VENT. YES; VENT RATE 14; VT/PRESS 400
[2016-11-01] MEDS: AMIODARONE HCL 200 MG TABLET (FP) PO SCH (09:47)
[2016-11-01] MEDS: CHLORHEXIDINE GLUCONATE 0.12% 15ML CUP MM SCH ×2 (09:47→21:00)
[2016-11-01] MEDS: amLODIPine BESYLATE 10 MG TABLET (FP) PO SCH (09:47)
[2016-11-01] MEDS: FAMOTIDINE 20 MG/50 ML IVPB 50 ML IVPB SCH (09:48)
[2016-11-01 10:00] LABS: BASOPHIL 0.3 % (0-2.0); EOSINOPHIL 0.3 % (0-4.5); MCH 28.7 pg (25.7-33.7); MCHC 32.9 g/dl (32.0-35.9); MEAN CELL VOLUME 87.3 fl (80-96); MEAN PLT VOLUME 8.5 fl (7.5-11.1); NEUTROPHILS 85.6 % (42.8-82.8); PLATELET COUNT 82 K/MM3 (134-434); RDW 20.2 % (11.9-15.9); WHITE BLOOD COUNT 6.7 K/mm3 (4.0-10.0)
[2016-11-01 10:22] LABS: ALBUMIN 2.5 g/dl (3.4-5.0); BILIRUBIN,TOTAL 0.4 mg/dL (0.2-1.0); CALCIUM 7.9 mg/dL (8.5-10.1); COCKROFT - GAULT 9.78; CREATININE 5.7 mg/dL (0.7-1.3)
[2016-11-01] MEDS: CALCITRIOL 0.25 MCG CAPSULE (FP) PO SCH (10:32)
--- NOTE | 2016-11-01 11:23 | PN ---
Physical Exam: SUBJECTIVE: Patient seen and examined off propofol pt has right hand and right forearm continuos fasciculations. OBJECTIVE: Vital Signs Period Temp Pulse Resp BP Sys/Triplett Pulse Ox Last 24 Hr 96.7 F-99 F 52-67 14-20 126-142/49-71 98-100 HEAD: golf-ball sized hematoma over left eye at mideyebrow, soft, skin intact, with purpura. temporal wasting. EYES: sluggish pupilary response to light, dilated, equal b/l. sclera anicteric , conjunctiva injection in left, scant scleral edema, ENT: nares patent, oropharynx clear with ET NECK: Trachea midline. LUNGS: anteriorly with coarse breath sounds and scattered rhonchi b/l HEART: Regular rate and rhythm, S1, S2 ABDOMEN: Soft, + bowel sounds in all 4 quadrants EXTREMITIES: 2+ pulses, warm, well-perfused, 2+ edema in b/l UE. left arm fistula with palpable thrill. muscle atrophy in b/l thighs. NEUROLOGICAL: sedated and intubated. Laboratory Results - last 24 hr 10/31/16 10/31/16 11/01/16 12:21 18:11 09:00 WBC RBC Hgb Hct MCV MCHC RDW Plt Count MPV Neutrophils % Lymphocytes % Monocytes % Eosinophils % Basophils % Puncture Site Right radial ABG pH 7.51 H ABG pCO2 at Pt Temp 36.1 D ABG pO2 at Pt Temp 188.0 H* D ABG HCO3 28.6 H ABG O2 Sat (Measured) 98.3 ABG O2 Content 13.9 L ABG Base Excess 5.7 H Demetris Test Positive O2 Delivery Device Vent Oxygen Flow Rate 50 Vent Mode A/c Vent Rate 14 Mechanical Rate Yes PEEP 5.0 Pressure Support Vent 400 Sodium Potassium Chloride Carbon Dioxide Anion Gap BUN Creatinine Creat Clearance w eGFR POC Glucometer 117.05346 111.74597 Random Glucose Calcium Total Bilirubin AST ALT Alkaline Phosphatase Total Protein Albumin 11/01/16 11/01/16 09:30 09:30 WBC 6.7 RBC 3.40 L Hgb 9.8 L Hct 29.7 L MCV 87.3 MCHC 32.9 RDW 20.2 H Plt Count 82 L MPV 8.5 Neutrophils % 85.6 H Lymphocytes % 7.4 L D Monocytes % 6.4 Eosinophils % 0.3 Basophils % 0.3 Puncture Site ABG pH ABG pCO2 at Pt Temp ABG pO2 at Pt Temp ABG HCO3 ABG O2 Sat (Measured) ABG O2 Content ABG Base Excess Demetris Test O2 Delivery Device Oxygen Flow Rate Vent Mode Vent Rate Mechanical Rate PEEP Pressure Support Vent Sodium 143 Potassium 3.7 D Chloride 101 Carbon Dioxide 29 Anion Gap 13 BUN 83 H D Creatinine 5.7 H D Creat Clearance w eGFR 9.83 POC Glucometer Random Glucose 104 Calcium 7.9 L Total Bilirubin 0.4 D AST 29 ALT 12 D Alkaline Phosphatase 147 H Total Protein 6.0 L Albumin 2.5 L Active Medications Generic Name Dose Route Start Last Admin Trade Name Freq PRN Reason Stop Dose Admin Albuterol Sulfate 1 amp 10/29/16 12:00 11/01/16 06:39 Ventolin 0.083% Nebulizer Soln - NEB 1 amp QIDR MARLYN Administration Amiodarone HCl 200 mg 10/30/16 10:00 11/01/16 09:47 Cordarone - PO 200 mg DAILY MARLYN Administration Amlodipine Besylate 10 mg 10/30/16 10:00 11/01/16 09:47 Norvasc - PO 10 mg DAILY MARLYN Administration Calcitriol 0.25 mcg 11/01/16 11:15 Rocaltrol Liquid - NGT DAILY MARLYN Chlorhexidine Gluconate 15 ml 11/01/16 10:00 11/01/16 09:47 Peridex - MM 15 ml BID MARLYN Administration Haloperidol 5 mg 10/27/16 11:54 10/28/16 19:05 Haldol Injection (Fast Acting) - IM 5 mg Q4H PRN Administration AGITATION Hydralazine HCl 25 mg 10/29/16 14:00 11/01/16 06:02 Apresoline - PO 25 mg TID MARLYN Administration Propofol 100 mls @ 1.905 mls/hr 10/28/16 23:45 10/31/16 23:45 Diprivan - IVPB 1.905 mls/hr TITR MARLYN Administration Protocol 5 MCG/KG/MIN Famotidine/Sodium Chloride 50 mls @ 100 mls/hr 10/29/16 10:00 11/01/16 09:48 Pepcid 20 Mg Premixed Ivpb - IVPB 100 mls/hr DAILY MARLYN Administration ASSESSMENT/PLAN: 71 yr old man with HTN, ESRD on HD (T//), demetia with agitation, hx of Cardiac arrest, DVT, generalized epilepsy, deemed incompetent and hx of refusing treatments including dialysis,admitted for hyperK, ESRD on HD, and hypothermia, transferred to ICU s/p cardiac arrest on Med-surg floor. - ethics consult initiated as patient is incompetent to make decisions, however has been refusing care. GOC to be decided. discussed with Rev Marquez, will follow-up with committee tomorrow. Cardiovascular - s/p cardiac arrest with resuscitation 10/28 PM HTN hydralazine 25mg po TID [id number] po daily amiodarone 200mg Pulmonary intubated secondary to hypoxic respiratory failure s/p cardiac arrest titrate FiO2 to maintain o2 sat >90% duonebs large right pleural effusion - pt has refused thoracentesis in the past. Infectious disease blood cx NGTD Vancomycin + zosyn Renal ESRD on HD Rocaltrol 0.25 mcg NGT daily dialysis today consult Dr. Maciel Neurological incompetent, baseline dementia sedated, propofol drip Hematological right subclavian DVT on eliquis- now held s/p fall GI pepcid for prophylaxis Enteral feeds with Nepro Endocrine Hypoglycemia - resoled DVT: SCD's Diet: enteral feeds Visit type - Emergency Visit Emergency Visit: No - New Patient This patient is new to me today: No - Critical Care Critical Care patient: Yes Total Critical Care Time (in minutes): 37 Critical Care Statement: The care of this patient involved high complexity decision making to prevent further life threatening deterioration of the patient 's condition and/or to evalute & treat vital organ system(s) failure or risk of failure.
--- NOTE | 2016-11-01 11:24 | CON.CARD ---
Consult Consult Specialty:: Cardiology Referred by:: Gayla Gerard MD Reason for Consultation:: Post arrest - History of Present Illness Chief Complaint: Post arrest History of Present Illness: 71 y/o man with multiple medical problems including history of HTN, COPD, GERD, ESRD on HD, dementia, agitation, epilepsy, R SC DVT with h/o cardiac arrest earlier this year and recent venoplasty of L avg on 10/20/16, paroxysmal aflutter previously on Eliquis initially hospitalized after 4 days of refusing dialysis and treatment. Per pts primary Dr. Gerard he was recently admitted earlier this month for hyperkalemia after refusing treatment. This hospitalization was notable for large R pleural effusion for which he was given abx and refused thoracentesis. He underwent venogram and venoplasty of L AV fistula. During this admission pt was deemed to be non-competent by psych. On morning of ICU transfer pt had fall with head trauma while on eliquis with frontal head hematoma, but pt refused CT head. He was also noted to be hypothermic and hypoglycemic with blood sugars in 40s-50s during the day for which he received D50. HITCHER was called pt became unresponsive after one of said episodes. Upon arrival of HITCHER he was noted to be pulseless, asystolic on the monitor and ACLS was initiated. He received 2 rounds of epi and one round of bicarb as well as IVF and he was intubated. After second round of epi pt had ROSC with NSR in 90s. He was transported to the ICU where he was found to be normo/ hypertensive. 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 Cardio/Vascular: Yes: CAD (h/o cardiac arrest 08/2016), HTN, Other (Atrial flutter) Pulmonary: Yes: COPD Gastrointestinal: Yes: GERD Renal/: Yes: Other (ESRD on HD) Psych: Yes: Schizophrenia, Other (dementia) - Alcohol/Substance Use Hx Alcohol Use: No - Smoking History Smoking history: Never smoked - Social History Usual Living Arrangement: Custodial Home Medications - Allergies Allergies/Adverse Reactions: Allergies Allergy/AdvReac Type Severity Reaction Status Date / Time No Known Allergies Allergy Verified 10/12/16 12:00 - Home Medications Home Medications: Ambulatory Orders Acetaminophen 650 mg PO Q6H PRN 10/12/16 Albuterol 0.083% Nebulizer Camryn [Ventolin 0.083% Nebulizer Soln -] 1 neb NEB QID 10/12/16 Amiodarone HCl 200 mg PO DAILY 10/12/16 Amlodipine Besylate 10 mg PO DAILY 10/12/16 Apixaban [Eliquis] 5 mg PO BID 10/12/16 Calcitriol [Calcitriol -] 0.25 mcg PO DAILY 10/12/16 Famotidine 20 mg PO BID 10/12/16 Haloperidol 0.5 mg PO TID 10/12/16 Hydralazine HCl [Apresoline -] 25 mg PO TID 10/12/16 Ipratropium 0.02% Nebulizer [Atrovent 0.02% Nebulizer -] 0.5 mg IH Q6H 10/12/16 Perphenazine 6 mg PO BID 10/12/16 Vitamin B Comp W-C [Nephro-Juana -] 1 ea PO DAILY 10/12/16 Review of Systems Unable to obtain ROS, reason: Unresponsive Vital Signs: Vital Signs Temperature 96.8 F L 11/01/16 10:00 Pulse Rate 65 11/01/16 10:10 Respiratory Rate 19 11/01/16 11:14 Blood Pressure 134/57 11/01/16 10:00 O2 Sat by Pulse Oximetry (%) 98 11/01/16 11:14 Respiratory: Yes: Diminished, Intubated, Mechanically Ventilated, Rhonchi Gastrointestinal: Yes: Normal Bowel Sounds, Soft Cardiovascular: Yes: Regular Rate and Rhythm JVD: No Carotid Bruit: No Heart Sounds: Yes: S1, S2 Murmur: Yes: Systolic Murmur, Grade 2 Edema: No - Other Data Labs, Other Data: CBC, BMP 11/01/16 09:30 11/01/16 09:30 INR, PTT INR 1.41 (0.82-1.09) H 10/30/16 05:15 NSR @ 80 prolonged ATc [address]T changes Imaging - Results Chest X-ray: Report Reviewed (Right effusion with ATX) Cat Scan: Report Reviewed (HCT: No acute stroke) Problem List - Problems (1) Cardiac arrest Code(s): I46.9 - CARDIAC ARREST, CAUSE UNSPECIFIED (2) ESRD (end stage renal disease) on dialysis Code(s): N18.6 - END STAGE RENAL DISEASE Z99.2 - DEPENDENCE ON RENAL DIALYSIS (3) Refusal of treatment by patient Code(s): Z53.20 - PROC/TRTMT NOT CRD OUT BEC PT DECISION FOR UNSP REASONS (4) Dementia Code(s): F03.90 - UNSPECIFIED DEMENTIA WITHOUT BEHAVIORAL DISTURBANCE Qualifiers: Dementia type: unspecified type (5) Pleural effusion, right Code(s): J90 - PLEURAL EFFUSION, NOT ELSEWHERE CLASSIFIED (6) Respiratory failure Code(s): J96.90 - RESPIRATORY FAILURE, UNSP, UNSP W HYPOXIA OR HYPERCAPNIA Qualifiers: Chronicity: acute on chronic Respiratory failure complication: hypoxia and hypercapnia Qualified Code(s): J96.21 - Acute and chronic respiratory failure with hypoxia Assessment/Plan 10/18/2016 Echo: Normal LV size with mild cLVH and normal LV fxn, mod MR, TR, RVSP 40-50 mmHg, mod pulm HTN 1. s/p asystolic arrest with suspected anoxic brain injury 2. Acute hypoxic respiratory failure 3. ESRD on HD with resolved hyperkalemia 4. Acute on chronic diastolic failure with pleural effusion 5. Paroxysmal aflutter->SR previously on Eliquis 6. Prolonged QT interval 7. Seizure d/o, dementia 8. COPD 9. Anemia, thrombocytopenia P: 1. Sedation holiday to assess return of mental status 2. Vent support, GOC, heading towards trach and PEG 3. HD per Renal, MWF 4. D/c amiodarone, avoid QT prolonging agents, continue Norvasc 10 qd and change hydralazine 25 tid to carvedilol 6.25 bid with uptitration as tolerated 5. Enteral feeds 6. DVT and GI prophylaxis, neuro assessment of mental status 7. Thank you for consultative opportunity
[2016-11-01] MEDS: CARVEDILOL 6.25 MG TABLET (FP) NGT SCH ×2 (13:05→21:00)
--- NOTE | 2016-11-01 13:11 | PN ---
Progress Note, Physician History of Present Illness: Pt seen and examined at bedside. He remains in the ICU. Pt is currently getting HD. He remain mechanically ventilated. - Current Medication List Current Medications: Active Medications Albuterol Sulfate (Ventolin 0.083% Nebulizer Soln -) 1 amp NEB QIDR [facility] Last Admin: 11/01/16 11:05 Dose: 1 amp Amlodipine Besylate (Norvasc -) 10 mg PO DAILY [facility] Last Admin: 11/01/16 09:47 Dose: 10 mg Calcitriol (Rocaltrol Liquid -) 0.25 mcg NGT DAILY [facility] Carvedilol (Coreg -) 6.25 mg NGT BID [facility] Last Admin: 11/01/16 13:05 Dose: Not Given Chlorhexidine Gluconate (Peridex -) 15 ml MM BID [facility] Last Admin: 11/01/16 09:47 Dose: 15 ml Haloperidol (Haldol Injection (Fast Acting) -) 5 mg IM Q4H PRN PRN Reason: AGITATION Last Admin: 10/28/16 19:05 Dose: 5 mg Propofol (Diprivan -) 100 mls @ 1.905 mls/hr IVPB TITR [facility]; 5 MCG/KG/MIN PRN Reason: Protocol Last Admin: 10/31/16 23:45 Dose: 1.905 mls/hr Famotidine/Sodium Chloride (Pepcid 20 Mg Premixed Ivpb -) 50 mls @ 100 mls/hr IVPB DAILY [facility] Last Admin: 11/01/16 09:48 Dose: 100 mls/hr - Objective Vital Signs: Vital Signs Temperature 97.7 F 11/01/16 13:03 Pulse Rate 66 11/01/16 13:03 Respiratory Rate 19 11/01/16 13:03 Blood Pressure 104/66 11/01/16 13:03 O2 Sat by Pulse Oximetry (%) 98 11/01/16 11:28 Constitutional: Yes: Calm Eyes: Yes: Conjunctiva Clear Neck: Yes: Supple Cardiovascular: Yes: S1, S2 Respiratory: Yes: Mechanically Ventilated Gastrointestinal: Yes: Soft Genitourinary: Yes: Incontinence Musculoskeletal: Yes: Muscle Weakness Edema: No Neurological: Yes: Lethargy Labs: CBC, BMP 11/01/16 09:30 11/01/16 09:30 INR, PTT INR 1.41 (0.82-1.09) H 10/30/16 05:15 - ....Imaging Chest X-ray: Report Reviewed (right pleural effusion) Problem List - Problems (1) ESRD (end stage renal disease) on dialysis Code(s): N18.6 - END STAGE RENAL DISEASE Z99.2 - DEPENDENCE ON RENAL DIALYSIS (2) Refusal of treatment by patient Code(s): Z53.20 - PROC/TRTMT NOT CRD OUT BEC PT DECISION FOR UNSP REASONS (3) Respiratory distress Code(s): R06.00 - DYSPNEA, UNSPECIFIED (4) Fluid overload Code(s): E87.70 - FLUID OVERLOAD, UNSPECIFIED Qualifiers: Hypervolemia type: unspecified Qualified Code(s): E87.70 - Fluid overload, unspecified (5) Hyperkalemia Code(s): E87.5 - HYPERKALEMIA Assessment/Plan Current Medications Generic Name Dose Route Start Last Admin Trade Name Freq PRN Reason Stop Dose Admin Albuterol Sulfate 1 amp 10/29/16 12:00 11/01/16 11:05 Ventolin 0.083% Nebulizer Soln - NEB 1 amp QIDR MARLYN Administration Amlodipine Besylate 10 mg 10/30/16 10:00 11/01/16 09:47 Norvasc - PO 10 mg DAILY MARLYN Administration Calcitriol 0.25 mcg 11/01/16 12:00 Rocaltrol Liquid - NGT DAILY MARLYN Carvedilol 6.25 mg 11/01/16 12:30 11/01/16 13:05 Coreg - NGT Not Given BID MARLYN Chlorhexidine Gluconate 15 ml 11/01/16 10:00 11/01/16 09:47 Peridex - MM 15 ml BID MARLYN Administration Haloperidol 5 mg 10/27/16 11:54 10/28/16 19:05 Haldol Injection (Fast Acting) - IM 5 mg Q4H PRN Administration AGITATION Propofol 100 mls @ 1.905 mls/hr 10/28/16 23:45 10/31/16 23:45 Diprivan - IVPB 1.905 mls/hr TITR MARLYN Administration Protocol 5 MCG/KG/MIN Famotidine/Sodium Chloride 50 mls @ 100 mls/hr 10/29/16 10:00 11/01/16 09:48 Pepcid 20 Mg Premixed Ivpb - IVPB 100 mls/hr DAILY MARLYN Administration Impression 1. ESRD 2. hyperkalemia 3. dementia 4. acute hypoxic respiratory failure 5. pleural effusion 6. a-fib 7. epilepsy 8. hx COPD 9. anemia 10. facial edema 11. hypoglycemia 12. s/p cardiac arrest Plan - HD today - pt is tolerating so far - hold sedation to asses mental status - cardiology input appreciated - cont feeds - cont vent support - monitor hg - will follow Dr Maciel
[2016-11-01] MEDS: PROPOFOL 100 ML IVPB SCH ×2 (13:18→23:45)
[2016-11-01] MEDS: CALCITRIOL 1 MCG/ML BOT NGT SCH (13:18)
--- NOTE | 2016-11-01 13:27 | CON.NEURO ---
Consult - History of Present Illness History of Present Illness: 71 year old male histoyr of COPD, ESRD, GERD, Dementia , schizophrenia , a care home reisdent. He was admitted to floor and later he has cardiac arrest and brought to ICU and intubated . He is at low dose of propafol and not waking up . 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 Cardio/Vascular: Yes: CAD (h/o cardiac arrest 08/2016), HTN, Other (Atrial flutter) Pulmonary: Yes: COPD Gastrointestinal: Yes: GERD Renal/: Yes: Other (ESRD on HD) Psych: Yes: Schizophrenia, Other (dementia) - Alcohol/Substance Use Hx Alcohol Use: No - Smoking History Smoking history: Never smoked - Social History Usual Living Arrangement: [facility] Home Medications - Allergies Allergies/Adverse Reactions: Allergies Allergy/AdvReac Type Severity Reaction Status Date / Time No Known Allergies Allergy Verified 10/12/16 12:00 - Home Medications Home Medications: Ambulatory Orders Acetaminophen 650 mg PO Q6H PRN 10/12/16 Albuterol 0.083% Nebulizer Camryn [Ventolin 0.083% Nebulizer Soln -] 1 neb NEB QID 10/12/16 Amiodarone HCl 200 mg PO DAILY 10/12/16 Amlodipine Besylate 10 mg PO DAILY 10/12/16 Apixaban [Eliquis] 5 mg PO BID 10/12/16 Calcitriol [Calcitriol -] 0.25 mcg PO DAILY 10/12/16 Famotidine 20 mg PO BID 10/12/16 Haloperidol 0.5 mg PO TID 10/12/16 Hydralazine HCl [Apresoline -] 25 mg PO TID 10/12/16 Ipratropium 0.02% Nebulizer [Atrovent 0.02% Nebulizer -] 0.5 mg IH Q6H 10/12/16 Perphenazine 6 mg PO BID 10/12/16 Vitamin B Comp W-C [Nephro-Juana -] 1 ea PO DAILY 10/12/16 Physical Exam-Neuro Vital Signs: Vital Signs Temperature 97.7 F 11/01/16 13:03 Pulse Rate 66 11/01/16 13:03 Respiratory Rate 19 11/01/16 13:03 Blood Pressure 104/66 11/01/16 13:03 O2 Sat by Pulse Oximetry (%) 98 11/01/16 11:28 Labs: CBC, BMP 11/01/16 09:30 11/01/16 09:30 INR, PTT INR 1.41 (0.82-1.09) H 10/30/16 05:15 NIH Stroke Scale - Total Score NIH Stroke Scale Score: 0 Imaging - Results Cat Scan: Report Reviewed Assessment/Plan CC 71 year old male histoyr of COPD, ESRD, GERD, Dementia , schizophrenia , a care home reisdent. He was admitted to floor and later he has cardiac arrest and brought to ICU and intubated . He is at low dose of propafol and not waking up . PMH,FH, ROS - Reviewed in chart Neurological Examination No reponse to verbal stimuli grimacing to painful stimuli pupils are sluggishly reactive corneal reflex is present breathing over the vent cough reflex is present bp is maintained corneal reflex is present Ct scan is normal Assessment- Suspect anoxic-ischemic encephalopathy secondary to Cardiac arrest. overall prognosis is guarded. Plan- continue supporive treatment - no seizures like activity - suggest to be off sedation to do better exam and may do eeg to determine prognosis at appropriate time. Thanking you so much Gerardo Archer md Neurology Attending
--- NOTE | 2016-11-01 14:41 | PN ---
Teaching Attending Note Name of Resident: Danyel Kline ATTENDING PHYSICIAN STATEMENT I saw and evaluated the patient. I reviewed the resident's note and discussed the case with the resident. I agree with the resident's findings and plan as documented. SUBJECTIVE: Patient seen and examined in the ICU. Remains intubated and poorly responsive. AC Mode of vent. No pressors. CXR: ETT in position / large right effusion Intake & Output 10/29/16 10/30/16 10/31/16 11/01/16 23:59 23:59 23:59 23:59 Intake Total 1267.8 1684 1581.5 71.6 Output Total 0 0 0 Balance 1267.8 1684 1581.5 71.6 Weight 134 lb 9 oz 132 lb 6.4 oz 129 lb 8 oz 132 lb 3.2 oz Last Vital Signs Temp Pulse Resp BP Pulse Ox 97.7 F 66 21 107/55 98 11/01/16 13:03 11/01/16 13:50 11/01/16 14:03 11/01/16 13:50 11/01/16 11:28 Active Medications Albuterol Sulfate (Ventolin 0.083% Nebulizer Soln -) 1 amp NEB QIDR [facility] Last Admin: 11/01/16 11:05 Dose: 1 amp Amlodipine Besylate (Norvasc -) 10 mg PO DAILY [facility] Last Admin: 11/01/16 09:47 Dose: 10 mg Calcitriol (Rocaltrol Liquid -) 0.25 mcg NGT DAILY [facility] Last Admin: 11/01/16 13:18 Dose: 0.25 mcg Carvedilol (Coreg -) 6.25 mg NGT BID [facility] Last Admin: 11/01/16 13:05 Dose: Not Given Chlorhexidine Gluconate (Peridex -) 15 ml MM BID [facility] Last Admin: 11/01/16 09:47 Dose: 15 ml Haloperidol (Haldol Injection (Fast Acting) -) 5 mg IM Q4H PRN PRN Reason: AGITATION Last Admin: 10/28/16 19:05 Dose: 5 mg Propofol (Diprivan -) 100 mls @ 1.905 mls/hr IVPB TITR MARLYN; 5 MCG/KG/MIN PRN Reason: Protocol Last Admin: 11/01/16 13:18 Dose: 1.905 mls/hr Famotidine/Sodium Chloride (Pepcid 20 Mg Premixed Ivpb -) 50 mls @ 100 mls/hr IVPB DAILY MARLYN Last Admin: 11/01/16 09:48 Dose: 100 mls/hr General:Yes: intubated, poorly responsive HENT: Yes: Other (hematoma in L frontal/ temporal region) Cardiovascular: Yes: Regular Rate and Rhythm, S1, S2. No: Gallop, Murmur, Rub Respiratory: Yes: Mechanically Ventilated, Scattered Rhonchi Gastrointestinal: Yes: Normal Bowel Sounds, Hypoactive Bowel Sounds Edema: No Peripheral Pulses WNL: Yes Neurological: Yes: Poorly responsive Labs: Laboratory Results - last 24 hr 10/31/16 10/31/16 11/01/16 12:21 18:11 05:57 WBC RBC Hgb Hct MCV MCHC RDW Plt Count MPV Neutrophils % Lymphocytes % Monocytes % Eosinophils % Basophils % Puncture Site ABG pH ABG pCO2 at Pt Temp ABG pO2 at Pt Temp ABG HCO3 ABG O2 Sat (Measured) ABG O2 Content ABG Base Excess Demetris Test O2 Delivery Device Oxygen Flow Rate Vent Mode Vent Rate Mechanical Rate PEEP Pressure Support Vent Sodium Potassium Chloride Carbon Dioxide Anion Gap BUN Creatinine Creat Clearance w eGFR POC Glucometer 117.57415 111.89293 108.77995 Random Glucose Calcium Total Bilirubin AST ALT Alkaline Phosphatase Total Protein Albumin 11/01/16 11/01/16 11/01/16 09:00 09:30 09:30 WBC 6.7 RBC 3.40 L Hgb 9.8 L Hct 29.7 L MCV 87.3 MCHC 32.9 RDW 20.2 H Plt Count 82 L MPV 8.5 Neutrophils % 85.6 H Lymphocytes % 7.4 L D Monocytes % 6.4 Eosinophils % 0.3 Basophils % 0.3 Puncture Site Right radial ABG pH 7.51 H ABG pCO2 at Pt Temp 36.1 D ABG pO2 at Pt Temp 188.0 H* D ABG HCO3 28.6 H ABG O2 Sat (Measured) 98.3 ABG O2 Content 13.9 L ABG Base Excess 5.7 H Demetris Test Positive O2 Delivery Device Vent Oxygen Flow Rate 50 Vent Mode A/c Vent Rate 14 Mechanical Rate Yes PEEP 5.0 Pressure Support Vent 400 Sodium 143 Potassium 3.7 D Chloride 101 Carbon Dioxide 29 Anion Gap 13 BUN 83 H D Creatinine 5.7 H D Creat Clearance w eGFR 9.83 POC Glucometer Random Glucose 104 Calcium 7.9 L Total Bilirubin 0.4 D AST 29 ALT 12 D Alkaline Phosphatase 147 H Total Protein 6.0 L Albumin 2.5 L 11/01/16 12:03 WBC RBC Hgb Hct MCV MCHC RDW Plt Count MPV Neutrophils % Lymphocytes % Monocytes % Eosinophils % Basophils % Puncture Site ABG pH ABG pCO2 at Pt Temp ABG pO2 at Pt Temp ABG HCO3 ABG O2 Sat (Measured) ABG O2 Content ABG Base Excess Demetris Test O2 Delivery Device Oxygen Flow Rate Vent Mode Vent Rate Mechanical Rate PEEP Pressure Support Vent Sodium Potassium Chloride Carbon Dioxide Anion Gap BUN Creatinine Creat Clearance w eGFR POC Glucometer 171.64556 Random Glucose Calcium Total Bilirubin AST ALT Alkaline Phosphatase Total Protein Albumin Problem List - Problems (1) ESRD (end stage renal disease) on dialysis Code(s): N18.6 - END STAGE RENAL DISEASE Z99.2 - DEPENDENCE ON RENAL DIALYSIS (2) Refusal of treatment by patient Code(s): Z53.20 - PROC/TRTMT NOT CRD OUT BEC PT DECISION FOR UNSP REASONS (3) Dementia Code(s): F03.90 - UNSPECIFIED DEMENTIA WITHOUT BEHAVIORAL DISTURBANCE (4) Hypothermia Code(s): T68.XXXA - HYPOTHERMIA, INITIAL ENCOUNTER Qualifiers: Encounter type: initial encounter Qualified Code(s): T68.XXXA - Hypothermia, initial encounter (5) Pleural effusion, right Code(s): J90 - PLEURAL EFFUSION, NOT ELSEWHERE CLASSIFIED (6) Respiratory failure Code(s): J96.90 - RESPIRATORY FAILURE, UNSP, UNSP W HYPOXIA OR HYPERCAPNIA (7) Sepsis Code(s): A41.9 - SEPSIS, UNSPECIFIED ORGANISM Qualifiers: Sepsis type: sepsis due to unspecified organism Qualified Code(s): A41.9 - Sepsis, unspecified organism (8) Hypoglycemia Code(s): E16.2 - HYPOGLYCEMIA, UNSPECIFIED Assessment/Plan Minimize sedation to assess mental status HD per Renal ABX Ethics consult has been called Enteral feeds Overall prognosis appears poor Dr Clark critical care time spent in reviewing chart, evaluating patient and formulating plan 40 min
[2016-11-02] MEDS: ALBUTEROL SO4 0.083% IH SOL 2.5 MG/3 ML VIAL.NEB. NEB SCH ×4 (00:10→17:15)
[2016-11-02 07:33] LABS: ARTERIAL BLD GAS O2 SATURATION 99.6 % (90-98.9); ARTERIAL BLOOD GAS BASE EXCESS 8.2 meq/l (-2-2); ARTERIAL BLOOD GAS HCO3 31.5 meq/L (22-26)
[2016-11-02 07:34] LABS: ALLENS TEST POSITIVE; ART PUNCT SITE RIGHT RADIAL; LPM/O2% 40; MECH. VENT. YES; PT. ON O2? YES; TYPE OF O2 VENT; VENT RATE 14; VT/PRESS 400
[2016-11-02 07:35] LABS: ARTERIAL BLOOD GAS pH 7.52 (7.35-7.45)
--- NOTE | 2016-11-02 07:54 | PN ---
Physical Exam: SUBJECTIVE: Patient seen and examined sedation holiday without any improvement in mentation, nonresponive to verbal commands, spontanously blinks and moves lower jaw. discussed with Rev. aVsquez regarding ethics consult, waiting to hear from family. Sister called and I updated her on the patient's current condition of s/p cardiac arrest, poor response off sedation, possible need for trach, patient's refusal of dialysis and medications at skilled nursing. sister states understanding that it is not feasible to sedate patient for dialysis should he recover from this event, she understands that he is not competent to make decisions. Prior to hospitalization he was paraniod about skilled nursing staff and about dialysis, he felt they were not treating him properly, even though the sister said that was not the case. Dr. Casiano also spoke with her about prognosis, possible need for trach and PEG, sister wants to discuss with their mother before making any decisions about goals of care. OBJECTIVE: Vital Signs Period Temp Pulse Resp BP Sys/Triplett Pulse Ox Last 24 Hr 96.8 F-99 F 63-80 14-23 86-142/53-76 98-100 HEAD: golf-ball sized hematoma over left eye at mideyebrow - black-bluish in appearance soft, skin intact, temporal wasting. EYES: sluggish pupilary response to light, dilated, equal b/l. sclera anicteric , conjunctiva injection in left, scant scleral edema. ENT: nares patent, oropharynx clear with ET NECK: Trachea midline. LUNGS: anteriorly with coarse breath sounds and scattered rhonchi b/l HEART: Regular rate and rhythm, S1, S2 ABDOMEN: Soft, + bowel sounds in all 4 quadrants, very foul smelling stool EXTREMITIES: weak DP and radial pulses, warm, well-perfused, 2+ edema in b/l UE. left arm fistula without thrill, muscle atrophy in b/l thighs. no edema in feet. NEUROLOGICAL: does not follow-commands off sedation. Laboratory Results - last 24 hr 10/29/16 10/31/16 11/01/16 09:45 05:10 05:57 WBC RBC Hgb Hct MCV MCHC RDW Plt Count MPV Neutrophils % Lymphocytes % Monocytes % Eosinophils % Basophils % Puncture Site ABG pH ABG pCO2 at Pt Temp ABG pO2 at Pt Temp ABG HCO3 ABG O2 Sat (Measured) ABG O2 Content ABG Base Excess Demetris Test O2 Delivery Device Oxygen Flow Rate Vent Mode Vent Rate Mechanical Rate PEEP Pressure Support Vent Sodium Potassium Chloride Carbon Dioxide Anion Gap BUN Creatinine Creat Clearance w eGFR POC Glucometer 108.98529 Random Glucose Calcium Total Bilirubin AST ALT Alkaline Phosphatase Total Protein Albumin Cortisol AM Sample 17.6 Blood Type B POSITIVE Antibody Screen Negative Crossmatch See Detail 11/01/16 11/01/16 11/01/16 09:00 09:30 09:30 WBC 6.7 RBC 3.40 L Hgb 9.8 L Hct 29.7 L MCV 87.3 MCHC 32.9 RDW 20.2 H Plt Count 82 L MPV 8.5 Neutrophils % 85.6 H Lymphocytes % 7.4 L D Monocytes % 6.4 Eosinophils % 0.3 Basophils % 0.3 Puncture Site Right radial ABG pH 7.51 H ABG pCO2 at Pt Temp 36.1 D ABG pO2 at Pt Temp 188.0 H* D ABG HCO3 28.6 H ABG O2 Sat (Measured) 98.3 ABG O2 Content 13.9 L ABG Base Excess 5.7 H Demetris Test Positive O2 Delivery Device Vent Oxygen Flow Rate 50 Vent Mode A/c Vent Rate 14 Mechanical Rate Yes PEEP 5.0 Pressure Support Vent 400 Sodium 143 Potassium 3.7 D Chloride 101 Carbon Dioxide 29 Anion Gap 13 BUN 83 H D Creatinine 5.7 H D Creat Clearance w eGFR 9.83 POC Glucometer Random Glucose 104 Calcium 7.9 L Total Bilirubin 0.4 D AST 29 ALT 12 D Alkaline Phosphatase 147 H Total Protein 6.0 L Albumin 2.5 L Cortisol AM Sample Blood Type Antibody Screen Crossmatch 11/01/16 11/01/16 11/01/16 12:03 17:03 23:45 WBC RBC Hgb Hct MCV MCHC RDW Plt Count MPV Neutrophils % Lymphocytes % Monocytes % Eosinophils % Basophils % Puncture Site ABG pH ABG pCO2 at Pt Temp ABG pO2 at Pt Temp ABG HCO3 ABG O2 Sat (Measured) ABG O2 Content ABG Base Excess Demetris Test O2 Delivery Device Oxygen Flow Rate Vent Mode Vent Rate Mechanical Rate PEEP Pressure Support Vent Sodium Potassium Chloride Carbon Dioxide Anion Gap BUN Creatinine Creat Clearance w eGFR POC Glucometer 171.03074 148.00454 125.32181 Random Glucose Calcium Total Bilirubin AST ALT Alkaline Phosphatase Total Protein Albumin Cortisol AM Sample Blood Type Antibody Screen Crossmatch 11/02/16 07:10 WBC RBC Hgb Hct MCV MCHC RDW Plt Count MPV Neutrophils % Lymphocytes % Monocytes % Eosinophils % Basophils % Puncture Site Right radial ABG pH 7.52 H ABG pCO2 at Pt Temp 39.1 ABG pO2 at Pt Temp 133.0 H D ABG HCO3 31.5 H ABG O2 Sat (Measured) 99.6 H* ABG O2 Content 14.0 L ABG Base Excess 8.2 H Demetris Test Positive O2 Delivery Device Vent Oxygen Flow Rate 40 Vent Mode A/c Vent Rate 14 Mechanical Rate Yes PEEP 5.0 Pressure Support Vent 400 Sodium Potassium Chloride Carbon Dioxide Anion Gap BUN Creatinine Creat Clearance w eGFR POC Glucometer Random Glucose Calcium Total Bilirubin AST ALT Alkaline Phosphatase Total Protein Albumin Cortisol AM Sample Blood Type Antibody Screen Crossmatch Active Medications Generic Name Dose Route Start Last Admin Trade Name Freq PRN Reason Stop Dose Admin Albuterol Sulfate 1 amp 10/29/16 12:00 11/02/16 06:15 Ventolin 0.083% Nebulizer Soln - NEB 1 amp QIDR [facility] Administration Amlodipine Besylate 10 mg 10/30/16 10:00 11/01/16 09:47 Norvasc - PO 10 mg DAILY [facility] Administration Calcitriol 0.25 mcg 11/01/16 12:00 11/01/16 13:18 Rocaltrol Liquid - NGT 0.25 mcg DAILY [facility] Administration Carvedilol 6.25 mg 11/01/16 12:30 11/01/16 21:00 Coreg - NGT 6.25 mg BID [facility] Administration Chlorhexidine Gluconate 15 ml 11/01/16 10:00 11/01/16 21:00 Peridex - MM 15 ml BID [facility] Administration Haloperidol 5 mg 10/27/16 11:54 10/28/16 19:05 Haldol Injection (Fast Acting) - IM 5 mg Q4H PRN Administration AGITATION Propofol 100 mls @ 1.905 mls/hr 10/28/16 23:45 11/01/16 23:45 Diprivan - IVPB 1.905 mls/hr TITR [facility] Administration Protocol 5 MCG/KG/MIN Famotidine/Sodium Chloride 50 mls @ 100 mls/hr 10/29/16 10:00 11/01/16 09:48 Pepcid 20 Mg Premixed Ivpb - IVPB 100 mls/hr DAILY [facility] Administration ASSESSMENT/PLAN: 71 yr old man with HTN, ESRD on HD (//), demetia with agitation, hx of Cardiac arrest, DVT, generalized epilepsy, deemed incompetent and hx of refusing treatments including dialysis,admitted for hyperK, ESRD on HD, and hypothermia, transferred to ICU s/p cardiac arrest on Med-surg floor. - ethics consult initiated as patient is incompetent to make decisions, however has been refusing care. GOC to be decided. discussed with Rev Vasquez. Discussed with sister over the phone, she needs to speak with their mother prior to making decisions. Cardiovascular - s/p cardiac arrest with resuscitation 10/28 PM HTN hydralazine 25mg po TID [id number] po daily amiodarone 200mg Pulmonary intubated secondary to hypoxic respiratory failure s/p cardiac arrest titrate FiO2 to maintain o2 sat >90% duonebs large right pleural effusion - pt has refused thoracentesis in the past. Infectious disease blood cx NGTD observe off abx, monitor for fevers Renal ESRD on HD Rocaltrol 0.25 mcg NGT daily dialysis yesterday, reassess for need tomorrow consult Dr. Maciel Neurological incompetent, baseline dementia sedated, propofol drip - does not follow commands off sedation Hematological right subclavian DVT on eliquis- now held s/p fall GI pepcid for prophylaxis Enteral feeds with Nepro Dermatalogical small 1x1mm area of skin breakdown at bony prominences at lower back, covered DVT: SCD's Diet: enteral feeds Visit type - Emergency Visit Emergency Visit: No - New Patient This patient is new to me today: No - Critical Care Critical Care patient: Yes Total Critical Care Time (in minutes): 45 Critical Care Statement: The care of this patient involved high complexity decision making to prevent further life threatening deterioration of the patient 's condition and/or to evalute & treat vital organ system(s) failure or risk of failure.
[2016-11-02] MEDS ORDERED: PT OWN MED DRAWER 7, Y5N ONE (09:16)
[2016-11-02] MEDS: FAMOTIDINE 20 MG/50 ML IVPB 50 ML IVPB SCH (09:25)
[2016-11-02] MEDS: CARVEDILOL 6.25 MG TABLET (FP) NGT SCH ×2 (09:25→21:21)
[2016-11-02] MEDS: amLODIPine BESYLATE 10 MG TABLET (FP) PO SCH (09:25)
[2016-11-02] MEDS: CALCITRIOL 1 MCG/ML BOT NGT SCH (09:26)
[2016-11-02] MEDS: CHLORHEXIDINE GLUCONATE 0.12% 15ML CUP MM SCH ×2 (09:51→21:21)
--- NOTE | 2016-11-02 10:00 | PN ---
Progress Note, Physician Chief Complaint: Events noted s/p Cardiac arrest intubated Off propofol this AM not responsive had held propofol yesterday- not responsive except for twitching of hand Neurology evaluation noted - Current Medication List Current Medications: Active Medications Albuterol Sulfate (Ventolin 0.083% Nebulizer Soln -) 1 amp NEB QIDR [facility] Last Admin: 11/02/16 06:15 Dose: 1 amp Amlodipine Besylate (Norvasc -) 10 mg PO DAILY [facility] Last Admin: 11/02/16 09:25 Dose: 10 mg Calcitriol (Rocaltrol Liquid -) 0.25 mcg NGT DAILY [facility] Last Admin: 11/02/16 09:26 Dose: 0.25 mcg Carvedilol (Coreg -) 6.25 mg NGT BID [facility] Last Admin: 11/02/16 09:25 Dose: 6.25 mg Chlorhexidine Gluconate (Peridex -) 15 ml MM BID [facility] Last Admin: 11/02/16 09:51 Dose: 15 ml Haloperidol (Haldol Injection (Fast Acting) -) 5 mg IM Q4H PRN PRN Reason: AGITATION Last Admin: 10/28/16 19:05 Dose: 5 mg Propofol (Diprivan -) 100 mls @ 1.905 mls/hr IVPB TITR [facility]; 5 MCG/KG/MIN PRN Reason: Protocol Last Admin: 11/01/16 23:45 Dose: 1.905 mls/hr Famotidine/Sodium Chloride (Pepcid 20 Mg Premixed Ivpb -) 50 mls @ 100 mls/hr IVPB DAILY [facility] Last Admin: 11/02/16 09:25 Dose: 100 mls/hr - Objective Vital Signs: Vital Signs Temperature 98.6 F 11/02/16 09:40 Pulse Rate 68 11/02/16 09:40 Respiratory Rate 15 11/02/16 09:40 Blood Pressure 124/57 11/02/16 08:00 O2 Sat by Pulse Oximetry (%) 100 11/01/16 21:00 Constitutional: Yes: Other (intubated) Cardiovascular: Yes: Regular Rate and Rhythm Respiratory: Yes: Diminished Gastrointestinal: Yes: Normal Bowel Sounds, Soft. No: Distention, Tenderness Edema: Yes Labs: INR, PTT INR 1.41 (0.82-1.09) H 10/30/16 05:15 Problem List - Problems (1) ESRD (end stage renal disease) on dialysis Code(s): N18.6 - END STAGE RENAL DISEASE Z99.2 - DEPENDENCE ON RENAL DIALYSIS (2) Refusal of treatment by patient Code(s): Z53.20 - PROC/TRTMT NOT CRD OUT BEC PT DECISION FOR UNSP REASONS (3) Dementia Code(s): F03.90 - UNSPECIFIED DEMENTIA WITHOUT BEHAVIORAL DISTURBANCE Qualifiers: Dementia type: unspecified type (4) Fluid overload Code(s): E87.70 - FLUID OVERLOAD, UNSPECIFIED Qualifiers: Hypervolemia type: unspecified Qualified Code(s): E87.70 - Fluid overload, unspecified (5) Hyperkalemia Code(s): E87.5 - HYPERKALEMIA Assessment/Plan PLAN off sedation seen by Neurology not responsive Tried calling sister and home number-- left a message today continue with current care assess mental status spoke with ICU team continue HD as scheduled prognosis guarded Time spent 30 min
[2016-11-02 10:16] LABS: BASOPHIL 0.3 % (0-2.0); EOSINOPHIL 0.4 % (0-4.5); MCH 28.8 pg (25.7-33.7); MCHC 32.7 g/dl (32.0-35.9); MEAN CELL VOLUME 88.2 fl (80-96); MEAN PLT VOLUME 8.7 fl (7.5-11.1); NEUTROPHILS 87.4 % (42.8-82.8); PLATELET COUNT 85 K/MM3 (134-434); RDW 19.7 % (11.9-15.9); WHITE BLOOD COUNT 8.1 K/mm3 (4.0-10.0)
[2016-11-02 10:17] LABS: CALCIUM 8.2 mg/dL (8.5-10.1); COCKROFT - GAULT 13.39; CREATININE 4.1 mg/dL (0.7-1.3)
--- NOTE | 2016-11-02 12:24 | PN ---
Teaching Attending Note Name of Resident: Danyel Kline ATTENDING PHYSICIAN STATEMENT I saw and evaluated the patient. I reviewed the resident's note and discussed the case with the resident. I agree with the resident's findings and plan as documented. SUBJECTIVE: Patient seen and examined in the ICU. Remains intubated and poorly responsive. AC Mode of vent. No pressors. CXR: ETT in position / large right effusion -> no change Intake & Output 10/30/16 10/31/16 11/01/16 11/02/16 23:59 23:59 23:59 23:59 Intake Total 1684 1581.5 733.2 341.6 Output Total 0 0 800 200 Balance 1684 1581.5 -66.8 141.6 Weight 132 lb 6.4 oz 129 lb 8 oz 132 lb 3.2 oz 130 lb 1.6 oz Last Vital Signs Temp Pulse Resp BP Pulse Ox 98.5 F 72 15 122/60 98 11/02/16 10:00 11/02/16 10:01 11/02/16 11:57 11/02/16 10:00 11/02/16 10:01 Active Medications Albuterol Sulfate (Ventolin 0.083% Nebulizer Soln -) 1 amp NEB QIDR [facility] Last Admin: 11/02/16 10:45 Dose: 1 amp Amlodipine Besylate (Norvasc -) 10 mg PO DAILY [facility] Last Admin: 11/02/16 09:25 Dose: 10 mg Calcitriol (Rocaltrol Liquid -) 0.25 mcg NGT DAILY [facility] Last Admin: 11/02/16 09:26 Dose: 0.25 mcg Carvedilol (Coreg -) 6.25 mg NGT BID [facility] Last Admin: 11/02/16 09:25 Dose: 6.25 mg Chlorhexidine Gluconate (Peridex -) 15 ml MM BID [facility] Last Admin: 11/02/16 09:51 Dose: 15 ml Haloperidol (Haldol Injection (Fast Acting) -) 5 mg IM Q4H PRN PRN Reason: AGITATION Last Admin: 10/28/16 19:05 Dose: 5 mg Propofol (Diprivan -) 100 mls @ 1.905 mls/hr IVPB TITR [facility]; 5 MCG/KG/MIN PRN Reason: Protocol Last Admin: 11/01/16 23:45 Dose: 1.905 mls/hr Famotidine/Sodium Chloride (Pepcid 20 Mg Premixed Ivpb -) 50 mls @ 100 mls/hr IVPB DAILY [facility] Last Admin: 11/02/16 09:25 Dose: 100 mls/hr General:Yes: intubated, poorly responsive HENT: Yes: Other (hematoma in L frontal/ temporal region) Cardiovascular: Yes: Regular Rate and Rhythm, S1, S2. No: Gallop, Murmur, Rub Respiratory: Yes: Mechanically Ventilated, Scattered Rhonchi Gastrointestinal: Yes: Normal Bowel Sounds, Hypoactive Bowel Sounds Edema: No Peripheral Pulses WNL: Yes Neurological: Yes: Poorly responsive Labs: Laboratory Results - last 24 hr 10/29/16 10/31/16 11/01/16 09:45 05:10 17:03 WBC RBC Hgb Hct MCV MCHC RDW Plt Count MPV Neutrophils % Lymphocytes % Monocytes % Eosinophils % Basophils % Puncture Site ABG pH ABG pCO2 at Pt Temp ABG pO2 at Pt Temp ABG HCO3 ABG O2 Sat (Measured) ABG O2 Content ABG Base Excess Demetris Test O2 Delivery Device Oxygen Flow Rate Vent Mode Vent Rate Mechanical Rate PEEP Pressure Support Vent Sodium Potassium Chloride Carbon Dioxide Anion Gap BUN Creatinine POC Glucometer 148.93384 Random Glucose Calcium Cortisol AM Sample 17.6 Blood Type B POSITIVE Antibody Screen Negative Crossmatch See Detail 11/01/16 11/02/16 11/02/16 23:45 05:30 07:10 WBC RBC Hgb Hct MCV MCHC RDW Plt Count MPV Neutrophils % Lymphocytes % Monocytes % Eosinophils % Basophils % Puncture Site Right radial ABG pH 7.52 H ABG pCO2 at Pt Temp 39.1 ABG pO2 at Pt Temp 133.0 H D ABG HCO3 31.5 H ABG O2 Sat (Measured) 99.6 H* ABG O2 Content 14.0 L ABG Base Excess 8.2 H Demetris Test Positive O2 Delivery Device Vent Oxygen Flow Rate 40 Vent Mode A/c Vent Rate 14 Mechanical Rate Yes PEEP 5.0 Pressure Support Vent 400 Sodium Potassium Chloride Carbon Dioxide Anion Gap BUN Creatinine POC Glucometer 125.69251 135.57572 Random Glucose Calcium Cortisol AM Sample Blood Type Antibody Screen Crossmatch 11/02/16 11/02/16 09:51 09:51 WBC 8.1 RBC 3.59 L Hgb 10.3 L Hct 31.6 L MCV 88.2 MCHC 32.7 RDW 19.7 H Plt Count 85 L MPV 8.7 Neutrophils % 87.4 H Lymphocytes % 5.8 L D Monocytes % 6.1 Eosinophils % 0.4 Basophils % 0.3 Puncture Site ABG pH ABG pCO2 at Pt Temp ABG pO2 at Pt Temp ABG HCO3 ABG O2 Sat (Measured) ABG O2 Content ABG Base Excess Demetris Test O2 Delivery Device Oxygen Flow Rate Vent Mode Vent Rate Mechanical Rate PEEP Pressure Support Vent Sodium 142 Potassium 3.3 L Chloride 100 Carbon Dioxide 33 H Anion Gap 9 BUN 56 H D Creatinine 4.1 H D POC Glucometer Random Glucose 107 H Calcium 8.2 L Cortisol AM Sample Blood Type Antibody Screen Crossmatch Problem List - Problems (1) ESRD (end stage renal disease) on dialysis Code(s): N18.6 - END STAGE RENAL DISEASE Z99.2 - DEPENDENCE ON RENAL DIALYSIS (2) Refusal of treatment by patient Code(s): Z53.20 - PROC/TRTMT NOT CRD OUT BEC PT DECISION FOR UNSP REASONS (3) Dementia Code(s): F03.90 - UNSPECIFIED DEMENTIA WITHOUT BEHAVIORAL DISTURBANCE (4) Hypothermia Code(s): T68.XXXA - HYPOTHERMIA, INITIAL ENCOUNTER Qualifiers: Encounter type: initial encounter Qualified Code(s): T68.XXXA - Hypothermia, initial encounter (5) Pleural effusion, right Code(s): J90 - PLEURAL EFFUSION, NOT ELSEWHERE CLASSIFIED (6) Respiratory failure Code(s): J96.90 - RESPIRATORY FAILURE, UNSP, UNSP W HYPOXIA OR HYPERCAPNIA (7) Sepsis Code(s): A41.9 - SEPSIS, UNSPECIFIED ORGANISM Qualifiers: Sepsis type: sepsis due to unspecified organism Qualified Code(s): A41.9 - Sepsis, unspecified organism (8) Hypoglycemia Code(s): E16.2 - HYPOGLYCEMIA, UNSPECIFIED Assessment/Plan Minimize sedation to assess mental status HD per Renal ABX Ethics consult has been called Enteral feeds Overall prognosis appears poor Dr Clark critical care time spent in reviewing chart, evaluating patient and formulating plan 40 min
--- NOTE | 2016-11-02 13:44 | PN ---
Progress Note, Physician Chief Complaint: Remains in ICU - intubated on mechanical ventilation History of Present Illness: Patient was seen and examined in ICU. Mechanical ventilation. Chart was reviewed - Current Medication List Current Medications: Active Medications Albuterol Sulfate (Ventolin 0.083% Nebulizer Soln -) 1 amp NEB QIDR [facility] Last Admin: 11/02/16 10:45 Dose: 1 amp Amlodipine Besylate (Norvasc -) 10 mg PO DAILY [facility] Last Admin: 11/02/16 09:25 Dose: 10 mg Calcitriol (Rocaltrol Liquid -) 0.25 mcg NGT DAILY [facility] Last Admin: 11/02/16 09:26 Dose: 0.25 mcg Carvedilol (Coreg -) 6.25 mg NGT BID [facility] Last Admin: 11/02/16 09:25 Dose: 6.25 mg Chlorhexidine Gluconate (Peridex -) 15 ml MM BID [facility] Last Admin: 11/02/16 09:51 Dose: 15 ml Haloperidol (Haldol Injection (Fast Acting) -) 5 mg IM Q4H PRN PRN Reason: AGITATION Last Admin: 10/28/16 19:05 Dose: 5 mg Propofol (Diprivan -) 100 mls @ 1.905 mls/hr IVPB TITR [facility]; 5 MCG/KG/MIN PRN Reason: Protocol Last Admin: 11/01/16 23:45 Dose: 1.905 mls/hr Famotidine/Sodium Chloride (Pepcid 20 Mg Premixed Ivpb -) 50 mls @ 100 mls/hr IVPB DAILY [facility] Last Admin: 11/02/16 09:25 Dose: 100 mls/hr - Objective Vital Signs: Vital Signs Temperature 98.5 F 11/02/16 10:00 Pulse Rate 72 11/02/16 12:00 Respiratory Rate 14 11/02/16 12:00 Blood Pressure 125/65 11/02/16 12:00 O2 Sat by Pulse Oximetry (%) 98 11/02/16 10:01 Cardiovascular: Yes: Regular Rate and Rhythm, Murmur (SM), S1, S2 Respiratory: Yes: Mechanically Ventilated Gastrointestinal: Yes: Normal Bowel Sounds, Soft. No: Tenderness Edema: No Labs: CBC, BMP 11/02/16 09:51 11/02/16 09:51 INR, PTT INR 1.41 (0.82-1.09) H 05/20/17 05:15 Problem List - Problems (1) Cardiac arrest Code(s): I46.9 - CARDIAC ARREST, CAUSE UNSPECIFIED (2) ESRD (end stage renal disease) on dialysis Code(s): N18.6 - END STAGE RENAL DISEASE Z99.2 - DEPENDENCE ON RENAL DIALYSIS (3) Dementia Code(s): F03.90 - UNSPECIFIED DEMENTIA WITHOUT BEHAVIORAL DISTURBANCE Qualifiers: Dementia type: unspecified type (4) Pleural effusion, right Code(s): J90 - PLEURAL EFFUSION, NOT ELSEWHERE CLASSIFIED (5) Respiratory failure Code(s): J96.90 - RESPIRATORY FAILURE, UNSP, UNSP W HYPOXIA OR HYPERCAPNIA Qualifiers: Chronicity: acute on chronic Respiratory failure complication: hypoxia and hypercapnia Qualified Code(s): J96.21 - Acute and chronic respiratory failure with hypoxia (6) On mechanically assisted ventilation Code(s): Z99.11 - DEPENDENCE ON RESPIRATOR [VENTILATOR] STATUS (7) Atrial flutter Code(s): I48.92 - UNSPECIFIED ATRIAL FLUTTER Qualifiers: Atrial flutter type: unspecified Qualified Code(s): I48.92 - Unspecified atrial flutter Assessment/Plan 1. Asystolic arrest with suspected anoxic brain injury 2. Acute hypoxic respiratory failure 3. ESRD on HD 4. Acute on chronic diastolic failure with pleural effusion 5. Paroxysmal atrial flutter now in sinus 6. Prolonged QT interval 7. Seizure disorder and dementia 8. COPD 9. Anemia and thrombocytopenia PLAN: 1. Continue vent management as per demand equipment repairer service. May eventually need PEG and trache is patient not responsive 2.. HD per Renal 3. Continue Norvasc and Carvedilol as tolerated 4. Enteral feeds 5. DVT and GI prophylaxis 6. Neuro assessment Further plans are to follow Pineda Mclean MD
[2016-11-02] MEDS ORDERED: POTASSIUM CHLORIDE ORAL LIQUID 20 MEQ/15 ML PO ONE (15:07)
--- NOTE | 2016-11-02 15:13 | PN ---
Progress Note, Physician History of Present Illness: Pt seen and examined at bedside. He remains in the ICU. Pt remains intubated. - Current Medication List Current Medications: Active Medications Albuterol Sulfate (Ventolin 0.083% Nebulizer Soln -) 1 amp NEB QIDR [facility] Last Admin: 11/02/16 10:45 Dose: 1 amp Amlodipine Besylate (Norvasc -) 10 mg PO DAILY [facility] Last Admin: 11/02/16 09:25 Dose: 10 mg Calcitriol (Rocaltrol Liquid -) 0.25 mcg NGT DAILY [facility] Last Admin: 11/02/16 09:26 Dose: 0.25 mcg Carvedilol (Coreg -) 6.25 mg NGT BID [facility] Last Admin: 11/02/16 09:25 Dose: 6.25 mg Chlorhexidine Gluconate (Peridex -) 15 ml MM BID [facility] Last Admin: 11/02/16 09:51 Dose: 15 ml Haloperidol (Haldol Injection (Fast Acting) -) 5 mg IM Q4H PRN PRN Reason: AGITATION Last Admin: 10/28/16 19:05 Dose: 5 mg Propofol (Diprivan -) 100 mls @ 1.905 mls/hr IVPB TITR [facility]; 5 MCG/KG/MIN PRN Reason: Protocol Last Admin: 11/01/16 23:45 Dose: 1.905 mls/hr Famotidine/Sodium Chloride (Pepcid 20 Mg Premixed Ivpb -) 50 mls @ 100 mls/hr IVPB DAILY [facility] Last Admin: 11/02/16 09:25 Dose: 100 mls/hr - Objective Vital Signs: Vital Signs Temperature 98.7 F 11/02/16 14:00 Pulse Rate 70 11/02/16 14:00 Respiratory Rate 16 11/02/16 14:15 Blood Pressure 114/91 11/02/16 14:00 O2 Sat by Pulse Oximetry (%) 98 11/02/16 10:01 Constitutional: Yes: Calm Eyes: Yes: Conjunctiva Clear HENT: Yes: Atraumatic Neck: Yes: Supple Cardiovascular: Yes: S1, S2 Respiratory: Yes: Mechanically Ventilated Gastrointestinal: Yes: Normal Bowel Sounds, Soft Genitourinary: Yes: Incontinence Edema: Yes Edema: LUE: 1+, RUE: 1+ Neurological: Yes: Lethargy Labs: CBC, BMP 11/02/16 09:51 11/02/16 09:51 INR, PTT INR 1.41 (0.82-1.09) H 10/30/16 05:15 - ....Imaging Chest X-ray: Report Reviewed Problem List - Problems (1) ESRD (end stage renal disease) on dialysis Code(s): N18.6 - END STAGE RENAL DISEASE Z99.2 - DEPENDENCE ON RENAL DIALYSIS (2) Refusal of treatment by patient Code(s): Z53.20 - PROC/TRTMT NOT CRD OUT BEC PT DECISION FOR UNSP REASONS (3) Respiratory distress Code(s): R06.00 - DYSPNEA, UNSPECIFIED (4) Fluid overload Code(s): E87.70 - FLUID OVERLOAD, UNSPECIFIED Qualifiers: Hypervolemia type: unspecified Qualified Code(s): E87.70 - Fluid overload, unspecified (5) Hyperkalemia Code(s): E87.5 - HYPERKALEMIA Assessment/Plan Current Medications Generic Name Dose Route Start Last Admin Trade Name Freq PRN Reason Stop Dose Admin Albuterol Sulfate 1 amp 10/29/16 12:00 11/02/16 10:45 Ventolin 0.083% Nebulizer Soln - NEB 1 amp QIDR [facility] Administration Amlodipine Besylate 10 mg 10/30/16 10:00 11/02/16 09:25 Norvasc - PO 10 mg DAILY [facility] Administration Calcitriol 0.25 mcg 11/01/16 12:00 11/02/16 09:26 Rocaltrol Liquid - NGT 0.25 mcg DAILY [facility] Administration Carvedilol 6.25 mg 11/01/16 12:30 11/02/16 09:25 Coreg - NGT 6.25 mg BID [facility] Administration Chlorhexidine Gluconate 15 ml 11/01/16 10:00 11/02/16 09:51 Peridex - MM 15 ml BID [facility] Administration Haloperidol 5 mg 10/27/16 11:54 10/28/16 19:05 Haldol Injection (Fast Acting) - IM 5 mg Q4H PRN Administration AGITATION Propofol 100 mls @ 1.905 mls/hr 10/28/16 23:45 11/01/16 23:45 Diprivan - IVPB 1.905 mls/hr TITR [facility] Administration Protocol 5 MCG/KG/MIN Famotidine/Sodium Chloride 50 mls @ 100 mls/hr 10/29/16 10:00 11/02/16 09:25 Pepcid 20 Mg Premixed Ivpb - IVPB 100 mls/hr DAILY [facility] Administration Impression 1. ESRD 2. hyperkalemia 3. dementia 4. acute hypoxic respiratory failure 5. pleural effusion 6. a-fib 7. epilepsy 8. hx COPD 9. anemia 10. facial edema 11. hypoglycemia 12. s/p cardiac arrest Plan - pt tolerated HD yesterday - next session tomorrow - vent support - hold sedation to asses mental status - cont vent support - monitor hg - will follow Dr Maciel
[2016-11-02] MEDS: PROPOFOL 100 ML IVPB SCH (23:45)
[2016-11-03] MEDS: ALBUTEROL SO4 0.083% IH SOL 2.5 MG/3 ML VIAL.NEB. NEB SCH ×3 (00:09→11:45)
--- NOTE | 2016-11-03 08:57 | PN ---
Physical Exam: SUBJECTIVE: Patient seen and examined discussed GOC with sister this morning. Updated her on his continued poor response (>24hrs off propofol), she stated that a "trach is not what he would have wanted," 'this is not how he would have wanted to live." She and her mother are unable to travel and would like to have him made comfortable and removed off ventilator tomorrow at 10AM. he was having chills in b/l arms(R>L) and head, T96.0, denise hugger initiated with improvement. OBJECTIVE: Vital Signs Period Temp Pulse Resp BP Sys/Triplett Pulse Ox Last 24 Hr 97 F-98.7 F 66-80 14-16 108-143/54-98 98-100 HEAD: golf-ball sized hematoma over left eye at mideyebrow - black-bluish in appearance soft, skin intact, temporal wasting. EYES: sluggish pupilary response to light, dilated, equal b/l. sclera anicteric , conjunctiva injection in left, scant scleral edema. ENT: nares patent, oropharynx clear with ET NECK: Trachea midline. LUNGS: anteriorly with coarse breath sounds and scattered rhonchi b/l HEART: Regular rate and rhythm, S1, S2 ABDOMEN: Soft, + bowel sounds in all 4 quadrants, very foul smelling stool EXTREMITIES: weak DP and radial pulses, warm, well-perfused, 2+ edema in b/l UE. left arm fistula with palpable thrill, muscle atrophy in b/l thighs. no edema in feet. NEUROLOGICAL: no response to verbal or noxious stimuli. Laboratory Results - last 24 hr 11/02/16 11/02/16 11/02/16 05:30 09:51 09:51 WBC 8.1 RBC 3.59 L Hgb 10.3 L Hct 31.6 L MCV 88.2 MCHC 32.7 RDW 19.7 H Plt Count 85 L MPV 8.7 Neutrophils % 87.4 H Lymphocytes % 5.8 L D Monocytes % 6.1 Eosinophils % 0.4 Basophils % 0.3 Sodium 142 Potassium 3.3 L Chloride 100 Carbon Dioxide 33 H Anion Gap 9 BUN 56 H D Creatinine 4.1 H D POC Glucometer [phone] Random Glucose 107 H Calcium 8.2 L 11/02/16 11/02/16 11/03/16 12:41 17:29 02:59 WBC RBC Hgb Hct MCV MCHC RDW Plt Count MPV Neutrophils % Lymphocytes % Monocytes % Eosinophils % Basophils % Sodium Potassium Chloride Carbon Dioxide Anion Gap BUN Creatinine POC Glucometer 138.11913 158.35070 [phone] Random Glucose Calcium Active Medications Generic Name Dose Route Start Last Admin Trade Name Freq PRN Reason Stop Dose Admin Albuterol Sulfate 1 amp 10/29/16 12:00 11/03/16 06:16 Ventolin 0.083% Nebulizer Soln - NEB 1 amp QIDR [facility] Administration Amlodipine Besylate 10 mg 10/30/16 10:00 11/02/16 09:25 Norvasc - PO 10 mg DAILY [facility] Administration Calcitriol 0.25 mcg 11/01/16 12:00 11/02/16 09:26 Rocaltrol Liquid - NGT 0.25 mcg DAILY [facility] Administration Carvedilol 6.25 mg 11/01/16 12:30 11/02/16 21:21 Coreg - NGT 6.25 mg BID [facility] Administration Chlorhexidine Gluconate 15 ml 11/01/16 10:00 11/02/16 21:21 Peridex - MM 15 ml BID [facility] Administration Haloperidol 5 mg 10/27/16 11:54 10/28/16 19:05 Haldol Injection (Fast Acting) - IM 5 mg Q4H PRN Administration AGITATION Propofol 100 mls @ 1.905 mls/hr 10/28/16 23:45 11/02/16 23:45 Diprivan - IVPB Not Given TITR [facility] Protocol 5 MCG/KG/MIN Famotidine/Sodium Chloride 50 mls @ 100 mls/hr 10/29/16 10:00 11/02/16 09:25 Pepcid 20 Mg Premixed Ivpb - IVPB 100 mls/hr DAILY [facility] Administration ASSESSMENT/PLAN: 71 yr old man with HTN, ESRD on HD (/), demetia with agitation, hx of Cardiac arrest, DVT, generalized epilepsy, deemed incompetent and hx of refusing treatments including dialysis,admitted for hyperK, ESRD on HD, and hypothermia, transferred to ICU s/p cardiac arrest on Med-surg floor. - family has opted for compassionate wean, withdrawal of care, and comfort measures for patient. - morphine 1mg/hr for pain control Cardiovascular - s/p cardiac arrest with resuscitation 10/28 PM HTN hydralazine 25mg po TID [id number] po daily amiodarone 200mg Pulmonary intubated secondary to hypoxic respiratory failure s/p cardiac arrest titrate FiO2 to maintain o2 sat >90% duonebs large right pleural effusion - pt has refused thoracentesis in the past. Infectious disease blood cx NGTD observe off abx, monitor for fevers Renal ESRD on HD Rocaltrol 0.25 mcg NGT daily dialysis yesterday, reassess for need tomorrow consult Dr. Maciel Neurological incompetent, baseline dementia sedated, propofol drip - does not follow commands off sedation Hematological right subclavian DVT on eliquis- now held s/p fall GI pepcid for prophylaxis Enteral feeds with Nepro Dermatalogical small 1x1mm area of skin breakdown at bony prominences at lower back, covered DVT: SCD's Diet: enteral feeds Visit type - Emergency Visit Emergency Visit: No - New Patient This patient is new to me today: No - Critical Care Critical Care patient: Yes Total Critical Care Time (in minutes): 45 Critical Care Statement: The care of this patient involved high complexity decision making to prevent further life threatening deterioration of the patient 's condition and/or to evalute & treat vital organ system(s) failure or risk of failure.
[2016-11-03 09:07] LABS: BASOPHIL 0.4 % (0-2.0); EOSINOPHIL 0.2 % (0-4.5); MCH 28.5 pg (25.7-33.7); MCHC 32.4 g/dl (32.0-35.9); MEAN CELL VOLUME 87.9 fl (80-96); MEAN PLT VOLUME 8.8 fl (7.5-11.1); NEUTROPHILS 87.5 % (42.8-82.8); PLATELET COUNT 107 K/MM3 (134-434); RDW 20.1 % (11.9-15.9); WHITE BLOOD COUNT 8.9 K/mm3 (4.0-10.0)
--- NOTE | 2016-11-03 09:34 | PN ---
Progress Note, Physician Chief Complaint: Events noted s/p Cardiac arrest intubated Off propofol since yesterday not responsive tremors- rt side and head, slight tremors on Left - Current Medication List Current Medications: Active Medications Albuterol Sulfate (Ventolin 0.083% Nebulizer Soln -) 1 amp NEB QIDR [facility] Last Admin: 11/03/16 06:16 Dose: 1 amp Amlodipine Besylate (Norvasc -) 10 mg PO DAILY [facility] Last Admin: 11/02/16 09:25 Dose: 10 mg Calcitriol (Rocaltrol Liquid -) 0.25 mcg NGT DAILY [facility] Last Admin: 11/02/16 09:26 Dose: 0.25 mcg Carvedilol (Coreg -) 6.25 mg NGT BID [facility] Last Admin: 11/02/16 21:21 Dose: 6.25 mg Chlorhexidine Gluconate (Peridex -) 15 ml MM BID [facility] Last Admin: 11/02/16 21:21 Dose: 15 ml Haloperidol (Haldol Injection (Fast Acting) -) 5 mg IM Q4H PRN PRN Reason: AGITATION Last Admin: 10/28/16 19:05 Dose: 5 mg Propofol (Diprivan -) 100 mls @ 1.905 mls/hr IVPB TITR [facility]; 5 MCG/KG/MIN PRN Reason: Protocol Last Admin: 11/02/16 23:45 Dose: Not Given Famotidine/Sodium Chloride (Pepcid 20 Mg Premixed Ivpb -) 50 mls @ 100 mls/hr IVPB DAILY [facility] Last Admin: 11/02/16 09:25 Dose: 100 mls/hr - Objective Vital Signs: Vital Signs Temperature 97.2 F L 11/03/16 06:00 Pulse Rate 74 11/03/16 08:00 Respiratory Rate 14 11/03/16 08:00 Blood Pressure 108/54 11/03/16 08:00 O2 Sat by Pulse Oximetry (%) 100 11/02/16 20:00 Constitutional: Yes: Other (not responding, intubated) Cardiovascular: Yes: Regular Rate and Rhythm Respiratory: Yes: Diminished Gastrointestinal: Yes: Normal Bowel Sounds, Soft. No: Distention, Tenderness Edema: Yes Edema: LUE: 2+, RUE: 2+ Neurological: Yes: Unresponsive Labs: CBC, BMP 11/03/16 07:50 INR, PTT INR 1.41 (0.82-1.09) H 10/30/16 05:15 Problem List - Problems (1) ESRD (end stage renal disease) on dialysis Code(s): N18.6 - END STAGE RENAL DISEASE Z99.2 - DEPENDENCE ON RENAL DIALYSIS (2) Refusal of treatment by patient Code(s): Z53.20 - PROC/TRTMT NOT CRD OUT BEC PT DECISION FOR UNSP REASONS (3) Dementia Code(s): F03.90 - UNSPECIFIED DEMENTIA WITHOUT BEHAVIORAL DISTURBANCE Qualifiers: Dementia type: unspecified type (4) Fluid overload Code(s): E87.70 - FLUID OVERLOAD, UNSPECIFIED Qualifiers: Hypervolemia type: unspecified Qualified Code(s): E87.70 - Fluid overload, unspecified (5) Hyperkalemia Code(s): E87.5 - HYPERKALEMIA Assessment/Plan PLAN off sedation seen by Neurology not responsive spoke to sister yesterday-- told her about poor prognosis and that he had brain injury She talked to their mother- 96 yrs old - to help make decision about further goals of care I spoke to sister today , she and mother has made decision to terminal wean pt off , stop dialysis- comfort care , morphine drip palliative care jayla spoke with ICU team discontinue HD prognosis poor Time spent 30 min
[2016-11-03 09:48] LABS: ALBUMIN 2.5 g/dl (3.4-5.0); BILIRUBIN,TOTAL 0.4 mg/dL (0.2-1.0); COCKROFT - GAULT 10.87; CREATININE 5.1 mg/dL (0.7-1.3); TOT PROT 6.2 g/dl (6.4-8.2)
[2016-11-03 09:54] LABS: INR 1.12 (0.82-1.09); PROTHROMBIN TIME (PATIENT) 12.4 SEC (9.98-11.88)
[2016-11-03] MEDS: CHLORHEXIDINE GLUCONATE 0.12% 15ML CUP MM SCH ×2 (10:00→21:46)
--- NOTE | 2016-11-03 11:16 | PN ---
Progress Note, Physician History of Present Illness: Unresponsive off sedation on rewarming blanket. - Current Medication List Current Medications: Active Medications Albuterol Sulfate (Ventolin 0.083% Nebulizer Soln -) 1 amp NEB QIDR [facility] Last Admin: 11/03/16 06:16 Dose: 1 amp Amlodipine Besylate (Norvasc -) 10 mg PO DAILY [facility] Last Admin: 11/02/16 09:25 Dose: 10 mg Calcitriol (Rocaltrol Liquid -) 0.25 mcg NGT DAILY [facility] Last Admin: 11/02/16 09:26 Dose: 0.25 mcg Carvedilol (Coreg -) 6.25 mg NGT BID [facility] Last Admin: 11/02/16 21:21 Dose: 6.25 mg Chlorhexidine Gluconate (Peridex -) 15 ml MM BID [facility] Last Admin: 11/02/16 21:21 Dose: 15 ml Haloperidol (Haldol Injection (Fast Acting) -) 5 mg IM Q4H PRN PRN Reason: AGITATION Last Admin: 10/28/16 19:05 Dose: 5 mg Propofol (Diprivan -) 100 mls @ 1.905 mls/hr IVPB TITR [facility]; 5 MCG/KG/MIN PRN Reason: Protocol Last Admin: 11/02/16 23:45 Dose: Not Given Famotidine/Sodium Chloride (Pepcid 20 Mg Premixed Ivpb -) 50 mls @ 100 mls/hr IVPB DAILY [facility] Last Admin: 11/02/16 09:25 Dose: 100 mls/hr - Objective Vital Signs: Vital Signs Temperature 97.2 F L 11/03/16 09:58 Pulse Rate 81 11/03/16 10:00 Respiratory Rate 16 11/03/16 10:00 Blood Pressure 105/52 11/03/16 10:00 O2 Sat by Pulse Oximetry (%) 100 11/02/16 20:00 Cardiovascular: Yes: Regular Rate and Rhythm Respiratory: Yes: Intubated, Mechanically Ventilated, Rhonchi Gastrointestinal: Yes: Soft, Hypoactive Bowel Sounds Edema: No Labs: CBC, BMP 11/03/16 07:50 11/03/16 07:50 INR, PTT INR 1.12 (0.82-1.09) 11/03/16 07:50 - ....Imaging Chest X-ray: Report Reviewed (Right effusion with ATX) Problem List - Problems (1) Cardiac arrest Code(s): I46.9 - CARDIAC ARREST, CAUSE UNSPECIFIED (2) ESRD (end stage renal disease) on dialysis Code(s): N18.6 - END STAGE RENAL DISEASE Z99.2 - DEPENDENCE ON RENAL DIALYSIS (3) Refusal of treatment by patient Code(s): Z53.20 - PROC/TRTMT NOT CRD OUT BEC PT DECISION FOR UNSP REASONS (4) Dementia Code(s): F03.90 - UNSPECIFIED DEMENTIA WITHOUT BEHAVIORAL DISTURBANCE Qualifiers: Dementia type: unspecified type (5) Pleural effusion, right Code(s): J90 - PLEURAL EFFUSION, NOT ELSEWHERE CLASSIFIED (6) Respiratory failure Code(s): J96.90 - RESPIRATORY FAILURE, UNSP, UNSP W HYPOXIA OR HYPERCAPNIA Qualifiers: Chronicity: acute on chronic Respiratory failure complication: hypoxia and hypercapnia Qualified Code(s): J96.21 - Acute and chronic respiratory failure with hypoxia Assessment/Plan 1. Asystolic arrest with anoxic brain injury 2. Acute hypoxic respiratory failure 3. ESRD on HD 4. Acute on chronic diastolic failure with pleural effusion 5. Paroxysmal atrial flutter now in sinus 6. Prolonged QT interval 7. Seizure disorder and dementia 8. COPD 9. Anemia and thrombocytopenia PLAN: 1. Family made aware of poor prognosis and have requested terminal wean and comfort care 2. Stop HD per Renal 3. Continue Norvasc 10 qd and Carvedilol 6.25 bid as tolerated 4. Enteral feeds 5. DVT and GI prophylaxis
--- NOTE | 2016-11-03 11:29 | ETH ---
Ethics Committee Report: Ethics consult initiated on 10/27/16 at 11:55 AM by Viji Stokes MD, to determine patient's wishes for treatment. Patient was from a [facility] where he had frequently refused treatment, especially dialysis. He returned to the hospital in renal failure, having refused dialysis for the last four days. His condition prevented assessing his wishes. His sister and mother, requested dialysis. He was placed on dialysis and the ethics consult delayed, with the plan of returning him to his baseline so that an ethics consult could be held with him, his family members, and relevant staff present. The patient's condition deteriorated and attempts were made by his physician to reach his family members. The family did not respond to voicemails for several days. When they did, and the patient's present condition was made clear, both sister and mother asked that the patient be compassionately weaned from the ventilator and placed on comfort care. Consult was cancelled. See Dr. Viji Bailey's note on 11/03/16. Respectfully submitted, . Jeanine Vasquez, PhD Coordinator, [facility]
--- NOTE | 2016-11-03 12:05 | PN ---
Teaching Attending Note Name of Resident: Danyel Kline ATTENDING PHYSICIAN STATEMENT I saw and evaluated the patient. I reviewed the resident's note and discussed the case with the resident. I agree with the resident's findings and plan as documented. SUBJECTIVE: Pt seen and examined in the ICU. Remains intubated, unresponsive off sedation. Being dialyzed. OBJECTIVE: Last Vital Signs Temp Pulse Resp BP Pulse Ox 97.2 F L 81 16 105/52 100 11/03/16 09:58 11/03/16 10:00 11/03/16 10:00 11/03/16 10:00 11/03/16 10:00 Intake & Output 10/31/16 11/01/16 11/02/16 11/03/16 23:59 23:59 23:59 23:59 Intake Total 1581.5 733.2 921.6 10 Output Total 0 800 200 0 Balance 1581.5 -66.8 721.6 10 Weight 129 lb 8 oz 132 lb 3.2 oz 130 lb 1.6 oz 131 lb 6.4 oz Gen: intubated, unresponsive Heart: RRR Lung: scattered rhonchi Abd: soft, nontender Ext: no edema CBC, BMP 11/03/16 07:50 11/03/16 07:50 Active Medications Amlodipine Besylate (Norvasc -) 10 mg PO DAILY [facility] Last Admin: 11/02/16 09:25 Dose: 10 mg Calcitriol (Rocaltrol Liquid -) 0.25 mcg NGT DAILY [facility] Last Admin: 11/02/16 09:26 Dose: 0.25 mcg Carvedilol (Coreg -) 6.25 mg NGT BID [facility] Last Admin: 11/02/16 21:21 Dose: 6.25 mg Chlorhexidine Gluconate (Peridex -) 15 ml MM BID [facility] Last Admin: 11/02/16 21:21 Dose: 15 ml Haloperidol (Haldol Injection (Fast Acting) -) 5 mg IM Q4H PRN PRN Reason: AGITATION Last Admin: 10/28/16 19:05 Dose: 5 mg Propofol (Diprivan -) 100 mls @ 1.905 mls/hr IVPB TITR [facility]; 5 MCG/KG/MIN PRN Reason: Protocol Last Admin: 11/02/16 23:45 Dose: Not Given Famotidine/Sodium Chloride (Pepcid 20 Mg Premixed Ivpb -) 50 mls @ 100 mls/hr IVPB DAILY [facility] Last Admin: 11/02/16 09:25 Dose: 100 mls/hr ASSESSMENT AND PLAN: Asystolic Cardiac Arrest Acute Respiratory Failure Anoxic Encephalopathy ESRD on HD Acute on Chronic Diastolic Heart Failure Paroxysmal Atrial Flutter Pleural Effusion Seizure Disorder COPD Dementia Schizophrenia - discussions with sister and mother poor prognosis for meaningful recovery and they have opted for compassionate extubation and comfort measures - will start morphine gtt and titrate for comfort - continue supportive measures critical care time spent in reviewing chart, evaluating patient and formulating plan 35 min
[2016-11-03] MEDS: amLODIPine BESYLATE 10 MG TABLET (FP) PO SCH ×2 (12:15→14:05)
[2016-11-03] MEDS: CARVEDILOL 6.25 MG TABLET (FP) NGT SCH ×3 (12:15→21:46)
[2016-11-03] MEDS: FAMOTIDINE 20 MG/50 ML IVPB 50 ML IVPB SCH ×2 (12:15→13:00)
[2016-11-03] MEDS: CALCITRIOL 1 MCG/ML BOT NGT SCH ×2 (12:16→13:00)
--- NOTE | 2016-11-03 12:41 | PN ---
Progress Note, Physician History of Present Illness: Pt seen and examined at bedside. He was dialyzed this morning. ICU team is discussing GOC with family. - Current Medication List Current Medications: Active Medications Amlodipine Besylate (Norvasc -) 10 mg PO DAILY [facility] Last Admin: 11/03/16 12:15 Dose: Not Given Calcitriol (Rocaltrol Liquid -) 0.25 mcg NGT DAILY [facility] Last Admin: 11/03/16 12:16 Dose: Not Given Carvedilol (Coreg -) 6.25 mg NGT BID [facility] Last Admin: 11/03/16 12:15 Dose: Not Given Chlorhexidine Gluconate (Peridex -) 15 ml MM BID [facility] Last Admin: 11/03/16 10:00 Dose: 15 ml Haloperidol (Haldol Injection (Fast Acting) -) 5 mg IM Q4H PRN PRN Reason: AGITATION Last Admin: 10/28/16 19:05 Dose: 5 mg Propofol (Diprivan -) 100 mls @ 1.905 mls/hr IVPB TITR [facility]; 5 MCG/KG/MIN PRN Reason: Protocol Last Titration: 11/03/16 07:00 Dose: 0 mcg/kg/min Famotidine/Sodium Chloride (Pepcid 20 Mg Premixed Ivpb -) 50 mls @ 100 mls/hr IVPB DAILY [facility] Last Admin: 11/03/16 12:15 Dose: Not Given - Objective Vital Signs: Vital Signs Temperature 97.2 F L 11/03/16 09:58 Pulse Rate 81 11/03/16 10:00 Respiratory Rate 16 11/03/16 10:00 Blood Pressure 105/52 11/03/16 10:00 O2 Sat by Pulse Oximetry (%) 100 11/03/16 10:00 Constitutional: Yes: Calm Cardiovascular: Yes: S1, S2 Respiratory: Yes: Mechanically Ventilated Gastrointestinal: Yes: Normal Bowel Sounds, Soft Genitourinary: Yes: Incontinence Musculoskeletal: Yes: Muscle Weakness Edema: Yes Edema: LUE: 1+, RUE: 1+ Neurological: Yes: Lethargy Labs: CBC, BMP 11/03/16 07:50 11/03/16 07:50 INR, PTT INR 1.12 (0.82-1.09) 11/03/16 07:50 - ....Imaging Chest X-ray: Report Reviewed Problem List - Problems (1) ESRD (end stage renal disease) on dialysis Code(s): N18.6 - END STAGE RENAL DISEASE Z99.2 - DEPENDENCE ON RENAL DIALYSIS (2) Refusal of treatment by patient Code(s): Z53.20 - PROC/TRTMT NOT CRD OUT BEC PT DECISION FOR UNSP REASONS (3) Respiratory distress Code(s): R06.00 - DYSPNEA, UNSPECIFIED (4) Fluid overload Code(s): E87.70 - FLUID OVERLOAD, UNSPECIFIED Qualifiers: Hypervolemia type: unspecified Qualified Code(s): E87.70 - Fluid overload, unspecified (5) Hyperkalemia Code(s): E87.5 - HYPERKALEMIA Assessment/Plan Current Medications Generic Name Dose Route Start Last Admin Trade Name Freq PRN Reason Stop Dose Admin Amlodipine Besylate 10 mg 10/30/16 10:00 11/03/16 12:15 Norvasc - PO Not Given DAILY [facility] Calcitriol 0.25 mcg 11/01/16 12:00 11/03/16 12:16 Rocaltrol Liquid - NGT Not Given DAILY [facility] Carvedilol 6.25 mg 11/01/16 12:30 11/03/16 12:15 Coreg - NGT Not Given BID [facility] Chlorhexidine Gluconate 15 ml 11/01/16 10:00 11/03/16 10:00 Peridex - MM 15 ml BID [facility] Administration Haloperidol 5 mg 10/27/16 11:54 10/28/16 19:05 Haldol Injection (Fast Acting) - IM 5 mg Q4H PRN Administration AGITATION Propofol 100 mls @ 1.905 mls/hr 10/28/16 23:45 11/03/16 07:00 Diprivan - IVPB 0 mcg/kg/min TITR [facility] Titration Protocol 5 MCG/KG/MIN Famotidine/Sodium Chloride 50 mls @ 100 mls/hr 10/29/16 10:00 11/03/16 12:15 Pepcid 20 Mg Premixed Ivpb - IVPB Not Given DAILY [facility] Impression 1. ESRD 2. hyperkalemia 3. dementia 4. acute hypoxic respiratory failure 5. pleural effusion 6. a-fib 7. epilepsy 8. hx COPD 9. anemia 10. facial edema 11. hypoglycemia 12. s/p cardiac arrest Plan - pt was dialyzed this morning - will need to clarify GOC - vent support for now - keep off sedation - monitor hg - will follow Dr Maciel
[2016-11-03] MEDS: MORPHINE 100 MG in SODIUM CHLORIDE 98 ML IVPB SCH (18:06)
[2016-11-04] MEDS: PROPOFOL 100 ML IVPB SCH ×2 (06:35→23:20)
--- NOTE | 2016-11-04 07:21 | PN ---
Physical Exam: SUBJECTIVE: Patient seen and examined. oculogyric eye movements with fasciculations in b/l arms and head with normal temp, resolved with ativan. OBJECTIVE: Vital Signs Period Temp Pulse Resp BP Sys/Triplett Pulse Ox Last 24 Hr 97.2 F-99.7 F 68-98 9-22 94-137/52-96 100-100 HEAD: golf-ball sized hematoma over left eye at mideyebrow - black-bluish in appearance soft, skin intact, temporal wasting. EYES: minimal pupilary response to light, dilated, equal b/l. sclera anicteric, conjunctiva injection in left lower conuctiva. ENT: nares patent, oropharynx clear with ET NECK: Trachea midline. LUNGS: anteriorly with coarse breath sounds and scattered rhonchi b/l HEART: Regular rate and rhythm, S1, S2 ABDOMEN: Soft, + bowel sounds in all 4 quadrants, very foul smelling stool EXTREMITIES: weak DP and radial pulses, warm, well-perfused, 3+ edema in b/l UE. left arm fistula with palpable thrill, muscle atrophy in b/l thighs. no edema in feet. NEUROLOGICAL: no response to verbal or noxious stimuli. Laboratory Results - last 24 hr 11/03/16 11/03/16 11/03/16 06:23 07:50 07:50 WBC 8.9 RBC 3.77 L Hgb 10.8 L Hct 33.2 L MCV 87.9 MCHC 32.4 RDW 20.1 H Plt Count 107 L D MPV 8.8 Neutrophils % 87.5 H Lymphocytes % 6.6 L Monocytes % 5.3 Eosinophils % 0.2 Basophils % 0.4 INR Sodium 143 Potassium 4.0 D Chloride 100 Carbon Dioxide 31 Anion Gap 12 BUN 78 H D Creatinine 5.1 H D Creat Clearance w eGFR 11.18 POC Glucometer 130.85733 Random Glucose 92 Calcium 8.0 L Phosphorus 4.0 Total Bilirubin 0.4 AST 31 ALT 16 D Alkaline Phosphatase 171 H Total Protein 6.2 L Albumin 2.5 L 11/03/16 07:50 WBC RBC Hgb Hct MCV MCHC RDW Plt Count MPV Neutrophils % Lymphocytes % Monocytes % Eosinophils % Basophils % INR 1.12 Sodium Potassium Chloride Carbon Dioxide Anion Gap BUN Creatinine Creat Clearance w eGFR POC Glucometer Random Glucose Calcium Phosphorus Total Bilirubin AST ALT Alkaline Phosphatase Total Protein Albumin Active Medications Generic Name Dose Route Start Last Admin Trade Name Freq PRN Reason Stop Dose Admin Amlodipine Besylate 10 mg 10/30/16 10:00 11/03/16 14:05 Norvasc - PO Not Given DAILY [facility] Calcitriol 0.25 mcg 11/01/16 12:00 11/03/16 13:00 Rocaltrol Liquid - NGT 0.25 mcg DAILY [facility] Administration Carvedilol 6.25 mg 11/01/16 12:30 11/03/16 21:46 Coreg - NGT 6.25 mg BID [facility] Administration Chlorhexidine Gluconate 15 ml 11/01/16 10:00 11/03/16 21:46 Peridex - MM 15 ml BID [facility] Administration Haloperidol 5 mg 10/27/16 11:54 10/28/16 19:05 Haldol Injection (Fast Acting) - IM 5 mg Q4H PRN Administration AGITATION Propofol 100 mls @ 1.905 mls/hr 10/28/16 23:45 11/04/16 06:35 Diprivan - IVPB Not Given TITR [facility] Protocol 5 MCG/KG/MIN Famotidine/Sodium Chloride 50 mls @ 100 mls/hr 10/29/16 10:00 11/03/16 13:00 Pepcid 20 Mg Premixed Ivpb - IVPB 100 mls/hr DAILY [facility] Administration Morphine Sulfate 100 mg/ 100 mls @ 1 mls/hr 11/03/16 17:00 11/03/16 18:06 Sodium Chloride IVPB 1 mls/hr TITR [facility] Administration 1 MG/HR ASSESSMENT/PLAN: 71 yr old man with HTN, ESRD on HD (), demetia with agitation, hx of Cardiac arrest, DVT, generalized epilepsy, deemed incompetent and hx of refusing treatments including dialysis,admitted for hyperK, ESRD on HD, and hypothermia, transferred to ICU s/p cardiac arrest on Med-surg floor. - family has opted for compassionate wean, withdrawal of care, and comfort measures for patient. He was anionted yesterday evening as per his Baptism cindy. - extubated this morning at 10Am as per family wishes. PCP aware. - morphine 1mg/hr for pain control with titration and ativan prn for seizure- like activity - stop feeds and medications. - comfort care provided. - can be transferred to private room on Med-surg. Visit type - Emergency Visit Emergency Visit: No - New Patient This patient is new to me today: No - Critical Care Critical Care patient: Yes Total Critical Care Time (in minutes): 36 Critical Care Statement: The care of this patient involved high complexity decision making to prevent further life threatening deterioration of the patient 's condition and/or to evalute & treat vital organ system(s) failure or risk of failure.
[2016-11-04] MEDS ORDERED: LORAZEPAM CARPU-JECT 2 MG/ML DISP.SYRIN IVPUSH ONE (08:00)
[2016-11-04] MEDS ORDERED: LORAZEPAM CARPU-JECT 2 MG/ML DISP.SYRIN ONE (08:12)
[2016-11-04] MEDS: CHLORHEXIDINE GLUCONATE 0.12% 15ML CUP MM SCH ×2 (10:22→21:06)
[2016-11-04] MEDS: amLODIPine BESYLATE 10 MG TABLET (FP) PO SCH (10:22)
[2016-11-04] MEDS: FAMOTIDINE 20 MG/50 ML IVPB 50 ML IVPB SCH (10:22)
[2016-11-04] MEDS: CARVEDILOL 6.25 MG TABLET (FP) NGT SCH ×2 (10:22→21:06)
[2016-11-04] MEDS: CALCITRIOL 1 MCG/ML BOT NGT SCH (10:23)
[2016-11-04] MEDS ORDERED: LORAZEPAM CARPU-JECT 2 MG/ML DISP.SYRIN IVPUSH PRN (10:33)
--- NOTE | 2016-11-04 11:49 | PN ---
Progress Note (short form) - Note Progress Note: terminal extubated today On Morphine drip for comfort Lethargic spoke with resident and nurse Vital Signs - 24 hr 11/03/16 11/03/16 11/03/16 12:00 14:00 14:15 Temperature 97.4 F L Pulse Rate 78 84 Respiratory 14 14 21 Rate Blood Pressure 137/96 98/78 O2 Sat by Pulse Oximetry (%) 11/03/16 11/03/16 11/03/16 16:00 16:21 17:56 Temperature 99.7 F H Pulse Rate 90 Respiratory 14 17 16 Rate Blood Pressure 112/55 O2 Sat by Pulse Oximetry (%) 11/03/16 11/03/16 11/03/16 18:00 20:00 21:30 Temperature 99.4 F Pulse Rate 90 89 Respiratory 14 20 18 Rate Blood Pressure 132/64 128/71 O2 Sat by Pulse 100 Oximetry (%) 11/03/16 11/03/16 11/04/16 22:00 23:39 00:00 Temperature 99.7 F H Pulse Rate 79 86 Respiratory 20 20 20 Rate Blood Pressure 101/62 106/55 O2 Sat by Pulse Oximetry (%) 11/04/16 11/04/16 11/04/16 02:00 02:30 04:00 Temperature Pulse Rate 98 H 77 Respiratory 16 20 9 L Rate Blood Pressure 110/74 117/92 O2 Sat by Pulse Oximetry (%) 11/04/16 11/04/16 11/04/16 05:00 06:00 07:36 Temperature Pulse Rate 78 Respiratory 18 14 14 Rate Blood Pressure 118/90 O2 Sat by Pulse Oximetry (%) 11/04/16 11/04/16 11/04/16 08:00 08:27 09:37 Temperature 98.7 F 98.8 F Pulse Rate 74 76 Respiratory 14 14 Rate Blood Pressure 105/47 114/62 O2 Sat by Pulse 100 100 Oximetry (%) 11/04/16 11/04/16 11/04/16 09:51 09:52 10:29 Temperature Pulse Rate 74 Respiratory 14 Rate Blood Pressure O2 Sat by Pulse 100 99 Oximetry (%) 11/04/16 10:39 Temperature Pulse Rate 82 Respiratory Rate Blood Pressure O2 Sat by Pulse 100 Oximetry (%) Current Medications Generic Name Dose Route Start Last Admin Trade Name Freq PRN Reason Stop Dose Admin Amlodipine Besylate 10 mg 05/20/17 10:00 11/04/16 10:22 Norvasc - PO Not Given DAILY [facility] Calcitriol 0.25 mcg 11/01/16 12:00 11/04/16 10:23 Rocaltrol Liquid - NGT Not Given DAILY [facility] Carvedilol 6.25 mg 11/01/16 12:30 11/04/16 10:22 Coreg - NGT Not Given BID [facility] Chlorhexidine Gluconate 15 ml 11/01/16 10:00 11/04/16 10:22 Peridex - MM 15 ml BID [facility] Administration Haloperidol 5 mg 10/27/16 11:54 10/28/16 19:05 Haldol Injection (Fast Acting) - IM 5 mg Q4H PRN Administration AGITATION Propofol 100 mls @ 1.905 mls/hr 10/28/16 23:45 11/04/16 06:35 Diprivan - IVPB Not Given TITR [facility] Protocol 5 MCG/KG/MIN Famotidine/Sodium Chloride 50 mls @ 100 mls/hr 10/29/16 10:00 11/04/16 10:22 Pepcid 20 Mg Premixed Ivpb - IVPB Not Given DAILY [facility] Morphine Sulfate 100 mg/ 100 mls @ 1 mls/hr 11/03/16 17:00 11/04/16 11:26 Sodium Chloride IVPB 5 mg/hr TITR MAR[facility]N Titration 1 MG/HR Lorazepam 2 mg 11/04/16 10:33 Ativan Injection - IVPUSH Q4H PRN SHIVERING S1 S2 RRR Lungs decreased Abd- soft, ND edema+ lethargic PLAN -- Morohine infusion -- Ativan IV as needed -- family aware -- pt is DNR/DNI -- hospice Problem List - Problems (1) ESRD (end stage renal disease) on dialysis Code(s): N18.6 - END STAGE RENAL DISEASE Z99.2 - DEPENDENCE ON RENAL DIALYSIS (2) Refusal of treatment by patient Code(s): Z53.20 - PROC/TRTMT NOT CRD OUT BEC PT DECISION FOR UNSP REASONS (3) Dementia Code(s): F03.90 - UNSPECIFIED DEMENTIA WITHOUT BEHAVIORAL DISTURBANCE Qualifiers: Dementia type: unspecified type (4) Fluid overload Code(s): E87.70 - FLUID OVERLOAD, UNSPECIFIED Qualifiers: Hypervolemia type: unspecified Qualified Code(s): E87.70 - Fluid overload, unspecified (5) Hyperkalemia Code(s): E87.5 - HYPERKALEMIA
--- NOTE | 2016-11-04 14:41 | PN ---
Progress Note, Physician History of Present Illness: Pt seen in ICU. He is now on comfort care. - Current Medication List Current Medications: Active Medications Amlodipine Besylate (Norvasc -) 10 mg PO DAILY [facility] Last Admin: 11/04/16 10:22 Dose: Not Given Calcitriol (Rocaltrol Liquid -) 0.25 mcg NGT DAILY [facility] Last Admin: 11/04/16 10:23 Dose: Not Given Carvedilol (Coreg -) 6.25 mg NGT BID [facility] Last Admin: 11/04/16 10:22 Dose: Not Given Chlorhexidine Gluconate (Peridex -) 15 ml MM BID [facility] Last Admin: 11/04/16 10:22 Dose: 15 ml Haloperidol (Haldol Injection (Fast Acting) -) 5 mg IM Q4H PRN PRN Reason: AGITATION Last Admin: 10/28/16 19:05 Dose: 5 mg Propofol (Diprivan -) 100 mls @ 1.905 mls/hr IVPB TITR MARLYN; 5 MCG/KG/MIN PRN Reason: Protocol Last Admin: 11/04/16 06:35 Dose: Not Given Famotidine/Sodium Chloride (Pepcid 20 Mg Premixed Ivpb -) 50 mls @ 100 mls/hr IVPB DAILY [facility] Last Admin: 11/04/16 10:22 Dose: Not Given Morphine Sulfate 100 mg/ (Sodium Chloride) 100 mls @ 1 mls/hr IVPB TITR MARLYN PRN Reason: 1 MG/HR Last Titration: 11/04/16 11:26 Dose: 5 mg/hr Lorazepam (Ativan Injection -) 2 mg IVPUSH Q4H PRN PRN Reason: SHIVERING - Objective Vital Signs: Vital Signs Temperature 98.8 F 11/04/16 10:00 Pulse Rate 78 11/04/16 12:00 Respiratory Rate 14 11/04/16 12:00 Blood Pressure 118/55 11/04/16 12:00 O2 Sat by Pulse Oximetry (%) 100 11/04/16 10:39 Constitutional: Yes: Calm Eyes: Yes: Conjunctiva Clear HENT: Yes: Atraumatic Cardiovascular: Yes: S1, S2 Gastrointestinal: Yes: Soft Genitourinary: Yes: Incontinence Musculoskeletal: Yes: Muscle Weakness Edema: Yes Neurological: Yes: Lethargy Labs: CBC, BMP 11/03/16 07:50 11/03/16 07:50 INR, PTT INR 1.12 (0.82-1.09) 11/03/16 07:50 Problem List - Problems (1) ESRD (end stage renal disease) on dialysis Code(s): N18.6 - END STAGE RENAL DISEASE Z99.2 - DEPENDENCE ON RENAL DIALYSIS (2) Refusal of treatment by patient Code(s): Z53.20 - PROC/TRTMT NOT CRD OUT BEC PT DECISION FOR UNSP REASONS (3) Respiratory distress Code(s): R06.00 - DYSPNEA, UNSPECIFIED (4) Fluid overload Code(s): E87.70 - FLUID OVERLOAD, UNSPECIFIED Qualifiers: Hypervolemia type: unspecified Qualified Code(s): E87.70 - Fluid overload, unspecified (5) Hyperkalemia Code(s): E87.5 - HYPERKALEMIA Assessment/Plan Current Medications Generic Name Dose Route Start Last Admin Trade Name Freq PRN Reason Stop Dose Admin Amlodipine Besylate 10 mg 10/30/16 10:00 11/04/16 10:22 Norvasc - PO Not Given DAILY [facility] Calcitriol 0.25 mcg 11/01/16 12:00 11/04/16 10:23 Rocaltrol Liquid - NGT Not Given DAILY [facility] Carvedilol 6.25 mg 11/01/16 12:30 11/04/16 10:22 Coreg - NGT Not Given BID [facility] Chlorhexidine Gluconate 15 ml 11/01/16 10:00 11/04/16 10:22 Peridex - MM 15 ml BID [facility] Administration Haloperidol 5 mg 10/27/16 11:54 10/28/16 19:05 Haldol Injection (Fast Acting) - IM 5 mg Q4H PRN Administration AGITATION Propofol 100 mls @ 1.905 mls/hr 10/28/16 23:45 11/04/16 06:35 Diprivan - IVPB Not Given TITR [facility] Protocol 5 MCG/KG/MIN Famotidine/Sodium Chloride 50 mls @ 100 mls/hr 10/29/16 10:00 11/04/16 10:22 Pepcid 20 Mg Premixed Ivpb - IVPB Not Given DAILY [facility] Morphine Sulfate 100 mg/ 100 mls @ 1 mls/hr 11/03/16 17:00 11/04/16 11:26 Sodium Chloride IVPB 5 mg/hr TITR [facility] Titration 1 MG/HR Lorazepam 2 mg 11/04/16 10:33 Ativan Injection - IVPUSH Q4H PRN SHIVERING Impression 1. ESRD 2. hyperkalemia 3. dementia 4. acute hypoxic respiratory failure 5. pleural effusion 6. a-fib 7. epilepsy 8. hx COPD 9. anemia 10. facial edema 11. hypoglycemia 12. s/p cardiac arrest Plan - pt is now on comfort care - will follow PRN - management per primary team Dr Maciel
--- NOTE | 2016-11-04 15:00 | PN ---
Teaching Attending Note Name of Resident: Danyel Kline ATTENDING PHYSICIAN STATEMENT I saw and evaluated the patient. I reviewed the resident's note and discussed the case with the resident. I agree with the resident's findings and plan as documented. SUBJECTIVE: Patient seen and examined in the ICU. Remains intubated and poorly responsive. AC Mode of vent. No pressors. For compassionate extubation. Intake & Output 11/01/16 11/02/16 11/03/16 11/04/16 23:59 23:59 23:59 23:59 Intake Total 733.2 921.6 605 22 Output Total 800 200 900 155 Balance -66.8 721.6 -295 -133 Weight 132 lb 3.2 oz 130 lb 1.6 oz 131 lb 6.4 oz 127 lb 6.835 oz Last Vital Signs Temp Pulse Resp BP Pulse Ox 98.8 F 78 14 118/55 100 11/04/16 10:00 11/04/16 12:00 11/04/16 12:00 11/04/16 12:00 11/04/16 10:39 Active Medications Amlodipine Besylate (Norvasc -) 10 mg PO DAILY [facility] Last Admin: 11/04/16 10:22 Dose: Not Given Calcitriol (Rocaltrol Liquid -) 0.25 mcg NGT DAILY [facility] Last Admin: 11/04/16 10:23 Dose: Not Given Carvedilol (Coreg -) 6.25 mg NGT BID [facility] Last Admin: 11/04/16 10:22 Dose: Not Given Chlorhexidine Gluconate (Peridex -) 15 ml MM BID [facility] Last Admin: 11/04/16 10:22 Dose: 15 ml Haloperidol (Haldol Injection (Fast Acting) -) 5 mg IM Q4H PRN PRN Reason: AGITATION Last Admin: 10/28/16 19:05 Dose: 5 mg Propofol (Diprivan -) 100 mls @ 1.905 mls/hr IVPB TITR [facility]; 5 MCG/KG/MIN PRN Reason: Protocol Last Admin: 11/04/16 06:35 Dose: Not Given Famotidine/Sodium Chloride (Pepcid 20 Mg Premixed Ivpb -) 50 mls @ 100 mls/hr IVPB DAILY [facility] Last Admin: 11/04/16 10:22 Dose: Not Given Morphine Sulfate 100 mg/ (Sodium Chloride) 100 mls @ 1 mls/hr IVPB TITR [facility]N PRN Reason: 1 MG/HR Last Titration: 11/04/16 11:26 Dose: 5 mg/hr Lorazepam (Ativan Injection -) 2 mg IVPUSH Q4H PRN PRN Reason: SHIVERING General:Yes: intubated, poorly responsive HENT: Yes: Other (hematoma in L frontal/ temporal region) Cardiovascular: Yes: Regular Rate and Rhythm, S1, S2. No: Gallop, Murmur, Rub Respiratory: Yes: Mechanically Ventilated, Scattered Rhonchi Gastrointestinal: Yes: Normal Bowel Sounds, Hypoactive Bowel Sounds Edema: No Peripheral Pulses WNL: Yes Neurological: Yes: Poorly responsive Labs: Laboratory Results - last 24 hr 11/03/16 06:23 POC Glucometer [id number] Problem List - Problems (1) ESRD (end stage renal disease) on dialysis Code(s): N18.6 - END STAGE RENAL DISEASE Z99.2 - DEPENDENCE ON RENAL DIALYSIS (2) Refusal of treatment by patient Code(s): Z53.20 - PROC/TRTMT NOT CRD OUT BEC PT DECISION FOR UNSP REASONS (3) Dementia Code(s): F03.90 - UNSPECIFIED DEMENTIA WITHOUT BEHAVIORAL DISTURBANCE (4) Hypothermia Code(s): T68.XXXA - HYPOTHERMIA, INITIAL ENCOUNTER Qualifiers: Encounter type: initial encounter Qualified Code(s): T68.XXXA - Hypothermia, initial encounter (5) Pleural effusion, right Code(s): J90 - PLEURAL EFFUSION, NOT ELSEWHERE CLASSIFIED (6) Respiratory failure Code(s): J96.90 - RESPIRATORY FAILURE, UNSP, UNSP W HYPOXIA OR HYPERCAPNIA (7) Sepsis Code(s): A41.9 - SEPSIS, UNSPECIFIED ORGANISM Qualifiers: Sepsis type: sepsis due to unspecified organism Qualified Code(s): A41.9 - Sepsis, unspecified organism (8) Hypoglycemia Code(s): E16.2 - HYPOGLYCEMIA, UNSPECIFIED Assessment/Plan For compassionate extubation per family wishes Comfort/supportive measures Dr Clark critical care time spent in reviewing chart, evaluating patient and formulating plan 35 min
[2016-11-04] MEDS: MORPHINE 100 MG in SODIUM CHLORIDE 98 ML IVPB SCH (23:19)
[2016-11-05] MEDS: amLODIPine BESYLATE 10 MG TABLET (FP) PO SCH (09:33)
[2016-11-05] MEDS: CHLORHEXIDINE GLUCONATE 0.12% 15ML CUP MM SCH (09:33)
[2016-11-05] MEDS: CARVEDILOL 6.25 MG TABLET (FP) NGT SCH (09:33)
[2016-11-05] MEDS: CALCITRIOL 1 MCG/ML BOT NGT SCH (09:34)
[2016-11-05] MEDS: FAMOTIDINE 20 MG/50 ML IVPB 50 ML IVPB SCH (09:34)
--- NOTE | 2016-11-05 10:28 | PN ---
Progress Note (short form) - Note Progress Note: S: 71 year old [place] gentleman, history of asystolic arrest with anoxic brain injury, end stage renal disease. Patient is unresponsive to verbal or physical stimuli. Depressed respirations. Active Medications Generic Name Dose Route Start Last Admin Trade Name Freq PRN Reason Stop Dose Admin Amlodipine Besylate 10 mg 10/30/16 10:00 11/05/16 09:33 Norvasc - PO Not Given DAILY [facility] Calcitriol 0.25 mcg 11/01/16 12:00 11/05/16 09:34 Rocaltrol Liquid - NGT Not Given DAILY [facility] Carvedilol 6.25 mg 11/01/16 12:30 11/05/16 09:33 Coreg - NGT Not Given BID [facility] Chlorhexidine Gluconate 15 ml 11/01/16 10:00 11/05/16 09:33 Peridex - MM Not Given BID [facility] Haloperidol 5 mg 10/27/16 11:54 10/28/16 19:05 Haldol Injection (Fast Acting) - IM 5 mg Q4H PRN Administration AGITATION Propofol 100 mls @ 1.905 mls/hr 10/28/16 23:45 11/04/16 23:20 Diprivan - IVPB Not Given TITR [facility] Protocol 5 MCG/KG/MIN Famotidine/Sodium Chloride 50 mls @ 100 mls/hr 10/29/16 10:00 11/05/16 09:34 Pepcid 20 Mg Premixed Ivpb - IVPB Not Given DAILY [facility] Morphine Sulfate 100 mg/ 100 mls @ 1 mls/hr 11/03/16 17:00 11/04/16 23:19 Sodium Chloride IVPB 5 mls/hr TITR [facility] Administration 1 MG/HR Lorazepam 2 mg 11/04/16 10:33 Ativan Injection - IVPUSH Q4H PRN SHIVERING O: 71 year old male was in no acute distress, no pallor, cyanosis, clubbing, or jaundice. Last Vital Signs Temp Pulse Resp BP Pulse Ox 97.8 F 69 6 L 88/42 100 11/05/16 06:00 11/05/16 06:00 11/05/16 08:00 11/05/16 08:00 11/04/16 10:39 Neck: Supple, no JVD, negative HJR, carotids were equal and upstrokes were normal, no thyromegaly appreciated. Heart: PMI was in the 5th intercostal space, no heaves or thrills, S1 and S2 were normal. No murmurs or gallops were appreciated. Lungs: Decreased breath sounds at both bases. Abdomen: Soft, no hepatosplenomegaly appreciated, and no palpable masses were felt. Extremities: No dependent edema. CBC, BMP 11/03/16 07:50 11/03/16 07:50 Impression: (1) Cardiac arrest Code(s): I46.9 - CARDIAC ARREST, CAUSE UNSPECIFIED (2) Anoxic encephalopathy (2) ESRD (end stage renal disease) on dialysis Code(s): N18.6 - END STAGE RENAL DISEASE Z99.2 - DEPENDENCE ON RENAL DIALYSIS (3) Refusal of treatment by patient Code(s): Z53.20 - PROC/TRTMT NOT CRD OUT BEC PT DECISION FOR UNSP REASONS (4) Dementia Code(s): F03.90 - UNSPECIFIED DEMENTIA WITHOUT BEHAVIORAL DISTURBANCE Qualifiers: Dementia type: unspecified type (5) Pleural effusion, right Code(s): J90 - PLEURAL EFFUSION, NOT ELSEWHERE CLASSIFIED (6) Respiratory failure Code(s): J96.90 - RESPIRATORY FAILURE, UNSP, UNSP W HYPOXIA OR HYPERCAPNIA Qualifiers: Chronicity: acute on chronic Respiratory failure complication: hypoxia and hypercapnia Qualified Code(s): J96.21 - Acute and chronic respiratory failure with hypoxia Recommendations: 1. Supportive care. Attestation: Documentation prepared by Flavio Monique, acting as durable medical equipment repairer for Gomez Thompson MD.
--- NOTE | 2016-11-05 10:35 | PN ---
Progress Note (short form) - Note Progress Note: Subjective Patient seen and examined. Chart reviewed. Comfortable. On Morphine drip. Objective Problem List - Problems (1) ESRD (end stage renal disease) on dialysis Code(s): N18.6 - END STAGE RENAL DISEASE Z99.2 - DEPENDENCE ON RENAL DIALYSIS (2) Refusal of treatment by patient Code(s): Z53.20 - PROC/TRTMT NOT CRD OUT BEC PT DECISION FOR UNSP REASONS (3) Dementia Code(s): F03.90 - UNSPECIFIED DEMENTIA WITHOUT BEHAVIORAL DISTURBANCE Qualifiers: Dementia type: unspecified type (4) Fluid overload Code(s): E87.70 - FLUID OVERLOAD, UNSPECIFIED Qualifiers: Hypervolemia type: unspecified Qualified Code(s): E87.70 - Fluid overload, unspecified (5) Hyperkalemia Code(s): E87.5 - HYPERKALEMIA Physical Exam VS: Last Vital Signs Temp Pulse Resp BP Pulse Ox 97.8 F 69 6 L 88/42 100 11/05/16 06:00 11/05/16 06:00 11/05/16 08:00 11/05/16 08:00 11/04/16 10:39 GENERAL: lethargic HEART:S1 S2 RRR LUNG:Lungs decreased ABDOMEN: soft, ND EXTREMITIES: lower extremity edema Labs: CBC, BMP 11/03/16 07:50 11/03/16 07:50 Assessment and Plan On Morpine drip Hospice Continue present care Documentation prepared by Leanne Aleman, acting as a medical practice administrator for Gayla Gerard MD.
[2016-11-05 13:55] VITALS: BP 78/42; PULSE 64; TEMP 96.8
--- NOTE | 2016-11-05 17:24 | HOSP ---
Physical Examination Vital Signs: Vital Signs Temperature 96.8 F L 11/05/16 13:53 Pulse Rate 64 11/05/16 13:53 Respiratory Rate 12 11/05/16 13:53 Blood Pressure 78/42 11/05/16 13:53 O2 Sat by Pulse Oximetry (%) 100 11/05/16 12:24 Labs: CBC, BMP 11/03/16 07:50 11/03/16 07:50 Hospitalist Encounter Assessment: Called to pt bedside for unresponsiveness. On exam the pt was unresponsive, no spontaneous movement observed, pt did not respond to verbal or noxious stimuli. Absent heart and breath sounds for more than 1 min. Pupils are fixed and absent corneal reflex. Patient pronounced at 15:55. Dr. Gerard notified as well as next of kin.
--- NOTE | 2016-11-06 12:04 | DS ---
Physical Examination Vital Signs: Vital Signs Temperature 96.8 F L 11/05/16 13:53 Pulse Rate 64 11/05/16 13:53 Respiratory Rate 12 11/05/16 13:53 Blood Pressure 78/42 11/05/16 13:53 O2 Sat by Pulse Oximetry (%) 100 11/05/16 12:24 Labs: CBC, BMP 11/03/16 07:50 11/03/16 07:50 Discharge Summary Reason For Visit: END STAGE RENAL FAILURE Hospital Course: Pt admitted due to volume overload dialysis pt pt did not do well 11/05/16 Condition: Guarded - Instructions Referrals: Gayla Gerard MD [Primary Care Provider] - Disposition: - Home Medications Comprehensive Discharge Medication List: Ambulatory Orders Acetaminophen 650 mg PO Q6H PRN 10/12/16 Albuterol 0.083% Nebulizer Camryn [Ventolin 0.083% Nebulizer Soln -] 1 neb NEB QID 10/12/16 Amiodarone HCl 200 mg PO DAILY 10/12/16 Amlodipine Besylate 10 mg PO DAILY 10/12/16 Apixaban [Eliquis] 5 mg PO BID 10/12/16 Calcitriol [Calcitriol -] 0.25 mcg PO DAILY 10/12/16 Famotidine 20 mg PO BID 10/12/16 Haloperidol 0.5 mg PO TID 10/12/16 Hydralazine HCl [Apresoline -] 25 mg PO TID 10/12/16 Ipratropium 0.02% Nebulizer [Atrovent 0.02% Nebulizer -] 0.5 mg IH Q6H 10/12/16 Perphenazine 6 mg PO BID 10/12/16 Vitamin B Comp W-C [Nephro-Juana -] 1 ea PO DAILY 10/12/16
== END 2016-11-05 20:00 | disposition expired | DRG 291 ==
LOC: JER 22:41 → JERBED 23:47 → UNDOADMIN 10-27 → JERBED 10-27 → J4S 10-27 12:00 → JICU 10-28 22:08 → J4S 11-04 18:31
PROVIDERS: ADMIT Internal Medicine; ATTEND Internal Medicine
PROC: 5A1955Z Respiratory Ventilation, Greater than 96 Consecutive Hours (ICD-10-PCS; principal; 2016-10-28)
PROC: 0BH18EZ Insertion of Endotracheal Airway into Trachea, Via Natural or Artificial Opening Endoscopic (ICD-10-PCS; 2016-10-28)
PROC: 0CJS8ZZ Inspection of Larynx, Via Natural or Artificial Opening Endoscopic (ICD-10-PCS; 2016-10-28)
PROC: 30233N1 Transfusion of Nonautologous Red Blood Cells into Peripheral Vein, Percutaneous Approach (ICD-10-PCS; 2016-10-29)
DX: I13.2 Hypertensive heart and chronic kidney disease with heart failure and with stage 5 chronic kidney disease, or end stage renal disease (principal); J96.21 Acute and chronic respiratory failure with hypoxia; N18.6 End stage renal disease; I50.33 Acute on chronic diastolic (congestive) heart failure; I48.92 Unspecified atrial flutter; J90 Pleural effusion, not elsewhere classified; G93.1 Anoxic brain damage, not elsewhere classified; E87.5 Hyperkalemia; E87.70 Fluid overload, unspecified; F03.90 Unspecified dementia, unspecified severity, without behavioral disturbance, psychotic disturbance, mood disturbance, and anxiety; I48.0 Paroxysmal atrial fibrillation; G40.909 Epilepsy, unspecified, not intractable, without status epilepticus; J44.9 Chronic obstructive pulmonary disease, unspecified; F20.9 Schizophrenia, unspecified; D64.9 Anemia, unspecified; D69.6 Thrombocytopenia, unspecified; K21.9 Gastro-esophageal reflux disease without esophagitis; E16.2 Hypoglycemia, unspecified; R68.0 Hypothermia, not associated with low environmental temperature; I46.9 Cardiac arrest, cause unspecified
CPT/HCPCS: 31500; 36415; 36430; 36600; 70450-TC; 71010-TC; 74020-TC; 80048; 80053; 82533; 82550; 82553; 82803; 83605; 83735; 84100; 84439; 84443; 84484; 85025; 85027; 85610; 85730; 86850; 86900; 86901; 86922; 87040; 93005; 93010; 94002; 94640; 99285-25; J0885; P9038; P9058